=== PATIENT | female | born 2005 | race Hispanic/Latino ===

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

== ENCOUNTER 2023-10-26 18:08 | Emergency (ER) | payer OTHER ==
--- NOTE | 2023-10-26 18:12 | EDPHYS ---
Physician Documentation [facility] Name: Irene Franco Age: 17 yrs Sex: Female : 2005 Arrival Date: 10/26/2023 Time: 18:08 Bed 22 Private MD: ED Physician Omar Arango HPI: 10/25 21:56 This 17 yrs old Female presents to ER via EMS with complaints of Heat Exposure. kb 21:56 Pt is a 17 year old female who presents for heat exposure and syncope. Pt states she kb walked from [place] to [place], then got to her grandparents house and they wouldn't let her in. States she sat down on grandparents porch and woke up with her grandparents standing over her. EMS reports pt was outside in the yard when they arrived and was awake and alert. . Historical: - Allergies: 18:19 No Known Allergies; ss - Home Meds: 18:19 Unable to obtain [Active]; ss - PMHx: 18:19 Anxiety; Depressive disorder; ss - Social history:: Smoking status: unknown. ROS: 21:53 Constitutional: As per HPI kb Exam: 21:53 Constitutional: This is a well developed, well nourished patient who is awake, alert, kb and in no acute distress. Head/Face: Normocephalic, atraumatic. ENT: Moist Mucous membranes Cardiovascular: Regular rate Respiratory: Respirations even and unlabored. No increased work of breathing. Talking in full sentences Abdomen/GI: Soft, non-tender. No distention Skin: Warm, dry with normal turgor. Normal color. MS/ Extremity: Pulses equal, no cyanosis. Neurovascular intact. Full, normal range of motion. Neuro: Awake and alert, GCS 15, oriented to person, place, time, and situation. Moves all extremities. Normal gait. Vital Signs: 18:17 BP 130 / 78; Pulse 101; Resp 16; Temp 99.2(O); Pulse Ox 99% on R/A; ss MDM: 18:10 Patient medically screened. kb 21:53 Differential Diagnosis: emotional response, idiopathic syncope, vasovagal episode, kb dehydration. Data reviewed: vital signs, nurses notes. Test considered but Not performed: Labs: labs considered and ordered but pt does not want any testing done. . Historians other than the Patient: EMS: [facility]. Counseling: I had a detailed discussion with the patient and/or guardian regarding the historical points, exam findings, and any diagnostic results supporting the discharge/admit diagnosis, the need for outpatient follow up, a family practitioner, to return to the emergency department if symptoms worsen or persist or if there are any questions or concerns that arise at home. Refusal of service: The patient/guardian displays adequate decision making capability and despite a detailed discussion of alternatives, benefits, risks, and consequences refuses: all lab tests, Medications. ED course: Pt states she really does not want to be here. States she is feeling fine and just wants to go home. Pt is awake, alert and oriented x4. I recommended blood work, ekg and IV fluids, but pt declines all intervention. I stressed these interventions multiple times, but pt continues to decline. Pt educated on return precautions. . 10/25 18:11 Order name: Cardiac monitoring 10/25 18:11 Order name: EKG - Nurse/Tech 10/25 18:11 Order name: IV Saline Lock 10/25 18:11 Order name: Labs collected and sent 10/25 18:11 Order name: NPO 10/25 18:11 Order name: O2 Per Protocol 10/25 18:11 Order name: O2 Sat Monitoring 10/25 18:11 Order name: Orthostatics Administered Medications: No medications were administered Disposition Summary: 10/26/23 18:11 Discharge Ordered Notes: Location: Home kb Condition: Stable kb Diagnosis - Syncope kb - Heat exhaustion, unspecified kb Followup: kb - With: Emergency Department - When: As needed - Reason: Worsening of condition Followup: kb - With: Private Physician - When: 2 - 3 days - Reason: Recheck today's complaints, Continuance of care, Re-evaluation by your physician Discharge Instructions: - Discharge Summary Sheet kb - Heat Exhaustion kb - Preventing Heat Exhaustion, Adult kb Forms: - Medication Reconciliation Form kb - Antibiotic Education kb - Prescription Opioid Use kb - Patient Portal Instructions kb - Leadership Thank You Letter kb Signatures: Dispatcher [employer] Margoth Cisneros FNP-C FNP-Ckb Blanchard, Shelby RN RN ss Corrections: (The following items were deleted from the chart) 18:21 18:19 Allergies: Unable to obtain; ss ss : PMHx: Unable to Obtain; [facility] : PSHx: Unable to Obtain; [facility] PSHx: anxiety; [facility] PSHx: Depression; ss ss
--- NOTE | 2023-10-26 18:25 | ER ---
Nurse's Notes [facility] Name: Irene Franco Age: 17 yrs Sex: Female : 2005 Arrival Date: 10/26/2023 Time: 18:08 Bed 22 Private MD: Diagnosis: Syncope;Heat exhaustion, unspecified Presentation: 10/25 18:17 Chief complaint: EMS states: called out for unresponsive person after walking to family ss member's home from [place] to [place]. Upon EMS arrival, patient was reportedly awake and talking, but anxious. Upon arrival to ER, patient states she does not want to be here and does not want to be evaluated further. Coronavirus screen: Client denies travel out of the [place] in the last 14 days. Ebola Screen: Patient denies exposure to infectious person. Patient denies travel to an Ebola-affected area in the 21 days before illness onset. Initial Sepsis Screen: Does the patient meet any 2 criteria? No. Patient's initial sepsis screen is negative. Does the patient have a suspected source of infection? No. Patient's initial sepsis screen is negative. Risk Assessment: Do you want to hurt yourself or someone else? Patient reports no desire to harm self or others. Onset of symptoms was October 26, 2023. 18:17 Method Of Arrival: EMS: [facility] 18:17 Acuity: IRINA 3 18:17 Care prior to arrival: IV initiated. 22 GA, in the right hand. Triage Assessment: 18:19 General: Appears in no apparent distress. Behavior is cooperative. Pain: Denies pain. ss Neuro: Level of Consciousness is awake, alert, obeys commands, Oriented to person, place, time, situation. Respiratory: Airway is patent Respiratory effort is even, unlabored, Respiratory pattern is regular, symmetrical. Historical: - Allergies: 18:19 No Known Allergies; ss - Home Meds: 18:19 Unable to obtain [Active]; ss - PMHx: 18:19 Anxiety; Depressive disorder; - Social history:: Smoking status: unknown. Assessment: 18:22 Reassessment: SEE TRIAGE ASSESSMENT. ss 18:23 Reassessment: IV dc'd by EMS personnel while patient was still on stretcher in ER hallway. Vital Signs: 18:17 BP 130 / 78; Pulse 101; Resp 16; Temp 99.2(O); Pulse Ox 99% on R/A; ss ED Course: 18:10 Patient arrived in ED. kb 18:10 Margoth Andrew FNP-C is [facility]. kb 18:10 Omar Arango MD is Attending Physician. kb 18:19 Triage completed. ss 18:19 Arm band placed on right wrist. ss 18:22 No provider procedures requiring assistance completed. IV dc'd by EMS personnel. ss Administered Medications: No medications were administered Medication: 18:22 VIS not applicable for this client. ss Outcome: 18:11 Discharge ordered by . kb 18:23 Discharged to home ambulatory, ss 18:23 Condition: good 18:23 Discharge instructions given to patient, patient left prior to receiving discharge papers Instructed on discharge instructions, follow up and referral plans. Demonstrated understanding of instructions, follow-up care, 18:25 Patient left the ED. ss Signatures: Margoth Andrew FNP-C FNP-Ckb Mervat Gustafson, RN RN ss Corrections: (The following items were deleted from the chart) 18: 18:19 Allergies: Unable to obtain; ss ss 18: 18:19 PMHx: Unable to Obtain; ss ss 18: 18:19 PSHx: Unable to Obtain; ss ss 18: 18:19 PSHx: anxiety; ss ss 18: 18:19 PSHx: Depression; ss ss
[2023-10-26 18:29] VITALS: BP 130/78; TEMP 99.2; O2SAT 99
== END 2023-10-26 18:25 | disposition home or self-care (01) ==
LOC: ER 18:08
DX: R55 Syncope and collapse (principal); T67.5XXA Heat exhaustion, unspecified, initial encounter
CPT/HCPCS: 99283

== ENCOUNTER 2023-10-29 20:04 | Emergency (ER) | payer OTHER ==
[2023-10-29] MEDS ORDERED: NA CHLORIDE 0.9% 1,000 ML ONE (21:00)
[2023-10-29 21:09] LABS: Specific Gravity 1.028 (1.005-1.030); Urine Bacteria <20 /HPF (<20); Urine Bilirubin NEGATIVE (Negative); Urine Blood Trace (Negative); Urine Clarity Turbid (Clear); Urine Color Light-Yellow (Yellow); Urine Culture Reflex Order REFLEXED; Urine Glucose NEGATIVE (Negative); Urine Ketones NEGATIVE (Negative); Urine Microscopic Reflex YN ORDER UMIC; Urine Mucus 2+ /HPF (None Seen); Urine Nitrite NEGATIVE (Negative); Urine Protein NEGATIVE (Negative); Urine Urobilinogen Normal (Normal); Urine pH 5.5 (5.0-7.0)
[2023-10-29 21:14] LABS: Barbiturates NEGATIVE (NEGATIVE); Benzodiazepines NEGATIVE (NEGATIVE); Cocaine NEGATIVE (NEGATIVE); METHAMPHETAM NEGATIVE (NEGATIVE); Methadone NEGATIVE (NEGATIVE); Opiates NEGATIVE (NEGATIVE); Phencyclidine NEGATIVE (NEGATIVE); THC Cannibis POSITIVE (NEGATIVE)
[2023-10-29 21:19] LABS: Absolute Lymphocytes (CBC) 1.6 K/uL (0.7-4.9); Absolute Monocytes 0.6 K/uL (0.1-1.3); Absolute Neutrophil 6.1 K/uL (1.8-8.0); Basophils % 0.4 % (0-1.3); Eosinophils % 0.5 % (0-4.4); Hematocrit 37.2 % (36.0-45.0); Hemoglobin 12.6 g/dL (12.0-15.0); Lymphocytes % 18.7 % (15.3-44.8); MCH 27.1 pg (27.0-35.0); MCV 79.9 fL (80-100); MPV 7.1 fL (7.6-11.3); Monocytes % 7.3 % (3.3-12.3); Neutrophils % 73.1 % (41.7-73.7); Nucleated Red Blood Cells % 0.2 % (0-0); Platelets 403 thou/uL (152-406); RBC Red Blood Cell Count 4.65 M/uL (3.86-4.86); Red Cell Distribution Width 17.6 % (12.1-15.2)
[2023-10-29 21:33] LABS: PT Prothrombin Time 12.7 SECONDS (9.5-12.5); PTT, Activated Partial Thromb 33.8 SECONDS (24.3-36.9); Protime INR 1.16
[2023-10-29 21:45] LABS: Specific Gravity 1.028 (1.005-1.030)
[2023-10-29] MEDS ORDERED: CEFTRIAXONE 1000 MG/VIAL ONE (22:09)
[2023-10-29 22:10] LABS: ALT/SGPT 18 U/L (13-56); Albumin 3.9 g/dL (3.4-5.0); Alkaline Phosphatase 77 U/L (45-117); Anion Gap 8.1 mEq/L (5.0-15.0); BUN Blood Urea Nitrogen 13 mg/dL (7-18); Bicarbonate 29 mEq/L (21-32); Bilirubin Total 0.4 mg/dL (0.2-1.0); Globulin 4.1 g/dL (2.3-3.5); Glomerular Filtration Rate 128 ml/min (=/>90); Glucose Level 84 mg/dL (74-106); Potassium 4.1 mEq/L (3.5-5.1); Sodium Level 136 mEq/L (136-145)
[2023-10-29 22:13] LABS: AST/SGOT < 10 U/L (15-37); Bilirubin Direct < 0.2 mg/dL (0-0.2); Bilirubin Indirect, Calculated 0.2 mg/dL (0.2-0.8)
--- NOTE | 2023-10-29 22:20 | RAD REPORT ---
EXAM DESCRIPTION: CT - Head Brain Wo Cont - 10/29/2023 9:36 pm CLINICAL HISTORY: SEIZURE Headache, drowsiness, seizure COMPARISON: No comparisons TECHNIQUE: All CT scans are performed using dose optimization technique as appropriate and may inclu de automated exposure control or mA/KV adjustment according to patient size. FINDINGS: No intracranial hemorrhage, hydrocephalus or extra-axial fluid collection.No areas of brai n edema or evidence of midline shift. The paranasal sinuses and mastoids are clear. The calvarium is intact. IMPRESSION: No acute intracranial abnormality.
--- NOTE | 2023-10-29 22:41 | EDPHYS ---
Physician Documentation [facility] Name: Irene Franco Age: 17 yrs Sex: Female : 2005 Arrival Date: 10/29/2023 Time: 20:04 Bed 19 Private MD: HUBER Physician Omar Arango HPI: 10/28 20:38 This 17 yrs old Female presents to ER via Wheelchair with complaints of Probable nigel Seizure. 20:38 The patient presents after having a single isolated seizure, that lasted an unknown nigel period of time, with a history of multiple seizures, that last an unknown period of time. Character of seizure(s): Loss of consciousness: it is not known if the patient experienced loss of consciousness, Motor activity: generalized, shaking all over, Incontinence: none, Apnea: the patient did not experience apnea, Circulation: the patient did not experience evidence of pulse disturbance, Eye movements: are unknown. Seizure onset: the onset is not known. Context: the seizure(s) was witnessed, by a friend, occurred at a friend's home, occurred while the patient was UNK. Seizure Hx: the patient has no previous seizure history. Associated injury: The patient did not suffer any apparent associated injury. Current symptoms: Currently, the patient is not experiencing any symptoms, the patient feels back to baseline. The patient has experienced similar episodes in the past, several times. 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 - Infectious Disease History:: Denies. - Social history:: Smoking status: Reported history of juuling and/or vaping. Patient/guardian denies using alcohol, street drugs. - Family history:: not pertinent. ROS: 20:38 Constitutional: Negative for fever, chills, and weight loss, Eyes: Negative for injury, nigel pain, redness, and discharge, ENT: Negative for injury, pain, and discharge, Neck: Negative for injury, pain, and swelling, Cardiovascular: Negative for chest pain, palpitations, and edema, Respiratory: Negative for shortness of breath, cough, wheezing, and pleuritic chest pain, Abdomen/GI: Negative for abdominal pain, nausea, vomiting, diarrhea, and constipation, Back: Negative for injury and pain, : Negative for injury, bleeding, discharge, and swelling, MS/Extremity: Negative for injury and deformity, Skin: Negative for injury, rash, and discoloration, Psych: Negative for depression, anxiety, suicide ideation, homicidal ideation, and hallucinations, Allergy/Immunology: Negative for hives, rash, and allergies, Endocrine: Negative for neck swelling, polydipsia, polyuria, polyphagia, and marked weight changes, Hematologic/Lymphatic: Negative for swollen nodes, abnormal bleeding, and unusual bruising, 20:38 Neuro: Positive for seizure activity, Exam: 20:38 Constitutional: This is a well developed, well nourished patient who is awake, alert, nigel and in no acute distress. Head/Face: Normocephalic, atraumatic. Eyes: Pupils equal round and reactive to light, extra-ocular motions intact. Lids and lashes normal. Conjunctiva and sclera are non-icteric and not injected. Cornea within normal limits. Periorbital areas with no swelling, redness, or edema. ENT: Nares patent. No nasal discharge, no septal abnormalities noted. Tympanic membranes are normal and external auditory canals are clear. Oropharynx with no redness, swelling, or masses, exudates, or evidence of obstruction, uvula midline. Mucous membranes moist. Neck: Trachea midline, no thyromegaly or masses palpated, and no cervical lymphadenopathy. Supple, full range of motion without nuchal rigidity, or vertebral point tenderness. No Meningismus. Chest/axilla: Normal chest wall appearance and motion. Nontender with no deformity. No lesions are appreciated. Cardiovascular: Regular rate and rhythm with a normal S1 and S2. No gallops, murmurs, or rubs. Normal PMI, no JVD. No pulse deficits. Respiratory: Lungs have equal breath sounds bilaterally, clear to auscultation and percussion. No rales, rhonchi or wheezes noted. No increased work of breathing, no retractions or nasal flaring. Abdomen/GI: Soft, non-tender, with normal bowel sounds. No distension or tympany. No guarding or rebound. No evidence of tenderness throughout. Back: No spinal tenderness. No costovertebral tenderness. Full range of motion. Skin: Warm, dry with normal turgor. Normal color with no rashes, no lesions, and no evidence of cellulitis. MS/ Extremity: Pulses equal, no cyanosis. Neurovascular intact. Full, normal range of motion. Neuro: Awake and alert, GCS 15, oriented to person, place, time, and situation. Cranial nerves II-XII grossly intact. Motor strength 5/5 in all extremities. Sensory grossly intact. Cerebellar exam normal. Normal gait. Psych: Awake, alert, with orientation to person, place and time. Behavior, mood, and affect are within normal limits. 20:38 ECG was reviewed by the Attending Physician. 21:37 ECG was reviewed by the Attending Physician. [facility] Vital Signs: 20:17 BP 122 / 79; Pulse 96; Resp 20; Temp 99.2; Pulse Ox 98% ; Weight 63.5 kg; Height 5 ft. bm8 0 in. ; Pain 0/10; 21:00 BP 117 / 67; Pulse 100; Resp 16; Pulse Ox 99% on R/A; me1 21:00 BP 118 / 70; Pulse 95; Resp 16; Pulse Ox 100% ; me1 21:00 BP 113 / 71; Pulse 92; Resp 16; Pulse Ox 99% on R/A; me1 20:17 Body Mass Index 27.34 (63.50 kg, 152.4 cm) - Percentile 87.8 % bm8 20:17 Pain Scale: Adult bm8 Katerin Coma Score: 20:19 Eye Response: spontaneous(4). Motor Response: obeys commands(6). Verbal Response: bm8 oriented(5). Total: 15. MDM: 20:14 Patient medically screened. [facility] 20:41 Differential diagnosis: drug overdose, cardiac arrhythmia, seizure. Data reviewed: [facility] vital signs, nurses notes, lab test result(s), EKG, radiologic studies, CT scan. Consideration of Admission/Observation Escalation of care including admission/observation considered. I considered the following discharge prescriptions or medication management in the emergency department Medications were administered in the Emergency Department. See MAR. Independent interpretation of the following test(s) in the Emergency Department EKG: See my EKG interpretation above. Test considered but Not performed: MRI: NO MRI , NO EEG. Care significantly affected by the following chronic conditions: SUBSTANCE ABUSE, ANXIETY. Counseling: I had a detailed discussion with the patient and/or guardian regarding the historical points, exam findings, and any diagnostic results supporting the discharge/admit diagnosis, lab results, radiology results, the need for outpatient follow up, for definitive care, a family practitioner, a neurologist, a psychiatrist. 10/28 20:19 Order name: Acetaminophen; Complete Time: 22:40 [facility] 10/28 20:19 Order name: Basic Metabolic Panel; Complete Time: 22:40 [facility] 10/28 20:19 Order name: CBC with Diff; Complete Time: 21:52 [facility] 10/28 20:19 Order name: ETOH Level; Complete Time: 22:40 [facility] 10/28 20:19 Order name: Hepatic Function; Complete Time: 22:40 [facility] 10/28 20:19 Order name: PT-INR; Complete Time: 21:52 [facility] 10/28 20:19 Order name: Test, Urine; Complete Time: 21:52 [facility] 10/28 20:19 Order name: Ptt, Activated; Complete Time: 21:52 [facility] 10/28 20:19 Order name: Salicylate; Complete Time: 22:40 [facility] 10/28 20:19 Order name: Urinalysis w/ reflexes; Complete Time: 21:52 [facility] 10/28 20:19 Order name: Urine Drug Screen; Complete Time: 21:52 [facility] 10/28 21:13 Order name: Urine Culture [facility] 10/28 20:19 Order name: CT Head Brain wo Cont; Complete Time: 22:40 [facility] 10/28 20:19 Order name: EKG; Complete Time: 20:20 [facility] 10/28 20:19 Order name: EKG - Nurse/Tech; Complete Time: 21:26 [facility] 10/28 20:19 Order name: IV Saline Lock; Complete Time: 20:55 [facility] 10/28 20:19 Order name: Labs collected and sent; Complete Time: 20:55 [facility] 10/28 20:19 Order name: Suicide Precautions; Complete Time: 20:55 [facility] 10/28 20:19 Order name: Suicide Screening ([place]); Complete Time: 20:55 [facility] 10/28 20:19 Order name: Seizure Precautions; Complete Time: 21:13 [facility] EC:37 Rate is 89 beats/min. Rhythm is regular. QRS [place] is Normal. MA interval is normal. QRS nigel interval is normal. QT interval is normal. No Q waves. T waves are Normal. No ST changes noted. Clinical impression: Normal ECG and No evidence of ischemia. Interpreted by me. Reviewed by me. Administered Medications: 20:33 Not Given (Patient Refused): ns 0.9% 1000 ml IV at 1 bolus Per protocol; 1000 mL bolus me1 21:04 Drug: NS 0.9% IV 1000 ml IV at 1 bolus Per protocol; 1000 mL bolus Route: IV; Rate: 1 me1 bolus; Site: right antecubital; 22:58 Follow up: Response: No adverse reaction; IV Status: Completed infusion; IV Intake: me1 1000ml 22:12 Drug: Rocephin IV 1 grams IV at bolus once; Given slow IV push per pharmacy me1 instructions Route: IV; Rate: bolus; Site: right antecubital; 22:58 Follow up: Response: No adverse reaction; IV Status: Completed infusion me1 Disposition Summary: 10/29/23 22:40 Discharge Ordered Notes: Location: Home nigel Problem: new nigel Symptoms: have improved nigel Condition: Stable nigel Diagnosis - Other seizures nigel - Adverse effect of unspecified drugs, medicaments and biological substances - nigel PERCOCET - Adverse effect of other narcotics - ABUSE nigel - UTI/ Urinary tract infection, site not specified nigel Followup: nigel - With: Private Physician - When: 2 - 3 days - Reason: Recheck today's complaints, Continuance of care, Re-evaluation by your physician Followup: nigel - With: Good Li MD - When: 2 - 3 days - Reason: Recheck today's complaints, Re-evaluation by your physician Followup: nigel - With: Soto Gonzalez MD - When: 2 - 3 days - Reason: Recheck today's complaints, Re-evaluation by your physician Discharge Instructions: - Discharge Summary Sheet nigel - Substance Use Disorder nigel - Seizure, Adult nigel - Urinary Tract Infection, Adult nigel - Urinary Tract Infection, Adult, [id number] nigel - Seizure, Adult, [id number] nigel - Epilepsy, [id number] nigel - Substance Use Disorder and Mental Illness nigel - Supporting Someone With Substance Use Disorder [facility] Forms: - Medication Reconciliation Form nigel - Antibiotic Education nigel - Prescription Opioid Use nigel - Patient Portal Instructions nigel - Leadership Thank You Letter nigel Prescriptions: - Cipro 250 mg Oral tablet - take 1 tablet ORAL route every 12 hours; 14 tablet; Refills: 0, Product nigel Selection Permitted Signatures: Dispatcher [employer] Omar Post MD MD cha Eddleman, Michelle, RN RN me1 Donny Daily RN RN bm8
--- NOTE | 2023-10-29 22:41 | ER ---
Nurse's Notes [facility] Name: Irene Franco Age: 17 yrs Sex: Female : 2005 Arrival Date: 10/29/2023 Time: 20:04 Bed 19 Private MD: Diagnosis: Other seizures;Adverse effect of unspecified drugs, medicaments and biological substances-PERCOCET;Adverse effect of other narcotics-ABUSE;UTI/ Urinary tract infection, site not specified Presentation: 10/28 20:17 Chief complaint: Patient states: I dont have any pain but i think i got to hot and just bm8 fell out. i think my grand parents are trying to kick me out. Parent and/or Guardian states: I think she is taking something, she had two possible seizures today where she was twitching really bad and it last about 2 mins.. we are concerned she might want to hurt herself. Coronavirus screen: Client denies travel out of the [place] in the last 14 days. At this time, the client does not indicate any symptoms associated with coronavirus-19. Ebola Screen: Patient negative for fever greater than or equal to 101.5 degrees Fahrenheit, and additional compatible Ebola Virus Disease symptoms Patient denies exposure to infectious person. Patient denies travel to an Ebola-affected area in the 21 days before illness onset. No symptoms or risks identified at this time. Initial Sepsis Screen: Does the patient meet any 2 criteria? No. Patient's initial sepsis screen is negative. Does the patient have a suspected source of infection? No. Patient's initial sepsis screen is negative. Risk Assessment: Do you want to hurt yourself or someone else? Patient reports no desire to harm self or others. Onset of symptoms is unknown. 20:17 Method Of Arrival: Wheelchair bm8 20:17 Acuity: IRINA 3 bm8 Triage Assessment: 20:19 General: Appears in no apparent distress. comfortable, well groomed, well developed, bm8 Behavior is calm, cooperative, appropriate for age. Pain: Denies pain. EENT: No deficits noted. No signs and/or symptoms were reported regarding the EENT system. Neuro: No deficits noted. Level of Consciousness is awake, alert, obeys commands, Oriented to person, place, time, situation, Appropriate for age Electrical Equipment Assembler are equal bilaterally Moves all extremities. Full function Speech is normal, Facial symmetry appears normal. Cardiovascular: No deficits noted. Capillary refill < 3 seconds Patient's skin is warm and dry. Respiratory: Airway is patent Respiratory effort is even, unlabored, Respiratory pattern is regular, symmetrical. GI: Abdomen is. GI: No signs and/or symptoms were reported involving the gastrointestinal system. Abdomen is flat, non-distended. : : No signs and/or symptoms were reported regarding the genitourinary system. Derm: No signs and/or symptoms reported regarding the dermatologic system. Musculoskeletal: No signs and/or symptoms reported regarding the musculoskeletal system. 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 - Infectious Disease History:: Denies. - Social history:: Smoking status: Reported history of juuling and/or vaping. Patient/guardian denies using alcohol, street drugs. - Family history:: not pertinent. Screenin:27 [facility] ED Fall Risk Assessment (Adult) History of falling in the last 3 months, me1 including since admission No falls in past 3 months (0 pts) Confusion or Disorientation No (0 pts) Intoxicated or Sedated No (0 pts) Impaired Gait No (0 pts) Mobility Assist Device Used No (0 pt) Altered Elimination No (0 pt) Score/Fall Risk Level 0 - 2 = Low Risk Maintained a safe environment, Provided non-skid footwear, Hourly rounding (assess needs \T\ fall precautionary measures) done. Abuse screen: Denies threats or abuse. Nutritional screening: No deficits noted. Tuberculosis screening: No symptoms or risk factors identified. Assessment: 20:32 General: Patient refusing all medical treatment at this time, Dr Arango notified. . me1 20:33 General: Grandfather talked to patient and she agreed to stay. Dr Arango notified. . me1 21:27 General: Appears comfortable, well developed, well nourished, Behavior is cooperative, me1 appropriate for age, quiet, Reports states that she took percocet today, that she has been taking them daily for 3 years now and that she took some this morning last. Pain: Denies pain. Neuro: Level of Consciousness is awake, alert, obeys commands, Oriented to person, place, time, situation, Appropriate for age. 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 Cardiovascular: Patient's skin is warm and dry. Respiratory: Airway is patent Respiratory effort is even, unlabored, Respiratory pattern is regular, symmetrical. GI: No signs and/or symptoms were reported involving the gastrointestinal system. : No signs and/or symptoms were reported regarding the genitourinary system. EENT: No signs and/or symptoms were reported regarding the EENT system. Derm: Skin is intact, is healthy with good turgor, Skin is pink, warm \T\ dry. Musculoskeletal: No signs and/or symptoms reported regarding the musculoskeletal system. Vital Signs: 20:17 BP 122 / 79; Pulse 96; Resp 20; Temp 99.2; Pulse Ox 98% ; Weight 63.5 kg; Height 5 ft. bm8 0 in. ; Pain 0/10; 21:00 BP 117 / 67; Pulse 100; Resp 16; Pulse Ox 99% on R/A; me1 21:00 BP 118 / 70; Pulse 95; Resp 16; Pulse Ox 100% ; me1 21:00 BP 113 / 71; Pulse 92; Resp 16; Pulse Ox 99% on R/A; me1 20:17 Body Mass Index 27.34 (63.50 kg, 152.4 cm) - Percentile 87.8 % bm8 20:17 Pain Scale: Adult bm8 [place] Coma Score: 20:19 Eye Response: spontaneous(4). Motor Response: obeys commands(6). Verbal Response: bm8 oriented(5). Total: 15. ED Course: 20:04 Patient arrived in ED. [email or web address] 20:14 Omar Arango MD is Attending Physician. nigel 20:16 Donny Daily, DINA is Primary Nurse. bm8 20:19 Triage completed. bm8 20:19 Arm band placed on right wrist. Patient placed in an exam room, in a wheelchair, on bm8 cardiac nurse, on pulse oximetry. 20:46 Urinalysis w/ reflexes Sent. me1 20:46 Urine Drug Screen Sent. me1 20:46 Urine collected: clean catch specimen, cloudy. me1 20:55 Acetaminophen Sent. me1 20:55 Basic Metabolic Panel Sent. me1 20:55 CBC with Diff Sent. me1 20:55 ETOH Level Sent. me1 20:55 Hepatic Function Sent. me1 20:55 PT-INR Sent. me1 20:56 Test, Urine Sent. me1 20:56 Ptt, Activated Sent. me1 20:56 Salicylate Sent. me1 20:56 Urinalysis w/ reflexes Sent. me1 20:56 Urine Drug Screen Sent. me1 20:56 Initial lab(s) drawn, by nd, sent to lab. Inserted saline lock: 22 gauge in right nd1 antecubital area, using aseptic technique. 21:27 Patient has correct armband on for positive identification. Bed in low position. Call nd1 light in reach. Side rails up X2. Seizure precautions initiated. Provided Education on: POC. Verbalized understanding. . 21:27 EKG done, by ED staff, reviewed by Omar Arango MD. me1 21:27 No provider procedures requiring assistance completed. me1 21:38 CT Head Brain wo Cont In Process Unspecified. EDMS 22:40 Good Li MD is Referral Physician. nigel 22:40 Soto Gonzalez MD is Referral Physician. [facility] 22:55 IV discontinued, intact, bleeding controlled, No redness/swelling at site. Pressure me1 dressing applied. Administered Medications: 20:33 Not Given (Patient Refused): ns 0.9% 1000 ml IV at 1 bolus Per protocol; 1000 mL bolus me1 21:04 Drug: NS 0.9% IV 1000 ml IV at 1 bolus Per protocol; 1000 mL bolus Route: IV; Rate: 1 me1 bolus; Site: right antecubital; 22:58 Follow up: Response: No adverse reaction; IV Status: Completed infusion; IV Intake: me1 1000ml 22:12 Drug: Rocephin IV 1 grams IV at bolus once; Given slow IV push per pharmacy me1 instructions Route: IV; Rate: bolus; Site: right antecubital; 22:58 Follow up: Response: No adverse reaction; IV Status: Completed infusion me1 Medication: 21:27 VIS not applicable for this client. me1 Intake: 22:58 IV: 1000ml; Total: 1000ml. me1 Outcome: 22:40 Discharge ordered by . nigel 22:55 Discharged to home ambulatory, with family, me1 22:55 Condition: stable 22:55 Discharge instructions given to patient, family, Instructed on discharge instructions, follow up and referral plans. medication usage, Demonstrated understanding of instructions, follow-up care, medications, Prescriptions given X , :58 Patient left the ED. me1 Signatures: Dispatcher [employer] EDTX Omar Arango MD MD cha Jeffries, Jennifer [email or web address] Shruthi Ramirez, DINA RN nd1 Donny Daily RN RN bm8
[2023-10-29 23:08] VITALS: BP 113/71; TEMP 99.2; O2SAT 99
--- NOTE | 2023-10-30 14:53 | EKG ---
Test Date: 2023-10-29 Test Time: 21:20:08 Group Insurance Special Agent: MEASUREMENT RESULTS: Intervals: Rate: 89 AL: 168 QRSD: 80 QT: 362 QTc: 440 Dumont: P: 53 AL: 168 QRS: 79 T: 65 INTERPRETIVE STATEMENTS: Normal sinus rhythm Normal ECG No previous ECG available for comparison Electronically Signed On 10-30-23 14:50:50 CDT by Cy Godwin
== END 2023-10-29 22:58 | disposition home or self-care (01) ==
LOC: ER 20:04
DX: R56.9 Unspecified convulsions (principal); T40.2X5A Adverse effect of other opioids, initial encounter; N39.0 Urinary tract infection, site not specified; T40.695A Adverse effect of other narcotics, initial encounter
CPT/HCPCS: 96365; 96361; 93005; 87088; 85025; 81001; 87086; 80048; 36415; 81025; 85610; 80076; 85730; 80307; 70450; 99284; 80143; 80179; 82077; J7030; J0696

== ENCOUNTER 2023-12-28 18:44 | Emergency (ER) | payer OTHER ==
--- NOTE | 2023-12-28 19:13 | EDPHYS ---
Physician Documentation [facility] Name: Irene Franco Age: 18 yrs Sex: Female : 2005 Arrival Date: 12/28/2023 Time: 18:44 Bed 4 Private MD: ED Physician Omar Arango HPI: 12/27 18:55 This 18 yrs old Female presents to ER via EMS with complaints of percocet withdrawal. cp 18:55 The patient presents to the emergency department with nausea, that is moderate, cp vomiting, that is intermittent, diarrhea, that is intermittent. Onset: The symptoms/episode began/occurred today. Possible causes: withdrawal from taking "Percocet". 18:55 Associated signs and symptoms: Pertinent negatives: fever, GI bleeding. Severity of cp symptoms: in the emergency department the symptoms are unchanged despite EMS interventions. Historical: - Allergies: 18:54 No Known Allergies; me1 - PMHx: 18:54 Anxiety; depressive disorder; me1 - PSHx: 18:54 None; me1 - Immunization history:: Adult Immunizations up to date. - Infectious Disease History:: Denies. - Social history:: Smoking status: Reported history of juuling and/or vaping. ROS: 19:00 Constitutional: Negative for fever, cp 19:00 ENT: Negative for drainage from ear(s), ear pain, sore throat, difficulty swallowing, cp difficulty handling secretions, 19:00 Cardiovascular: Negative for chest pain, 19:00 Respiratory: Negative for cough, shortness of breath, wheezing, 19:00 Abdomen/GI: Positive for nausea and vomiting, diarrhea, Negative for constipation, 19:00 Neuro: Negative for altered mental status, headache, 19:00 All other systems are negative, Exam: 19:03 Constitutional: The patient appears in no acute distress, alert, awake, non-toxic, well cp developed, well nourished, uncomfortable, 19:03 Head/Face: Normocephalic, atraumatic. cp 19:03 Eyes: Periorbital structures: appear normal, Pupils: equal, round, and reactive to light and accomodation, Extraocular movements: intact throughout, Lids and lashes: appear normal, bilaterally, 19:03 ENT: External ear(s): are unremarkable, Nose: is normal, Mouth: Lips: moist, Oral mucosa: moist, Posterior pharynx: Airway: no evidence of obstruction, patent, 19:03 Chest/axilla: Inspection: normal, 19:03 Cardiovascular: Rate: tachycardic, 19:03 Respiratory: the patient does not display signs of respiratory distress, Respirations: normal, no use of accessory muscles, no retractions, labored breathing, is not present, Breath sounds: are clear throughout, no decreased breath sounds, no stridor, no wheezing, 19:03 Abdomen/GI: Inspection: abdomen appears normal, Palpation: abdomen is soft and non-tender, in all quadrants, 19:03 Neuro: Orientation: to person, place \\T\\ time. Mentation: is normal, Motor: moves all fours, strength is normal, Gait: is steady, Vital Signs: 18:51 BP 127 / 71; Pulse 103; Resp 16; Temp 97.7; Pulse Ox 98% ; Weight 63.5 kg; Height 5 ft. me1 4 in. ; 18:51 Body Mass Index 24.03 (63.50 kg, 162.56 cm) me1 MDM: 18:50 Patient medically screened. cp 19:12 Data reviewed: vital signs, nurses notes. cp 19:12 Differential diagnosis: gastritis, viral gastroenteritis, gastroenteritis, dehydration, cp electrolyte abnormality. Refusal of service: The patient/guardian displays adequate decision making capability and despite a detailed discussion of alternatives, benefits, risks, and consequences refuses: all lab tests. ED course: vss. patient requesting discharge to home. 12/27 18:54 Order name: IV Saline Lock cp 12/27 18:54 Order name: Labs collected and sent cp Administered Medications: No medications were administered Disposition Summary: 12/28/23 19:13 Discharge Ordered Notes: Location: Home cp Problem: new cp Symptoms: have improved cp Condition: Stable cp Diagnosis - Nausea with vomiting, unspecified cp - Diarrhea, unspecified cp - Opioid use, unspecified with withdrawal cp Followup: cp - With: Emergency Department - When: As needed - Reason: Worsening of condition Discharge Instructions: - Discharge Summary Sheet cp - Food Choices to Help Relieve Diarrhea, Adult cp - Diarrhea, Adult cp - Opioid Withdrawal cp - Nausea and Vomiting, Adult cp - Opioid Use Disorder cp Forms: - Medication Reconciliation Form cp - Antibiotic Education cp - Prescription Opioid Use cp - Patient Portal Instructions cp - Leadership Thank You Letter cp Addendum: 01/04/2024 01:42 Co-signature as Attending Physician, Omar Arango MD I agree with the assessment and c jones plan of care. Signatures: Dispatcher [employer] Omar Post MD MD cha Page, Corey, PA PA cp Eddleman, Michelle, RN RN me1
--- NOTE | 2023-12-28 19:13 | ER ---
Nurse's Notes [facility] Name: Irene Franco Age: 18 yrs Sex: Female : 2005 Arrival Date: 12/28/2023 Time: 18:44 Bed 4 Private MD: Diagnosis: Nausea with vomiting, unspecified;Diarrhea, unspecified;Opioid use, unspecified with withdrawal Presentation: 12/27 18:51 Chief complaint: EMS states: toned out for percocet withdrawal. c/o body aches, n/v me1 unable to keep food down. Last used 4 days ago. Coronavirus screen: Vaccine status: Patient reports being unvaccinated. Ebola Screen: No symptoms or risks identified at this time. Initial Sepsis Screen: Does the patient meet any 2 criteria? No. Patient's initial sepsis screen is negative. Does the patient have a suspected source of infection? No. Patient's initial sepsis screen is negative. Risk Assessment: Do you want to hurt yourself or someone else? Patient reports no desire to harm self or others. Onset of symptoms was December 24, 2023. 18:51 Method Of Arrival: EMS: [place] [id number] 18:51 Acuity: IRINA 4 me1 Triage Assessment: 18:54 General: Appears uncomfortable, ill, unkempt, well developed, well nourished, Behavior me1 is cooperative, appropriate for age, anxious, restless. Pain: Complains of pain in generalized Pain does not radiate. Pain currently is 7 out of 10 on a pain scale. Quality of pain is described as aching, Pain began gradually, 2-3 days ago. Is continuous. EENT: No signs and/or symptoms were reported regarding the EENT system. Neuro: Level of Consciousness is awake, alert, obeys commands, Oriented to person, place, time, situation, Appropriate for age. Cardiovascular: Patient's skin is warm and dry. Respiratory: Airway is patent Trachea midline Respiratory effort is even, unlabored, Respiratory pattern is regular, symmetrical. GI: No signs and/or symptoms were reported involving the gastrointestinal system. : No signs and/or symptoms were reported regarding the genitourinary system. Musculoskeletal: No signs and/or symptoms reported regarding the musculoskeletal system. 18:54 Derm: Skin is intact, is healthy with good turgor, Skin is diaphoretic, Skin is pale. me1 Historical: - Allergies: 18:54 No Known Allergies; me1 - PMHx: 18:54 Anxiety; depressive disorder; me1 - PSHx: 18:54 None; me1 - Immunization history:: Adult Immunizations up to date. - Infectious Disease History:: Denies. - Social history:: Smoking status: Reported history of juuling and/or vaping. Screenin:58 [facility] ED Fall Risk Assessment (Adult) History of falling in the last 3 months, me1 including since admission No falls in past 3 months (0 pts) Confusion or Disorientation No (0 pts) Intoxicated or Sedated No (0 pts) Impaired Gait No (0 pts) Mobility Assist Device Used No (0 pt) Altered Elimination No (0 pt) Score/Fall Risk Level 0 - 2 = Low Risk Maintained a safe environment, Provided non-skid footwear, Hourly rounding (assess needs \T\ fall precautionary measures) done. Abuse screen: Denies threats or abuse. Nutritional screening: No deficits noted. Tuberculosis screening: No symptoms or risk factors identified. Assessment: 18:58 General: See triage assessment. . me1 19:17 Reassessment: patient wanting to leave AMA prior to shift change, Omar LACY was al5 notified and patient was discharged home. patient AAOx4, ambulatory, resp- reg, even, unlabored, skin WNL, no c/o sob or cp. Vital Signs: 18:51 BP 127 / 71; Pulse 103; Resp 16; Temp 97.7; Pulse Ox 98% ; Weight 63.5 kg; Height 5 ft. me1 4 in. ; 18:51 Body Mass Index 24.03 (63.50 kg, 162.56 cm) me1 ED Course: 18:50 Patient arrived in ED. me1 18:50 Omar Kelly PA is PHCP. cp 18:50 Omar Arango MD is Attending Physician. cp 18:54 Triage completed. me1 18:54 Arm band placed on Patient placed in an exam room. me1 18:58 Patient has correct armband on for positive identification. Bed in low position. Call me1 light in reach. Side rails up X2. Provided Education on: POC. Verbalized understanding. . Client placed on continuous cardiac and pulse oximetry monitoring. NIBP monitoring applied. Pulse ox on. NIBP on. 18:58 No provider procedures requiring assistance completed. me1 19:17 Abigail Hernandez, RN is Primary Nurse. al5 Administered Medications: No medications were administered Medication: 18:58 VIS not applicable for this client. me1 Outcome: 19:13 Discharge ordered by . cp 19:19 Patient left the ED. al5 Signatures: Omar Kelly PA PA cp Eddleman, Michelle, RN RN me1 Abigail Hernandez RN RN al5 Corrections: (The following items were deleted from the chart) 18:57 18:54 Derm: Skin is intact, is healthy with good turgor, Skin is pink, warm \T\ dry. me1 me1
[2023-12-28 19:23] VITALS: BP 127/71; TEMP 97.7; O2SAT 98
== END 2023-12-28 19:19 | disposition home or self-care (01) ==
LOC: ER 18:44
DX: F11.93 Opioid use, unspecified with withdrawal (principal); R11.2 Nausea with vomiting, unspecified; R19.7 Diarrhea, unspecified; F17.290 Nicotine dependence, other tobacco product, uncomplicated
CPT/HCPCS: 99283

== ENCOUNTER 2024-09-24 04:46 | Emergency (ER) | payer OTHER ==
--- OUTSIDE RECORDS SUMMARY | 2024-09-24 04:52 | XMS REPORT | Continuity of Care Document ---
Author Name Unknown Address [address] [facility] [address] [place] [address] [facility] Address [address] [facility] [address] [place] [address] Care Team Prov[address] Care [address] Service Locksmith Name Role Phone PCP, PATIENT DOES NOT HAVE A Primary Care Physic jeremy Unavailable MARK JOHANSEN Attending Clinician Unavailable MARK JOHANSEN Attending Clinician Unavailable Mark Johansen MD Attending Clinician [phone] Jazlyn GLOVER, Geovanna Kaiser Attending Clinician [phone] MINA MOTT Attending Clinician Unavail able Akinhayden WHMina AVILA Attending Clinician + BE GUARDADO Attending Clinician Un available Ultrasound, Ang-Mfm Attending Clinician Unavaila ble Be Guardado MD Attending Clinician Doctor Unassigned, [place] Attending Clinician U navailable CHRISTYOMAR ORR Attending Clinician Unavailable CHRISTYABHINAV ORRY Attending Clinician Unavailable Christy Omar CARRANZA Attending Clinician [phone] HOLLAND STEVENS Attending Clinician Unavailable HOLLAND STEVENS Attending Clinician Unavailable Holland Stevens DO Attending Clinician LEIA DONIS Attending Clinician Unavailable LEIA DONIS Attending Clinician Unavailable Estiven PEREYRA, Adam Barth Attending Clinician Leia Donis MD Attending Clinician [phone] CURT WYATT Attending Clinician Unavailable EDYTA WATSON Attending Clinician Unav ailable EDYTA WATSON Attending Clinician Unav ailable Akinsipe Mina LÓPEZ Attending Clinician + Mendoza Marin MD Attending Clinician Charanjit Fuentes MD Attending Clinician [phone] [place] YAN Attending Clinician Unavailable Indiana Yan MD Attending Clinician [phone], [facility]ending [facility]ician Unavailab BETO Sepulveda Attending Clinician Unavaila larry Doctor Unassigned, [place] Attending Clinician U navailjossue Solitario NP, Keyla Attending Clinician [phone] KEYLA SOLITARIO Attending Clinician UnavailFeli Nails MD Attending Clinician [phone] Madi Hayes Attending Clinician UnavailFELI Baez Attending Clinician Unavailable TOBIN CHEN Attending Clinician Orin Kruger Attending Clinician [phone] MARK JOHANSEN Admitting Clinician Unavailable Mark Johansen MD Admitting Clinician [phone] EDYTA WATSON Admitting Clinician Unav ailable Payers Payer Name Policy Type Policy Number Effective Date Expirati on Date Source [facility] [id number] 2013 00:00:00 [employer] [id number] 2024 00:00:00 [employer] [id number] 2023 00:00:00 2023 00:00:00 Problems Condition Name Condition Details Condition Category Status Onset Date Resolution Date Last Treatment Date Treating Clinician Comments Source Mild pre-eclamp chloe in third trimester Mild pre-eclamp chloe in third trimester Disease Active 4-29 00:00: 00 [facility] Anemia, antepartum , third trimester Anemia, antepartum , third trimester Disease Active 0 4-29 00:00: 00 [facility] Liveborn , of [place] , born in hospital by vaginal delivery Liveborn infant, of [place] , born in hospital by vaginal delivery Disease Active 0 4-28 00:00: 00 [facility] Normal labor Normal labor Disease Active 0 4-28 00:00: 00 [facility] with adoption planned, antepartum with adoption planned, antepartum Disease Active 1-09 00:00: 00 [facility]mate in correction al facility Inmate in correction al facility Disease Active 0 9-17 00:00: 00 [facility] Short interval between pregnancie s affecting , antepartum Short interval between pregnancie s affecting , antepartum Disease Active 9-17 00:00: 00 Overview: Formattin g of this note might be different from the original. 1st baby in 05/2023 [facility] Multiparit y Multiparit y Disease Active 9-17 00:00: 00 [facility] 39 weeks gestation of 39 weeks gestation of Disease Active 1-24 00:00: 00 [facility] Supervisio n of high-risk with insufficie nt care Supervisio n of high-risk with insufficie nt care Disease Active 2022-05 0 00:00: 00 [facility] Marijuana use Marijuana use Disease Active 2022-05 0 00:00: 00 Overview: Formattin g of this note might be different from the original. Reports last used 3day ago [facility] Herpes infection in Herpes infection in Disease Active 2022-05 0 00:00: 00 Overview: Formattin g of this note might be different from the original. suppressi on at 36 weeks [facility] Other depression Other depression Disease Active 2022-05 0- 00:00: 00 Overview: Formattin g of this note might be different from the original. Reports not SI/HI [facility] History of marijuana use History of marijuana use Disease Active 2022-05 0 00:00: 00 Overview: Formattin g of this note might be different from the original. Reports last used 3day ago [facility] Positive GBS test Positive GBS test Disease Resolve d 1-26 00:00: 00 2024-01-30 00:00:00 2024-01-30 07:59:37 [facility] 38 weeks gestation of 38 weeks gestation of Disease Resolve d 1-24 00:00: 00 2024-01-30 00:00:00 2024-01-30 08:01:29 [facility] Herpes simplex viral infection Herpes simplex viral infection Disease Resolve d 3-18 00:00: 00 2024-01-30 00:00:00 2024-01-30 08:01:26 [facility] Other general counseling and advice for contracept juliocesar management Other general counseling and advice for contracept juliocesar management Disease Resolve d 7-07 00:00: 00 2023-02-20 00:00:00 2023-02-20 14:26:08 [facility] Allergies, Adverse Reactions, Alerts Allergy Name Allergy Type Status Severity Reaction(s) Onset Date Inactive Date Treating Clinician Comments Source NO KNOWN ALLERGIE S Drug Class Active [facility] Social History Social Habit Start Date Stop Date Quantity Comments Source ASSERTION 2023-12-20 00:00:00 Not [facility] intake 2024-09-10 00:00:00 2024-09-10 00:00:00 Current drinker of alcohol (finding) [facility] History of Social function 2024-01-30 00:00:00 2024-01-30 00:00:00 [facility] Alcohol intake 2023-06-07 00:00:00 2023-06-07 00:00:00 Current drinker of alcohol (finding) [facility] Tobacco use and exposure 2023-06-07 00:00:00 2023-06-07 00:00:00 Smokeless tobacco non-user [facility] Exposure to SARS-CoV-2 (event) 2021-10-02 00:00:00 2021-10-12 09:52:00 Not sure [facility] Sex assigned at 2003 00:00:00 2005 00:00:00 [facility] Smoking Status Start Date Stop Date Source Never smoked tobacco [facility] Medications Ordered Medication Name Filled Medication Name Start Date Stop Date Current Medication? Ordering Clinician Indication Dosage Frequency Signature (SIG) Comments Components Source labetaloL (NORMODYNE) tablet 100 mg labetaloL (NORMODYNE) tablet 100 mg 09-10 22:45: 00 Yes 100mg 100 mg, Oral, Q12H, First dose on Mon09/10/24 at 1745, Until Discontinu ed, Routine [facility] [id number] fum-folic () tablet 1 tablet [id number] fum-folic () tablet 1 tablet 09-10 14:00: 00 Yes 1{tbl} 1 tablet, Oral, DAILY, First dose on Mon09/10/24 at 0900, Until Discontinu ed, Routine [facility] ferrous sulfate tablet 325 mg ferrous sulfate tablet 325 mg 09-10 13:00: 00 Yes 325mg 325 mg, Oral, BID, First dose on Mon09/10/24 at 0800, Until Discontinu ed, Routine [facility] cefTRIAXone (ROCEPHIN) 500 mg in lidocaine 1% (PF) (XYLOCAINE) IM syringe cefTRIAXone (ROCEPHIN) 500 mg in lidocaine 1% (PF) (XYLOCAINE) IM syringe 09-10 04:00: 00 09-10 04:35 :00 Yes 500mg Intramuscu lar, ONCE, 1 dose, On Mon09/09/24 at 2300, 1.43 mL, Reason for Anti-Infec tive: Documented Infection, Documented Infection Site: Other, Other site: Vagina, Duration of therapy: Once (ED) [facility] oxyCODONE immediate release tablet 5 mg 09-10 02:57: 28 Yes 5mg 5 mg, Oral, Q6HPRN, Starting on Mon09/09/24 at 2157, Until Discontinu ed, Routine, Pain (scale 7-10), natural resources faculty member approving Restricted medication : MARK JOHANSEN [facility] ibuprofen (MOTRIN) tablet 800 mg 09-10 02:55: 51 Yes 800mg 800 mg, Oral, Q8HPRN, Starting on Mon09/09/24 at 2155, Until Discontinu ed, Routine, Alternate with Tylenol for pain scale 4-6 if ordered [facility] acetaminoph en (TYLENOL) tablet 1,000 mg 09-10 02:55: 50 Yes 1000mg 1,000 mg, Oral, Q8HPRN, Starting on Mon09/09/24 at 2155, Until Discontinu ed, Routine, Alternate with ibuprofen for pain scale 4-6 if ordered [facility] diphenhydrA MINE (BENADRYL) tablet 25 mg 09-10 02:54: 30 Yes 25mg 25 mg, Oral, Q6HPRN, Starting on Mon09/09/24 at 2154, Until Discontinu ed, Routine, Sleep, Itching [facility] ondansetron (ZOFRAN (PF)) injection 4 mg 09-10 02:54: 30 Yes 4mg 4 mg, Slow IV Push, Q8HPRN, Starting on Mon09/09/24 at 2154, Until Discontinu ed, Administer over 2-5 Minutes, 2 mL [facility] simethicone (GAS RELIEF (SIMETHICON E)) chewable tablet 160 mg simethicone (GAS RELIEF (SIMETHICON E)) chewable tablet 160 mg 09-10 02:54: 30 Yes 160mg 160 mg, Oral, PC+HSPRN, Starting on Mon09/09/24 at 2154, Until Discontinu ed, Routine, Gas [facility] docusate (COLACE) capsule 200 mg docusate (COLACE) capsule 200 mg 09-10 02:54: 30 Yes 200mg 200 mg, Oral, QDAILYPRN, Starting on Mon09/09/24 at 215, Until Discontinu ed, Routine, Constipati on [facility] magnesium hydroxide (MILK OF MAGNESIA) 400 mg/5 mL suspension 30 mL 09-10 02:54: 30 Yes 30mL 30 mL, Oral, QDAILYPRN, Starting on Mon09/09/24 at 215, Until Discontinu ed, Routine, Constipati on [facility] Oxytocin in Normal Saline 30 unit/500 mL IV infusion Soln 09-10 02:54: 29 Yes 300mL/h 300 mL/hr, IV Infusion, SEE-INSTRU CTIONS, Starting on Mon09/09/24 at 215, Start at 300 mL/hr for 1 hr then 150 mL/hr for 1 hr. For post delivery uterotonic . [facility] benzocaine- menthol (DERMOPLAST ) 20-0.5 % topical spray benzocaine- menthol (DERMOPLAST ) 20-0.5 % topical spray 09-10 02:02: 19 Yes Topical, PRN, Starting on Mon09/09/24 at 2102, Until Discontinu ed, Routine, Localized pain [facility] azithromyci n (ZITHROMAX) tablet 1,000 mg azithromyci n (ZITHROMAX) tablet 1,000 mg 09-10 01:35: 00 09-10 01:42 :00 Yes 1000mg 1,000 mg, Oral, ONCE, 1 dose, On Mon09/09/24 at 2045, MANUEL, Reason for Anti-Infec tive: Documented Infection, Documented Infection Site: Other, Other site: vagina, Duration of therapy: Once (ED) [facility] Oxytocin in Normal Saline 30 unit/500 mL IV infusion Soln Oxytocin in Normal Saline 30 unit/500 mL IV infusion Soln 09-10 00:39: 22 Yes 300mL/h 300 mL/hr, IV Infusion, SEE-INSTRU CTIONS, Starting on Mon09/09/24 at 1939, Start at 300 mL/hr for 1 hr then 150 mL/hr for 1 hr. For post delivery uterotonic . [facility] tranexamic acid in (ISO-OS) sodium chloride 1,000 mg/100 mL (10 mg/mL) IV 1,000 mg 09-10 00:36: 29 Yes 1000mg at 600 mL/hr, 1,000 mg, IV Piggyback, PRN, 1 dose, Starting on Mon09/09/24 at 1936, Until Discontinu ed, Routine [facility] miSOPROStoL (CYTOTEC) tablet 200 mcg 09-10 00:36: 29 Yes 200ug 200 mcg, Rectal, PRN, 5 doses, Starting on Mon09/09/24 at 1936, Until Discontinu ed, Routine, For PPH [facility] carboprost (HEMABATE) injection 250 mcg 09-10 00:36: 29 Yes 250ug 250 mcg, Intramuscu lar, Q2HPRN, 8 doses, Starting on Mon09/09/24 at 1936, Until Discontinu ed, Routine, PPH [facility] methylergon ovine (METHERGINE ) injection 0.2 mg 09-10 00:36: 29 Yes .2mg 0.2 mg, Intramuscu lar, Q4HPRN, 1 dose, Starting on Mon09/09/24 at 1936, Until Discontinu ed, Routine, PPH [facility] Oxytocin in Normal Saline 30 unit/500 mL IV infusion Soln 09-10 00:36: 29 Yes 600mL/h 600 mL/hr, IV Infusion, PRN, PPH, Starting on Mon09/09/24 at 1936, For 1 dose, As instructed by physician at bedside. [facility] sodium citrate-cit ernst acid (BICITRA) 500-334 mg/5 mL solution 30 mL 09-10 00:36: 29 Yes 30mL 30 mL, Oral, PRE-PROCED URE ONCE, 1 dose, Starting on Mon09/09/24 at 1936, Until Discontinu ed, Routine, Surgery/Pr ocedure [facility] lidocaine 1% (PF) (XYLOCAINE) injection 0.3 mL 09-10 00:36: 29 Yes .3mL 0.3 mL, Infiltrati on, PRN - SEE INSTRUCTIO NS, Starting on Mon09/09/24 at 1936, Until Discontinu ed, Routine, Local anesthesia , For IV line placement only as a local anesthetic . [facility] lactated ringers IV infusion 250 mL 09-10 00:36: 29 Yes 250mL at 999 mL/hr, 250 mL, IV Infusion, PRN - SEE INSTRUCTIO NS, Starting on Mon09/09/24 at 1936, Until Discontinu ed, Routine [facility] D5W-LR IV infusion 1,000 mL 09-10 00:36: 29 Yes 1000mL at 1-75 mL/hr, IV Infusion, TITRATE, Starting on Mon09/09/24 at 1936, Until Discontinu ed, Routine [facility] FENTanyl (PF) (SUBLIMAZE) injection 50 mcg 09-10 00:16: 00 09-10 00:17 :00 No 50ug 50 mcg, Slow IV Push, Once, 1 dose, On Mon09/09/24 at 1930, MANUEL [facility] vitamin w/FA tablet 09-10 00:00: 00 Yes [id number] 1{tbl} Take 1 tablet by mouth in the morning. [facility] docusate 100 mg capsule 09-10 00:00: 00 Yes [id number] 200mg Take 2 capsules by mouth once daily as needed for Constipati on. [facility] ferrous sulfate 325 mg (65 mg iron) tablet 09-10 00:00: 00 Yes [id number] 325mg Take 1 tablet by mouth in the morning. [facility] ibuprofen 800 mg tablet 09-10 00:00: 00 Yes [id number] 800mg Take 1 tablet by mouth every 8 (eight) hours as needed (pain). Take with food or milk. [facility] acetaminoph en 500 mg tablet 09-10 00:00: 00 Yes [id number] 1000mg Take 2 tablets by mouth every 8 (eight) hours as needed for Pain. [facility] labetaloL 100 mg tablet 09-10 00:00: 00 Yes [id number] 100mg Take 1 tablet by mouth in the morning and 1 tablet in the evening. [facility] azithromyci n 500 mg tablet 4-07 00:00: 00 08-20 04:59 :00 No [id number] 1000mg Take 2 tablets by mouth once now for 1 dose. [facility] acyclovir 400 mg tablet 4-03 00:00: 00 09-10 00:00 :00 No [id number] 400mg Take 1 tablet by mouth in the morning and 1 tablet at noon and 1 tablet in the evening. [facility] PNV 67-iron ps-folate no.1-dha (VITAFOL ULTRA) 29 mg iron- 1 mg-200 mg Cap 01-29 00:00: 00 09-10 00:00 :00 No [id number] 09 1{each} Take 1 Each by mouth in the morning. [facility] cefTRIAXone (ROCEPHIN) 1,000 mg in NaCl 0.9% (NS) 100 mL MINI-BAG 01-08 23:45: 00 01-09 01:54 :00 No 1000mg 1,000 mg, IV Piggyback, ONCE, 1 dose, On Mon01/09/24 at 1845, Administer over 30 Minutes, 100 mL, Reason for Anti-Infec tive: Documented Infection, Documented Infection Site: Urine, Duration of Therapy: Once (ED) [facility] NaCl 0.9% (NS) bolus infusion 1,000 mL 01-08 23:30: 00 01-09 01:00 :00 No 1000mL at 999 mL/hr, 1,000 mL, IV Infusion, ONCE, 1 dose, On Mon01/09/24 at 1830, STAT [facility] amoxicillin 500 mg capsule 01-08 00:00: 00 01-29 00:00 :00 No [id number] 500mg Take 1 capsule by mouth in the morning and 1 capsule at noon and 1 capsule in the evening. [facility] docusate 100 mg capsule - 00:00: 00 01-29 00:00 :00 No [id number] 200mg Take 2 capsules by mouth once daily as needed for Constipati on. [facility] ferrous sulfate 325 mg (65 mg iron) tablet 06-09 00:00: 00 01-29 00:00 :00 No [id number] 325mg Take 1 tablet by mouth in the morning and 1 tablet in the evening. [facility] ibuprofen 600 mg tablet 06-09 00:00: 00 01-29 00:00 :00 No [id number] 600mg Take 1 tablet by mouth every 6 (six) hours as needed (Pain). Take with food or milk. [facility] PNV 67-iron ps-folate no.1-dha (VITAFOL ULTRA) 29 mg iron- 1 mg-200 mg Cap 06-09 00:00: 00 06-10 05:59 :00 No [id number] 1{capsu le} Take 1 capsule by mouth once now for 1 dose. [facility] azithromyci n 500 mg tablet 06-09 00:00: 00 06-10 05:59 :00 No [id number] 1000mg Take 2 tablets by mouth once now for 1 dose. [facility] vitamin w/FA tablet 06-09 00:00: 00 06-09 00:00 :00 No [id number] 1{tbl} Take 1 tablet by mouth in the morning. [facility] rho(D) immune globulin (RHOGAM) syringe 300 mcg 06-08 23:15: 06 Yes 300ug 300 mcg, Intramuscu lar, ONCE, For 1 dose, Conditiona l, Routine [facility] human papillomav vac,9-sary(P F) (GARDASIL-9 ) syringe 0.5 mL 06-08 23:15: 04 Yes .5mL 0.5 mL, Intramuscu lar, ONCE-PRIOR TO DISCHARGE, 1 dose, Starting on Obdulia 06/08/23 at 1715, Until Discontinu ed, Routine, Give vaccine prior to discharge [facility] HYDROcodone -acetaminop hen (NORCO 5) 5-325 mg tablet 1 tablet 06-08 23:15: 04 Yes 1{tbl} 1 tablet, Oral, Q6HPRN, Starting on Mon06/08/23 at 1715, Until Discontinu ed, Routine, Pain (scale 7-10) [facility] acetaminoph en (TYLENOL) tablet 650 mg 06-08 23:15: 04 Yes 650mg 650 mg, Oral, Q6HPRN, Starting on Mon06/08/23 at 1715, Until Discontinu ed, Routine, Pain (scale 1-3) [facility] diphenhydrA MINE (BENADRYL) tablet 25 mg 06-08 23:15: 03 Yes 25mg 25 mg, Oral, Q6HPRN, Starting on Mon06/08/23 at 1715, Until Discontinu ed, Routine, Sleep, Itching [facility] ondansetron (ZOFRAN (PF)) injection 4 mg 06-08 23:15: 03 Yes 4mg 4 mg, Slow IV Push, Q8HPRN, Starting on Mon06/08/23 at 1715, Until Discontinu ed, Routine, Nausea and Vomiting (N/V) [facility] simethicone (GAS RELIEF (SIMETHICON E)) chewable tablet 160 mg 06-08 23:15: 03 Yes 160mg 160 mg, Oral, PC+HSPRN, Starting on Mon06/08/23 at 1715, Until Discontinu ed, Routine, Gas [facility] docusate (COLACE) capsule 200 mg 06-08 23:15: 03 Yes 200mg 200 mg, Oral, QDAILYPRN, Starting on Mon06/08/23 at 1715, Until Discontinu ed, Routine, Constipati on [facility] magnesium hydroxide (MILK OF MAGNESIA) 400 mg/5 mL suspension 30 mL 06-08 23:15: 03 Yes 30mL 30 mL, Oral, QDAILYPRN, Starting on Mon06/08/23 at 1715, Until Discontinu ed, Routine, Constipati on [facility] benzocaine- menthol (DERMOPLAST ) 20-0.5 % topical spray 06-08 23:15: 03 Yes Topical, PRN, Starting on Mon06/08/23 at 1715, Until Discontinu ed, Routine, Perineum discomfort [facility] hydralAZINE (APRESOLINE ) injection 10 mg 06-08 21:15: 00 06-08 20:24 :00 No 10mg 10 mg, Slow IV Push, ONCE, 1 dose, On Mon06/08/23 at 1515, STAT [facility] oxytocin (PITOCIN) 30 units in NS 500 mL IV infusion 06-08 19:00: 37 06-08 23:15 :08 No 300mL/h 300 mL/hr, IV Infusion, SEE-INSTRU CTIONS, Starting on Mon06/08/[address] at 300 mL/hr for 1 hr then 150 mL/hr for 1 hr. For post delivery uterotonic .
[facility] hydrOXYzine (ATARAX) tablet 50 mg 06-08 18:16: 00 06-08 18:26 :00 No 50mg 50 mg, Oral, ONCE, 1 dose, On Mon06/08/23 at 1230, Routine [facility] oxytocin (PITOCIN) 30 units in NS 500 mL IV infusion 06-08 15:17: 35 06-08 23:15 :21 No 2mU/min at 2-40 mL/hr, IV Infusion, TITRATE, Starting on Mon06/08/23 at 0917, Until Obdulia 06/08/23 at 1715, MANUEL [facility] lactated ringers IV infusion 500 mL 06-08 15:15: 00 06-08 15:04 :42 No 500mL at 999 mL/hr, 500 mL, IV Infusion, ONCE, 1 dose, On Obdulia 06/08/23 at 0915, Routine [facility] lidocaine-e pinephrine (XYLOCAINE W/EPINEPHRI NE) 1.5 %-1:200,000 injection 06-08 15:07: 00 06-08 23:14 :38 No Epidural, ONCE INTRA PROCEDURE, Starting on Obdulia 06/08/23 at 0907, Until Obdulia 06/08/23 at 1714, Routine, Intra-op [facility] PIB ropivacaine 0.2 % (NAROPIN (PF)) epidural infusion 06-08 15:07: 00 06-08 23:14 :38 No Epidural, CONTINUOUS PRN, Starting on Obdulia 06/08/23 at 0907, Until Obdulia 06/08/23 at 1714, Routine, Intra-op [facility] sodium citrate-cit ernst acid (BICITRA) 500-334 mg/5 mL solution 30 mL 06-08 14:15: 32 06-08 14:34 :00 No 30mL 30 mL, Oral, PRE-PROCED URE ONCE, 1 dose, Starting on Obdulia 06/08/23 at 0815, Until Discontinu ed, Routine, Surgery/Pr ocedure [facility] morpHINE (2 mg/mL) injection 4 mg 06-08 12:45: 00 06-08 12:02 :00 No 4mg 4 mg, Slow IV Push, ONCE, 1 dose, On Obdulia 06/08/23 at 0645, Routine [facility] ondansetron (ZOFRAN (PF)) injection 4 mg 06-08 05:00: 00 06-08 04:33 :00 No 4mg 4 mg, Slow IV Push, ONCE, On Mon06/07/23 at 2300, For 1 dose
Do ses of ondansetro n 16 mg and above need to be administer ed via IV piggyback. For Dose >=24mg ECG monitoring is advisable.
[facility] morpHINE (2 mg/mL) injection 4 mg 06-08 05:00: 00 06-08 04:32 :00 No 4mg 4 mg, Slow IV Push, ONCE, 1 dose, On Mon06/07/23 at 2300, Routine [facility] D5W-LR IV infusion 1,000 mL 06-08 01:08: 47 06-08 23:15 :18 No 1000mL at 1-125 mL/hr, IV Infusion, TITRATE, Starting on Mon06/07/23 at 1908, Until Mon06/08/23 at 1715, Routine [facility] acyclovir 400 mg tablet 2022-05 2-08 00:00: 00 06-09 00:00 :00 No [id number] 400mg Take 1 tablet by mouth in the morning and 1 tablet at noon and 1 tablet in the evening. [facility] acetaminoph en with codeine (ACETAMINOP HEN-CODEINE ORAL) 2022-05 009 14:10: 59 02-20 00:00 :00 No Take by mouth. Take 1 tablet every 6h as needed for pain [facility] VALACYCLOVI R 1 gram tablet 4-04 00:00: 00 06-09 00:00 :00 No [id number] TAKE 1 TABLET BY MOUTH TWICE A DAY FOR 10 DAYS [facility] VALACYCLOVI R 1 gram tablet 5-31 00:00: 00 08-16 00:00 :00 No [id number] TAKE 1 TABLET BY MOUTH TWICE A DAY FOR 10 DAYS [facility] acyclovir 400 mg tablet 3-18 15:20: 09 07-30 00:00 :00 No 400mg Take 400 mg by mouth. Every 8h [facility] valACYclovi r (VALTREX) 1 gram tablet 3-18 00:00: 00 08-10 04:59 :00 No [id number] 1g Take 1 tablet by mouth 2 (two) times daily for 10 days. [facility] lidocaine 2% viscous (LIDOCAINE VISCOUS) 2 % solution 2020-05 00:00: 00 02-20 00:00 :00 No Apply topically every 4 hours as needed for pain [facility] acetaminoph en with codeine (ACETAMINOP HEN-CODEINE ORAL) 2020-05 10:09: 55 Yes Take by mouth. Take 1 tablet every 6h as needed for pain [facility] sulfamethox azole-trime thoprim 800-160 mg per tablet 2020-05 00:00: 00 07-30 00:00 :00 No [facility] clindamycin 1 % gel 2020-05 00:00: 00 07-30 00:00 :00 No [facility] Immunizations Ordered Immunization Name Filled Immunization Name Date Status Comments Source TDAP 2023-03-06 00:00:00 Completed [facility] TDAP Unknown Completed [facility] TDAP Unknown Completed [facility] TDAP Unknown Completed [facility] TDAP Unknown Completed [facility] TDAP Unknown Completed [facility] TDAP Unknown Completed [facility] TDAP Unknown Completed [facility] TDAP Unknown Completed [facility] TDAP Unknown Completed [facility] TDAP Unknown Completed [facility] TDAP Unknown Completed [facility] TDAP Unknown Completed [facility] TDAP Unknown Completed [facility] TDAP Unknown Completed [facility] TDAP Unknown Completed [facility] TDAP Unknown Completed [facility] TDAP Unknown Completed [facility] TDAP Unknown Completed [facility] Vital Signs Vital Name Observation Time Observation Value Comments S ource Systolic blood pressure 2024-09-11 00:07:00 132 mm[Hg] [facility] Diastolic blood pressure 2024-09-11 00:07:00 88 mm[Hg] [facility] Heart rate 2024-09-11 00:07:00 78 /min [facility] Body temperature 2024-09-11 00:07:00 36.44 Ana [facility] Respiratory rate 2024-09-11 00:07:00 18 /min [facility] Oxygen saturation in Arterial blood by Pulse oximetry 2024-09-11 00:07:00 100 /min [facility] BMI 2024-09-10 01:51:00 28.34 kg/m2 [facility] Body height 2024-09-10 01:51:00 154.9 cm [facility] Body weight 2024-09-10 01:51:00 68.04 kg [facility] Systolic blood pressure 2024-08-15 21:24:00 128 mm[Hg] [facility] Diastolic blood pressure 2024-08-15 21:24:00 84 mm[Hg] [facility] Heart rate 2024-08-15 21:24:00 107 /min [facility] Body temperature 2024-08-15 21:24:00 36.11 Ana [facility] Respiratory rate 2024-08-15 21:24:00 18 /min [facility] Body height 2024-08-15 21:24:00 152.4 cm [facility] Body weight 2024-08-15 21:24:00 68.221 kg [facility] BMI 2024-08-15 21:24:00 29.37 kg/m2 [facility] Systolic blood pressure 2024-06-19 21:37:00 129 mm[Hg] [facility] Diastolic blood pressure 2024-06-19 21:37:00 65 mm[Hg] [facility] Heart rate 2024-06-19 21:37:00 97 /min [facility] Body temperature 2024-06-19 21:37:00 35.61 Ana [facility] Respiratory rate 2024-06-19 21:37:00 18 /min [facility] Body height 2024-06-19 21:37:00 152.4 cm [facility] Body weight 2024-06-19 21:37:00 65.59 kg [facility] BMI 2024-06-19 21:37:00 28.24 kg/m2 [facility] Systolic blood pressure 2024-05-23 21:24:00 125 mm[Hg] [facility] Diastolic blood pressure 2024-05-23 21:24:00 62 mm[Hg] [facility] Heart rate 2024-05-23 21:24:00 96 /min [facility] Body temperature 2024-05-23 21:24:00 36.5 Ana [facility] Respiratory rate 2024-05-23 21:24:00 16 /min [facility] Body height 2024-05-23 21:24:00 152.4 cm [facility] Body weight 2024-05-23 21:24:00 67.042 kg [facility] BMI 2024-05-23 21:24:00 28.87 kg/m2 [facility] Systolic blood pressure 2024-04-09 21:07:00 125 mm[Hg] [facility] Diastolic blood pressure 2024-04-09 21:07:00 79 mm[Hg] [facility] Heart rate 2024-04-09 21:07:00 107 /min [facility] Body temperature 2024-04-09 21:07:00 37.17 Ana [facility] Respiratory rate 2024-04-09 21:07:00 16 /min [facility] Body height 2024-04-09 21:07:00 152.4 cm [facility] Body weight 2024-04-09 21:07:00 67.314 kg [facility] BMI 2024-04-09 21:07:00 28.98 kg/m2 [facility] Systolic blood pressure 2024-03-14 20:02:00 119 mm[Hg] [facility] Diastolic blood pressure 2024-03-14 20:02:00 63 mm[Hg] [facility] Heart rate 2024-03-14 20:02:00 71 /min [facility] Body temperature 2024-03-14 20:02:00 35.83 Ana [facility] Respiratory rate 2024-03-14 20:02:00 18 /min [facility] Body height 2024-03-14 20:02:00 152.4 cm [facility] Body weight 2024-03-14 20:02:00 63.413 kg [facility] BMI 2024-03-14 20:02:00 27.30 kg/m2 [facility] Systolic blood pressure 2024-01-30 12:44:00 129 mm[Hg] [facility] Diastolic blood pressure 2024-01-30 12:44:00 74 mm[Hg] [facility] Heart rate 2024-01-30 12:44:00 98 /min [facility] Body temperature 2024-01-30 12:44:00 36.72 Ana [facility] Respiratory rate 2024-01-30 12:44:00 17 /min [facility] Body height 2024-01-30 12:44:00 152.4 cm [facility] Body weight 2024-01-30 12:44:00 62.869 kg [facility] BMI 2024-01-30 12:44:00 27.07 kg/m2 [facility] Systolic blood pressure 2024-01-11 19:23:00 119 mm[Hg] [facility] Diastolic blood pressure 2024-01-11 19:23:00 70 mm[Hg] [facility] Heart rate 2024-01-11 19:23:00 70 /min [facility] Body temperature 2024-01-11 19:23:00 36.67 Ana [facility] Respiratory rate 2024-01-11 19:23:00 16 /min [facility] Body height 2024-01-11 19:23:00 152.4 cm [facility] Body weight 2024-01-11 19:23:00 64.864 kg [facility] BMI 2024-01-11 19:23:00 27.93 kg/m2 [facility] Oxygen saturation in Arterial blood by Pulse oximetry 2024-01-11 19:23:00 100 /min [facility] Systolic blood pressure 2024-01-10 03:00:00 121 mm[Hg] [facility] Diastolic blood pressure 2024-01-10 03:00:00 61 mm[Hg] [facility] Heart rate 2024-01-10 03:00:00 75 /min [facility] Oxygen saturation in Arterial blood by Pulse oximetry 2024-01-10 03:00:00 100 /min [facility] Respiratory rate 2024-01-10 01:00:00 18 /min [facility] Body temperature 2024-01-09 21:23:00 37.11 Ana [facility] Body height 2024-01-09 21:23:00 165.1 cm [facility] Body weight 2024-01-09 21:23:00 63.504 kg [facility] BMI 2024-01-09 21:23:00 23.30 kg/m2 [facility] Systolic blood pressure 2023-06-09 17:39:00 127 mm[Hg] [facility] Diastolic blood pressure 2023-06-09 17:39:00 65 mm[Hg] [facility] Heart rate 2023-06-09 17:39:00 50 /min [facility] Body temperature 2023-06-09 17:39:00 36.5 Ana [facility] Respiratory rate 2023-06-09 17:39:00 18 /min [facility] Oxygen saturation in Arterial blood by Pulse oximetry 2023-06-09 17:39:00 98 /min [facility] Body height 2023-06-08 00:28:00 157.5 cm [facility] Body weight 2023-06-08 00:28:00 63.685 kg [facility] BMI 2023-06-08 00:28:00 25.68 kg/m2 [facility] Systolic blood pressure 2023-06-07 21:38:00 140 mm[Hg] [facility] Diastolic blood pressure 2023-06-07 21:38:00 80 mm[Hg] [facility] Heart rate 2023-06-07 21:23:00 71 /min [facility] Body temperature 2023-06-07 21:19:00 36.5 Ana [facility] Respiratory rate 2023-06-07 21:19:00 18 /min [facility] Body height 2023-06-07 21:19:00 157.5 cm [facility] Body weight 2023-06-07 21:19:00 62.71 kg [facility] BMI 2023-06-07 21:19:00 25.29 kg/m2 [facility] Systolic blood pressure 2023-04-21 21:02:00 123 mm[Hg] [facility] Diastolic blood pressure 2023-04-21 21:02:00 77 mm[Hg] [facility] Heart rate 2023-04-21 21:02:00 104 /min [facility] Body temperature 2023-04-21 21:02:00 36.28 Ana [facility] Respiratory rate 2023-04-21 21:02:00 18 /min [facility] Body height 2023-04-21 21:02:00 157.5 cm [facility] Body weight 2023-04-21 21:02:00 58.968 kg [facility] BMI 2023-04-21 21:02:00 23.78 kg/m2 [facility] Systolic blood pressure 2023-03-06 16:20:00 125 mm[Hg] [facility] Diastolic blood pressure 2023-03-06 16:20:00 67 mm[Hg] [facility] Heart rate 2023-03-06 16:20:00 69 /min [facility] Body temperature 2023-03-06 16:20:00 36.11 Ana [facility] Respiratory rate 2023-03-06 16:20:00 18 /min [facility] Body height 2023-03-06 16:20:00 157.5 cm [facility] Body weight 2023-03-06 16:20:00 55.792 kg [facility] BMI 2023-03-06 16:20:00 22.50 kg/m2 [facility] Systolic blood pressure 2023-02-20 19:03:00 118 mm[Hg] [facility] Diastolic blood pressure 2023-02-20 19:03:00 67 mm[Hg] [facility] Heart rate 2023-02-20 19:03:00 77 /min [facility] Body temperature 2023-02-20 19:03:00 36.33 Ana [facility] Respiratory rate 2023-02-20 19:03:00 18 /min [facility] Body height 2023-02-20 19:03:00 157.5 cm [facility] Body weight 2023-02-20 19:03:00 55.974 kg [facility] BMI 2023-02-20 19:03:00 22.57 kg/m2 [facility] Systolic blood pressure 2021-07-30 20:02:00 116 mm[Hg] [facility] Diastolic blood pressure 2021-07-30 20:02:00 83 mm[Hg] [facility] Heart rate 2021-07-30 20:02:00 99 /min [facility] Respiratory rate 2021-07-30 20:02:00 18 /min [facility] Body height 2021-07-30 20:02:00 154.9 cm [facility] Body weight 2021-07-30 20:02:00 58.06 kg [facility] BMI 2021-07-30 20:02:00 24.19 kg/m2 [facility] Body mass index (BMI) [Percentile] Per age and sex 2021-07-30 20:02:00 78.29 % [facility] Oxygen saturation in Arterial blood by Pulse oximetry 2021-07-30 20:02:00 98 /min [facility] Procedures Procedure Date / Time Performed Performing Clinician Source CBC WITH DIFF 2024-09-10 08:46:00 Mark Johansen [facility] LACTATE DEHYDROGENASE 2024-09-10 04:55:00 Mark Johansen [facility] URINE DRUG (IMMUNOASSAY) - COMPREHENSIVE DRUG SCREEN 2024-09-10 03:53:00 Mark Johansen [facility] URINALYSIS 2024-09-10 03:53:00 Mark Johansen [facility] PROTEIN CREAT RATIO URINE RANDOM 2024-09-10 03:53:00 Mark Johansen [facility] SGOT (ASPARTATE AMINO TRANSFER) 2024-09-10 00:19:00 Mark Johansen [facility] CREATININE 2024-09-10 00:19:00 Mark Johansen [facility] ALANINE AMINO TRANSFERASE(SGPT 2024-09-10 00:19[facility] 2024-09-10 00:19:00 Haily Mark Tai [facility] CBC WITH DIFF 2024-09-10 00:19:00 HailyMark Tai [facility] HEPATITIS B SURFACE ANTIGEN 2024-09-10 00:19:00 Haily Mark [facility] HB ABO GROUPING 2024-09-10 00:19:00 Michelle Johansenen Tai [facility] ADC OR STEFFI ONLY - RPR 2024-09-10 00:19:00 Haily Mark [facility] HIV 1/2 AG-AB WITH REFLEX 2024-09-10 00:19:00 Haily Mark [facility] POCT URINALYSIS 2024-08-15 21:27:00 Mina Mott [facility] SECOND AND THIRD TRIMESTER ULTRASOUND 2024-07-10 19:44:00 Mina Mott [facility] POCT URINALYSIS 2024-06-19 21:40:00 Mina Mott [facility] POCT URINALYSIS 2024-05-23 21:30:00 Mina Mott [facility] SECOND AND THIRD TRIMESTER ULTRASOUND 2024-04-25 18:06:00 Mina Mott [facility] POCT URINALYSIS 2024-04-09 21:22:00 Mina Mott [facility] POCT URINALYSIS 2024-03-14 20:05:00 Mina Mott [facility] NIPT - NON-INVASIVE TEST RESULTS 2024-02-13 21:59:51 Doctor Unassigned, [place] [facility] NIPT - NON-INVASIVE TEST RESULTS 2024-02-08 19:35:25 Doctor Unassigned, [place] [facility] SECOND AND THIRD TRIMESTER ULTRASOUND 2024-02-02 19:21:00 Mina Mott [facility] POCT TEST 2024-01-30 12:43:00 Francisco Mott [facility] POCT URINALYSIS W/O SPECIFIC GRAVITY 2024-01-30 12:43:00 Mina Mott [facility] LIPASE 2024-01-09 21:51:00 Adam Jean-Baptiste [facility] COMP. METABOLIC PANEL (37495) 2024-01-09 21:51:00 Adam Jean-Baptiste [facility] TOTAL BETA HCG ASSAY 2024-01-09 21:51:00 Deejay Jean-Baptiste [facility] SALICYLATE 2024-01-09 21:51:00 Adam Jean-Baptiste [facility] ETHANOL 2024-01-09 21:51:00 Adam Jean-Baptiste [facility] CBC WITH DIFF 2024-01-09 21:51:00 Adam Jean-Baptiste [facility] URINALYSIS 2024-01-09 21:51:00 Adam Jean-Baptiste [facility] URINE DRUG (IMMUNOASSAY) - COMPREHENSIVE DRUG SCREEN W/O REFLEX 2024-01-09 21:51:00 Adam Jean-Baptiste [facility] POCT TEST 2024-01-09 21:37:00 Adam Jean-Baptiste [facility] CBC WITH DIFF 2023-06-09 10:07:00 [facility] 2023-06-08 22:24:00 Marina Oconnor Mai [facility] SGOT (ASPARTATE AMINO TRANSFER) 2023-06-08 22:00:00 Suzanne Oconnor Mai [facility] CREATININE 2023-06-08 22:00:00 Marina Oconnor Mai [facility] ALANINE AMINO TRANSFERASE(SGPT 2023-06-08 22:00:00 Suzanne Oconnor Mai [facility] LACTATE DEHYDROGENASE 2023-06-08 22:00:00 Suzanne Oconnor Mai [facility] URIC ACID 2023-06-08 22:00:00 Marina Oconnor Mai [facility] CBC WITH DIFF 2023-06-08 22:00:00 Marina Oconnor Liliana Pancho [facility] VENOUS CORD GAS 2023-06-08 19:06:00 Bree Valdez [facility] CENTRAL NEURAXIAL BLOCK 2023-06-08 15:18:00 Mendoza Gill [facility] LACTATE DEHYDROGENASE 2023-06-08 08:29:00 Ryan Littlejohn [facility] CBC WITH DIFF 2023-06-08 08:29:00 [facility]IGM 2023-06-08 08:28:00 Ryan Littlejohn [facility] SGOT (ASPARTATE AMINO TRANSFER) 2023-06-08 08:19:00 Ryan Littlejohn [facility] CREATININE 2023-06-08 08:19:00 Ryan Littlejohn [facility] ALANINE AMINO TRANSFERASE(SGPT 2023-06-08 08:19:00 Ryan Littlejohn [facility] URIC ACID 2023-06-08 08:19:00 Ryan Littlejohn [facility] HEPATITIS B SURFACE ANTIGEN 2023-06-08 08:19:00 Ryan Littlejohn [facility] URINALYSIS 2023-06-08 03:02:00 Ryan Littlejohn [facility] PROTEIN CREAT RATIO URINE RANDOM 2023-06-08 03:02:00 Ryan Littlejohn [facility] POCT GLUCOSE (AUTOMATED) 2023-06-08 02:47:00 Edyta Francis [facility] CBC WITH DIFF 2023-06-08 00:35:00 [facility] HEPATITIS B SURFACE ANTIGEN 2023-06-08 00:35:00 José Miguel [facility] HB ABO GROUPING 2023-06-08 00:35:00 Bree Valdez [facility] RHO (D) IMMUNE GLOBULIN 2023-06-08 00:35:00 Ra ranulfo Eden [facility] HIV 1/2 AG-AB WITH REFLEX 2023-06-08 00:35:00 Bree Valdez [facility] SYPHILIS IGG/IGM 2023-06-08 00:35[facility] 2023-06-07 21:19:00 Mina Mott [facility] SECOND AND THIRD TRIMESTER ULTRASOUND 2023-06-07 20:57:00 Mina Mott [facility] SECOND AND THIRD TRIMESTER ULTRASOUND 2023-04-26 19:54:00 Mina Mott [facility] VZV ANTIBODY SCREEN 2023-04-21 21:47:00 Francisco Mott [facility] HIV 1/2 AG-AB WITH REFLEX 2023-04-21 21:47:00 Mina Mott [facility] SYPHILIS IGG/IGM 2023-04-21 21:47:00 Batool Mott [facility] POCT URINALYSIS 2023-04-21 21:05:00 Mina Mott [facility] TDAP VACCINE, >11 YRS, IM 2023-03-06 16:43:06 Mina Mott [facility] POCT URINALYSIS 2023-03-06 16:23:00 Mina Mott [facility] CBC WITH DIFF 2023-02-20 20:17:00 Mina Mott [facility] HEPATITIS B SURFACE ANTIGEN 2023-02-20 20:17:00 Mina Mott [facility] HB ABO GROUPING 2023-02-20 20:17:00 Mina Mott [facility] HIV 1/2 AG-AB WITH REFLEX 2023-02-20 20:17:00 Mina Mott [facility] RUBELLA SCREEN IGG 2023-02-20 20:17:00 Leslye Mott [facility] SYPHILIS IGG/IGM 2023-02-20 20:17:00 Batool Mott [facility] POCT URINALYSIS W/O SPECIFIC GRAVITY 2023-02-20 18:58:00 Mina Mott [facility] POCT TEST 2023-02-20 18:57:00 Francisco Mott [facility] ASSIGNMENT OF BENEFITS 2023-02-20 18:15:42 Docto r Unassigned, [place] [facility] Encounters Start Date/Time End Date/Time Encounter Type Admission Type Attending [facility] Facility Care Department Encounter ID Source 2021-03-13 17:45:09 Emergency [facility] [id number] [facility] 2024-09-09 18:56:00 2024-09-10 19:54:00 Inpatient P HAILY MARK ALVAREZ [facility] [id number] [facility] 2024-09-09 18:56:00 2024-09-10 19:54:00 Hospital Encounter Mark Johansen Pamala G [facility] [id number] [facility] 2024-09-10 15:45:00 2024-09-10 15:45:00 Outpatient R MINA MOTT [facility] [id number] [facility] 2024-09-05 15:45:00 2024-09-05 15:45:00 Outpatient R MINA MOTT [facility] [id number] [facility] 2024-08-21 14:15:00 2024-08-21 14:15:00 Outpatient R MINA MOTT [facility] [id number] [facility] 2024-08-19 00:00:00 2024-08-20 07:46:28 Telephone Mina Mott [facility] CNA GNA [facility] ..840.114 [id number] [id number] [id number] [facility] 2024-08-16 13:45:00 2024-08-16 13:45:00 Outpatient R [facility] [id number] [facility] 2024-08-15 16:00:00 2024-08-15 16:43:59 Outpatient R MINA MOTT [facility] [id number] [facility] 2024-08-15 16:00:00 2024-08-15 16:43:59 Routine Visit Mina Mott [facility] CNA GNA [facility] MATERNAL & CHILD [facility] 1..840.114 [id number] [id number] [id number] [facility] 2024-08-08 10:45:00 2024-08-08 10:45:00 Outpatient R MINA MOTT [facility] [id number] [facility] 2024-07-16 13:30:00 2024-07-16 13:30:00 Outpatient R MINA MOTT [facility] [id number] [facility] 2024-07-11 00:00:00 2024-07-11 10:43:47 Abstract Mina Mott [facility] CNA GNA [facility] & CHILD [facility] 1..840.114 [id number] [id number] [id number] [facility] 2024-07-10 13:00:00 2024-07-10 13:53:03 Outpatient P BE HERR [facility] [id number] [facility] 2024-07-10 13:00:00 2024-07-10 13:53:03 Yardage Estimator Visit Ultrasound, Ang-Mfm Be Herr [facility] CNA GNA [facility] & CHILD [facility] 1..840.114 350.1.13.10 [id number] [id number] [facility] 2024-07-03 15:15:00 2024-07-03 15:15:00 Outpatient R MINA MOTT [facility] [id number] [facility] 2024-02-08 00:00:00 2024-06-29 06:54:57 Orders Only Doctor Unassigned, [place] Doctor Unassigned, [place] [facility] [id number] [id number] [id number] [id number] [facility] 2024-02-13 00:00:00 2024-06-29 06:53:58 Orders Only Doctor Unassigned, [place] Doctor Unassigned, [place] [facility] [id number] [id number] [id number] [id number] [facility] 2024-06-19 15:15:00 2024-06-19 16:17:29 Outpatient R NATHALIELATASHAMINA [facility] [id number] [facility] 2024-06-19 15:15:00 2024-06-19 16:17:29 Routine Visit Mina Mott [facility] CNA GNA [facility] & CHILD [facility] 1.0.114 350.1.13.10 4.2.7.2.686 [id number] [facility] 2024-06-06 10:30:00 2024-06-06 10:30:00 Outpatient R MAC MINA [facility] [id number] [facility] 2024-05-23 15:15:00 2024-05-23 15:58:10 Outpatient R MAC [facility] [id number] [facility] 2024-05-23 15:15:00 2024-05-23 15:58:10 Routine Visit Mina Mott [facility] CNA GNA [facility] & CHILD [facility] 1.2840.114 350.1.13.10 4.2.7.2.686 [id number] [facility] 2024-05-21 07:00:00 2024-05-21 07:00:00 Outpatient R MUKUNDARVINDLATASHA MINA [facility] [id number] [facility] 2024-05-06 14:45:00 2024-05-06 14:45:00 Outpatient R MAC MINA [facility] [id number] [facility] 2024-04-25 00:00:00 2024-04-25 14:48:21 Abstract Mina Mott [facility] CNA GNA [facility] & CHILD [facility] 1..840.114 350.1.13.10 4.2.7.2.686 [id number] [facility] 2024-04-25 11:00:00 2024-04-25 12:07:17 Outpatient R BE HERR [facility] [id number] [facility] 2024-04-25 11:00:00 2024-04-25 12:07:17 Yardage Estimator Visit Ultrasound, Ike-deborah byers Be [facility] 1..840.114 350.1.13.10 4.2.7.2.686 [id number] [facility] 2024-04-09 15:00:00 2024-04-09 15:32:42 Outpatient R MUKUNDARVINDLATASHAMINA [facility] [id number] [facility] 2024-04-09 15:00:00 2024-04-09 15:32:42 Routine Visit Mina Mott [facility] CNA GNA [facility] & CHILD [facility] 1..840.114 350.1.13.10 4.2.7.2.686 [id number] [facility] 2024-03-14 15:00:00 2024-03-14 15:19:18 Outpatient R DANA MOTTILOLA [facility] [id number] [facility] 2024-03-14 15:00:00 2024-03-14 15:19:18 Routine Visit Mukundarvindlatasha Mina C [facility] CNA GNA [facility] & CHILD [facility] 1.840.114 350.1.13.10 4.2.7.2.686 [id number] [facility] 2024-02-06 00:00:00 2024-02-06 09:00:48 Abstract MukundMina hernández Jaycob [facility] CNA GNA [facility] & CHILD [facility] 1.840.114 350.1.13.10 4.2.7.2.686 [id number] [facility] 2024-02-02 14:00:00 2024-02-02 14:54:39 Outpatient P OMAR HARRISON [facility] [id number] [facility] 2024-02-02 14:00:00 2024-02-02 14:54:39 Yardage Estimator Visit Ultrasound, Cynthia Montiel [facility] .840.114 350.1.13.10 4.2.7.2.686 [id number] [facility] 2024-02-02 14:00:00 2024-02-02 14:00:00 Outpatient P [facility] [id number] [facility] 2024-01-30 07:30:00 2024-01-30 08:49:54 Outpatient R MINA MOTT [facility] [id number] [facility] 2024-01-30 07:30:00 2024-01-30 08:49:54 Initial Visit Mina Mott [facility] CNA GNA [facility] & CHILD [facility] 1.840.114 350.1.13.10 4.2.7.2.686 [id number] [facility] 2024-01-11 14:20:00 2024-01-11 15:22:00 Emergency HOLLAND NAILSABRAMIP [facility] ERT [id number] [facility] 2024-01-11 14:20:00 2024-01-11 15:22:00 Emergency Holland Stevens [facility] 1..840.114 350.1.13.10 4.2.7.2.686 [id number] [facility] 2024-01-09 16:17:00 2024-01-09 23:15:00 Emergency LEIA REID WAKILI [facility] ERT [id number] [facility] 2024-01-09 16:17:00 2024-01-09 23:15:00 Emergency Adam Jean-Baptiste Wakili S [facility] 1..840.114 350.1.13.10 4.2.7.2.686 [id number] [id number] [facility] 2023-07-17 16:00:00 2023-07-17 16:00:00 Outpatient R MINA MOTT [facility] [id number] [facility] 2023-06-07 17:47:00 2023-06-09 14:53:00 Inpatient P EDYTA WATSON CHASEY [facility] HORTENCIA [id number] [facility] 2023-06-07 17:47:00 2023-06-09 14:53:00 Hospital Encounter Edyta Watson [facility] 1..840.114 350.1.13.10 4.2.7.2.686 [id number] [facility] 2023-06-09 00:00:00 2023-06-09 00:00:00 Telephone Mina Mott [facility] CNA GNA [facility] & CHILD [facility] 1.2.840.114 350.1.13.10 4.2.7.2.686 [id number] [facility] 2023-06-09 00:00:00 2023-06-09 00:00:00 Encounter [facility] 1.2.840.114 350.1.13.10 4.2.7.2.686 [id number] [facility] 2023-06-08 08:51:00 2023-06-08 17:14:00 Anesthesia Event Mendoza Marin Ryan C S [facility] 1.2.840.114 350.1.13.10 4.2.7.2.686 [id number] [facility] 2023-06-08 00:00:00 2023-06-08 00:00:00 Telephone Mina Mott [facility] CNA GNA [facility] & CHILD [facility] 1.840.114 350.1.13.10 4.2.7.2.686 [id number] [facility] 2023-06-07 16:00:00 2023-06-07 16:00:00 Routine Visit Mina Mott [facility] CNA GNA [facility] & CHILD [facility] 1.2.840.114 350.1.13.10 4.2.7.2.686 [id number] [facility] 2023-06-07 14:30:00 2023-06-07 14:59:04 Outpatient P [place] YAN [facility] [id number] [facility] 2023-06-07 14:30:00 2023-06-07 14:59:04 Yardage Estimator Visit Ultrasound, [place] Mai [facility] CNA GNA [facility] & CHILD [facility] 1.2.840.114 350.1.13.10 4.2.7.2.686 [id number] [facility] 2023-06-02 00:00:00 2023-06-02 00:00:00 Telephone Mina Mott [facility] CNA GNA [facility] & CHILD [facility] 1.2.840.114 350.1.13.10 4.2.7.2.686 [id number] [facility] 2023-05-30 09:30:00 2023-05-30 09:30:00 Outpatient P CYNTHIA HERR [facility] [id number] [facility] 2023-05-10 10:00:00 2023-05-10 10:00:00 Outpatient R MINA MOTT [facility] [id number] [facility] 2023-05-03 00:00:00 2023-05-03 00:00:00 Abstract Mina Mott [facility] CNA GNA [facility] & CHILD [facility] 1.2.840.114 350.1.13.10 4.2.7.2.686 [id number] [facility] 2023-05-03 00:00:00 2023-05-03 00:00:00 Abstract Mina Mott [facility] CNA GNA [facility] & CHILD [facility] 1.2.840.114 350.1.13.10 4.2.7.2.686 [id number] [facility] 2023-04-28 15:30:00 2023-04-28 15:30:00 Outpatient R MINA MOTT [facility] [id number] [facility] 2023-04-26 13:30:00 2023-04-26 14:00:43 Outpatient P EDYTA WATSON [facility] [id number] [facility] 2023-04-26 13:30:00 2023-04-26 14:00:43 Yardage Estimator Visit 1, Jung-Mfdeborah Room Edyta Watson [facility] CNA GNA [facility] MATERNAL & CHILD [facility] 1..840.114 350.1.13.10 4.2.7.2.686 [id number] [facility] 2023-04-21 15:00:00 2023-04-21 15:47:33 Outpatient R AKINHAYDEN, MINA [facility] [id number] [facility] 2023-04-21 15:00:00 2023-04-21 15:47:33 Routine Visit Akinhayden Mina C [facility] CNA GNA [facility] MATERNAL & CHILD [facility] 1.2.840.114 350.1.13.10 4.2.7.2.686 [id number] [facility] 2023-04-13 08:00:00 2023-04-13 08:00:00 Outpatient R MAC, MINA [facility] [id number] [facility] 2023-03-31 10:45:00 2023-03-31 10:45:00 Outpatient R BETO HOFFMAN [facility] [id number] [facility] 2023-03-29 09:30:00 2023-03-29 09:30:00 Outpatient R AKINSILATASHA MINA [facility] [id number] [facility] 2023-03-22 15:00:00 2023-03-22 15:00:00 Outpatient R AKINSIPE, MINA [facility] [id number] [facility] 2023-03-20 15:00:00 2023-03-20 15:00:00 Outpatient R AKINSIPE, MINA [facility] [id number] [facility] 2023-03-06 11:00:00 2023-03-06 11:50:07 Outpatient R AKINSILATASHA MINA [facility] [id number] [facility] 2023-03-06 11:00:00 2023-03-06 11:50:07 Routine Visit Akinhayden Mina C [facility] CNA GNA [facility] MATERNAL & CHILD [facility] 1.0.114 350.1.13.10 4.2.7.2.686 [id number] [facility] 2023-02-20 13:45:00 2023-02-20 16:13:02 Initial Visit Mina Mott [facility] CNA GNA [facility] & CHILD [facility] 1.840.114 350.1.13.10 4.2.7.2.686 [id number] [facility] 2023-02-20 13:15:00 2023-02-20 14:44:39 Outpatient R MINA MOTT [facility] [id number] [facility] 2023-02-20 00:00:00 2023-02-20 00:00:00 Orders Only Doctor Unassigned, [place] [facility] 1.0.114 350.1.13.10 4.2.7.2.686 [id number] [facility] 2022-08-16 00:00:00 2022-08-16 00:00:00 Refill Keyla Solitario [facility] 1..114 350.1.13.10 4.2.7.2.686 [id number] [facility] 2021-10-12 11:30:00 2021-10-12 11:30:00 Outpatient R KEYLA SOLITARIO CHERYAL [facility] [id number] [facility] 2021-10-11 00:00:00 2021-10-11 00:00:00 Refill Keyla Solitario [facility] 1..114 350.1.13.10 4.2.7.2.686 [id number] [facility] 2021-07-30 14:30:00 2021-07-30 15:17:53 Office Visit RosanneKeyla andrade [facility] 1.2840.114 350.1.13.10 4.2.7.2.686 [id number] [facility] 2021-07-30 14:30:00 2021-07-30 15:17:53 Outpatient R KEYLA SOLITARIO CHERYAL [facility] [id number] [facility] 2021-07-30 14:30:00 2021-07-30 14:30:00 Outpatient R MANAKATIMATTHEWKEYLA HINOJOSA MANAKATIMATTHEWKEYLA HINOJOSA [facility] [id number] [facility] 2021-07-30 00:00:00 2021-07-30 00:00:00 Telephone Adum, Feli Green [facility] 1.2.840.114 350.1.13.10 4.2.7.2.686 [id number] [facility] 2021-04-22 00:00:00 2021-04-22 00:00:00 Telephone Adum, Feli Green [facility] 1.2.840.114 350.1.13.10 4.2.7.2.686 [id number] [facility] 2021-04-07 00:00:00 2021-04-07 00:00:00 Telephone Adum, Feli Green [facility] 1.2.840.114 350.1.13.10 4.2.7.2.686 [id number] [facility] 2021-04-06 11:54:38 2021-04-06 12:09:38 Yardage Estimator Visit Pob, Adc Lab Main Adum, Feli Green [facility] 1.2.840.114 350.1.13.10 4.2.7.2.686 [id number] [facility] 2021-04-06 09:35:47 2021-04-06 11:44:25 Office Visit Feli You [facility] 1..114 350.1.13.10 4.2.7.2.686 [id number] [facility] 2021-04-06 09:30:00 2021-04-06 11:44:25 Outpatient R DOMENICA YOUIAN [facility] [id number] [facility] 2021-04-06 09:30:00 2021-04-06 11:44:25 Outpatient R FELI YOU [facility] [id number] [facility] 2020-12-10 07:45:00 2020-12-10 07:45:00 Outpatient R MINA MOTT [facility] [id number] [facility] 2020-12-02 15:00:00 2020-12-02 15:00:00 Outpatient R MINA MOTT [facility] [id number] [facility] 2020-11-23 00:00:00 2020-11-23 00:00:00 Telephone Mina Mott [facility] CNA GNA [facility] MATERNAL & CHILD [facility] 1..114 350.1.13.10 4.2.7.2.686 [id number] [facility] 2020-11-20 00:00:00 2020-11-20 00:00:00 Telephone Mina Mott [facility] CNA GNA [facility] & CHILD [facility] 1..114 350.1.13.10 4.2.7.2.686 [id number] [facility] 2020-11-18 09:18:45 2020-11-18 10:43:25 Office Visit Mina Mott [facility] CNA GNA [facility] & CHILD [facility] 1..114 350.1.13.10 4.2.7.2.686 [id number] [facility] 2020-11-18 09:15:00 2020-11-18 09:15:00 Outpatient MINA NELSON [facility] [id number] [facility] 2020-11-18 00:00:00 2020-11-18 00:00:00 Orders Only Doctor Unassigned, [place] [facility] 1.2.840.114 350.1.13.10 4.2.7.2.686 [id number] [facility] 2020-07-08 09:00:00 2020-07-08 09:00:00 Outpatient TOBIN LUONG [facility] [id number] [facility] 2020-06-09 00:00:00 2020-06-09 00:00:00 Orders Only Doctor Unassigned, [place] [facility] 1.2.840.114 350.1.13.10 4.2.7.2.686 [id number] [facility] 2020-05-30 18:24:00 2020-05-30 18:42:00 Emergency Orin Landeros [facility] 1.2.840.114 350.1.13.10 4.2.7.2.686 [id number] [facility] Results Test Description Test Time Test Comments Results Result Co mments Source [facility] Surface [id number] 06:33:15 * Test Item Value Reference Range Interpretation Comme nts HBsAg Semi-Quantitative (loli t code = 5195-3) 0.09 Negative [facility]view[facility]act[facility] Iekmsbhykoahu4484-45-31 06:13:50* Test Item Value Reference Range Interpretation Comme nts LDH (test code = 3358520325) 279 U/L 120-246 H Lab Interpretation (test cod e = 24722-2) Abnormal [facility]viewUric Acid Ulupc5629-81-34 05:45:10* Test Item Value Reference Range Interpretation Comme nts URIC ACID (test code = 1593207992) 3.7 mg/dL 2.9-6.0 Lab Interpretation (test cod e = 58322-2) Normal [facility]viewAlanine Amino Transferase (SGPT)2024-09-10 05:44:50* Test Item Value Reference Range Interpretation Comme nts ALTv (test code = 1742-6) 58 U/L 5-35 H Lab Interpretation (test cod e = 65057-2) Abnormal [facility] (Asparate Amino Transfer)2024-09-10 05:44:49* Test Item Value Reference Range Interpretation Comme nts AST(SGOT) (test code = 6892718106) 56 U/L 13-40 H Lab Interpretation (test cod e = 70045-8) Abnormal [facility] Anggtqtcha6347-62-84 05:44:29* Test Item Value Reference Range Interpretation Comme [facility] CREATININE (test code = 2160-0) 0.48 mg/dL 0.50-1.04 L eGFR (test code = 20160-3) 139.3 mL/min/1.73m2 CKD-EPI eGFR (2020). Assuming creatinine has been stable day-to-day for at least three months, the eGFR indicates Category G1 (>= 90 mL/min/1.73 m2) Lab Interpretation (test code = 79911-5) Abnormal [facility]/2 Ag-Ab with [id number] 01:42:27* Test Item Value Reference Range Interpretation Comme [facility] HIV Semi-quantitative (test code = 45431-6) 0.14 Negative YANET (test code = YANET) Non-reactive for HIV-1 antigen and HIV-1/HIV-2 antibodies. ?No laboratory evidence of HIV infection. ?Repeat in 2-4 weeks if acute HIV infection is suspected. [facility] with Pmlf8533-45-31 00:49:59* Test Item Value Reference Range Interpretation Comme [facility] WBC (test code = 6690-2) 10.08 4.30-11.10 RBC (test code = 789-8) 4.27 3.93-5.25 HGB (test code = 718-7) 10.8 g/dL 11.6-15.0 L HCT (test code = 4544-3) 34.3 % 35.7-45.2 L MCV (test code = 787-2) 80.3 fL 80.6-95.5 L MCH (test code = 785-6) 25.3 pg 25.9-32.8 L MCHC (test code = 786-4) 31.5 g/dL 31.6-35.1 L RDW-SD (test code = 57332-1) 42.1 fL 39.0-49.9 RDW-CV (test code = 788-0) 14.5 % 12.0-15.5 PLT (test code = 777-3) 330 166-358 MPV (test code = 51336-5) 10.5 fL 9.5-12.9 NRBC/100 WBC (test code = 0455058808) 0 0.0-10.0 NRBC x10^3 (test code = 0973903871) See_Comment [Automated messa ge] The system which generated this result transmitted reference range: 10*3/?L. The reference range was not used to interpret this result as normal/abnormal. GRAN MAT (NEUT) % (test code = 770-8) 84.1 % IMM GRAN % (test code = 6914879267) 1.5 % LYMPH % (test code = 736-9) 9.3 % MONO % (test code = 5905-5) 4.3 % EOS % (test code = 713-8) 0.3 % BASO % (test code = 706-2) 0.5 % GRAN MAT x10^3(ANC) (test code = 8163646735) 8.48 10*3/uL 1.88-7.09 H IMM GRAN x10^3 (test code = 4394978746) 0.15 10*3/uL 0.00-0.06 H LYMPH x10^3 (test code = 731-0) 0.94 10*3/uL 1.32-3.29 L MONO x10^3 (test code = 742-7) 0.43 10*3/uL 0.33-0.92 EOS x10^3 (test code = 711-2) 0.03 10*3/uL 0.03-0.39 BASO x10^3 (test code = 704-7) 0.05 10*3/uL 0.01-0.07 Lab Interpretation (test code = 82800-6) Abnormal [facility] and Screen - ONCE Ojxgisy4103-10-77 00:47:00* Test Item Value Reference Range Interpretation Comme nts ABO & RH (test code = 20) A POSITIVE IAT (test code = 1185) Negative [facility] URINALYSIS W SPECIFIC [id number] 21:27:00* Test Item Value Reference Range Interpretation Comme nts POCT U SP GRAV (test code = 3255) . 1.005-1.025 POCT PH U (test code = 3254) . 5-8 POCT U LEUK EST (test code = 3263) . Negative - N egative POCT U NIT (test code = 3262) . Negative - Negati ve POCT U PROT (test code = 3259) trace Negative - Negat juliocesar POCT U GLU (test code = 3256) neg Negative - Negati ve POCT U KETONE (test code = 3258) . Negative - Neg ative POCT U UROBILI (test code = 3260) . 0.2-1 POCT U BILI (test code = 3261) . Negative - Negat juliocesar POCT U BLD (test code = 3257) . Negative - Negati ve POCT U COLOR (test code = 3266) . POCT U APPEAR (test code = 3267) . [facility] URINALYS[facility] W SPECIFIC [id number] 21:40:00* Test Item Value Reference Range Interpretation Comme nts POCT U SP GRAV (test code = 3255) . 1.005-1.025 POCT PH U (test code = 3254) . 5-8 POCT U LEUK EST (test code = 3263) . Negative - N egative POCT U NIT (test code = 3262) . Negative - Negati ve POCT U PROT (test code = 3259) trace Negative - Negat juliocesar POCT U GLU (test code = 3256) neg Negative - Negati ve POCT U KETONE (test code = 3258) . Negative - Neg ative POCT U UROBILI (test code = 3260) . 0.2-1 POCT U BILI (test code = 3261) . Negative - Negat juliocesar POCT U BLD (test code = 3257) . Negative - Negati ve POCT U COLOR (test code = 3266) . POCT U APPEAR (test code = 3267) . [facility] URINALYSIS W SPECIFIC [id number] 21:30:00* Test Item Value Reference Range Interpretation Comme nts POCT U SP GRAV (test code = 3255) . 1.005-1.025 POCT PH U (test code = 3254) . 5-8 POCT U LEUK EST (test code = 3263) . Negative - N egative POCT U NIT (test code = 3262) . Negative - Negati ve POCT U PROT (test code = 3259) trace Negative - Negat juliocesar POCT U GLU (test code = 3256) neg Negative - Negati ve POCT U KETONE (test code = 3258) . Negative - Neg ative POCT U UROBILI (test code = 3260) . 0.2-1 POCT U BILI (test code = 3261) . Negative - Negat juliocesar POCT U BLD (test code = 3257) . Negative - Negati ve POCT U COLOR (test code = 3266) POCT U APPEAR (test code = 3267) [facility] URINALYSIS W SPECIFIC [id number] 21:22:00* Test Item Value Reference Range Interpretation Comme nts POCT U SP GRAV (test code = 3255) . 1.005-1.025 POCT PH U (test code = 3254) . 5-8 POCT U LEUK EST (test code = 3263) . Negative - N egative POCT U NIT (test code = 3262) . Negative - Negati ve POCT U PROT (test code = 3259) trace Negative - Negat juliocesar POCT U GLU (test code = 3256) neg Negative - Negati ve POCT U KETONE (test code = 3258) . Negative - Neg ative POCT U UROBILI (test code = 3260) . 0.2-1 POCT U BILI (test code = 3261) . Negative - Negat juliocesar POCT U BLD (test code = 3257) . Negative - Negati ve POCT U COLOR (test code = 3266) POCT U APPEAR (test code = 3267) [facility] URINALYSIS W SPECIFIC [id number] 20:06:00* Test Item Value Reference Range Interpretation Comme nts POCT U SP GRAV (test code = 3255) . 1.005-1.025 POCT PH U (test code = 3254) . 5-8 POCT U LEUK EST (test code = 3263) . Negative - N egative POCT U NIT (test code = 3262) . Negative - Negati ve POCT U PROT (test code = 3259) TRACE Negative - Negat juliocesar POCT U GLU (test code = 3256) NEG Negative - Negati ve POCT U KETONE (test code = 3258) . Negative - Neg ative POCT U UROBILI (test code = 3260) . 0.2-1 POCT U BILI (test code = 3261) . Negative - Negat juliocesar POCT U BLD (test code = 3257) . Negative - Negati ve POCT U COLOR (test code = 3266) . POCT U APPEAR (test code = 3267) . [facility] - NON-INVASIVE TEST RESULTS 2024-02-13 21:59:51Ordered by an unspecified provider.[facility] - NON-INVASIVE TEST [id number] 19:35:25 Ordered by an unspecified provider.[facility] Urinalysis w/o Specific [id number] 12:43:00* Test Item Value Reference Range Interpretation Comme nts POCT PH U (test code = 3254) 7 mg/dl 5-8 POCT U LEUK EST (test code = 3263) 2+ Negative - Negative POCT U NIT (test code = 3262) neg Negative - Negati ve POCT U PROT (test code = 3259) trace Negative - Negat juliocesar POCT U GLU (test code = 3256) neg Negative - Negati ve POCT U KETONE (test code = 3258) + Negative - Neg ative POCT U BLD (test code = 3257) neg Negative - [facility] [id number] 12:43:00* Test Item Value Reference Range Interpretation Comme nts POCT PREG (test code = 1605) Positive On board controls acceptable with C Line (test code = 3574) Yes POCT PREG LOT # (test code = 3575) POCT PREG TEST DATE ( test code = 3576) [facility] [id number] 21:37:00* Test Item Value Reference Range Interpretation Comme nts POCT PREG (test code = 1605) Positive On board controls acceptable with C Line (test code = 3574) Yes POCT PREG LOT # (test code = 3575) [id number] POCT PREG TEST DATE ( test code = 3576) 09/21/2024 Lab Interpretation (test cod e = 77637-3) Normal [facility] IMMUNE [id number] 23:23:42* Test Item Value Reference Range Interpretation Comme nts RHIG CANDIDATE? (test code = 5188) No- see comment Patient is not a candidate for RhIg- Patient is Rh Positive.Performed at [facility] Laboratory Services - [facility] Blood [address] [address]Nxnd Free: [phone] No. [id number] [facility] (LDH)2023-06-08 22:46:59 * Test Item Value Reference Range Interpretation Comme nts LDH (test code = 6316001071) 317 U/L 120-246 H Lab Interpretation (test cod e = 95122-7) Abnormal [facility] [id number] 22:46:39* Test Item Value Reference Range Interpretation Comme nts URIC ACID (test code = 3502667555) 4.7 mg/dL 2.9-6.0 Lab Interpretation (test cod e = 69906-5) Normal [facility] [id number] 22:46:39* Test Item Value Reference Range Interpretation Comme nts CREATININE (test code = 7818127620) 0.46 mg/dL 0.50-1.04 L eGFR (test code = 77371-5) 141.6 mL/min/1.73m2 CKD-EPI eGFR (2020). Assuming creatinine has been stable day-to-day for at least three months, the eGFR indicates Category G1 (>= 90 mL/min/1.73 m2) Lab Interpretation (test code = 91694-2) Abnormal [facility] (Asparate Amino Transfer)2023-06-08 22:46:39* Test Item Value Reference Range Interpretation Comme nts AST(SGOT) (test code = 5349998070) 26 U/L 13-40 Lab Interpretation (test cod e = 76083-8) Normal [facility]viewAlanine Amino Transferase (SGPT)2023-06-08 22:46:38* Test Item Value Reference Range Interpretation Comme nts ALTv (test code = 1742-6) 21 U/L 5-35 Lab Interpretation (test cod e = 04461-7) Normal [facility] with Cdcgougnvzwa3555-86-98 22:14:10* Test Item Value Reference Range Interpretation Comme nts WBC (test code = 6690-2) 17.17 See_Comment H [Automated message] The system which generated this result transmitted reference range: 4.30 - 11.10 10*3/?L. The reference range was not used to interpret this result as normal/abnormal. RBC (test code = 789-8) 3.80 See_Comment L [Automated message] The system which generated this result transmitted reference range: 3.93 - 5.25 10*6/?L. The reference range was not used to interpret this result as normal/abnormal. HGB (test code = 718-7) 9.6 g/dL 11.6-15.0 L HCT (test code = 4544-3) 30.2 % 35.7-45.2 L MCV (test code = 787-2) 79.5 fL 80.6-95.5 L MCH (test code = 785-6) 25.3 pg 25.9-32.8 L MCHC (test code = 786-4) 31.8 g/dL 31.6-35.1 RDW-SD (test code = 01908-3) 42.5 fL 39.0-49.9 RDW-CV (test code = 788-0) 14.8 % 12.0-15.5 PLT (test code = 777-3) 265 See_Comment [Automated message] The system which generated this result transmitted reference range: 166 - 358 10*3/?L. The reference range was not used to interpret this result as normal/abnormal. MPV (test code = 53695-7) 10.1 fL 9.5-12.9 NRBC/100 WBC (test code = 2738867480) 0.0 See_Comment [Automated message] The system which generated this result transmitted reference range: 0.0 - 10.0 /100 WBCs. The reference range was not used to interpret this result as normal/abnormal. NRBC x10^3 (test code = 5601443157) See_Comment [Automated message] The system which generated this result transmitted reference range: 10*3/?L. The reference range was not used to interpret this result as normal/abnormal. GRAN MAT (NEUT) % (test code = 770-8) 87.0 % IMM GRAN % (test code = 7027387259) 1.90 % LYMPH % (test code = 736-9) 4.8 % MONO % (test code = 5905-5) 6.1 % EOS % (test code = 713-8) 0.0 % BASO % (test code = 706-2) 0.2 % GRAN MAT x10^3(ANC) (test code = 8539663821) 14.93 10*3/uL 1.88-7.09 H IMM GRAN x10^3 (test code = 4633209874) 0.33 10*3/uL 0.00-0.06 H LYMPH x10^3 (test code = 731-0) 0.82 10*3/uL 1.32-3.29 L MONO x10^3 (test code = 742-7) 1.05 10*3/uL 0.33-0.92 H EOS x10^3 (test code = 711-2) 0.03-0.39 L BASO x10^3 (test code = 704-7) 0.04 10*3/uL 0.01-0.07 Lab Interpretation (test code = 55978-7) [facility] [id number] 19:18:12* Test Item Value Reference Range Interpretation Comme nts VENOUS BASE EXCESS, CORD (test code = 9570472028) -3.6 mEq/L VENOUS PH, CORD (test code = 9905085769) 7.34 7.25-7.45 VENOUS PC02, CORD (test code = 0597835133) 42 See_Comment [Automated messa ge] The system which generated this result transmitted reference range: 27 - 49 mmHg. The reference range was not used to interpret this result as normal/abnormal. VENOUS PO2, CORD (test code = 5568600645) 27 See_Comment [Automated me ssage] The system which generated this result transmitted reference range: 17 - 41 mmHg. The reference range was not used to interpret this result as normal/abnormal. VENOUS BICARBONATE, CORD (test code = 2389703349) 22 See_Comment [Automated messa ge] The system which generated this result transmitted reference range: 12 - 29 mEq/L. The reference range was not used to interpret this result as normal/abnormal. [facility]viewArterial Cord Opj8781-08-59 19:17:42* Test Item Value Reference Range Interpretation Comme nts BASE EXCESS, CORD (test code = 7843947654) -3.2 mEq/L QUES AC PH, CORD (BEAKER) (test code = 9939957324) 7.25 7.18-7.38 PC02, CORD (test code = 7380992110) 58 See_Comment [Automated messa ge] The system which generated this result transmitted reference range: 32 - 66 mmHg. The reference range was not used to interpret this result as normal/abnormal. PO2, CORD (test code = 0333916237) 19 See_Comment [Automated messa ge] The system which generated this result transmitted reference range: 10 - 30 mmHg. The reference range was not used to interpret this result as normal/abnormal. BICARBONATE, CORD (test code = 9627962238) 25 See_Comment [Automated messa ge] The system which generated this result transmitted reference range: 17 - 27 mEq/L. The reference range was not used to interpret this result as normal/abnormal. [facility]viewSyphilis [id number]/[id number] 16:48:57* Test Item Value Reference Range Interpretation Comme nts Syphilis IgG/IgM (test code = 19463-3) Non-reactive Non-reactive YANET (test code = YANET) Non-reactive - No serologic evidence of T. pallidum infection. Cannot exclude incubating or early syphilis. Submit a second specimen in 2-4 weeks if syphilis is clinically suspected. Equivocal - Further testing to follow. Reactive - Further testing to follow. Lab Interpretation (test code = 95798-2) Normal [facility]viewGALV ONLY - SYPHILIS IGG/[id number] 16:45:18* Test Item Value Reference Range Interpretation Comme nts Syphilis IgG/IgM (test code = 36277-1) Non-reactive Non-reactive YANET (test code = YANET) Non-reactive - No serologic evidence of T. pallidum infection. Cannot exclude incubating or early syphilis. Submit a second specimen in 2-4 weeks if syphilis is clinically suspected. Equivocal - Further testing to follow. Reactive - Further testing to follow. Lab Interpretation (test code = 24503-7) Normal [facility]viewCentral Neuraxial [id number] 15:18:00 Mendoza Marin MD ? ? 06/08/2023 ?9:19 AM Central Neuraxial Block Date/Time: 06/08/2023 9:18 AMPerformed by: Mendoza Marin MDAuthorized by: Shruthi Petit MD ?End Time: 06/08/2023 9:18 AMReason for Block: OB request, Patient request, Labor analgesia, Surgical anesthesia and Post-op pain managementStaff: ?Anesthesiologist: Shruthi Petit MD ?Resident/MANAGER INSIDE: Mendoza Marin MD ?Performed by: resident/CRNAPreanesthetic Checklist: patient identified, IV checked, risks and benefits explained, monitors and equipment checked, timeout performed, pre-op evaluation, site marked and an esthesia consentProcedure: ?Type of Neuraxial: Epidural ?Prep: Betadine and patient draped ? ?Monitoring: heart rate, continuous pulse ox, heart rate / toco and NIBP ? ?Technique: catheter and LICHA saline ?Guidance with: landmark technique}Epidural/Spinal [place] and/or Catheter: ?Epidural/Spinal Kit: BBun ?Needle Type: Tuohy ?Needle Gauge: 17 G ?Needle Length: 3.5 in (8.89 cm) ?Needle Insertion Depth: 5 ?Catheter Type: multiport ? ?Catheter Size: 19 G ? ?Catheter at Skin Depth: 10 ?Number of Attempts: 1 ?Test Dose: lidocaine 1.5% with epinephrine 1-to-200,000 and negative ? ?Dose: 5 cc ? ?Catheter Securement Method: surgical tape, Tegaderm, liquid medical adhesive and clear occlusive dressingAssessment: ?Procedure Assessment: patient tolerated procedure well with no complicationsNotes: ? Smooth and atraumatic, (+) Local, (+) STF Patient consented and positioned sitting upright with instructions given regarding positioning and maintaining a sterile field. Patient prepped and draped in sterile fashion. Epidural kit opened and medications prepared utilizing sterile protocol. LICHA to Saline was used midline. LICHA was at ?5 cm attempts x 1. Catheter threaded smoothly, taped at skin at 10 cm. Negative aspiration of blood or CSF x 3. Negative Test dose. Epidural catheter secured in place using tegederm and tape while maintaining insertion site sterility. Pumps settings are continuous 12 cc/hr PCEA 4cc- 15 mins lockout. 5 ml bolus was given initially. Patient instructed to layback down on back and given instructions on [employer]OR functionality. Fall precautions provided, patient vocalized understanding and all questions answered. ?[facility] B Surface Xgtzbcp7275-48-00 09:58:34* Test Item Value Reference Range Interpretation Comme [facility] HBsAg Semi-Quantitative (loli t code = 5195-3) 0.09 Negative [facility]viewLactate Ylabwkhdxrdhh9031-17-87 09:15:08* Test Item Value Reference Range Interpretation Comme [facility] LDH (test code = 1481352927) 185 U/L 120-246 Lab Interpretation (test cod e = 66699-8) Normal [facility]viewUric Acid [id number] 09:14:27* Test Item Value Reference Range Interpretation Comme [facility] URIC ACID (test code = 1181261122) 4.8 mg/dL 2.9-6.0 Lab Interpretation (test cod e = 46279-5) Normal [facility] Jojwvbehwr2206-32-49 09:14:27* Test Item Value Reference Range Interpretation Comme [facility] CREATININE (test code = 5391369109) 0.52 mg/dL 0.50-1.04 eGFR (test code = 74749-0) 137.5 mL/min/1.73m2 CKD-EPI eGFR (20 21). Assuming creatinine has been stable day-to-day for at least three months, the eGFR indicates Category G1 (>= 90 mL/min/1.73 m2) [facility]view[facility] (Asparate Amino Transfer)2023-06-08 09:14:27* Test Item Value Reference Range Interpretation Comme nts AST(SGOT) (test code = 0122362743) 22 U/L 13-40 Lab Interpretation (test cod e = 24145-5) Normal [facility]viewAlanine Amino Transferase (SGPT)2023-06-08 09:14:27* Test Item Value Reference Range Interpretation Comme nts ALTv (test code = 1742-6) 19 U/L 5-35 Lab Interpretation (test cod e = 42605-8) Normal [facility] with Nbjzxidjsmyy9380-85-88 08:58:44* Test Item Value Reference Range Interpretation Comme nts WBC (test code = 6690-2) 6.46 See_Comment [Automated [employer]] The system which generated this result transmitted reference range: 4.30 - 11.10 10*3/?L. The reference range was not used to interpret this result as normal/abnormal. RBC (test code = 789-8) 3.31 See_Comment L [Automated [employer]] The system which generated this result transmitted reference range: 3.93 - 5.25 10*6/?L. The reference range was not used to interpret this result as normal/abnormal. HGB (test code = 718-7) 8.3 g/dL 11.6-15.0 L HCT (test code = 4544-3) 26.6 % 35.7-45.2 L MCV (test code = 787-2) 80.4 fL 80.6-95.5 L MCH (test code = 785-6) 25.1 pg 25.9-32.8 L MCHC (test code = 786-4) 31.2 g/dL 31.6-35.1 L RDW-SD (test code = 05680-4) 43.0 fL 39.0-49.9 RDW-CV (test code = 788-0) 14.8 % 12.0-15.5 PLT (test code = 777-3) 238 See_Comment [Automated messa ge] The system which generated this result transmitted reference range: 166 - 358 10*3/?L. The reference range was not used to interpret this result as normal/abnormal. MPV (test code = 94068-9) 10.4 fL 9.5-12.9 NRBC/100 WBC (test code = 1771520853) 0.0 See_Comment [Automated [employer] ssage] The system which generated this result transmitted reference range: 0.0 - 10.0 /100 WBCs. The reference range was not used to interpret this result as normal/abnormal. NRBC x10^3 (test code = 9951178196) See_Comment [Automated messa ge] The system which generated this result transmitted reference range: 10*3/?L. The reference range was not used to interpret this result as normal/abnormal. GRAN MAT (NEUT) % (test code = 770-8) 71.8 % IMM GRAN % (test code = 0556879861) 1.40 % LYMPH % (test code = 736-9) 17.2 % MONO % (test code = 5905-5) 8.4 % EOS % (test code = 713-8) 0.9 % BASO % (test code = 706-2) 0.3 % GRAN MAT x10^3(ANC) (test code = 3467513318) 4.64 10*3/uL 1.88-7.09 IMM GRAN x10^3 (test code = 8567228367) 0.09 10*3/uL 0.00-0.06 H LYMPH x10^3 (test code = 731-0) 1.11 10*3/uL 1.32-3.29 L MONO x10^3 (test code = 742-7) 0.54 10*3/uL 0.33-0.92 EOS x10^3 (test code = 711-2) 0.06 10*3/uL 0.03-0.39 BASO x10^3 (test code = 704-7) 0.01-0.07 Lab Interpretation (test code = 61341-7) Abnormal [facility] with Snefyyaseqae9749-48-10 08:58:04* Test Item Value Reference Range Interpretation Comme nts WBC (test code = 6690-2) 6.61 See_Comment [Automated messa ge] The system which generated this result transmitted reference range: 4.30 - 11.10 10*3/?L. The reference range was not used to interpret this result as normal/abnormal. RBC (test code = 789-8) 3.35 See_Comment L [Automated messa ge] The system which generated this result transmitted reference range: 3.93 - 5.25 10*6/?L. The reference range was not used to interpret this result as normal/abnormal. HGB (test code = 718-7) 8.4 g/dL 11.6-15.0 L HCT (test code = 4544-3) 26.9 % 35.7-45.2 L MCV (test code = 787-2) 80.3 fL 80.6-95.5 L MCH (test code = 785-6) 25.1 pg 25.9-32.8 L MCHC (test code = 786-4) 31.2 g/dL 31.6-35.1 L RDW-SD (test code = 11848-2) 42.8 fL 39.0-49.9 RDW-CV (test code = 788-0) 14.6 % 12.0-15.5 PLT (test code = 777-3) 243 See_Comment [Automated messa ge] The system which generated this result transmitted reference range: 166 - 358 10*3/?L. The reference range was not used to interpret this result as normal/abnormal. MPV (test code = 17467-5) 10.7 fL 9.5-12.9 NRBC/100 WBC (test code = 1943270621) 0.0 See_Comment [Automated [employer] ssage] The system which generated this result transmitted reference range: 0.0 - 10.0 /100 WBCs. The reference range was not used to interpret this result as normal/abnormal. NRBC x10^3 (test code = 9496044152) See_Comment [Automated messa ge] The system which generated this result transmitted reference range: 10*3/?L. The reference range was not used to interpret this result as normal/abnormal. GRAN MAT (NEUT) % (test code = 770-8) 70.9 % IMM GRAN % (test code = 9361368975) 2.00 % LYMPH % (test code = 736-9) 17.2 % MONO % (test code = 5905-5) 8.5 % EOS % (test code = 713-8) 1.1 % BASO % (test code = 706-2) 0.3 % GRAN MAT x10^3(ANC) (test code = 0315159879) 4.69 10*3/uL 1.88-7.09 IMM GRAN x10^3 (test code = 1953449268) 0.13 10*3/uL 0.00-0.06 H LYMPH x10^3 (test code = 731-0) 1.14 10*3/uL 1.32-3.29 L MONO x10^3 (test code = 742-7) 0.56 10*3/uL 0.33-0.92 EOS x10^3 (test code = 711-2) 0.07 10*3/uL 0.03-0.39 BASO x10^3 (test code = 704-7) 0.01-0.07 Lab Interpretation (test code = 71329-0) Abnormal [facility]HIV 1/2 Ag-Ab with Acvzea9069-34-30 04:05:57* Test Item Value Reference Range Interpretation Comme nts HIV Semi-quantitative (test code = 72641-6) 0.07 Negative YANET (test code = YANET) Non-reactive for HIV-1 antigen and HIV-1/HIV-2 antibodies. ?No laboratory evidence of HIV infection. ?Repeat in 2-4 weeks if acute HIV infection is suspected. [facility]viewPO[facility] GLU[facility]SE (AUTOMATED)2023-06-08 02:51:09* Test Item Value Reference Range Interpretation Comme nts POCT GLU (test code = 2545156535) 87 mg/dL 70-110 Lab Interpretation (test cod e = 46678-3) Normal [facility]viewHepatitis B Surface Gqjoqvh6257-06-01 02:25:31 * Test Item Value Reference Range Interpretation Comme nts HBsAg Semi-Quantitative (loli t code = 5195-3) 0.09 Negative [facility] LongviewCbc with [id number] 00:58:41* Test Item Value Reference Range Interpretation Comme nts WBC (test code = 6690-2) 6.93 See_Comment [Automated messa ge] The system which generated this result transmitted reference range: 4.30 - 11.10 10*3/?L. The reference range was not used to interpret this result as normal/abnormal. RBC (test code = 789-8) 3.78 See_Comment L [Automated messa ge] The system which generated this result transmitted reference range: 3.93 - 5.25 10*6/?L. The reference range was not used to interpret this result as normal/abnormal. HGB (test code = 718-7) 9.6 g/dL 11.6-15.0 L HCT (test code = 4544-3) 30.1 % 35.7-45.2 L MCV (test code = 787-2) 79.6 fL 80.6-95.5 L MCH (test code = 785-6) 25.4 pg 25.9-32.8 L MCHC (test code = 786-4) 31.9 g/dL 31.6-35.1 RDW-SD (test code = 49165-1) 42.4 fL 39.0-49.9 RDW-CV (test code = 788-0) 14.6 % 12.0-15.5 PLT (test code = 777-3) 316 See_Comment [Automated messa ge] The system which generated this result transmitted reference range: 166 - 358 10*3/?L. The reference range was not used to interpret this result as normal/abnormal. MPV (test code = 37454-5) 10.4 fL 9.5-12.9 NRBC/100 WBC (test code = 5254664144) 0.0 See_Comment [Automated [employer] ssage] The system which generated this result transmitted reference range: 0.0 - 10.0 /100 WBCs. The reference range was not used to interpret this result as normal/abnormal. NRBC x10^3 (test code = 6183342371) See_Comment [Automated messa ge] The system which generated this result transmitted reference range: 10*3/?L. The reference range was not used to interpret this result as normal/abnormal. GRAN MAT (NEUT) % (test code = 770-8) 68.8 % IMM GRAN % (test code = 8714675139) 1.40 % LYMPH % (test code = 736-9) 20.9 % MONO % (test code = 5905-5) 7.2 % EOS % (test code = 713-8) 1.3 % BASO % (test code = 706-2) 0.4 % GRAN MAT x10^3(ANC) (test code = 0655271957) 4.76 10*3/uL 1.88-7.09 IMM GRAN x10^3 (test code = 2744188500) 0.10 10*3/uL 0.00-0.06 H LYMPH x10^3 (test code = 731-0) 1.45 10*3/uL 1.32-3.29 MONO x10^3 (test code = 742-7) 0.50 10*3/uL 0.33-0.92 EOS x10^3 (test code = 711-2) 0.09 10*3/uL 0.03-0.39 BASO x10^3 (test code = 704-7) 0.03 10*3/uL 0.01-0.07 Lab Interpretation (test code = 82767-4) Abnormal [facility]viewType and Screen - ONCE Hdxucyy5178-65-49 00:48:00* Test Item Value Reference Range Interpretation Comme nts ABO & RH (test code = 20) A POSITIVE IAT (test code = 1185) Negative [facility]viewPOCT URINALYSIS W SPECIFIC [id number] 21:19:00* Test Item Value Reference Range Interpretation Comme nts POCT U SP GRAV (test code = 3255) . 1.005-1.025 POCT PH U (test code = 3254) . 5-8 POCT U LEUK EST (test code = 3263) . Negative - N egative POCT U NIT (test code = 3262) . Negative - Negati ve POCT U PROT (test code = 3259) 1+ Negative - Negat juliocesar POCT U GLU (test code = 3256) Nml Negative - Negati ve POCT U KETONE (test code = 3258) . Negative - Neg ative POCT U UROBILI (test code = 3260) . 0.2-1 POCT U BILI (test code = 3261) . Negative - Negat juliocesar POCT U BLD (test code = 3257) . Negative - Negati ve POCT U COLOR (test code = 3266) . POCT U APPEAR (test code = 3267) . [facility] URINALYSIS W SPECIFIC [id number] 21:19:00* Test Item Value Reference Range Interpretation Comme nts POCT U SP GRAV (test code = 3255) . 1.005-1.025 POCT PH U (test code = 3254) . 5-8 POCT U LEUK EST (test code = 3263) . Negative - N egative POCT U NIT (test code = 3262) . Negative - Negati ve POCT U PROT (test code = 3259) 1+ Negative - Negat juliocesar POCT U GLU (test code = 3256) Nml Negative - Negati ve POCT U KETONE (test code = 3258) . Negative - Neg ative POCT U UROBILI (test code = 3260) . 0.2-1 POCT U BILI (test code = 3261) . Negative - Negat juliocesar POCT U BLD (test code = 3257) . Negative - Negati ve POCT U COLOR (test code = 3266) . POCT U APPEAR (test code = 3267) . [facility] URINALYSIS W SPECIFIC [id number] 21:05:00* Test Item Value Reference Range Interpretation Comme nts POCT U SP GRAV (test code = 3255) . 1.005-1.025 POCT PH U (test code = 3254) . 5-8 POCT U LEUK EST (test code = 3263) . Negative - N egative POCT U NIT (test code = 3262) . Negative - Negati ve POCT U PROT (test code = 3259) trace Negative - Negat juliocesar POCT U GLU (test code = 3256) neg Negative - Negati ve POCT U KETONE (test code = 3258) . Negative - Neg ative POCT U UROBILI (test code = 3260) . 0.2-1 POCT U BILI (test code = 3261) . Negative - Negat juliocesar POCT U BLD (test code = 3257) . Negative - Negati ve POCT U COLOR (test code = 3266) . POCT U APPEAR (test code = 3267) . [facility] URINALYSIS W SPECIFIC [id number] 21:05:00* Test Item Value Reference Range Interpretation Comme nts POCT U SP GRAV (test code = 3255) . 1.005-1.025 POCT PH U (test code = 3254) . 5-8 POCT U LEUK EST (test code = 3263) . Negative - N egative POCT U NIT (test code = 3262) . Negative - Negati ve POCT U PROT (test code = 3259) trace Negative - Negat juliocesar POCT U GLU (test code = 3256) neg Negative - Negati ve POCT U KETONE (test code = 3258) . Negative - Neg ative POCT U UROBILI (test code = 3260) . 0.2-1 POCT U BILI (test code = 3261) . Negative - Negat juliocesar POCT U BLD (test code = 3257) . Negative - Negati ve POCT U COLOR (test code = 3266) . POCT U APPEAR (test code = 3267) . [facility] URINALYSIS W SPECIFIC [id number] 21:05:00* Test Item Value Reference Range Interpretation Comme nts POCT U SP GRAV (test code = 3255) . 1.005-1.025 POCT PH U (test code = 3254) . 5-8 POCT U LEUK EST (test code = 3263) . Negative - N egative POCT U NIT (test code = 3262) . Negative - Negati ve POCT U PROT (test code = 3259) trace Negative - Negat juliocesar POCT U GLU (test code = 3256) neg Negative - Negati ve POCT U KETONE (test code = 3258) . Negative - Neg ative POCT U UROBILI (test code = 3260) . 0.2-1 POCT U BILI (test code = 3261) . Negative - Negat juliocesar POCT U BLD (test code = 3257) . Negative - Negati ve POCT U COLOR (test code = 3266) . POCT U APPEAR (test code = 3267) . [facility] URINALYSIS W SPECIFIC [id number] 21:05:00* Test Item Value Reference Range Interpretation Comme nts POCT U SP GRAV (test code = 3255) . 1.005-1.025 POCT PH U (test code = 3254) . 5-8 POCT U LEUK EST (test code = 3263) . Negative - N egative POCT U NIT (test code = 3262) . Negative - Negati ve POCT U PROT (test code = 3259) trace Negative - Negat juliocesar POCT U GLU (test code = 3256) neg Negative - Negati ve POCT U KETONE (test code = 3258) . Negative - Neg ative POCT U UROBILI (test code = 3260) . 0.2-1 POCT U BILI (test code = 3261) . Negative - Negat juliocesar POCT U BLD (test code = 3257) . Negative - Negati ve POCT U COLOR (test code = 3266) . POCT U APPEAR (test code = 3267) . [facility] URINALYSIS W SPECIFIC [id number] 16:23:00* Test Item Value Reference Range Interpretation Comme nts POCT U SP GRAV (test code = 3255) . 1.005-1.025 POCT PH U (test code = 3254) . 5-8 POCT U LEUK EST (test code = 3263) . Negative - N egative POCT U NIT (test code = 3262) . Negative - Negati ve POCT U PROT (test code = 3259) trace Negative - Negat juliocesar POCT U GLU (test code = 3256) neg Negative - Negati ve POCT U KETONE (test code = 3258) . Negative - Neg ative POCT U UROBILI (test code = 3260) . 0.2-1 POCT U BILI (test code = 3261) . Negative - Negat juliocesar POCT U BLD (test code = 3257) . Negative - Negati ve POCT U COLOR (test code = 3266) . POCT U APPEAR (test code = 3267) . [facility] URINALYSIS W/O SPECIFIC [id number] 18:58:00* Test Item Value Reference Range Interpretation Comme nts POCT PH U (test code = 3254) 9 mg/dl 5-8 A POCT U LEUK EST (test code = 3263) 2+ Negative - Negative POCT U NIT (test code = 3262) neg Negative - Negati ve POCT U PROT (test code = 3259) trace Negative - Negat juliocesar POCT U GLU (test code = 3256) neg Negative - Negati ve POCT U KETONE (test code = 3258) neg Negative - Neg ative POCT U BLD (test code = 3257) neg Negative - Negati ve Lab Interpretation (test cod e = 21475-6) [facility] [facility] SPECIFIC [id number] 18:58:00* Test Item Value Reference Range Interpretation Comme nts POCT PH U (test code = 3254) 9 mg/dl 5-8 A POCT U LEUK EST (test code = 3263) 2+ Negative - Negative POCT U NIT (test code = 3262) neg Negative - Negati ve POCT U PROT (test code = 3259) trace Negative - Negat juliocesar POCT U GLU (test code = 3256) neg Negative - Negati ve POCT U KETONE (test code = 3258) neg Negative - Neg ative POCT U BLD (test code = 3257) neg Negative - Negati ve Lab Interpretation (test cod e = 46068-6) Abnormal [facility] [id number] 18:57:00* Test Item Value Reference Range Interpretation Comme nts POCT PREG (test code = 1605) Positive On board controls acceptable with C Line (test code = 3574) Yes POCT PREG LOT # (test code = 3575) POCT PREG TEST DATE ( test code = 3576) [facility] [id number] 18:57:00* Test Item Value Reference Range Interpretation Comme nts POCT PREG (test code = 1605) Positive On board controls acceptable with C Line (test code = 3574) Yes POCT PREG LOT # (test code = 3575) POCT PREG TEST DATE ( test code = 3576) [facility] Notes Date/Time Note Provider Source 2024-09-10 11:07:25 Associated Order(s): CONSULT PEDI SCRAPER BURRER; CONSULT SCRAPER BURRER-ADULT Met with biological MOB and adoptive parents in room, Vernell Ricardo and Jean Ricardo who reside at [address] [place] [address] in [place] [address]. [address] documents provided from [facility] "Statement to Confer Standing" as well as Mother's Authorization For Release of Booker To Adoptive Parents" signed and notarized by Zhanna Tello ID [id number] on 09-04-24. SW also completed [facility] Release of Booker To [employer]. SW will assist with any additional dc needs. MOB is coping appropriately with adoption. SW will provide community resources for couseling and grief therapy as requested per MOB. Adoptive parents have all necessary child adolescent psychiatrist items necessary for dc. NB anticipated to dc on 09-11-24. Regarding MOB history of positive UDS on 01-09-24 for cocaine and THC, pt denies any use thereafter, with no other UDS's completed, until present upon delivery, of which was negative. Pt had consistent care and indicates she plans on returning home with her mother and at [address] [place] [address] with good family support to report. MOB has a one year old son in the home under her custody as well. She plans on remaining home and caring for her first son. MOB is coping appropriately and states she is "sad but knows she is doing the right thing for her daughter by adopting her out." SW offered emotional support and will provide a list of resources for grief support and counseling services if needed. CPS report will be made on account of prior positive UDS for cocaine and THC on 01-09-24 as MOB did currently have her son in the home under her custody. Will assist with any additional dc needs. CPS Report ID# [id number] [employer] Tele[employer] Technician: Mek[place], [place] [id number] NOTIFIED THAT CPS DOES NOT RECOMMEND OPENING CASE. [address] Construction Worker - Care Management [facility] [phone] [email or web address] [address] [employer] Worker - Care Management [facility] [phone] [email or web address] Emily MARTINEZ [facility] - Health History and Physical Notes Date/Time Note Provider Source 2024-09-09 19:52:54 TRIAGE HISTORY & PHYSICAL IDENTIFYING DATA Tamera Bergman is 18 year old, /White, 39w5d, female with JACQUELINE 09/11/2024, by Ultrasound. : 2005 Primary Care Physician: PATIENT DOES NOT HAVE A PCP CHIEF COMPLAINT contractions HISTORY OF PRESENT ILLNESS Tamera Bergman is a 18 year old female @ 39w5d presented for contractions. SROM on labor and delivery, moderate meconium noted. +FM. No VB. No pre-eclampsia sx or other complaints. PAST OBSTETRIC HISTORY OB History Para Term AB Living 2 1 1 0 0 1 SAB IAB Ectopic Multiple Live Births 0 0 0 0 1 # Outcome Date GA Lbr Chad/2nd Weight Sex Type Anes PTL Lv 2 Current 1 Term 06/08/23 38w6d 3050 g M NORMAL SPONT EPI N BRIDGER PAST MEDICAL HISTORY Problem list: Patient Active Problem List Diagnosis Date Noted Liveborn , of chandler , born in hospital by vaginal delivery 09/09/2024 Normal labor 09/09/2024 Chlamydia infection during 08/19/2024 Gonorrhea in 08/19/2024 Positive GBS test 08/19/2024 with adoption planned, antepartum 05/23/2024 Inmate in correctional facility 01/30/2024 Short interval between pregnancies affecting , antepartum 01/30/2024 Multiparity 01/30/2024 39 weeks gestation of 06/07/2023 Supervision of high-risk with insufficient care 02/20/2023 History of marijuana use 02/20/2023 History of herpes genitalis 02/20/2023 Other depression 02/20/2023 Operations: History reviewed. No pertinent surgical history. Past Medical History: Diagnosis Date Genital herpes 2021 not on meds, denies recent outbreak Marijuana use 02/20/2023 denied at this time Other depression 02/20/2023 not on meds CURRENT HEALTH STATUS Medications: Current Facility-Administered Medications Medication Dose Route Frequency Last Rate Last Admin carboprost (HEMABATE) injection 250 mcg 250 mcg Intramuscular Q2HPRN D5W-LR IV infusion 1,000 mL 1,000 mL IV Infusion TITRATE lactated ringers IV infusion 1,000 mL 1,000 mL IV Infusion ONCE lactated ringers IV infusion 250 mL 250 mL IV Infusion PRN - SEE INSTRUCTIONS lidocaine 1% (PF) (XYLOCAINE) injection 0.3 mL 0.3 mL Infiltration PRN - SEE INSTRUCTIONS methylergonovine (METHERGINE) injection 0.2 mg 0.2 mg Intramuscular Q4HPRN miSOPROStoL (CYTOTEC) tablet 200 mcg 200 mcg Rectal PRN Oxytocin in Normal Saline 30 unit/500 mL IV infusion Soln 600 mL/hr IV Infusion PRN Oxytocin in Normal Saline 30 unit/500 mL IV infusion Soln 300 mL/hr IV Infusion SEE-INSTRUCTIONS Oxytocin in Normal Saline 30 unit/500 mL IV infusion Soln 600 mL/hr IV Infusion PRN sodium citrate-citric acid (BICITRA) 500-334 mg/5 mL solution 30 mL 30 mL Oral PRE-PROCEDURE ONCE tranexamic acid in (ISO-OS) sodium chloride 1,000 mg/100 mL (10 mg/mL) IV 1,000 mg 1,000 mg IV Piggyback PRN Allergies and drug reactions: Patient has no known allergies. HOME MEDICATIONS Medications Prior to Admission Medication Sig Dispense Refill Last Dose/Taking acyclovir 400 mg tablet Take 1 tablet by mouth in the morning and 1 tablet at noon and 1 tablet in the evening. 90 tablet 1 PNV 67-iron ps-folate no.1-dha (VITAFOL ULTRA) 29 mg iron- 1 mg-200 mg Cap Take 1 Each by mouth in the morning. 30 capsule 8 SOCIAL HISTORY Tobacco History: Social History Tobacco Use Smoking Status Never Passive exposure: Never Smokeless Tobacco Never Drug History: Social History Substance and Sexual Activity Drug Use Not Currently Types: Marijuana, Other-see comments Comment: last use 02/17/2023. Percocets per pt report Alcohol History: Social History Substance and Sexual Activity Alcohol Use Yes FAMILY HISTORY Family History Problem Relation Age of Onset No Significant Medical Problems Mother No Significant Medical Problems Father REVIEW OF SYSTEMS General: negative Constitutional: negative Eyes: negative ENT/Mouth: negative Cardiovascular: negative Respiratory: negative Gastrointestinal:negative Genitourinary: See HPI Musculoskeletal: negative Skin/breast: negative Neurological: negative Psychiatric: negative Endocrine: negative Hemat/Lymph: negative Allergic/Immuno:none VITAL SIGNS BP: (175)/(102) Temp: [36.4 ?C (97.6 ?F)] Temp source: Axillary (09/09 1853) Pulse: [79] Resp: [20] SpO2: [99 %] Height: [154.9 cm (5' 1")] Weight: [68 kg (150 lb)] BMI (calculated): [28.34] PHYSICAL EXAMINATIONS Gen: alert and oriented, well appearing, no distress CV: RRR, normal S1/S2, no m/r/g Resp: normal work of breathing, lungs CTAB Abd: gravid, soft, NTTP Ext: no calf tenderness or edema : Complete/complete/+4 REVIEW OF LABORATORY, PATHOLOGY, AND RADIOLOGY DATA Lab results: Type & Screen HIV Hep B Syphilis Chlamydia ABO & RH Date Value Ref Range Status 01/30/2024 A POSITIVE Final No results found for: "HIVMULTIPLEX" No components found for: "HBSHBSAG" Syphilis IgG/IgM Date Value Ref Range Status 01/30/2024 Non-reactive Non-reactive Final C. trachomatis Nucleic Acid Date Value Ref Range Status 08/15/2024 Positive (A) Negative Final IAT Date Value Ref Range Status 01/30/2024 Negative Final Varicella Rubella Glucose Group B Strep CBC VZV IgG antibody Date Value Ref Range Status 01/30/2024 Positive Negative Final Rubella screen IgG Date Value Ref Range Status 01/30/2024 Positive Negative Final No results found for: "FERZ2PM" No results found for: "CGBS" HGB Date Value Ref Range Status 09/09/2024 10.8 (L) 11.6 - 15.0 g/dL Final HCT Date Value Ref Range Status 09/09/2024 34.3 (L) 35.7 - 45.2 % Final PLT Date Value Ref Range Status 09/09/2024 330 166 - 358 10*3/?L Final Active Hospital Problems Diagnosis Date Noted Liveborn , of chandler , born in hospital by vaginal delivery 09/09/2024 Normal labor 09/09/2024 Positive GBS test 08/19/2024 Address intrapartum Chlamydia infection during 08/19/2024 Pending miguel Gonorrhea in 08/19/2024 Pending miguel with adoption planned, antepartum 05/23/2024 Short interval between pregnancies affecting , antepartum 01/30/2024 1st baby in 05/2023 Multiparity 01/30/2024 39 weeks gestation of 06/07/2023 Supervision of high-risk with insufficient care 02/20/2023 History of herpes genitalis 02/20/2023 suppression at 36 weeks Resolved Hospital Problems No resolved problems to display. Present on Admission: Supervision of high-risk with insufficient care 39 weeks gestation of Normal labor with adoption planned, antepartum Positive GBS test Chlamydia infection during Gonorrhea in Short interval between pregnancies affecting , antepartum History of herpes genitalis Multiparity Placenta Accreta Screening Screening outcome: A positive screening outcome indicates a history of prior delivery or prior uterine surgery, AND the presence of either a placenta low lying/previa or ultrasound suspicion of PASD in the current . Negative screening. ASSESSMENT AND PLAN Tamera Bergman is a 18 year old at 39w5d who presents with contractions, admitted for labor. Labor -Complete on presentation -Admit for delivery -GBS positive: Not treated -Cephalic presentation Chlamydia - On 08/15/2024 - reports did not have treatment - Azithromycin 1000 mg PO once ordered Gonorrhea - Diagnosed on 08/15/2024 - did not have treatment - Rocephin 500 mg IM once ordered History of genital herpes - Denies prodromal symptoms or lesions - No lesions noted on exam Baby is for adoption UDS presumptive positive for THC and cocaine metabolites in December 2023 - Will send UDS. Patient received fentanyl postdelivery. Elevated BP without diagnosis of hypertension - If elevated BP persists, will send tox labs care at [facility]. Labs/imaging reviewed. Pedi made aware Mark Johansen MD 09/09/2024 8:38 PM [facility] 2023-06-07 18:42:02 TRIAGE/L&D HISTORY & PHYSICAL IDENTIFYING DATA Tamera Bergman is 17 year old, /White, 38w5d, female with JACQUELINE 06/16/2023, by Ultrasound. : 2005 Primary Care Physician: Barry Rob CHIEF COMPLAINT Sent from clinic for high blood pressure HISTORY OF PRESENT ILLNESS Tamera Bergman is a 17 year old at 38w5d who presents for high blood pressure. Patient denies vaginal bleeding, denies leakage of fluid, denies contractions. Patient denies headache, denies nausea/vomiting, denies RUQ pain, denies visual abnormalities. Endorses normal movement. PAST OBSTETRIC HISTORY OB History Para Term AB Living 1 0 0 0 0 0 SAB IAB Ectopic Multiple Live Births 0 0 0 0 0 # Outcome Date GA Lbr Chad/2nd Weight Sex Delivery Anes PTL Lv 1 Current PAST MEDICAL HISTORY Problem list: Patient Active Problem List Diagnosis Date Noted 38 weeks gestation of 06/07/2023 Supervision of high-risk with insufficient care 02/20/2023 Marijuana use 02/20/2023 Herpes infection in 02/20/2023 Other depression 02/20/2023 Herpes simplex viral infection 07/30/2021 Operations: No past surgical history on file. Past Medical History: Diagnosis Date Genital herpes 2021 not on meds, denies recent outbreak Marijuana use 02/20/2023 Other depression 02/20/2023 CURRENT HEALTH STATUS Medications: Current Facility-Administered Medications Medication Dose Route Frequency Last Rate Last Admin D5W-LR IV infusion 1,000 mL 1,000 mL IV Infusion TITRATE lactated ringers IV infusion 500 mL 500 mL IV Infusion PRN - SEE INSTRUCTIONS lidocaine 1% (PF) (XYLOCAINE) injection 0.3 mL 0.3 mL Infiltration PRN - SEE INSTRUCTIONS lidocaine 1% (XYLOCAINE) 10 mg/mL (1 %) injection 50 mL 50 mL Infiltration PRN - SEE INSTRUCTIONS sodium citrate-citric acid (BICITRA) 500-334 mg/5 mL solution 30 mL 30 mL Oral PRE-PROCEDURE ONCE Allergies and drug reactions: Patient has no known allergies. HOME MEDICATIONS Medications Prior to Admission Medication Sig Dispense Refill Last Dose acyclovir 400 mg tablet Take 1 tablet by mouth in the morning and 1 tablet at noon and 1 tablet in the evening. 90 tablet 1 VALACYCLOVIR 1 gram tablet TAKE 1 TABLET BY MOUTH TWICE A DAY FOR 10 DAYS 20 tablet 1 Not Taking SOCIAL HISTORY Tobacco History: Social History Tobacco Use Smoking Status Never Passive exposure: Never Smokeless Tobacco Never Drug History: Social History Substance and Sexual Activity Drug Use Yes Types: Marijuana, Other-see comments Comment: last use 02/17/2023. Percocets per pt report Alcohol History: Social History Substance and Sexual Activity Alcohol Use Yes FAMILY HISTORY Family History Problem Relation Age of Onset No Significant Medical Problems Mother No Significant Medical Problems Father REVIEW OF SYSTEMS General: negative Skin: negative HEENT: negative Neck: negative HEME: negative Resp: negative Cardio: negative GI: negative : negative Endo: negative Neuro: negative Back: negative CHARMAINE: negative Psych: negative VITAL SIGNS BP: (138-154)/(80-104) Temp: [36.5 ?C (97.7 ?F)-37.1 ?C (98.8 ?F)] Temp source: Axillary (06/07 1814) Pulse: [65-89] Resp: [18] SpO2: [100 %] Height: [157.5 cm (5' 2")] Weight: [62.7 kg (138 lb 4 oz)-63.7 kg (140 lb 6.4 oz)] BMI (calculated): [0-25.68] PHYSICAL EXAMINATIONS General: patient alert and in no acute distress HEENT: symmetric, negative for masses Lungs: unlabored breathing Cardiology: peripheral pulses intact and regular Abdomen: soft, non-tender, non-distended, and Gravid Extremities: no clubbing, cyanosis, or edema Neuro: patient moving all extremities, no facial droop : speculum exam- no lesions, cervix visually closed REVIEW OF LABORATORY, PATHOLOGY, AND RADIOLOGY DATA Lab results: Type & Screen Lab Results Component Value Date/Time IABORH A POSITIVE 06/07/2023 06:35 PM IAT Negative 06/07/2023 06:35 PM Serologies Lab Results Component Value Date/Time VZVIGG Positive 04/21/2023 03:47 PM RUBG Positive 02/20/2023 03:17 PM SYPIGG Non-reactive 04/21/2023 03:47 PM HBSAG Negative 02/20/2023 03:17 PM HBSAG 0.10 02/20/2023 03:17 PM Chlamydia Lab Results Component Value Date/Time VCAA Positive (A) 11/18/2020 10:38 AM Group B Strep No results found for: "CGB" GTT No results found for: "GLUF", "APCZ7DM", "GLU3H" CBC Lab Results Component Value Date/Time HGB 9.6 (L) 06/07/2023 06:35 PM HCT 30.1 (L) 06/07/2023 06:35 PM PLT 316 06/07/2023 06:35 PM Active Hospital Problems Diagnosis Date Noted 38 weeks gestation of 06/07/2023 Supervision of high-risk with insufficient care 02/20/2023 Herpes infection in 02/20/2023 suppression at 36 weeks Other depression 02/20/2023 Reports not SI/HI Herpes simplex viral infection 07/30/2021 Resolved Hospital Problems No resolved problems to display. Present on Admission: Herpes simplex viral infection Supervision of high-risk with insufficient care Herpes infection in Other depression 38 weeks gestation of Placenta Accreta Screening Prior ? : No Prior Uterine Surgery?: No Placenta low lying/previa in current ? : No Ultrasound suspicion of PASD in current ?: (not specifically mentioned) Screening outcome: A positive screening outcome indicates a history of prior delivery or prior uterine surgery, AND the presence of either a placenta low lying/previa or ultrasound suspicion of PASD in the current . Negative screening. ASSESSMENT AND PLAN Tamera Bergman is a 17 year old at 38w5d by u(32) who presents for elevated BP in clinic. 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 - no s/s today - on suppressive therapy - no lesions on speculum exam today Antepartum course reviewed - No GTT done, sero negative, Rimmune, VZVimmune, HPV not immune, A positive/IAT negative, GBS unknown, Pap underage - H/H, plt: 11.1 / 34.4, 416 on 02/20/2023 Fetus - Presentation on admission: cephalic - anterior placenta - EFW: 2855 g, 14%tile - FHT reactive and reassuring - Normal anatomy scan D/w Dr. Carlos Michaud, [facility] Ryan Littlejohn MD, PhD Obstetrics & Gynecology, PGY-1 TATION INSPECTOR Associated attestation - Edyta Watson MD - 06/08/2023 6:38 AM SANITATION INSPECTOR I was L&D faculty on 06/07/2023 and agree with H&P below. I discussed the plan of care with the residents. Will admit for delivery due to GHTN at term Edyta Watson MD [facility] - [facility] Procedure Notes Date/Time Note Provider Source 2023-06-08 09:18:49 Associated Order(s): Central Neuraxial Block Central Neuraxial Block Date/Time: 06/08/2023 9:18 AM Performed by: Mendoza Marin MD Authorized by: Shruthi Petit MD End Time: 06/08/2023 9:18 AM Reason for Block: OB request, Patient request, Labor analgesia, Surgical anesthesia and Post-op pain management Staff: Anesthesiologist: Shruthi Petit MD Resident/MANAGER INSIDE: Mendoza Marin MD Performed by: resident/MANAGER INSIDE Preanesthetic Checklist: patient identified, IV checked, risks and benefits explained, monitors and equipment checked, timeout performed, pre-op evaluation, site marked and anesthesia consent Procedure: Type of Neuraxial: Epidural Prep: Betadine and patient draped Monitoring: heart rate, continuous pulse ox, heart rate / toco and NIBP Technique: catheter and LICHA saline Guidance with: landmark technique} Epidural/Spinal [place] and/or Catheter: Epidural/Spinal Kit: BBchace Needle Type: Tuohy Needle Gauge: 17 G Needle Length: 3.5 in (8.89 cm) Needle Insertion Depth: 5 Catheter Type: multiport Catheter Size: 19 G Catheter at Skin Depth: 10 Number of Attempts: 1 Test Dose: lidocaine 1.5% with epinephrine 1-to-200,000 and negative Dose: 5 cc Catheter Securement Method: surgical tape, Tegaderm, liquid medical adhesive and clear occlusive dressing Assessment: Procedure Assessment: patient tolerated procedure well with no complications Notes: Smooth and atraumatic, (+) Local, (+) STF Patient consented and positioned sitting upright with instructions given regarding positioning and maintaining a sterile field. Patient prepped and draped in sterile fashion. Epidural kit opened and medications prepared utilizing sterile protocol. LICHA to Saline was used midline. LICHA was at 5 cm attempts x 1. Catheter threaded smoothly, taped at skin at 10 cm. Negative aspiration of blood or CSF x 3. Negative Test dose. Epidural catheter secured in place using tegederm and tape while maintaining insertion site sterility. Pumps settings are continuous 12 cc/hr PCEA 4cc- 15 mins lockout. 5 ml bolus was given initially. 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 Fall precautions provided, patient vocalized understanding and all questions answered. [facility] AN-ANESTHESIOLOGY [facility] 2023-06-07 21:43:39 Procedure(s): INSERT CERVICAL DILATOR Pre-Procedure Diagnose(s): 38 weeks gestation of Post-Procedure Diagnose(s): 38 weeks gestation of Tamera Bergman is a 17 year old female 38w5d Ochoa insertion: Insertion date and time: 06/07/231999 Ochoa catheter inserted through cervix in sterile fashion using a speculum and inflated with 60 cc sterile saline. Ochoa bulb firmly in place inside internal os. Catheter taped to patient leg under traction. Patient tolerated procedure well. Please use the table below for: SVE visually closed Ryan Littlejohn MD PhD [facility] Notes Date/Time Note Provider Source 2024-09-10 19:03:49 Problem: Discharge Planning - Goal: Adequate for discharge Outcome: Progressing as expected Goal: Mood stable Outcome: Progressing as expected Problem: Bleeding, Risk of Goal: Absence of impaired coagulation signs and symptoms Outcome: Progressing as expected Goal: Absence of active bleeding Outcome: Progressing as expected Problem: Pain Goal: Control of pain at or below patient's documented comfort goal Outcome: Progressing as expected Goal: Reduction in pain sensation Outcome: Progressing as expected Payal Mittal RN [facility] 2024-09-10 13:26:08 Images from the original note were not included. This note was copied from a baby's chart. Stopping Breast Milk Production Breast stimulation encourages milk production. The more milk is removed the body responds by making more milk. When the breast stays full it signals the body to stop making milk. Breast fullness and swelling can be painful. This is normal and may last 3- 4 days. Helpful tips to stop breast milk production Do not bind your breast. This can lead to plugged ducts, mastitis, and increased pain. Wear a supportive bra day and night. Nursing pads are helpful for leaking milk. Talk to your provider about over the counter pain relievers such as ibuprofen or acetaminophen to help relieve pain. Ice packs or cold cabbage leaves on the breast can help decrease swelling and pain. Use 3-4 times per day for 15-20 minutes. Drink when you are thirsty. Drinking less fluids does not help and can make you dehydrated. If your breasts become very uncomfortable express just enough milk to reduce the pressure. Call your healthcare provider Call your healthcare provider right away if you have any of the following: A fever or chills Extreme tiredness and body aches, as if you have the flu Burning or pain in one or both breasts Red streaks on a breast Hard or lumpy spots in one or both breasts A feeling of warmth or heat in one or both breasts It can take some women up to 10 days or longer for the breasts to stop making milk. Please contact your primary care provider for questions or concerns. If you have a fever over 101?F (38.3?C), pain and/or redness in a specific area of the breast, feel like you are coming down with the flu, it could be a sign of breast or other infection. It may be temporarily necessary to remove a majority of the milk from the breasts by hand expression or pumping to help the infection clear, along with the use of antibiotics. Contact your primary care provider. Elizabeth WHEAT, RN, IBCLC Elizabeth Cadet RN [facility] 2024-09-09 23:33:01 Problem: Discharge Planning - Goal: Adequate for discharge Outcome: Progressing as expected Goal: Mood stable Outcome: Progressing as expected Problem: Bleeding, Risk of Goal: Absence of impaired coagulation signs and symptoms Outcome: Progressing as expected Goal: Absence of active bleeding Outcome: Progressing as expected Problem: Pain Goal: Control of pain at or below patient's documented comfort goal Outcome: Progressing as expected Goal: Reduction in pain sensation Outcome: Progressing as expected [facility] 2024-09-09 20:06:12 VAGINAL DELIVERY NOTE Delivery Date: 09/09/2024 Delivery Time: 7:08 PM Delivery Summary Pre-delivery diagnosis: The patient was admitted to the Labor & Delivery unit for delivery at 39 weeks due to labor. Post-delivery diagnosis: s/p Kishore-aleks Weight: 3310 g 1 Minute 5 Minute 10 Minute Totals: 8 9 Cord gases obtained: NA Primary delivering: Mark Johansen MD Intrapartum Anesthesia/Analgesia: None Labor Complications:None Additional Complications: None QBL: see I/O's Uterotonics: No TXA given: No Delivery of chandler fetus with cephalic presentation Shoulder Dystocia: No Operative Delivery: No Fetus Vaginal delivery of head with cephalic position, left occipital anterior. As the head crowned and distended the perineum, no episiotomy was performed. A blue towel was used to protect the perineum as the head crowned and delivered. The other hand was used to exert pressure on the occiput to control the delivery of the head. The perineum was pushed with a towel-draped hand as the head and mouth was delivered over the perineum. The head was allowed to rotate externally to achieve natural body posture. Examination of neck revealed no umbilical cord. The shoulder was delivered by gentle downward traction applied to head and downward traction for the delivery of anterior shoulder. This was followed by upward traction with delivery of posterior shoulder and body. After the delivery of , bulb suction was performed from oropharynx and nostril with removal of clear amniotic fluid. A normal, female was delivered. Delayed cord clamping done Yes. The umbilical cord was double clamped, cut and the infant was handed off the field to the circulating nurse Placenta Placenta was delivered spontaneously while the abdominal hand lifted the uterus cephalad and other hand keeping the umbilical cord slightly taut. Placenta delivered intact: yes Fourth Stage Fourth stage of labor was managed by uterine massage with abdominal hand and infusion 30 units of pitocin mixed with intravenous fluid. Laceration: Episiotomy: None Perineal Lacerations: 1st Repaired: Yes Other Lacerations:None: Laceration Repair: 7 cc of 1% lidocaine injected into the area. Minor - lacerations (perineum, sidewall, labial, vaginal floor and/or periurethral) were closed with continuous sutures. Vaginal Counts: Initial count personnel: DINA BRAND Initial count verified by: DR.LAM Francia Dixon Initial Count 0 5 Added Counts 3 0 Final Count 3 5 Final count personnel: Final count verified by: DINA BRAND Accurate final count? Yes Mark Johansen MD 09/09/2024 8:07 PM [facility] [place] 2024-09-09 19:24:29 Problem: Discharge Planning - Goal: Adequate for discharge Outcome: Progressing as expected Goal: Mood stable Outcome: Progressing as expected Problem: Bleeding, Risk of Goal: Absence of impaired coagulation signs and symptoms Outcome: Progressing as expected Goal: Absence of active bleeding Outcome: Progressing as expected Problem: Pain Goal: Control of pain at or below patient's documented comfort goal Outcome: Progressing as expected Goal: Reduction in pain sensation Outcome: Progressing as expected [facility] 2024-09-09 18:54:04 Patient arrived to ED with family c/o five minute apart contractions. Patient is due September 11. Sees the [facility] clinic.Patient states not comfortable standing to get accurate weight. Report to DINA Medeiros. Glenny Henson RN [facility] 2024-09-09 18:51:00 [facility] Emergency Department Note Patient Name: Tamera Bergman Date of : 2005 18 year old female Treatment Room: Room/bed info not found Primary Care Physician: PATIENT DOES NOT HAVE A PCP Patient Escorted by: Family [5] Mode of Arrival: Personal means [1] EMS Treatment Prior to ED Arrival: Chief Complaint: No chief complaint on file. History of Present Illness: Tamrea Bergman is a 18 year old female , JACQUELINE 4*, presents to the ED with complaint of contractions that began around [address] hrs . Intermittent apx 5 minutes apart. 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 Passive Exposure: Never Alcohol Use Yes. Drug Use Not Currently; Marijuana, Other-see comments. Comments: last use 02/17/2023. Percocets per pt report Sexual Activity Sexually active; Partners: Male; Control/Protection: None. Comments: last intercourse: 01/09/2024 Past Surgical History: No past surgical history on file. Review of Systems: Review of Systems Constitutional: Negative. HENT: Negative. Respiratory: Negative. Gastrointestinal: Positive for abdominal pain. Genitourinary: Negative. Musculoskeletal: Negative. Neurological: Negative. Psychiatric/Behavioral: Negative. All other systems reviewed and are negative. Physical Exam: ED Triage Vitals [09/09/241853] Weight 68 kg (150 lb) Actual or estimated Estimated by patient/family report Height 1.549 m (5' 1") BP (!) 175/102 Pulse 79 Resp 20 Temp 36.4 ?C (97.6 ?F) Temp source Axillary SpO2 99 % Measured on Room air Physical Exam Vitals and nursing note reviewed. Constitutional: General: She is not in acute distress. Appearance: Normal appearance. She is well-developed. She is not ill-appearing, toxic-appearing or diaphoretic. HENT: Head: Normocephalic. Right Ear: External ear normal. Left Ear: External ear normal. Nose: Nose normal. Mouth/Throat: Mouth: Mucous membranes are moist. Pharynx: Oropharynx is clear. Eyes: General: No scleral icterus. Conjunctiva/sclera: Conjunctivae normal. Cardiovascular: Rate and Rhythm: Normal rate and regular rhythm. Pulses: Normal pulses. Heart sounds: Normal heart sounds. Pulmonary: Effort: Pulmonary effort is normal. No respiratory distress. Breath sounds: Normal breath sounds. No stridor. No wheezing. Abdominal: General: Abdomen is flat. Bowel sounds are normal. Palpations: Abdomen is soft. Comments: Gravid uterus Musculoskeletal: General: No swelling or tenderness. Normal range of motion. Cervical back: Normal range of motion and neck supple. No rigidity or tenderness. Skin: General: Skin is warm and dry. Capillary Refill: Capillary refill takes less than 2 seconds. Coloration: Skin is not jaundiced or pale. Findings: No bruising, erythema, lesion or rash. Neurological: General: No focal deficit present. Mental Status: She is alert and oriented to person, place, and time. Cranial Nerves: No cranial nerve deficit. Motor: No weakness. Gait: Gait normal. Psychiatric: Mood and Affect: Mood normal. Behavior: Behavior normal. Thought Content: Thought content normal. Judgment: Judgment normal. Radiology: No orders to display Lab Results: Lab Results - No data to display EKG: If EKG completed, see Procedure Note. Orders and Treatments: No orders of the defined types were placed in this encounter. No orders of the defined types were placed in this encounter. First Provider Eval: ED Events Date/Time Event User Comments 09/09/241851 Medical Screening Begins ROBBIE WINCHESTER -- 09/09/241851 First Provider Evaluation ROBBIE WINCHESTER -- ED COURSE Diagnosis/Impression as of 09/09/241858 Third trimester Procedures: Procedures MDM: Medical Decision Making Tamera Bergman is a 18 year old female , JACQUELINE 09/11/24, presents to the ED with complaint of contractions that began around 78944 hrs . Intermittent apx 5 minutes apart. 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 Disposition/Condition: ED Disposition ED Disposition Triaged to L&D Condition -- Comment Report to DINA Medeiros. Electronically signed by: Geovanna Winchester NP 09/09/241858 Geovanna Winchester NP 09/09/241899 Cosigned by Nelda Quan DO at 09/09/2024 10:39 PM CDT Associated attestation - Nelda Quan DO - 09/09/2024 10:39 PM CDT I was personally available for consultation in the Emergency Department during this encounter and patient evaluation by Geovanna Winchester. [facility] 2024-08-20 07:45:30 3rd attempt, not accepting calls. Letter sent. Ernestine Leon RN 08/20/24 7:45 AM [facility] 2024-08-19 13:08:22 2nd attempt to call patient, message states not accepting calls at this time, will try again at a later time. Margo Mcwilliams LVN [facility] 2024-08-19 08:06:30 Attempted to call patient, message states not accepting calls at this time, will try again at a later time. [facility] 2024-08-19 07:33:44 Please notify the patient of her positive STI results.chlamydia, gonorrhea Please notify the patient her medication has been sent to her pharmacy on file. She should complete the entire course.Please advise her on safe sex practices and to remain abstinent for at least 1-2 weeks post treatment. Her partner can be treated and tested per protocol. If she is not she will need a MIGUEL in 3 months, and advise her on HIV testing if she has not recently been tested. Please have her come in for treatment Also let her know she needs to start suppressive therapy for HSV, the script was sent for her on her last visit. RENE Oliver 08/19/2024 7:34 AM T [facility] 2024-01-11 15:07:55 Pt given printed and verbal discharge instructions regarding conversion disorder, encouraged hydration, Pt verbalized understanding of instructions, pt awake alert oriented, resp reg unlabored, skin w/d, color appropriate for race, moves all ext well,pt encouraged to follow up with pcp Advised to seek medical attention for new/prolonged/worsening of symptoms, No adverse reaction to meds given in ER noted upon discharge PIV d'cd, dressing to site, catheter in tact. Awake, alert oriented, resp reg unlabored, skin w/d, pt leaving ambulatory accompanied by [employer], in no apparent distress, Flavio Gutierrez RN [facility] 2024-01-11 14:22:14 Pt arrived via [facility] from [facility] for c/o "seizure like activity with no postictal phase" per ems. Pt reports she is 10 weeks and "I think I'm withdrawing from percocets". 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 Brought in for reported seizure activity from [facility]. Believes she is withdrawing from percocet. Previous functional shaking happened in past. Feels fine and not wanting further evaluation on exam. Past Medical History/Immunizations: Past Medical History: Diagnosis Date Genital herpes 2021 not on meds, denies recent outbreak Marijuana use 02/20/2023 Other depression 02/20/2023 Tetanus received in last 5 years: Unknown Allergies: No Known Allergies Past Social History: Tobacco Use Never smoked or used smokeless tobacco. Passive Exposure: Never Alcohol Use Yes. Drug Use Yes; Marijuana, Other-see comments. Comments: last use 02/17/2023. Percocets per pt report Sexual Activity Sexually active; Partners: Male; Control/Protection: None. Comments: last intercourse: 12/19/2022 Past Surgical History: History reviewed. No pertinent surgical history. Review of Systems: Review of Systems Constitutional: Negative for fever. Respiratory: Positive for shortness of breath. Gastrointestinal: Negative for nausea and vomiting. Skin: Negative for wound. Neurological: Positive for tremors. Negative for dizziness. Physical Exam: ED Triage Vitals [01/11/24 1423] Weight 64.9 kg (143 lb) Actual or estimated Estimated by patient/family report Height 1.524 m (5') BP 119/70 Pulse 70 Resp 16 Temp 36.7 ?C (98 ?F) Temp source Oral SpO2 100 % Measured on Room air Physical Exam Constitutional: General: She is not in acute distress. Appearance: She is well-developed. HENT: Head: Normocephalic and atraumatic. Eyes: Pupils: Pupils are equal, round, and reactive to light. Cardiovascular: Rate and Rhythm: Normal rate. Pulmonary: Effort: Pulmonary effort is normal. No respiratory distress. Abdominal: General: There is no distension. Musculoskeletal: General: Normal range of motion. Cervical back: Normal range of motion. Skin: General: Skin is warm and dry. Neurological: Mental Status: She is alert and oriented to person, place, and time. Radiology: No orders to display Lab Results: Lab Results - No data to display EKG: If EKG completed, see Procedure Note. Orders and Treatments: Orders Placed This Encounter Procedures Lactic Acid Whole Blood Lactic Acid Whole Blood Comp. Metabolic Panel (91279) No orders of the defined types were placed in this encounter. First Provider Eval: ED Events Date/Time Event User Comments 01/11/24 1502 Medical Screening Begins HOLLAND STEVENS -- 01/11/24 1502 First Provider Evaluation HOLLAND STEVENS -- ED COURSE Diagnosis/Impression as of 01/11/24 1502 Functional neurological symptom disorder (conversion disorder), with abnormal movement Procedures: Procedures MDM: Medical Decision Making Problems Addressed: Functional neurological symptom disorder (conversion disorder), with abnormal movement: acute illness or injury Details: Reported shaking with no post ictal phase. Amount and/or Complexity of Data Reviewed Labs: ordered. Flowsheet Documentation: Scoring Tools: No data recorded Disposition/Condition: ED Disposition ED Disposition Disch - Home Condition Stable Comment -- Discharge Medications: Patient's Medications START taking these medications No medications on file CONTINUE taking these medications which have NOT CHANGED AMOXICILLIN 500 MG CAPSULE Take 1 capsule by mouth in the morning and 1 capsule at noon and 1 capsule in the evening. DOCUSATE 100 MG CAPSULE Take 2 capsules by mouth once daily as needed for Constipation. FERROUS SULFATE 325 MG (65 MG IRON) TABLET Take 1 tablet by mouth in the morning and 1 tablet in the evening. IBUPROFEN 600 MG TABLET Take 1 tablet by mouth every 6 (six) hours as needed (Pain). Take with food or milk. START taking Modified Medications as Prescribed No medications on file STOP taking these medications No medications on file Follow-up: Contact information for follow-up Fredy Cee MD Specialty: PN-NEUROLOGY [facility] [address] [place] [phone] [facility]-Emergency Department Specialty: Emergency Medicine [address] [place] [id number] Instructions: If symptoms worsen as documented in the discharge Electronically signed by: Holland Stevens DO 01/11/24 1502 [facility] 2024-01-09 22:45:47 Patient awake and alert. DC instructions and prescription for amoxicillin reviewed with patient. She was informed of order for amoxicillin 500 MG po three times a day, and the need to follow up at facility clinic for meds. Reinforced to patient need for follow up with [employer] ebs consultant to monitor . She is Dc'd into custody of [facility]'s Office deputy-awaiting transport back to [facility]. [facility] 2024-01-09 21:53:18 [facility] ED Transfer of Care Note. Off-going Physician:Dr Jean-Baptiste Time of Transfer of Care: 9:53 PM Summary: Tamera Bergman is a 18 year old female presenting with chief complaint of AMS. Pending prior to disposition: Reevaluation Current interventions: Medications NaCl 0.9% (NS) bolus infusion 1,000 mL (0 mL IV Infusion Stopped 01/09/241999) cefTRIAXone (ROCEPHIN) 1,000 mg in NaCl 0.9% (NS) 100 mL MINI-BAG (0 mg IV Piggyback Stopped 01/09/242053) Results: Labs Reviewed CBC WITH DIFF - Abnormal; Notable for the following components: Result Value WBC 16.83 (*) PLT 383 (*) GRAN MAT x10 3 (ANC) 15.42 (*) IMM GRAN x10 3 0.07 (*) LYMPH x10 3 0.60 (*) EOS x10 3 <0.03 (*) All other components within normal limits COMP. METABOLIC PANEL (33195) - Abnormal; Notable for the following components: BUN 6 (*) CREATININE 0.43 (*) All other components within normal limits ACETAMINOPHEN - Abnormal; Notable for the following components: ACETAMINOP <10.0 (*) All other components within normal limits Narrative: Toxic: Greater than 200 ug/mL @ 4 hour post ingestion or greater than 50 ug/mL @ 12 hour post ingestion URINALYSIS - Abnormal; Notable for the following components: APPEARANCE Slightly Cloudy (*) BLOOD 1+ (*) KETONES 20 mg/dL (*) NITRITE Positive (*) LEUK NERI 500/uL (*) RBC/HPF 4 (*) WBC/HPF 25 (*) BACTERIA Few (*) MUCOUS Slight (*) All other components within normal limits URINE DRUG (IMMUNOASSAY) - COMPREHENSIVE DRUG SCREEN W/O REFLEX - Abnormal; Notable for the following components: Cocaine Metabolite Presumptive Positive (*) THC Presumptive Positive (*) All other components within normal limits Narrative: Urine Drug Cutoff Ranges Cocaine: 150 ng/mL Benzodiazepines: 200 ng/mL Methadone: 300 ng/mL Amphetamine: 1,000 ng/mL Opiates: 300 ng/mL Cannabinoids: 50 ng/mL Phencyclidine: 25 ng/mL Barbiturates: 200 ng/mL The results are to be used only for medical (i.e., treatment) purposes. Unconfirmed screening results must not be used for non-medical purposes (e.g., employment testing, legal testing). LIPASE - Normal POCT TEST - Normal ETHANOL Narrative: <10 Negative 50-100 Toxic >100 Depression of GOLD CUTTER >400 Fatalities Reported SALICYLATE Narrative: Therapeutic Range: Analgesic and Antipyretic Use 20-100 mg/L Anti-Inflammatory Use 100-250 mg/L Toxic Range: Greater than 300 mg/L TOTAL BETA HCG ASSAY Narrative: Gestational Age Range (mIU/mL) 1-10 Weeks [id number] 11-15 Weeks [id number] 16-22 Weeks [id number] 23-40 Weeks 1531-015104 Biotin has been reported to cause a negative bias, interpret results relative to patient's use of biotin. URINE CULTURE No orders to display Procedures: Procedures Additional Notes: Diagnosis/Impression as of 01/09/242158 Altered mental status, unspecified altered mental status type Urinary tract infection without hematuria, site unspecified Polysubstance abuse Positive blood test Medical Decision Making Tamera Bergman is a 18 year old female who is brought to the ED by Law Enforcement for evaluation of AMS Problems Addressed: Altered mental status, unspecified altered mental status type: acute illness or injury Details: Now resolved Pt reports it was due to polysubstance abuse Denies any trauma or injury Currently totally asymptomatic, Alert Awake oriented X 4 and denies any new complaints Pt is hungry and wants to eat Imaging of head CT and Chest Xrayu deferred Polysubstance abuse: Details: Has Cocaine and THC on testing in the ED Positive blood test: undiagnosed new problem with uncertain prognosis Urinary tract infection without hematuria, site unspecified: acute illness or injury Amount and/or Complexity of Data Reviewed Labs: ordered. Decision-making details documented in ED Course. Risk Prescription drug management. Disposition: Discharged back to [facility] Social Determinants of Health: None ED Disposition ED Disposition Disch - [facility] Condition Stable Comment -- Contact information for follow-up Barry Rob Specialty: PED-PEDIATRICS Relationship: PCP - General [address] [facility] [address] [facility] [phone] Rebeka Montano MD Specialty: OG-OBSTETRICS & GYNECOLOGY [address] [place] [address] [place] [address] [facility] 2024-01-09 18:30:00 Poison Control consulted in regards to patient's ingestion of Percocet. Reviewed EKG, interventions, and labs with Megha ARROYO. She agreed with current therapy, and recommended the following: -continue to monitor vital signs and observe for respiratory depression. -IV Narcan if becomes obtunded or has difficulty maintaining airway. -Observation for at least 6 hrs since last Narcan administration. -Further 12 hr observation if further Narcan administered. Case # [id number] [facility] 2024-01-09 16:20:14 Arrives via EMS from [facility]. Patient was found down on floor of holding cell at 1400. Patient states she took approx 15 Percocet at 0300-states they have Fentanyl in them. Not prescribed-she buys them from someone. Denies intent to harm herself-states she takes them regularly because she "has a lot going on". Drowsy-arouses to tactile and verbal stimulation. T Mahad Blanc RN [facility] 2023-06-12 14:00:20 Notified the patient of her positive STI results chlamydia. Notified the patient her medication has been sent to her pharmacy on file. Educated patient she should complete the entire course, advised patient to practice safe sex practices and to remain abstinent for at least 1-2 weeks post treatment. Patient declines to have partner treated. Offered std pamphlet for partner education. Patient declinedstd pamphlet to be mailed to partner. Advised patient on HIV testing if she has not recently been tested. Advised MIGUEL appointment in 3 months. Pt verbalized understanding. Mcwilliams LVN [facility] 2023-06-12 08:24:52 2nd attempt to call patient, message states not available, will try again at a a later time. Mcwilliams BOILERMAKING SUPERVISOR [facility] 2023-06-09 15:25:33 Attempted to call patient, message states call can not be completed, will try again at a later time. Mcwilliams LVN [facility] 2023-06-09 15:16:52 Please notify the patient of her positive STI results. Please notify the patient her medication has been sent to her pharmacy on file. She should complete the entire course.Please advise her on safe sex practices and to remain abstinent for at least 1-2 weeks post treatment. Her partner can be treated and tested per protocol. If she is not she will need a MIGUEL in 3 months, and advise her on HIV testing if she has not recently been tested. ERNE Oliver 06/09/2023 3:17 PM [facility] 2023-06-09 14:04:52 Problem: Infection Risk Goal: Absence of infection Outcome: Adequate for discharge Problem: Discharge Planning - Goal: Adequate for discharge Outcome: Adequate for discharge Goal: Mood stable Outcome: Adequate for discharge Problem: Falls, Risk of Goal: Absence of falls Outcome: Adequate for discharge Problem: Breast-feeding - Ineffective Goal: Effective breast-feeding Outcome: Adequate for discharge Problem: Pain Goal: Control of pain at or below patient's documented comfort goal Outcome: Adequate for discharge Goal: Reduction in pain sensation Outcome: Adequate for discharge Problem: Complications of preeclampsia/eclampsia (risk or actual) Goal: Absence of seizure activity Outcome: Adequate for discharge Goal: Absence of signs and symptoms of preeclampsia Outcome: Adequate for discharge Jose RN [facility] 2023-06-09 11:40:00 This note was copied from a baby's chart. Consult attempted. Hearing screen in progress. Will return at a later time. Arden WHEAT, RN, IBCLC TATION INSPECTOR Arden Porter RN [facility] 2023-06-09 04:28:46 Problem: Infection Risk Goal: Absence of infection Outcome: Progressing as expected Problem: Discharge Planning - Goal: Adequate for discharge Outcome: Progressing as expected Goal: Mood stable Outcome: Progressing as expected Problem: Falls, Risk of Goal: Absence of falls Outcome: Progressing as expected Problem: Breast-feeding - Ineffective Goal: Effective breast-feeding Outcome: Progressing as expected Problem: Pain Goal: Control of pain at or below patient's documented comfort goal Outcome: Progressing as expected Goal: Reduction in pain sensation Outcome: Progressing as expected Problem: Complications of preeclampsia/eclampsia (risk or actual) Goal: Absence of seizure activity Outcome: Progressing as expected Goal: Absence of signs and symptoms of preeclampsia Outcome: Progressing as expected TATION INSPECTOR Kyra Valles RN [facility] 2023-06-08 18:40:33 Problem: Infection Risk Goal: Absence of infection Outcome: Progressing as expected Problem: Discharge Planning - Goal: Adequate for discharge Outcome: Progressing as expected Goal: Mood stable Outcome: Progressing as expected Problem: Falls, Risk of Goal: Absence of falls Outcome: Progressing as expected Problem: Breast-feeding - Ineffective Goal: Effective breast-feeding Outcome: Progressing as expected Problem: Pain Goal: Control of pain at or below patient's documented comfort goal Outcome: Progressing as expected Goal: Reduction in pain sensation Outcome: Progressing as expected TATION INSPECTOR Slaome Galdamez RN [facility] 2023-06-08 17:52:15 Patient: Tamera Bergman Procedure Summary Date: 06/08/23 Room / Location: Anesthesia Start: 850 Anesthesia Stop: 1714 Procedure: CENTRAL NEURAXIAL BLOCK Diagnosis: Scheduled Providers: Responsible Provider: Charanjit Fuentes MD Anesthesia Type: Epidural ASA Status: 2 Anesthesia Type: Epidural Last vitals BP 133/87 (06/08/231743) Temp 37.4 ?C (99.4 ?F) (06/08/231743) Pulse 78 (06/08/231743) Resp 20 (06/08/231743) SpO2 99 % (06/08/231743) There were no known notable events for this encounter. Anesthesia Post Evaluation Patient location during evaluation: bedside Patient participation: complete - patient participated Level of consciousness: awake and alert Pain management: satisfactory to patient Airway patency: patent Cardiovascular status: acceptable and blood pressure returned to baseline Respiratory status: acceptable Hydration status: acceptable Comments: BP 133/87 (BP Location: Right arm, Patient Position: Supine) | Pulse 78 | Temp 37.4 ?C (99.4 ?F) | Resp 20 | Ht 1.575 m (5' 2") | Wt 63.7 kg (140 lb 6.4 oz) | LMP 07/08/2022 | SpO2 99% | Unknown | BMI 25.68 kg/m? Block resolving appropriately [facility] AN-ANESTHESIOLOGY ANESTHESIOLOGIST [facility] 2023-06-08 13:32:22 DELIVERY BY SPONTANEOUS VAGINAL DELIVERY Delivery Date: 06/08/2023 Delivery Time: 12:56 PM Delivery Summary The patient was admitted to the Labor & Delivery unit for IOL at 38 weeks due to GHTN. Delivery Physician: Bree Valdez MD OB Faculty: Be Castle MD Intrapartum Anesthesia/Analgesia: Epidural Mode of Delivery: Delivery of chandler fetus with cephalic presentation Fetus Spontaneous vaginal delivery of head with cephalic position, left occipital anterior. As the head crowned and distended the perineum, no episiotomy was performed. A blue towel was used to protect the perineum as the head crowned and delivered. The other hand was used to exert pressure on the occiput to control the delivery of the head. The perineum was pushed with a towel-draped hand as the head and mouth was delivered over the perineum. The head was allowed to rotate externally to achieve natural body posture. Examination of neck revealed no umbilical cord. The shoulder was delivered by gentle downward traction applied to head and downward traction for the delivery of anterior shoulder. This was followed by upward traction with delivery of posterior shoulder and body. After the delivery of , bulb suction was performed from ororpharynx and nostril with removal of thin meconium. A normal, male was delivered. The umbilical cord was double clamped, cut and the was handed off the field to the circulating nurse Placenta Placenta was delivered spontaneously while the abdominal hand lifted the uterus cephalad and other hand keeping the umbilical cord slightly taut. Laceration Laceration Repair: 2nd Degree - Second degree laceration was repaired. Suture was used with continuous locking fashion to close the vaginal mucosa and submucosa. The hymenal ring is reapproximated and tied with the same suture. The fascia and muscle of perineum was reapproximated with continuous suturing from forchett toward inferior edge. Continuous subcutaneous stitch was used to reapproximate the perineal skin with the same suture. Bilateral right and left labials were noted, the right side was closed in a running fashion, the left side was hemostatic. Fourth Stage Fourth stage of labor was managed by uterine massage with abdominal hand and infusion 30 units of pitocin mixed with intravenous fluid at 300cc/hr EBL: 250cc Complications: None Weight: 3050 g 1 Minute 5 Minute 10 Minute Totals: 8 9 Bree Valdez MD Ob-C Web Developer PGY3 TATION INSPECTOR Associated attestation - Cynthia Guardado MD - 06/08/2023 4:23 PM SANITATION INSPECTOR Present for the delivery and agree with the resident note [facility] 2023-06-08 08:26:10 Name/ MRN / Age / Gender: Tamera Bergman, [id number] 17 year old female BMI: Estimated body mass index is 25.68 kg/m? as calculated from the following: Height as of this encounter: 1.575 m (5' 2"). Weight as of this encounter: 63.7 kg (140 lb 6.4 oz). Allergies: Patient has no known allergies. Last Vitals: BP Readings from Last 1 Encounters: 06/08/23 (!) 158/98 Pulse Readings from Last 1 Encounters: 06/08/23 80 SpO2 Readings from Last 1 Encounters: 06/08/23 100% Date of Surgery: 06/08/2023 Surgeon: * No surgeons listed * Procedure: CENTRAL NEURAXIAL BLOCK OR Location: [place] ANESTHESIA OUT OF OR - OR LOCATION Anesthesia Preop Screen (no physical exam) Anesthesia Preop: Chart Review [facility] questionnaire answers not incorporated NPO Status Verified Clear Liquids: > 2 Hours Solid Food/Non-Clear Liquids: > 8 Hours Anesthesia History Anesthesia History Negative per Chart Review Comments: Previous Anesthesia: No previous anesthesia documented Previous Anesthetics/Airways Cardiovascular Cardiovascular ROS Negative per Chart Review METS: 5-6 (-) Hypertension (-) CAD Pulmonary Pulmonary ROS Negative per Chart Review (-) Patient does not report snoring or stopping breathing during sleep (-) Sleep apnea (-) COPD Neuro/Musculoskeletal Neuro/Musculoskeletal ROS Negative per Chart Review GI/Hepatic GI/Hepatic ROS Negative per Chart Review (-) GERD Hematology Hematology ROS Negative per Chart Review Comments: CBCWBC (10*3/?L) Date Value 06/08/2023 6.61 06/08/2023 6.46 RBC (10*6/?L) Date Value 06/08/2023 3.35 (L) 06/08/2023 3.31 (L) PLT (10*3/?L) Date Value 06/08/2023 243 06/08/2023 238 HGB (g/dL) Date Value 06/08/2023 8.4 (L) 06/08/2023 8.3 (L) HCT (%) Date Value 06/08/2023 26.9 (L) 06/08/2023 26.6 (L) Renal Renal ROS Negative per Chart Review Comments: CMPCREATININE (mg/dL) Date Value 06/08/2023 0.52 ALTv (U/L) Date Value 06/08/2023 19 AST(SGOT) (U/L) Date Value 06/08/2023 22 (-) Renal disease Skin Skin ROS Negative per Chart Review Endo/Other Endocrine/other ROS Negative per Chart Review Comments: No results found for: "[id number]" There are no current results on file for these tests and/or test for 1 year. (-) Diabetes Mellitus Other CNA GNA Comments: Tamera Bergman is a 17 year old at 38w5d by u(32) who presents for elevated BP in clinic. 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 - no s/s today - on suppressive therapy - no lesions on speculum exam today Antepartum course reviewed - No GTT done, sero negative, Rimmune, VZVimmune, HPV not immune, A positive/IAT negative, GBS unknown, Pap underage - H/H, plt: 11.1 / 34.4, 416 on 02/20/2023 Fetus - Presentation on admission: cephalic - anterior placenta - EFW: 2855 g, 14%tile - FHT reactive and reassuring - Normal anatomy scan Pediatric Preoperative Medication Instructions Continue taking all prescribed medications except: KARISHMA inhibitors, ARBs, diuretics, all oral diabetes medications Anticoagulant Therapy: Defer to surgeons Insulin: Take 1/2 dose the night prior to surgery. Hold on DOS. Phentermine: Alert [facility] anesthesiologist SGLT2 Inhibitors: "gliflozins" to be held for 3 days prior to elective surgeries GLP1 Agonosit: stop 7 days prior to surgery MAC Cases: Continue taking KARISHMA inhibitors and ARBs ASA Classification ASA: 2 Current Medications: No outpatient medications have been marked as taking for the 06/07/23 encounter (Hospital Encounter). Previous Surgeries: No past surgical history on file. Anesthesia Physical Exam General no apparent distress and alert and oriented x 3 Neuro/Psych neurological Dental no notable dental hx Abdominal (+) gravid Airway Mallampati score:II TM distance:> 5 cm Neck ROM: full Mouth opening:normal (+) Normal facies Extremity Normal extremity Pulmonary pulmonary exam normal Other Cardiovascular cardiovascular exam normal Anesthesia Plan ASA Status: 2 Plan discussed during pre-op evaluation: General, Epidural and Spinal Anesthetic plan on DOS: Epidural Anesthesia plan discussed with: patient or sales solutions representative Post-Operative Analgesia: routine analgesia & antiemetics Recovery Plan: LDR Additional comments: [facility] 2023-06-08 07:33:35 Problem: Intrapartum process (including labor pain) Goal: Absence of or reduction of complications of labor Outcome: Progressing as expected Goal: Able to cope with pain Outcome: Progressing as expected Goal: Adequate to move to next level of care Outcome: Progressing as expected Goal: Reduction in pain sensation Outcome: Progressing as expected Problem: Infection Risk Goal: Absence of infection Outcome: Progressing as expected [facility] Flaca Mckeon RN [facility] 2023-06-07 21:53:11 Problem: Intrapartum process (including labor pain) Goal: Absence of or reduction of complications of labor Outcome: Progressing as expected Goal: Able to cope with pain Outcome: Progressing as expected Goal: Adequate to move to next level of care Outcome: Progressing as expected Goal: Reduction in pain sensation Outcome: Progressing as expected Problem: Infection Risk Goal: Absence of infection Outcome: Progressing as expected Smith RN [facility] 2023-06-02 15:41:32 Patient stated she noticed she has had some swelling to ebonie feet and ebonie ankles. Denies any other symptoms, informed patient can be normal and to wear good supportive shoes elevate ble. Informed to keep pn appt on 06/07 since she has not been seen since 04/21. Strict L&D warnings given, verbalized understanding. TATION INSPECTOR Margo Mcwilliams LVN [facility] 2023-06-02 15:33:36 Tamera Bergman is a 17 year old female 38 wks 0 days Pt notice ankles and feet swelling x3 days. Wants to know if something to be seen for. Please call pt at [phone] (home) Haji [facility]
--- NOTE | 2024-09-24 05:06 | EDPHYS ---
Physician Documentation [facility] Name: Irene Franco Age: 18 yrs Sex: Female : 2005 Arrival Date: 09/24/2024 Time: 04:46 Bed 3 Private MD: ED Physician Eric Gr HPI: 09/24 05:04 This 18 yrs old Other Race Female presents to ER via Unassigned with complaints of sp4 Opiate overdose . 05:04 Patient presents with EMS after being found unresponsive at the [facility] in [place]. sp4 06:37 Patient presents with EMS with report of acute opiate overdose. Patient was found at [facility] [place] [employer] [place] to [place]. Patient was given intranasal Narcan 2 mg which woke her up. Patient has history of fentanyl abuse. 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 - Infectious Disease History:: Denies. - Social history:: Smoking status: Patient reports the use of cigarette tobacco products, Patient uses street drugs, marijuana, percocets. - Family history:: not pertinent. ROS: 06:37 Constitutional: Negative for fever, chills, and weight loss, positive for opiate sp4 overdose, positive for respiratory depression 06:37 All other systems are negative, Exam: 06:37 Constitutional: This is a well developed, well nourished patient who is awake, visibly sp4 intoxicated Head/Face: Normocephalic, atraumatic. Eyes: Pupils equal round and reactive to light, extra-ocular motions intact. Lids and lashes normal. Conjunctiva and sclera are not injected. Cornea within normal limits. Periorbital areas with no swelling, redness, or edema. ENT: Nares patent. No nasal discharge, no septal abnormalities noted. Tympanic membranes are normal and external auditory canals are clear. Oropharynx with no redness, swelling, or masses, exudates, or evidence of obstruction, uvula midline. Mucous membranes moist. Neck: Trachea midline, no thyromegaly or masses palpated, and no cervical lymphadenopathy. Supple, full range of motion without nuchal rigidity, or vertebral point tenderness. Chest/axilla: Normal chest wall appearance and motion. Nontender with no deformity. No lesions are appreciated. Cardiovascular: Regular rate and rhythm with a normal S1 and S2. No gallops, murmurs, or rubs. Normal PMI, no JVD. No pulse deficits. Respiratory: Lungs have equal breath sounds bilaterally, clear to auscultation and percussion. No rales, rhonchi or wheezes noted. No increased work of breathing, no retractions or nasal flaring. Abdomen/GI: Soft, with normal bowel sounds. No distension or tympany. No guarding or rebound. No evidence of tenderness throughout. Back: No spinal tenderness. No costovertebral tenderness. Skin: Warm, dry with normal turgor. Normal color with no rashes, no lesions, and no evidence of cellulitis. MS/ Extremity: Pulses equal, no cyanosis. Neurovascular intact. Full, normal range of motion. Neuro: Awake and alert, GCS 15, oriented to person, place, intoxication limits exam. Grossly no neurologic deficits. Psych: Awake, alert, with orientation to person, place exam difficult secondary to intoxication Vital Signs: 04:46 bm8 05:27 Pulse 95; Resp 20; Pulse Ox 100% ; Pain 0/10; bm8 06:38 BP 134 / 92; Pulse 86; Resp 23; Temp 97.8(A); Pulse Ox 100% on R/A; kd3 06:59 BP 129 / 92; Pulse 94; Resp 22; Temp 98.1; Pulse Ox 100% ; Pain 0/10; bm8 07:16 Pulse 87; Resp 18; Pulse Ox 100% on R/A; ld1 09:44 BP 133 / 94; Pulse 95; Resp 18; Pulse Ox 100% on R/A; ld1 10:28 BP 116 / 67; Pulse 93; Resp 18; Pulse Ox 99% on R/A; ld1 05:27 Pain Scale: Adult bm8 06:59 Pain Scale: Adult bm8 04:46 pt declined vital signs bm8 Kemp Coma Score: 05:27 Eye Response: to voice(3). Motor Response: obeys commands(6). Verbal Response: bm8 confused(4). Total: 13. 06:37 Eye Response: spontaneous(4). Motor Response: obeys commands(6). Verbal Response: sp4 oriented(5). Total: 15. 06:59 Eye Response: to pain(2). Motor Response: localizes pain(5). Verbal Response: bm8 inappropriate words(3). Total: 10. MDM: 05:05 Medical Screening Exam initiated sp4 06:44 Differential Diagnosis altered mental status, sepsis, flu, Opiate overdose. Data sp4 reviewed: vital signs, nurses notes, EMS record, old medical records. 06:45 Consideration of Admission/Observation Escalation of care including sp4 admission/observation considered. ED course: Patient presents with acute opiate overdose. Patient initially eloped into the waiting area. Later she was found obtunded in the waiting area. Patient was brought back from the waiting area into the room #3. She was given IV Narcan 4 mg. Patient developed moderate to profuse diarrhea and vomiting.. 07:35 Transition of care: After a detail discussion of the patient's case, care is sp4 transferred to Eric Gr MD. 07:35 ED course: Patient at this time is resting. Will await for patient to wake up sp4 sufficiently. 08:03 ED course: Patient signed out to me by Dr. Bartholomew, pending sobriety and observation. rn Report I got was that she was an overdose on opiates, received Narcan, but also positive for cocaine. Night team anticipates patient waking up in a few hours and going home safely. Was accidental overdose per report. Patient resting comfortably, maintaining airway and 100% on room air.. 10:51 ED course: Pt awakens but still sleepy and not ready to be discharged. Will continue to rn monitor. . 11:06 ED course: Patient was able to get out of bed, awake alert and answering questions. rn States wants to go home. Patient has now been observed for at least 6 and half hours. Stable vital signs. Ambulatory and maintaining airway. Counseled to stop using drugs.. 09/24 06:30 Order name: Acetaminophen; Complete Time: 07:30 8 09/24 06:30 Order name: Basic Metabolic Panel; Complete Time: 07:30 banner 09/24 06:30 Order name: CBC with Diff; Complete Time: 07:30 banner 09/24 06:30 Order name: ETOH Level; Complete Time: 07:30 09/24 06:30 Order name: Hepatic Function; Complete Time: 07:30 09/24 06:30 Order name: PT-INR; Complete Time: 07:30 09/24 06:30 Order name: Ptt, Activated; Complete Time: 07:30 09/24 06:30 Order name: Salicylate; Complete Time: 07:30 09/24 06:30 Order name: Urine Drug Screen; Complete Time: 07:30 09/24 06:30 Order name: IV Saline Lock; Complete Time: 06:30 09/24 06:30 Order name: Labs collected and sent; Complete Time: 06:30 09/24 06:30 Order name: Suicide Precautions; Complete Time: 06:30 09/24 06:30 Order name: Suicide Screening ([place]); Complete Time: 06:30 Administered Medications: 05:31 Drug: Ondansetron IVP 8 mg IVP once; over 2 minutes Route: IVP; Site: right hand; 4 05:32 Drug: Naloxone IVP 4 mg IVP once Route: IVP; Site: right hand; 8 06:16 Drug: metoCLOPramide IVP 10 mg IVP once; over 1 to 2 minutes Route: IVP; Site: right kd3 hand; 07:54 Drug: NS 0.9% IV 1000 ml IV at 1 bolus Per protocol; to be given as a bolus over 60 ld1 minutes Route: IV; Rate: 1 bolus; Site: right hand; 08:30 Drug: Banana Bag - (Multivitamin IV 1 amp, NS 0.9% IV 1000 ml, Thiamine IV 100 mg, ld1 foLIC Acid IVPB 1 mg) IV at calculated rate once Route: IV; Rate: calculated rate; Site: right hand; Disposition Summary: 09/24/24 11:07 Discharge Ordered Notes: Location: Home rn Problem: new(09/24/24 11:07) rn Symptoms: have improved(09/24/24 11:07) rn Condition: Stable(09/24/24 11:07) rn Diagnosis - Accidental overdose rn Followup: rn - With: Private Physician - When: As needed - Reason: Recheck today's complaints, Re-evaluation by your physician Discharge Instructions: - Discharge Summary Sheet rn - Opioid Overdose rn Forms: - Medication Reconciliation Form rn - Antibiotic lab intern - Prescription Opioid Use rn - Patient Portal Instructions rn - Leadership Thank You Letter rn Signatures: Dispatcher [employer] EDMD Eric Gr MD MD rn Bryson, James, RN RN jb4 Giana Medrano, RN RN ld1 Gem Ac, RN RN kd3 Koffi Bartholomew MD MD sp4 Donny Daily, RN RN bm8 Corrections: (The following items were deleted from the chart) 05:30 05:05 after being seen by provider sp4 sp4 05:30 05:05 new sp4 sp4 05:30 05:05 are unchanged sp4 sp4 05:30 05:05 other sp4 sp4 05:30 05:05 Fair sp4 sp4 05:30 05:05 Acute opioid overdose sp4 sp4 06:30 06:30 ACETAMINOPHEN+C.LAB.BRZ ordered. EDMS EDMS 06:30 06:30 BASIC METABOLIC PANEL+C.LAB.BRZ ordered. EDMS EDMS 06:30 06:30 CBC+H.LAB.BRZ ordered. EDMS EDMS 06:30 06:30 ETHANOL+C.LAB.BRZ ordered. EDMS EDMS 06:30 06:30 HEPATIC FUNCTION+C.LAB.BRZ ordered. EDMS EDMS 06:30 06:30 PROTIME (+INR)+COAG.LAB.BRZ ordered. EDMS EDMS 06:30 06:30 PTT, ACTIVATED+COAG.LAB.BRZ ordered. EDMS EDMS 06:30 06:30 SALICYLATE+C.LAB.BRZ ordered. EDMS EDMS 06:30 06:30 URINE DRUG SCREEN+UC.LAB.BRZ ordered. EDMS EDMS 08:04 08:03 ED course: Patient signed out to me by Dr. 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 Report I got was that she was an overdose on opiates, received Narcan, but also positive for cocaine. Night team anticipates patient waking up in a few hours and going home safely. Was accidental overdose per report.. rn 11:06 11:06 ED course: Patient was able to get out of bed, awake alert and answering rn questions. States wants to go home. Patient has now been observed for at least 6 and half hours. Stable vital signs. Ambulatory and maintaining airway.. rn
[2024-09-24] MEDS ORDERED: NALOXONE 0.4 MG/ML VIAL ONE (05:20)
[2024-09-24] MEDS ORDERED: ONDANSETRON 4 MG/2 ML VIAL ONE (05:26)
[2024-09-24] MEDS ORDERED: METOCLOPRAMIDE 10 MG/2mL INJ ONE (06:14)
[2024-09-24 06:52] LABS: Absolute Basophils 0.1 K/uL (0-0.5); Absolute Eosinophils 0.4 K/uL (0-0.5); Absolute Monocytes 0.6 K/uL (0.1-1.3); Absolute Neutrophil 2.9 K/uL (1.8-8.0); Hematocrit 30.6 % (36.0-45.0); Lymphocytes % 34.1 % (15.3-44.8); MCH 25.1 pg (27.0-35.0); MCHC 32.6 g/dL (32.0-36.0); MCV 76.9 fL (80-100); MPV 6.9 fL (7.6-11.3); Monocytes % 9.6 % (3.3-12.3); Neutrophils % 48.3 % (41.7-73.7); Nucleated Red Blood Cells % 0.1 % (0-0); Platelets 473 thou/uL (152-406); RBC Red Blood Cell Count 3.98 M/uL (3.86-4.86); Red Cell Distribution Width 16.4 % (12.1-15.2)
[2024-09-24 07:03] LABS: PT Prothrombin Time 11.3 SECONDS (10-13.0); PTT, Activated Partial Thromb 31.9 SECONDS (27.2-37.4); Protime INR 0.99
[2024-09-24 07:03] LABS: Barbiturates NEGATIVE (NEGATIVE); Benzodiazepines POSITIVE (NEGATIVE); Cocaine POSITIVE (NEGATIVE); METHAMPHETAM NEGATIVE (NEGATIVE); Methadone NEGATIVE (NEGATIVE); Opiates NEGATIVE (NEGATIVE); Phencyclidine NEGATIVE (NEGATIVE); THC Cannibis POSITIVE (NEGATIVE)
[2024-09-24 07:22] LABS: ALT/SGPT 26 U/L (13-56); AST/SGOT 26 U/L (15-37); Albumin 3.1 g/dL (3.4-5.0); Albumin/Globulin Ratio 0.7 (1.1-1.8); Alkaline Phosphatase 160 U/L (45-117); BUN Blood Urea Nitrogen 12 mg/dL (7-18); Bicarbonate 25 mEq/L (21-32); Bilirubin Total 0.2 mg/dL (0.2-1.0); Globulin 4.3 g/dL (2.3-3.5); Glomerular Filtration Rate 130 ml/min (=/>90); Glucose Level 91 mg/dL (74-106); Protein, Total 7.4 g/dL (6.4-8.2); Sodium Level 136 mEq/L (136-145)
[2024-09-24 07:25] LABS: Bilirubin Direct < 0.2 mg/dL (0-0.2)
[2024-09-24] MEDS ORDERED: NA CHLORIDE 0.9% 1,000 ML ONE (07:47)
[2024-09-24] MEDS ORDERED: NA CHLORIDE 0.9% 1,000 ML with MULTIVITAMINS INJ 10 ML, FOLIC ACID 1 MG, THIAMINE HCL 1... IV SCH (08:00)
--- NOTE | 2024-09-24 11:07 | ER ---
Nurse's Notes [facility] Name: Irene Franco Age: 18 yrs Sex: Female : 2005 Arrival Date: 09/24/2024 Time: 04:46 Bed 3 Private MD: Diagnosis: Accidental overdose Presentation: 09/24 04:46 Chief complaint: EMS states: we were toned [place] for [place] [facility] [place]. On bm8 arrival pt had shallow breathing and dilated pupils. PROBABLE OVERDOSE DUE TO NARCAN WORKING TO BRING PT BACK TO A RESPONSIVE STATE. WE GAVE 4 MG NARCAN I.N. 04:46 Chief complaint: Patient states: I dont want to be here. I want to go home and you cant bm8 make me stay. Coronavirus screen: At this time, the client does not indicate any symptoms associated with coronavirus-19. Ebola Screen: Patient negative for fever greater than or equal to 101.5 degrees Fahrenheit, and additional compatible Ebola Virus Disease symptoms Patient denies exposure to infectious person. Patient denies travel to an Ebola-affected area in the 21 days before illness onset. No symptoms or risks identified at this time. Initial Sepsis Screen: Does the patient meet any 2 criteria? No. Patient's initial sepsis screen is negative. Does the patient have a suspected source of infection? No. Patient's initial sepsis screen is negative. Onset of symptoms is unknown. 04:46 Method Of Arrival: EMS: [facility] bm8 04:46 Acuity: IRINA 2 bm8 06:30 Risk Assessment: Do you want to hurt yourself or someone else? Patient reports bm8 desire/thoughts of hurting themselves or someone else. Provider notified. Triage Assessment: 05:25 General: Appears distressed, uncomfortable, Behavior is anxious, combative. Pain: bm8 Denies pain. EENT: No deficits noted. No signs and/or symptoms were reported regarding the EENT system. Neuro: Level of Consciousness is stuporous, Oriented to person, place. Cardiovascular: Denies chest pain, Heart tones S1 S2 present Capillary refill < 3 seconds in bilateral fingers Patient's skin is warm and dry. Respiratory: Airway is patent Respiratory effort is even, unlabored, Respiratory pattern is regular, symmetrical, Breath sounds are clear bilaterally. GI: No signs and/or symptoms were reported involving the gastrointestinal system. : No signs and/or symptoms were reported regarding the genitourinary system. Derm: No signs and/or symptoms reported regarding the dermatologic system. Musculoskeletal: No signs and/or symptoms reported regarding the musculoskeletal system. 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 - Infectious Disease History:: Denies. - Social history:: Smoking status: Patient reports the use of cigarette tobacco products, Patient uses street drugs, marijuana, percocets. - Family history:: not pertinent. Screenin:27 [facility] ED Fall Risk Assessment (Adult) History of falling in the last 3 months, bm8 including since admission No falls in past 3 months (0 pts) Confusion or Disorientation Yes (5 pts) Intoxicated or Sedated Yes (3 pts) Impaired Gait Yes (1 pt) Mobility Assist Device Used Yes (1 pt) Altered Elimination No (0 pt) Score/Fall Risk Level 3 or more points = High Risk Oriented to surroundings, Maintained a safe environment, Educated pt \\T\\ family on fall prevention, incl call for assistance when getting out of bed, Assessed \\T\\ reinforced patient's understanding of fall precautions, Hourly rounding (assess needs \\T\\ fall precautionary measures) done, Used ambulatory aids as needed (educated on \\T\\ assisted with), Used gait belt as appropriate Implemented a Fall Risk Plan of Care. Abuse screen: Denies threats or abuse. Nutritional screening: No deficits noted. Tuberculosis screening: No symptoms or risk factors identified. Assessment: 05:27 Reassessment: pt had made statement that she wanted to leave despite knowing the risk bm8 and then stated that she would rather be . KALEB called for JONH. 05:32 Reassessment: Pt found stumbling around the lobby. Pt made it out of the lobby and down jb4 the barrera. Pt confronted, pt noted to be slurring her words and unable to stand steadily, assisted into a wheelchair and brought into the triage room. Charge nurse to the triage to assist with pt. Pt becoming more lethargic and slurring her words more. Pt brought back to ER room 3, ER physician notified. 06:15 General: Pt profusely vomiting, pt cleaned of diarrhea. Pt placed in paper scrubs, VSS. kd3 . 06:59 Reassessment: Patient appears in no apparent distress at this time. Patient and/or bm8 family updated on plan of care and expected duration. Pain level reassessed. pt is resting with eyes closed breathing is even unlabored with symmetrical rise and fall of chest. 07:16 Reassessment: Pt resting in bed asleep at this time. ERP states "Pt is able to leave ld1 when sober.". 07:16 General: Appears in no apparent distress. comfortable, Behavior is calm. ld1 Cardiovascular: Capillary refill < 3 seconds Patient's skin is warm and dry. Rhythm is sinus rhythm. Respiratory: Airway is patent Respiratory effort is even, unlabored. 10:30 Reassessment: Tech at bedside ambulating patient. Pt calling grandmother to come pick ld1 her up. 11:20 Reassessment: Grandmother at bedside to pick patient up. Pt able to stand and get into ld1 wheelchair. Neuro: Level of Consciousness is awake, obeys commands, Oriented to person, place, time, situation. Respiratory: Airway is patent Respiratory effort is even, unlabored. Overdose: 11:21 [place] Suicide Severity Screening: "In the past month, have you wished you were ld1 or wished you could go to sleep and not wake up?" Patient responds "no." "In the past month, have you actually had any thoughts of killing yourself?" Patient responds "no." "In your lifetime, have you ever done anything, started to do anything, or prepared to do anything to end your life?" Patient responds "no.". 11:22 [place] Suicide Severity Screening: "In the past month, have you wished you were ld1 or wished you could go to sleep and not wake up?" Patient responds "yes." Based off client's responses, additional C-SSRS screening questions required. "In the past month, have you actually had any thoughts of killing yourself?". 11:22 [place] Suicide Severity Screening: "In the past month, have you actually had any ld1 thoughts of killing yourself?" Patient responds "yes." Based off client's responses, additional C-SSRS screening questions required. Vital Signs: 04:46 bm8 05:27 Pulse 95; Resp 20; Pulse Ox 100% ; Pain 0/10; bm8 06:38 BP 134 / 92; Pulse 86; Resp 23; Temp 97.8(A); Pulse Ox 100% on R/A; kd3 06:59 BP 129 / 92; Pulse 94; Resp 22; Temp 98.1; Pulse Ox 100% ; Pain 0/10; bm8 07:16 Pulse 87; Resp 18; Pulse Ox 100% on R/A; ld1 09:44 BP 133 / 94; Pulse 95; Resp 18; Pulse Ox 100% on R/A; ld1 10:28 BP 116 / 67; Pulse 93; Resp 18; Pulse Ox 99% on R/A; ld1 05:27 Pain Scale: Adult bm8 06:59 Pain Scale: Adult bm8 04:46 pt declined vital signs bm8 Katerin Coma Score: 05:27 Eye Response: to voice(3). Motor Response: obeys commands(6). Verbal Response: bm8 confused(4). Total: 13. 06:37 Eye Response: spontaneous(4). Motor Response: obeys commands(6). Verbal Response: sp4 oriented(5). Total: 15. 06:59 Eye Response: to pain(2). Motor Response: localizes pain(5). Verbal Response: bm8 inappropriate words(3). Total: 10. ED Course: 05:01 Patient arrived in ED. vc1 05:04 Koffi Bartholomew MD is Attending Physician. sp4 05:11 Donny Daily, RN is Primary Nurse. bm8 05:25 Triage completed. bm8 05:25 Arm band placed on right wrist. bm8 05:27 Patient has correct armband on for positive identification. Bed in low position. Call bm8 light in reach. Side rails up X2. sitter at bedside. Client placed on continuous cardiac and pulse oximetry monitoring. NIBP monitoring applied. Pulse ox on. NIBP on. Warm blanket given. Verbal reassurance given. Head of bed lowered. Elevated leg. 05:27 No provider procedures requiring assistance completed. Inserted saline lock: 22 gauge bm8 in right hand, using aseptic technique. Blood collected. Patient maintains SpO2 saturation greater than 95% on room air. 06:30 One-on-one care X 90 minutes. bm8 07:44 Attending Physician role handed off by Koffi Bartholomew MD rn 07:44 Eric Gr MD is Attending Physician. rn 10:21 spoke with grandmother Anitha and she informed me she was waiting on someone to relieve bc6 her at work and she would be on her way . 11:22 IV discontinued, intact, bleeding controlled, No redness/swelling at site. ld1 Administered Medications: 05:31 Drug: Ondansetron IVP 8 mg IVP once; over 2 minutes Route: IVP; Site: right hand; jb4 05:32 Drug: Naloxone IVP 4 mg IVP once Route: IVP; Site: right hand; bm8 06:16 Drug: metoCLOPramide IVP 10 mg IVP once; over 1 to 2 minutes Route: IVP; Site: right kd3 hand; 07:54 Drug: NS 0.9% IV 1000 ml IV at 1 bolus Per protocol; to be given as a bolus over 60 ld1 minutes Route: IV; Rate: 1 bolus; Site: right hand; 08:30 Drug: Banana Bag - (Multivitamin IV 1 amp, NS 0.9% IV 1000 ml, Thiamine IV 100 mg, ld1 foLIC Acid IVPB 1 mg) IV at calculated rate once Route: IV; Rate: calculated rate; Site: right hand; Medication: 05:27 VIS not applicable for this client. bm8 Outcome: 11:07 Discharge ordered by . rn 11:22 Discharged to home via wheelchair, with family, ld1 11:22 Condition: stable 11:22 Discharge instructions given to patient, family, Instructed on discharge instructions, follow up and referral plans. Demonstrated understanding of instructions, follow-up care, 11:22 Patient left the ED. ld1 Signatures: Eric Gr MD MD rn Bryson, James, RN RN jb4 Giana Medrano RN RN ld1 Gem Ac RN RN kd3 Guadalupe Klein RN RN vc1 Lotus Juarez bc6 Koffi Bartholomew MD MD sp4 Donny Daily RN RN bm8 Corrections: (The following items were deleted from the chart) 06:31 04:46 Risk Assessment: Do you want to hurt yourself or someone else? Patient reports no bm8 desire to harm self or others. bm8
== END 2024-09-24 11:22 | disposition home or self-care (01) ==
LOC: ER 04:46
DX: T40.601A Poisoning by unspecified narcotics, accidental (unintentional), initial encounter (principal); Z72.0 Tobacco use
CPT/HCPCS: 85025; 80048; 36415; 85610; 80076; 85730; 80307; 96375; 96374; 99291; 99292; 80143; 80179; 82077; J3411; J2765; J2405; J7030 ×2; J2310

== ENCOUNTER 2025-01-01 19:21 | Emergency (ER) | payer OTHER ==
--- OUTSIDE RECORDS SUMMARY | 2025-01-01 19:29 | XMS REPORT | Continuity of Care Document ---
Author Name Unknown Address [address] [facility] [address] [place] [address] [facility] Address [address] [facility] [address] [place] [address] Care Team Providers Care Student Accounts Coordinator Name Role Phone PCP, PATIENT DOES NOT HAVE A Primary Care Physic jeremy Unavailable JENSEN HALL Attending Clinician Unavailable JENSEN HALL Attending Clinician Unavailable Kathleen Granados MD Attending Clinician Shazia Simpson MD Attending Clinician Coco Leung Attending Clinician Unav ailKATHLEEN Rodriguez Attending Clinician Unavailable EDYTA WATSON Attending Clinician Unav ailEDYTA Oneill Attending Clinician Unav ailPRIMO Leal Attending Clinician Unava ilable MARK JOHANSEN Attending Clinician Unavailable MARK JOHANSEN Attending Clinician Unavailable MINA MOTT Attending Clinician Unavail able Mina Mayorga Attending Clinician + BE GUARDADO Attending Clinician Un available Ultrasound, Ang-Mfm Attending Clinician Unavaila ble Be Guardado MD Attending Clinician Doctor Unassigned, Thomson Attending Clinician U navailable CHRISTY, OMAR Attending Clinician Unavailable CHRISTY, OMAR Attending Clinician Unavailable Christy DO Omar Attending Clinician [phone] STEVENSHOLLAND Attending Clinician Unavailable STEVENS HOLLAND Attending Clinician Unavailable Stevens DO Holland Attending Clinician [phone] LEIA DONIS Attending Clinician Unavailable LEIA DONIS Attending Clinician Unavailable Adam Jean-Baptiste MD Attending Clinician Leia Donis MD Attending Clinician [phone] CURT WYATT Attending Clinician Unavailable Pantera WEAVERMina Staples Attending Clinician + Mendoza Marin MD Attending Clinician Charanjit Fuentes MD Attending Clinician [phone] [place] YAN Attending Clinician Unavailable Indiana Yan MD Attending Clinician [phone], [facility] Us Room Attending Clinician Unavailab BETO Sepulveda Attending Clinician Unavaila larry Doctor Unassigned, Thomson Attending Clinician U balwinder Solitario NP, Keyla Attending Clinician [phone] KEYLA SOLITARIO Attending Clinician UnavailFeli Nails MD Attending Clinician [phone] Pob, [facility] Johnson Attending Clinician UnavailFELI Baez Attending Clinician Unavailable TOBIN CHEN Attending Clinician Orin Kruger Attending Clinician [phone] EDYTA WATSON Admitting Clinician UnaMARK Shaffer Admitting Clinician Unavailable Payers Payer Name Policy Type Policy Number Effective Date Expirati on Date Source [facility] [id number] 2013 00:00:00 [employer] [id number] 2024 00:00:00 [employer] MEDICA[employer] Medicaid [id number] 2023 00:00:00 [employer] [id number] 2023 00:00:00 2023 00:00:00 Problems Condition Name Condition Details Condition Category Status Onset Date Resolution Date Last Treatment Date Treating Clinician Comments Source Seizure Seizure Disease Active 5-23 00:00: 00 [facility] Liveborn infant, of [place] , born in hospital by vaginal delivery Liveborn infant, of [place] , born in hospital by vaginal delivery Disease Active -28 00:00: 00 [facility] with adoption planned, antepartum with adoption planned, antepartum Disease Active 1-09 00:00: 00 [facility] Multiparit y Multiparit y Disease Active 9 00:00: 00 [facility] Marijuana use [...] Other depression Other depression Disease Active 2022-05 0 00:00: 00 Overview: Formattin g of this note might be different from the original. Reports not SI/HI [facility] History of marijuana use History of marijuana use Disease Active 2022-05 0 00:00: 00 Overview: Formattin g of this note might be different from the original. Reports last used 3day ago [facility] Mild pre-eclamp chloe in third trimester Mild pre-eclamp chloe in third trimester Disease Resolve d 2024-0 4-29 00:00: 00 2024-10-04 00:00:00 2024-10-04 06:36:36 [facility] Anemia, antepartum , third trimester Anemia, antepartum , third trimester Disease Resolve d 2024-0 4-29 00:00: 00 2024-10-04 00:00:00 2024-10-04 06:36:14 [facility] Normal labor Normal labor Disease Resolve d 2024-0 4-28 00:00: 00 2024-10-04 00:00:00 2024-10-04 06:36:53 [facility] Chlamydia infection during Chlamydia infection during Disease Resolve d 2024-0 4-07 00:00: 00 2024-10-04 00:00:00 2024-10-04 06:36:15 [facility] Gonorrhea in Gonorrhea in Disease Resolve d 2024-0 4-07 00:00: 00 2024-10-04 00:00:00 2024-10-04 06:36:16 [facility] Positive GBS test Positive GBS test Disease Resolve d 0 4-07 00:00: 00 2024-10-04 00:00:00 2024-10-04 06:36:57 [facility] Inmate in correction al facility Inmate in correction al facility Disease Resolve d 0 9-17 00:00: 00 2024-10-04 00:00:00 2024-10-04 06:36:29 [facility] Short interval between pregnancie s affecting , antepartum Short interval between pregnancie s affecting , antepartum Disease Resolve d 2023-0 9-17 00:00: 00 2024-10-04 00:00:00 2024-10-04 06:37:17 Overview: Formattin g of this note might be different from the original. 1st baby in 05/2023 [facility] 39 weeks gestation of 39 weeks gestation of Disease Resolve d 2023-0 1-24 00:00: 00 2024-10-04 00:00:00 2024-10-04 06:36:09 [facility] History of herpes genitalis History of herpes genitalis Disease Resolve d 2022-05 0-09 00:00: 00 2024-10-04 00:00:00 2024-10-04 06:36:17 [facility] Supervisio n of high-risk with insufficie nt care Supervisio n of high-risk with insufficie nt care Disease Resolve d 2022-05 0-09 00:00: 00 2024-10-04 00:00:00 2024-10-04 06:37:12 [facility] Positive GBS test Positive GBS test Disease Resolve d 2023-0 1-26 00:00: 00 2024-01-30 00:00:00 2024-01-30 07:59:37 [facility] 38 weeks gestation of 38 weeks gestation of Disease Resolve d 2023-0 1-24 00:00: 00 2024-01-30 00:00:00 2024-01-30 08:01:29 [facility] Herpes simplex viral infection Herpes simplex viral infection Disease Resolve d 2021-0 3-18 00:00: 00 2024-01-30 00:00:00 2024-01-30 08:01:26 [facility] Other general counseling and advice for contracept juliocesar management Other general counseling and advice for contracept juliocesar management Disease Resolve d 2020-0 7-07 00:00: 00 2023-02-20 00:00:00 2023-02-20 14:26:08 [facility] Allergies, Adverse Reactions, Alerts Allergy Name Allergy Type Status Severity Reaction(s) Onset Date Inactive Date Treating Clinician Comments Source NO KNOWN ALLERGIE S Drug Class Active [facility] Social History Social Habit Start Date Stop Date Quantity Comments Source ASSERTION 2023-12-20 00:00:00 [facility] Alcoholic beverage intake 2024-10-04 00:00:00 2024-10-04 00:00:00 Current drinker of alcohol (finding) [facility] History of Social function 2024-01-30 00:00:00 2024-01-30 00:00:00 [facility] Alcohol intake 2023-06-07 00:00:00 2023-06-07 00:00:00 Current drinker of alcohol (finding) [facility] Tobacco use and exposure 2023-06-07 00:00:00 2023-06-07 00:00:00 Smokeless tobacco non-user [facility] Exposure to SARS-CoV-2 (event) 2021-10-02 00:00:00 2021-10-12 09:52:00 Not sure [facility] Sex assigned at 2003 00:00:00 2005 00:00:00 [facility] Smoking Status Start Date Stop Date Source Never smoked tobacco [facility] Medications Ordered Medication Name Filled Medication Name Start Date Stop Date Current Medication? Ordering Clinician Indication Dosage Frequency Signature (SIG) Comments Components Source [id number] fum-folic () tablet 1 tablet 10-04 14:00: 00 10-04 21:41 :04 No 1{tbl} 1 tablet, Oral, DAILY, First dose on Mon10/04/24 at 0900, Until Discontinu ed, Routine [facility] alum-mag hydroxide-s imeth (MAG-AL PLUS) 200-200-20 mg/5 mL suspension 30 mL 10-04 13:49: 41 10-04 21:41 :04 No 30mL 30 mL, Oral, Q6HPRN, Starting on Mon10/04/24 at 0849, Until Mon10/04/24 at 1641, Routine, Indigestio n [facility] docusate (COLACE) capsule 200 mg 10-04 13:49: 41 10-04 21:41 :04 No 200mg 200 mg, Oral, QHSPRN, Starting on Mon10/04/24 at 0849, Until Mon10/04/24 at 1641, Routine, Constipati on [facility] magnesium hydroxide (MILK OF MAGNESIA) 400 mg/5 mL suspension 30 mL 10-04 13:49: 41 10-04 21:41 :04 No 30mL 30 mL, Oral, QDAILYPRN, Starting on Mon10/04/24 at 0849, Until Mon10/04/24 at 1641, Routine, Constipati on [facility] lamoTRIgine (LAMICTAL) 25 mg tablet 10-04 00:00: 00 11-23 04:59 :00 Yes [id number] Take 1 tablet by mouth daily for 14 days, THEN 2 tablets daily for 14 days, THEN 4 tablets daily for 7 days, THEN 3 tablets 2 times daily for 7 days, THEN 4 tablets 2 times daily for 7 days. Week 1 and 2 25mgrs daily, Week 3 and 4 50mgrs daily, week 5:100mgrs daily, week: 6 75mgrs AM 75mgrs PM, Week 6 100mgrs AM 100mgrs PM, Week 7 125mgrs AM 125mgrs PM. [facility] labetaloL (NORMODYNE) tablet 100 mg labetaloL (NORMODYNE) tablet 100 mg 09-10 22:45: 00 Yes 100mg 100 mg, Oral, Q12H, First dose on Mon09/10/24 at 1745, Until Discontinu ed, Routine [facility] [id number] fum-folic () tablet 1 tablet [id number] fum-folic () tablet 1 tablet 09-10 14:00: [...] syringe 09-10 04:00: 00 09-10 04:35 :00 No 500mg Intramuscu lar, ONCE, 1 dose, On Mon09/09/24 at 2300, 1.43 mL, Reason for Anti-Infec tive: Documented Infection, Documented Infection Site: Other, Other site: Vagina, Duration of therapy: Once (ED) [facility] oxyCODONE immediate release tablet 5 mg 09-10 02:57: 28 Yes 5mg 5 mg, Oral, Q6HPRN, Starting on Mon09/09/24 at 2157, Until Discontinu ed, Routine, Pain (scale 7-10), 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 member 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 Restricted medication : MARK JOHANSEN [facility] ibuprofen (MOTRIN) tablet 800 mg 09-10 02:55: 51 Yes 800mg 800 mg, Oral, Q8HPRN, Starting on Mon09/09/24 at 215, Until Discontinu ed, Routine, Alternate with Tylenol [...] mg, Oral, Q6HPRN, Starting on Mon09/09/24 at 215, Until Discontinu ed, Routine, Sleep, Itching [facility] ondansetron (ZOFRAN (PF)) injection 4 mg 09-10 02:54: 30 Yes 4mg 4 mg, Slow IV Push, Q8HPRN, Starting on Mon09/09/24 at 2153, Until Discontinu ed, Administer over 2-5 Minutes, 2 mL [facility] simethicone (GAS RELIEF (SIMETHICON E)) chewable tablet 160 mg simethicone (GAS RELIEF (SIMETHICON E)) chewable tablet 160 mg 09-10 02:54: 30 Yes 160mg 160 mg, Oral, PC+HSPRN, Starting on Mon09/09/24 at 215, Until Discontinu ed, Routine, Gas [facility] mL, Oral, QDAILYPRN, Starting on Mon09/09/24 at 2154, Until Discontinu ed, Routine, Constipati on [facility] Oxytocin in Normal Saline 30 unit/500 mL IV infusion Soln 09-10 02:54: 29 Yes 300mL/h 300 mL/hr, IV Infusion, SEE-INSTRU CTIONS, Starting on Mon09/09/24 at 2154, Start at 300 mL/hr for 1 hr [...] mg 09-10 01:35: 00 09-10 01:42 :00 No 1000mg 1,000 mg, Oral, ONCE, 1 dose, [...] Mon09/09/24 at 1936, Until Discontinu ed, Routine [facility] miSOPROStoL (CYTOTEC) tablet 200 mcg 09-10 00:36: 29 Yes 200ug 200 mcg, Rectal, PRN, 5 doses, Starting on Mon09/09/24 at 1936, Until Discontinu ed, Routine, For PPH [facility] carboprost (HEMABATE) injection 250 mcg 09-10 00:36: 29 Yes 250ug 250 mcg, Intramuscu lar, Q2HPRN, 8 doses, Starting on Mon09/09/24 at 1936, Until Discontinu ed, Routine, PPH [facility] methylergon ovine (METHERGINE ) injection 0.2 mg 09-10 00:36: 29 Yes .2mg 0.2 mg, Intramuscu lar, Q4HPRN, 1 dose, Starting on Mon09/09/24 at 1936, Until Discontinu ed, Routine, PPH [facility] Oxytocin in Normal Saline 30 unit/500 mL IV infusion Soln 09-10 00:36: 29 Yes 600mL/h 600 mL/hr, IV Infusion, PRN, PPH, Starting on Mon09/09/24 at 193, For 1 dose, As instructed by physician [...] SEE INSTRUCTIO NS, Starting on Mon09/09/24 at 193, Until Discontinu ed, Routine, Local anesthesia , [...] vitamin w/FA tablet 09-10 00:00: 00 Yes [id number] 1{tbl} Take 1 tablet by mouth in the morning. [facility] docusate 100 mg capsule 09-10 00:00: 00 Yes [id number] 200mg Take 2 capsules by mouth once daily as needed for Constipati on. [facility] ferrous sulfate 325 mg (65 mg iron) tablet 09-10 00:00: 00 Yes [id number] 325mg Take 1 tablet by mouth in the morning. [facility] ibuprofen 800 mg tablet 09-10 00:00: 00 Yes [id number] 800mg Take 1 tablet by mouth every 8 (eight) hours as needed (pain). Take with food or milk. [facility] acetaminoph en 500 mg tablet 09-10 00:00: 00 Yes [id number] 1000mg Take 2 tablets by mouth every 8 (eight) hours as needed for Pain. [facility] labetaloL 100 mg tablet 09-10 00:00: 00 Yes [id number] 100mg Take 1 tablet by mouth in the morning and 1 tablet in the evening. [facility] azithromyci n 500 mg tablet 08-19 00:00: 00 08-20 04:59 :00 No [id number] 1000mg Take 2 tablets by mouth once now for 1 dose. [facility] acyclovir 400 mg tablet 4-03 00:00: 00 09-10 00:00 :00 No [id number] 400mg Take 1 tablet by mouth in the morning and 1 tablet at noon and 1 tablet in the evening. [facility] PNV 67-iron ps-folate no.1-dha (VITAFOL ULTRA) 29 mg iron- 1 mg-200 mg Cap 01-29 00:00: 00 09-10 00:00 :00 No [id number] 09 1{each} Take 1 Each by mouth [...] 01-08 00:00: 00 01-29 00:00 :00 No [id number] 500mg Take 1 capsule by mouth in the morning and 1 capsule at noon and 1 capsule in the evening. [facility] docusate 100 mg capsule 06-09 00:00: 00 01-29 00:00 :00 No [id number] 200mg Take 2 capsules by mouth once daily as needed for Constipati on. [facility] ferrous sulfate 325 mg (65 mg iron) tablet 06-09 00:00: 00 01-29 00:00 :00 No [id number] 325mg Take 1 tablet by mouth in the morning and 1 tablet in the evening. [facility] ibuprofen 600 mg tablet 06-09 00:00: 00 01-29 00:00 :00 No [id number] 600mg Take 1 tablet by mouth every 6 (six) hours as needed (Pain). Take with food or milk. [facility] PNV 67-iron ps-folate no.1-dha (VITAFOL ULTRA) 29 mg iron- 1 mg-200 mg Cap 06-09 00:00: 00 06-10 05:59 :00 No [id number] 1{capsu le} Take 1 capsule by mouth once now for 1 dose. [facility] azithromyci n 500 mg tablet 06-09 00:00: 00 06-10 05:59 :00 No [id number] 1000mg Take 2 tablets by mouth once now for 1 dose. [facility] vitamin w/FA tablet 06-09 00:00: 00 06-09 00:00 :00 No [id number] 1{tbl} Take 1 tablet by mouth in [...] 1{tbl} 1 tablet, Oral, Q6HPRN, Starting on Obdulia 06/08/23 at 1715, Until Discontinu ed, Routine, Pain [...] ONCE, 1 dose, On Obdulia 06/08/23 at 1515, STAT [facility] oxytocin (PITOCIN) 30 units in NS 500 mL IV infusion 06-08 19:00: 37 06-08 23:15 :08 No 300mL/h 300 mL/hr, IV Infusion, SEE-INSTRU CTIONS, Starting on Obdulia 06/08/[address] at 300 mL/hr for 1 hr then 150 mL/hr for 1 hr. For post delivery uterotonic .
[facility] hydrOXYzine (ATARAX) tablet 50 mg 06-08 18:16: 00 06-08 18:26 :00 No 50mg 50 mg, Oral, ONCE, 1 dose, On Obdulia 06/08/23 at 1230, Routine [facility] oxytocin (PITOCIN) 30 units in NS 500 mL IV infusion 06-08 15:17: 35 06-08 23:15 :21 No 2mU/min at 2-40 mL/hr, IV Infusion, TITRATE, Starting on Obdulia 06/08/23 at 0917, Until Obdulia 06/08/23 at 1715, [...] Push, ONCE, 1 dose, On Mon06/08/23 at 0645, Routine [facility] ondansetron [...] TITRATE, Starting on Mon06/07/23 at 1908, Until Obdulia 06/08/23 at 1715, [facility] 2022-05 2-08 00:00: 00 06-09 00:00 :00 No [id number] 400mg Take 1 tablet by mouth in the morning and 1 tablet at noon and 1 tablet in the evening. [facility] ity [facility] acetaminoph en with codeine (ACETAMINOP HEN-CODEINE ORAL) 2022-05 009 14:10: 59 02-20 00:00 :00 No Take by mouth. Take 1 tablet every 6h as needed for pain [facility] VALACYCLOVI R 1 gram tablet 4-04 00:00: 00 06-09 00:00 :00 No [id number] TAKE 1 TABLET BY MOUTH TWICE A DAY FOR 10 DAYS [facility] VALACYCLOVI R 1 gram tablet 5-31 00:00: 00 08-16 00:00 :00 No [id number] TAKE 1 TABLET BY MOUTH TWICE A DAY FOR 10 DAYS [facility] acyclovir 400 mg tablet 3-18 15:20: 09 07-30 00:00 :00 No 400mg Take 400 mg by mouth. Every 8h [facility] valACYclovi r (VALTREX) 1 gram tablet 3-18 00:00: 00 08-10 04:59 :00 No [id number] 1g Take 1 tablet by mouth 2 (two) times daily for 10 days. [facility] lidocaine 2% viscous (LIDOCAINE VISCOUS) 2 % solution 2020-05 00:00: 00 02-20 00:00 :00 No Apply topically every 4 hours as needed for pain [facility] acetaminoph en with codeine (ACETAMINOP HEN-CODEINE ORAL) 2020-05 10:09: 55 Yes Take by mouth. Take 1 tablet every 6h as needed for pain [facility] sulfamethox azole-trime thoprim 800-160 mg per tablet 2020-05 00:00: 00 07-30 00:00 :00 No [facility] clindamycin 1 % gel 2020-05 105 00:00: 00 07-30 00:00 :00 No [facility] Immunizations Ordered Immunization Name Filled Immunization Name Date Status Comments Source TDAP 2023-03-06 00:00:00 Completed [facility] TDAP Unknown Completed [facility] TDAP Unknown Completed [facility] TDAP Unknown Completed [facility] TDAP Unknown Completed [facility] TDAP Unknown Completed [facility] TDAP Unknown Completed [facility] TDAP Unknown Completed [facility] TDAP Unknown Completed [facility] TDAP Unknown Completed [facility] TDAP Unknown Completed [facility] TDAP Unknown Completed [facility] TDAP Unknown Completed [facility] TDAP Unknown Completed [facility] TDAP Unknown Completed [facility] TDAP Unknown Completed [facility] TDAP Unknown Completed [facility] TDAP Unknown Completed [facility] TDAP Unknown Completed [facility] Vital Signs Vital Name Observation Time Observation Value Comments S ource Systolic blood pressure 2024-12-23 00:40:00 125 mm[Hg] [facility] Diastolic blood pressure 2024-12-23 00:40:00 85 mm[Hg] [facility] Heart rate 2024-12-23 00:40:00 90 /min [facility] Body temperature 2024-12-23 00:40:00 37.11 Ana [facility] Respiratory rate 2024-12-23 00:40:00 20 /min [facility] Body height 2024-12-23 00:40:00 157.5 cm [facility] Body weight 2024-12-23 00:40:00 61.236 kg [facility] BMI 2024-12-23 00:40:00 24.69 kg/m2 [facility] Oxygen saturation in Arterial blood by Pulse oximetry 2024-12-23 00:40:00 96 /min [facility] Systolic blood pressure 2024-10-04 17:14:00 106 mm[Hg] [facility] Diastolic blood pressure 2024-10-04 17:14:00 46 mm[Hg] [facility] Heart rate 2024-10-04 17:14:00 75 /min [facility] Body temperature 2024-10-04 17:14:00 36.67 Ana [facility] Respiratory rate 2024-10-04 17:14:00 17 /min [facility] Oxygen saturation in Arterial blood by Pulse oximetry 2024-10-04 17:14:00 100 /min [facility] Body weight 2024-10-04 11:30:00 68.04 kg [facility] Systolic blood pressure 2024-09-11 00:07:00 132 mm[Hg] [facility] Diastolic blood pressure 2024-09-11 00:07:00 88 mm[Hg] [facility] Heart rate 2024-09-11 00:07:00 78 /min [facility] Body temperature 2024-09-11 00:07:00 36.44 Ana [facility] Respiratory rate 2024-09-11 00:07:00 18 /min [facility] Oxygen saturation in Arterial blood by Pulse oximetry 2024-09-11 00:07:00 100 /min [facility] BMI 2024-09-10 01:51:00 28.34 kg/m2 [facility] Body height 2024-09-10 01:51:00 154.9 cm [facility] Body weight 2024-09-10 01:51:00 68.04 kg [facility] Systolic blood pressure 2024-08-15 21:24:00 128 mm[Hg] [facility] Diastolic blood pressure 2024-08-15 21:24:00 84 mm[Hg] [facility] Heart rate 2024-08-15 21:24:00 107 /min [facility] Body temperature 2024-08-15 21:24:00 36.11 Ana [facility] Respiratory rate 2024-08-15 21:24:00 18 /min [facility] Body height 2024-08-15 21:24:00 152.4 cm [facility] Body weight 2024-08-15 21:24:00 68.221 kg [facility] BMI 2024-08-15 21:24:00 29.37 kg/m2 [facility] Systolic blood pressure 2024-06-19 21:37:00 129 mm[Hg] [facility] Diastolic blood pressure 2024-06-19 21:37:00 65 mm[Hg] [facility] Heart rate 2024-06-19 21:37:00 97 /min [facility] Body temperature 2024-06-19 21:37:00 35.61 Ana [facility] Respiratory rate 2024-06-19 21:37:00 18 /min [facility] Body height 2024-06-19 21:37:00 152.4 cm [facility] Body weight 2024-06-19 21:37:00 65.59 kg [facility] BMI 2024-06-19 21:37:00 28.24 kg/m2 [facility] Systolic blood pressure 2024-05-23 21:24:00 125 mm[Hg] [facility] Diastolic blood pressure 2024-05-23 21:24:00 62 mm[Hg] [facility] Heart rate 2024-05-23 21:24:00 96 /min [facility] Body temperature 2024-05-23 21:24:00 36.5 Ana [facility] Respiratory rate 2024-05-23 21:24:00 16 /min [facility] Body height 2024-05-23 21:24:00 152.4 cm [facility] Body weight 2024-05-23 21:24:00 67.042 kg [facility] BMI 2024-05-23 21:24:00 28.87 kg/m2 [facility] Systolic blood pressure 2024-04-09 21:07:00 125 mm[Hg] [facility] Diastolic blood pressure 2024-04-09 21:07:00 79 mm[Hg] [facility] Heart rate 2024-04-09 21:07:00 107 /min [facility] Body temperature 2024-04-09 21:07:00 37.17 Ana [facility] Respiratory rate 2024-04-09 21:07:00 16 /min [facility] Body height 2024-04-09 21:07:00 152.4 cm [facility] Body weight 2024-04-09 21:07:00 67.314 kg [facility] BMI 2024-04-09 21:07:00 28.98 kg/m2 [facility] Systolic blood pressure 2024-03-14 20:02:00 119 mm[Hg] [facility] Diastolic blood pressure 2024-03-14 20:02:00 63 mm[Hg] [facility] Heart rate 2024-03-14 20:02:00 71 /[facility] Body temperature 2024-03-14 20:02:00 35.83 Ana [facility] Respiratory rate 2024-03-14 20:02:00 18 /min [facility] Body height 2024-03-14 20:02:00 152.4 cm [facility] Body weight 2024-03-14 20:02:00 63.413 kg [facility] BMI 2024-03-14 20:02:00 27.30 kg/m2 [facility] Systolic blood pressure 2024-01-30 12:44:00 129 mm[Hg] [facility] [facility] Di[facility] blood pressure 2024-01-30 12:44:00 74 mm[Hg] [facility] Heart rate 2024-01-30 12:44:00 98 /min [facility] Body temperature 2024-01-30 12:44:00 36.72 Ana [facility] Respiratory rate 2024-01-30 12:44:00 17 /min [facility] Body height 2024-01-30 12:44:00 152.4 cm [facility] Body weight 2024-01-30 12:44:00 62.869 kg [facility] BMI 2024-01-30 12:44:00 27.07 kg/m2 [facility] Systolic blood pressure 2024-01-11 19:23:00 119 mm[Hg] [facility] Diastolic blood pressure 2024-01-11 19:23:00 70 mm[Hg] [facility] Heart rate 2024-01-11 19:23:00 70 /min [facility] Body temperature 2024-01-11 19:23:00 36.67 Ana [facility] Respiratory rate 2024-01-11 19:23:00 16 /min [facility] Body height 2024-01-11 19:23:00 152.4 cm [facility] Body weight 2024-01-11 19:23:00 64.864 kg [facility] BMI 2024-01-11 19:23:00 27.93 kg/m2 [facility] Oxygen saturation in Arterial blood by Pulse oximetry 2024-01-11 19:23:00 100 /min [facility] Systolic blood pressure 2024-01-10 03:00:00 121 mm[Hg] [facility] Diastolic blood pressure 2024-01-10 03:00:00 61 mm[Hg] [facility] Heart rate 2024-01-10 03:00:00 75 /min [facility] Oxygen saturation in Arterial blood by Pulse oximetry 2024-01-10 03:00:00 100 /min [facility] Respiratory rate 2024-01-10 01:00:00 18 /min [facility] Body temperature 2024-01-09 21:23:00 37.11 Ana [facility] Body height 2024-01-09 21:23:00 165.1 cm [facility] Body weight 2024-01-09 21:23:00 63.504 kg [facility] BMI 2024-01-09 21:23:00 23.30 kg/m2 [facility] Systolic blood pressure 2023-06-09 17:39:00 127 mm[Hg] [facility] Diastolic blood pressure 2023-06-09 17:39:00 65 mm[Hg] [facility] Heart rate 2023-06-09 17:39:00 50 /min [facility] Body temperature 2023-06-09 17:39:00 36.5 Ana [facility] Respiratory rate 2023-06-09 17:39:00 18 /min [facility] Oxygen saturation in Arterial blood by Pulse oximetry 2023-06-09 17:39:00 98 /min [facility] Body height 2023-06-08 00:28:00 157.5 cm [facility] Body weight 2023-06-08 00:28:00 63.685 kg [facility] BMI 2023-06-08 00:28:00 25.68 kg/m2 [facility] Systolic blood pressure 2023-06-07 21:38:00 140 mm[Hg] [facility] Diastolic blood pressure 2023-06-07 21:38:00 80 mm[Hg] [facility] Heart rate 2023-06-07 21:23:00 71 /min [facility] Body temperature 2023-06-07 21:19:00 36.5 Ana [facility] Respiratory rate 2023-06-07 21:19:00 18 /min [facility] Body height 2023-06-07 21:19:00 157.5 cm [facility] Body weight 2023-06-07 21:19:00 62.71 kg [facility] BMI 2023-06-07 21:19:00 25.29 kg/m2 [facility] Systolic blood pressure 2023-04-21 21:02:00 123 mm[Hg] [facility] Diastolic blood pressure 2023-04-21 21:02:00 77 mm[Hg] [facility] Heart rate 2023-04-21 21:02:00 104 /min [facility] Body temperature 2023-04-21 21:02:00 36.28 Ana [facility] Respiratory rate 2023-04-21 21:02:00 18 /min [facility] Body height 2023-04-21 21:02:00 157.5 cm [facility] Body weight 2023-04-21 21:02:00 58.968 kg [facility] BMI 2023-04-21 21:02:00 23.78 kg/m2 [facility] Systolic blood pressure 2023-03-06 16:20:00 125 mm[Hg] [facility] Diastolic blood pressure 2023-03-06 16:20:00 67 mm[Hg] [facility] Heart rate 2023-03-06 16:20:00 69 /min [facility] Body temperature 2023-03-06 16:20:00 36.11 Ana [facility] Respiratory rate 2023-03-06 16:20:00 18 /min [facility] Body height 2023-03-06 16:20:00 157.5 cm [facility] Body weight 2023-03-06 16:20:00 55.792 kg [facility] BMI 2023-03-06 16:20:00 22.50 kg/m2 [facility] Systolic blood pressure 2023-02-20 19:03:00 118 mm[Hg] [facility] Diastolic blood pressure 2023-02-20 19:03:00 67 mm[Hg] [facility] Heart rate 2023-02-20 19:03:00 77 /min [facility] Body temperature 2023-02-20 19:03:00 36.33 Ana [facility] Respiratory rate 2023-02-20 19:03:00 18 /min [facility] Body height 2023-02-20 19:03:00 157.5 cm [facility] Body weight 2023-02-20 19:03:00 55.974 kg [facility] BMI 2023-02-20 19:03:00 22.57 kg/m2 [facility] Systolic blood pressure 2021-07-30 20:02:00 116 mm[Hg] [facility] Diastolic blood pressure 2021-07-30 20:02:00 83 mm[Hg] [facility] Heart rate 2021-07-30 20:02:00 99 /min [facility] Respiratory rate 2021-07-30 20:02:00 18 /min [facility] Body height 2021-07-30 20:02:00 154.9 cm [facility] Body weight 2021-07-30 20:02:00 58.06 kg [facility] BMI 2021-07-30 20:02:00 24.19 kg/m2 [facility] Body mass index (BMI) [Percentile] Per age and sex 2021-07-30 20:02:00 78.29 % [facility] Oxygen saturation in Arterial blood by Pulse oximetry 2021-07-30 20:02:00 98 /min [facility] Procedures Procedure Date / Time Performed Performing Clinician Source CT HEAD WO CONTRAST 2024-10-04 18:49:06 Jazzy Swenson [facility] URINE DRUG (IMMUNOASSAY) - COMPREHENSIVE DRUG SCREEN 2024-10-04 12:41:00 [facility] EXTRA TUBE URINE CULTURE 2024-10-04 12:41:00 Edyta Watson [facility] PROTEIN CREAT RATIO URINE RANDOM 2024-10-04 12:41:00 [facility] SGOT (ASPARTATE AMINO TRANSFER) 2024-10-04 11:46:00 [facility] CREATININE 2024-10-04 11:46:00 [facility] ALANINE AMINO TRANSFERASE(SGPT 2024-10-04 11:46:00 [facility] LACTATE DEHYDROGENASE 2024-10-04 11:46:00 [facility] URIC ACID 2024-10-04 11:46:00 [facility] MAGNESIUM 2024-10-04 11:46:00 [facility] COMP. METABOLIC PANEL (86792) 2024-10-04 11:46:00 [facility] CBC WITH DIFF 2024-10-04 11:46:00 [facility] ELECTROENCEPHALOGRAM 2024-10-04 00:00:00 Bret Earl [facility] CBC WITH DIFF 2024-09-10 08:46:00 Dami [facility] LACTATE DEHYDROGENASE 2024-09-10 04:55:00 Dami [facility] URINE DRUG (IMMUNOASSAY) - COMPREHENSIVE DRUG SCREEN 2024-09-10 03:53:00 Dami [facility] URINALYSIS 2024-09-10 03:53:00 Dami [facility] PROTEIN CREAT RATIO URINE RANDOM 2024-09-10 03:53:00 Johansen [facility] SGOT (ASPARTATE AMINO TRANSFER) 2024-09-10 00:19:00 Johansen [facility] CREATININE 2024-09-10 00:19:00 Dami [facility] ALANINE AMINO TRANSFERASE(SGPT 2024-09-10 00:19:00 Dami [facility] URIC ACID 2024-09-10 00:19:00 Dami [facility] CBC WITH DIFF 2024-09-10 00:19:00 Dami [facility] HEPATITIS B SURFACE ANTIGEN 2024-09-10 00:19:00 Dami [facility] HB ABO GROUPING 2024-09-10 00:19:00 Dami [facility] ADC OR TRINH ONLY - RPR 2024-09-10 00:19:00 Johansen [facility] HIV 1/2 AG-AB WITH REFLEX 2024-09-10 00:19:00 Dami [facility] POCT URINALYSIS 2024-08-15 21:27:00 Mina Mott [facility] SECOND AND THIRD TRIMESTER ULTRASOUND 2024-07-10 19:44:00 Mina Mott [facility] POCT URINALYSIS 2024-06-19 21:40:00 Mina Mott [facility] POCT URINALYSIS 2024-05-23 21:30:00 Mina Mott [facility] SECOND AND THIRD TRIMESTER ULTRASOUND 2024-04-25 18:06:00 Mina Mott [facility] POCT URINALYSIS 2024-04-09 21:22:00 Mina Mott [facility] POCT URINALYSIS 2024-03-14 20:05:00 Mina Mott [facility] NIPT - NON-INVASIVE TEST RESULTS 2024-02-13 21:59:51 Doctor Unassigned, Thomson [facility] NIPT - NON-INVASIVE TEST RESULTS 2024-02-08 19:35:25 Doctor Unassigned, Thomson [facility] SECOND AND THIRD TRIMESTER ULTRASOUND 2024-02-02 19:21:00 Mina Mott [facility] POCT TEST 2024-01-30 12:43:00 Mina Mott [facility] POCT URINALYSIS W/O SPECIFIC GRAVITY 2024-01-30 12:43:00 Mina Mott [facility] LIPASE 2024-01-09 21:51:00 Adam Jean-Baptiste [facility] COMP. METABOLIC PANEL (10592) 2024-01-09 21:51:00 Adam Jean-Baptiste [facility] TOTAL BETA HCG ASSAY 2024-01-09 21:51:00 Adam Jean-Baptiste [facility] SALICYLATE 2024-01-09 21:51:00 Adam Jean-Baptiste [facility] ETHANOL 2024-01-09 21:51:00 Adam Jean-Baptiste [facility] CBC WITH DIFF 2024-01-09 21:51:00 Adam Jean-Baptiste [facility] URINALYSIS 2024-01-09 21:51:00 Adam Jean-Baptiste [facility] URINE DRUG (IMMUNOASSAY) - COMPREHENSIVE DRUG SCREEN W/O REFLEX 2024-01-09 21:51:00 Adam Jean-Baptiste [facility] POCT TEST 2024-01-09 21:37:00 Adam Jean-Baptiste [facility] CBC WITH DIFF 2023-06-09 10:07:00 Richa Eden [facility] URINALYSIS 2023-06-08 22:24:00 Suzanne Oconnor Mai [facility] SGOT (ASPARTATE AMINO TRANSFER) 2023-06-08 22:00:00 Anastasia Suzanne Andradetanya Deleon [facility] CREATININE 2023-06-08 22:00:00 Anastasia Suzanne Deleon [facility] ALANINE AMINO TRANSFERASE(SGPT 2023-06-08 22:00:00 Oconnor, Suzanne Andradetanya Deleon [facility] LACTATE DEHYDROGENASE 2023-06-08 22:00:00 Oconnor Suzanne Ford Deleon [facility] URIC ACID 2023-06-08 22:00:00 Oconnor, Suzanne Ford Deleon [facility] CBC WITH DIFF 2023-06-08 22:00:00 Amanda Oconnorabdirahman Andradetanya Deleon [facility] VENOUS CORD GAS 2023-06-08 19:06:00 Bree Valdez [facility] CENTRAL NEURAXIAL BLOCK 2023-06-08 15:18:00 Mendoza Marin [facility] LACTATE DEHYDROGENASE 2023-06-08 08:29:00 [facility] CBC WITH DIFF 2023-06-08 08:29:00 Annetta [facility] SYPHILIS IGG/IGM 2023-06-08 08:28:00 Annetta [facility] SGOT (ASPARTATE AMINO TRANSFER) 2023-06-08 08:19:00 Annetta [facility] CREATININE 2023-06-08 08:19:00 [facility] ALANINE AMINO TRANSFERASE(SGPT 2023-06-08 08:19:00 Annetta [facility] URIC ACID 2023-06-08 08:19:00 Annetta [facility] HEPATITIS B SURFACE ANTIGEN 2023-06-08 08:19:00 Annetta [facility] URINALYSIS 2023-06-08 03:02:00 Annetta [facility] PROTEIN CREAT RATIO URINE RANDOM 2023-06-08 03:02:00 [facility] POCT GLUCOSE (AUTOMATED) 2023-06-08 02:47:00 Edyta Watson [facility] CBC WITH DIFF 2023-06-08 00:35:00 José Miguel [facility] HEPATITIS B SURFACE ANTIGEN 2023-06-08 00:35:00 José Miguel [facility] HB ABO GROUPING 2023-06-08 00:35:00 José Miguel [facility] RHO (D) IMMUNE GLOBULIN 2023-06-08 00:35:00 Richa Eden [facility] HIV 1/2 AG-AB WITH REFLEX 2023-06-08 00:35:00 José Miguel [facility] SYPHILIS IGG/IGM 2023-06-08 00:35:00 José Miguel [facility] POCT URINALYSIS 2023-06-07 21:19:00 Mian Mott [facility] SECOND AND THIRD TRIMESTER ULTRASOUND 2023-06-07 20:57:00 Mina Mott [facility] SECOND AND THIRD TRIMESTER ULTRASOUND 2023-04-26 19:54:00 Mina Mott [facility] VZV ANTIBODY SCREEN 2023-04-21 21:47:00 Mina Mott [facility] HIV 1/2 AG-AB WITH REFLEX 2023-04-21 21:47:00 Mina Mott [facility] SYPHILIS IGG/IGM 2023-04-21 21:47:00 Mina Mott [facility] POCT URINALYSIS 2023-04-21 21:05:00 Mina Mott [facility] TDAP VACCINE, >11 YRS, IM 2023-03-06 16:43:06 Mina Mott [facility] POCT URINALYSIS 2023-03-06 16:23:00 Mina Mott [facility] CBC WITH DIFF 2023-02-20 20:17:00 Mina Mott [facility] HEPATITIS B SURFACE ANTIGEN 2023-02-20 20:17:00 Mina Mott [facility] HB ABO GROUPING 2023-02-20 20:17:00 Mina Mott [facility] HIV 1/2 AG-AB WITH REFLEX 2023-02-20 20:17:00 Mina Mott [facility] RUBELLA SCREEN IGG 2023-02-20 20:17:00 Mina Mott [facility] SYPHILIS IGG/IGM 2023-02-20 20:17:00 Mina Mott [facility] POCT URINALYSIS W/O SPECIFIC GRAVITY 2023-02-20 18:58:00 Mina Mott [facility] POCT TEST 2023-02-20 18:57:00 Mina Mott [facility] ASSIGNMENT OF BENEFITS 2023-02-20 18:15:42 Doctor Unassigned, Thomson [facility] Encounters Start Date/Time End Date/Time Encounter Type Admission Type Attending [facility] Care Facility Care Department Encounter ID Source 2024-10-03 19:39:04 Emergency [facility] [id number] [facility] Depart ent 2021-03-13 17:45:[address] [facility] [id number] [facility] 2024-12-22 19:49:00 2024-12-22 20:17:00 Emergency X JENSEN HALL BRENT [facility] ERT [id number] [facility] 2024-11-12 00:00:00 2024-11-12 09:57:41 Letter (Out) Kathleen Granados [facility] 1.840.114 350.1.13.10 4.2.7.2.686 [id number] [facility] 2024-10-08 00:00:00 2024-11-09 18:25:29 Patient Secure Msg Shazia Simpson [facility] 1.2.840.114 350.1.13.10 4.2.7.2.686 [id number] [facility] 2024-11-06 10:00:00 2024-11-06 10:00:[address] [facility] [id number] [facility] 2024-11-04 00:00:00 2024-11-04 11:26:07 Patient Outreach Coco Swain Jazmine M [facility] 1.2.840.114 350.1.13.10 4.2.7.2.686 [id number] [facility] 2024-11-04 09:20:00 2024-11-04 09:20:00 Outpatient R KATHLEEN GRANADOS [facility] [id number] [facility] 2024-10-04 06:16:00 2024-10-04 14:50:00 Hospital Encounter P EDYTA WATSON CHASEY [facility] HORTENCIA [id number] [facility] 2024-10-03 19:04:00 2024-10-04 05:20:00 Emergency Emergency PRIMO [facility] General Medicine [id number] [address] [place] [address] 2024-09-09 18:56:00 2024-09-10 19:54:00 Inpatient P MARK JOHANSEN VIEN [facility] [id number] [facility] 2024-09-09 18:56:00 2024-09-10 19:54:00 Hospital Encounter P MARK JOHANSEN VIEN [facility] [id number] [facility] 2024-09-10 15:45:00 2024-09-10 15:45:00 Outpatient R MINA MOTT [facility] [id number] [facility] 2024-09-05 15:45:00 2024-09-05 15:45:00 Outpatient R [address] [facility] [facility] [id number] [facility] 2024-08-21 14:15:00 2024-08-21 14:15:[address] [facility] [id number] [facility] 2024-08-19 00:00:00 2024-08-20 07:46:28 Telephone Mina Mott [facility] B2B ACCOUNT EXECUTIVE [facility] 1..840.114 350.1.13.10 4.2.7.2.686 [id number] [facility] 2024-08-16 13:45:00 2024-08-16 13:45:[address] [facility] [id number] [facility] 2024-08-15 16:00:00 2024-08-15 16:43:59 Outpatient R [facility]A [facility] [id number] [facility] 2024-08-15 16:00:00 2024-08-15 16:43:59 Routine Visit Pantera Mina Devries [facility] B2B ACCOUNT EXECUTIVE [facility] & CHILD [facility] ..840.114 350.1.13.10 4.2.7.2.686 [id number] [facility] 2024-08-08 10:45:00 2024-08-08 10:45:00 Outpatient R [facility]A [facility] [id number] [facility] 2024-07-16 13:30:00 2024-07-16 13:30:00 Outpatient R [facility]A [facility] [id number] [facility] 2024-07-11 00:00:00 2024-07-11 10:43:47 Abstract Axelbetty Mina C [facility] B2B ACCOUNT EXECUTIVE [facility] & CHILD [facility] 1..840.114 350.1.13.10 4.2.7.2.686 [id number] [facility] 2024-07-10 13:00:00 2024-07-10 13:53:03 [address] BE [address] [facility] [id number] [facility] 2024-07-10 13:00:00 2024-07-10 13:53:03 Manager Sterile Processing Visit Ultrasound, Be Montiel [facility] B2B ACCOUNT EXECUTIVE [facility] 1.2840.114 350.1.13.10 4.2.7.2.686 [id number] [facility] 2024-07-03 15:15:00 2024-07-03 15:15:00 Outpatient R MINA [facility] [id number] [facility] 2024-02-08 00:00:00 2024-06-29 06:54:57 Orders Only Doctor Unassigned, Thomson Doctor Unassigned, Thomson [facility] ([facility] 1.840.114 350.1.13.10 4.2.7.2.686 [id number] [facility] 2024-02-13 00:00:00 2024-06-29 06:53:58 Orders Only Doctor Unassigned, Thomson Doctor Unassigned, Thomson [facility] 1.2840.114 350.1.13.10 4.2.7.2.686 [id number] [facility] 2024-06-19 15:15:00 2024-06-19 16:17:29 Outpatient R MINA MOTT [facility] [id number] [facility] 2024-06-19 15:15:00 2024-06-19 16:17:29 Routine Visit Mina Mott [facility] B2B ACCOUNT EXECUTIVE [facility] 1.840.114 350.1.13.10 4.2.7.2.686 [id number] [facility] 2024-06-06 10:30:00 2024-06-06 10:30:[address] [facility] [id number] [facility] 2024-05-23 15:15:00 2024-05-23 15:58:[address] [facility] [id number] [facility] 2024-05-23 15:15:00 2024-05-23 15:58:10 Routine Visit Mina Mott [facility] B2B ACCOUNT EXECUTIVE [facility] & CHILD [facility] 1.2.840.114 350.1.13.10 4.2.7.2.686 [id number] [facility] 2024-05-21 07:00:00 2024-05-21 07:00:00 Outpatient R MINA [facility]OTT [facility] [id number] [facility] 2024-05-06 14:45:00 2024-05-06 14:45:00 Outpatient R MINA [facility] [id number] [facility] 2024-04-25 00:00:00 2024-04-25 14:48:21 Abstract Mina Mott [facility] B2B ACCOUNT EXECUTIVE [facility] & CHILD [facility] 1..840.114 350.1.13.10 4.2.7.2.686 [id number] [facility] 2024-04-25 11:00:00 2024-04-25 12:07:17 Outpatient R BE [facility] [id number] [facility] 2024-04-25 11:00:00 2024-04-25 12:07:17 Manager Sterile Processing [facility] B2B ACCOUNT EXECUTIVE [facility] & CHILD [facility] 1..840.114 350.1.13.10 4.2.7.2.686 [id number] [facility] 2024-04-09 15:00:00 2024-04-09 15:32:42 Outpatient R [address]A [facility] [facility] [id number] [facility] 2024-04-09 15:00:00 2024-04-09 15:32:42 Routine Visit Mian Mott [facility] B2B ACCOUNT EXECUTIVE [facility] & CHILD [facility] 1..840.114 350.1.13.10 4.2.7.2.686 [id number] [facility] 2024-03-14 15:00:00 2024-03-14 15:19:18 Outpatient R MINA [facility] [id number] [facility] 2024-03-14 15:00:00 2024-03-14 15:19:18 Routine Visit Axelarvindlatasha Mina Devries [facility] B2B ACCOUNT EXECUTIVE [facility] & CHILD [facility] 1..840.114 350.1.13.10 4.2.7.2.686 [id number] [facility] 2024-02-06 00:00:00 2024-02-06 09:00:48 Abstract Mina Mott [facility] B2B ACCOUNT EXECUTIVE [facility] & CHILD [facility] 1..840.114 350.1.13.10 4.2.7.2.686 [id number] [facility] 2024-02-02 14:00:00 2024-02-02 14:54:39 Outpatient P OMAR HARRISON [facility] [id number] [facility] 2024-02-02 14:00:00 2024-02-02 14:54:39 Manager Sterile Processing Visit Ultrasound, Cynthia Montiel Corey [facility] B2B ACCOUNT EXECUTIVE [facility] & CHILD [facility] 1..840.114 350.1.13.10 4.2.7.2.686 [id number] [facility] 2024-02-02 14:00:00 2024-02-02 14:00:[address] [facility] [id number] [facility] 2024-01-30 07:30:00 2024-01-30 08:49:54 Outpatient R MINA [facility] [id number] [facility] 2024-01-30 07:30:00 2024-01-30 08:49:54 Initial Visit Mina Mott [facility] B2B ACCOUNT EXECUTIVE [facility] 1.2.840.114 350.1.13.10 4.2.7.2.686 [id number] [facility] 2024-01-11 14:20:00 2024-01-11 15:22:00 Emergency X HOLLAND STEVENS PHILLIP [facility] ERT [id number] [facility] 2024-01-11 14:20:00 2024-01-11 15:22:00 Emergency Holland Stevens [facility] 1..840.114 350.1.13.10 4.2.7.2.686 [id number] [facility] 2024-01-09 16:17:00 2024-01-09 23:15:00 Emergency X LEIA DONIS WAKILI [facility] ERT [id number] [facility] 2024-01-09 16:17:00 2024-01-09 23:15:00 Emergency Adam Jean-Baptiste Wakili S [facility] 1.2.840.114 350.1.13.10 4.2.7.2.686 [id number] [facility] 2023-07-17 16:00:00 2023-07-17 16:00:00 Outpatient R MINA M[facility] [id number] [facility] 2023-06-07 17:47:00 2023-06-09 14:53:00 Inpatient P EDYTA WATSON CHASEY [facility] HORTENCIA [id number] [facility] 2023-06-07 17:47:00 2023-06-09 14:53:00 Hospital Encounter Edyta Watson [facility] [id number] 350.1.13.10 4.2.7.2.686 [id number] [facility] 2023-06-09 00:00:00 2023-06-09 00:00:00 Telephone Mina Mott [facility] B2B ACCOUNT EXECUTIVE [facility] [id number] 350.1.13.10 4.2.7.2.686 [id number] [facility] 2023-06-09 00:00:00 2023-06-09 00:00:00 Encounter [facility] [id number] 350.1.13.10 4.2.7.2.686 [id number] [facility] 2023-06-08 08:51:00 2023-06-08 17:14:00 Anesthesia Event Mendoza Marin Ryan C [facility] 1.2.840.114 350.1.13.10 4.2.7.2.686 [id number] [facility] 2023-06-08 00:00:00 2023-06-08 00:00:00 Telephone Mina Mott [facility] B2B ACCOUNT EXECUTIVE [facility] & CHILD [facility] 1.2.840.114 350.1.13.10 4.2.7.2.686 [id number] [facility] 2023-06-07 16:00:00 2023-06-07 16:00:00 Routine Visit Mina Mott [facility] B2B ACCOUNT EXECUTIVE [facility] CHILD [facility] 1.2.840.114 350.1.13.10 4.2.7.2.686 [id number] [facility] 2023-06-07 14:30:00 2023-06-07 14:59:[address] [facility] [id number] [facility] 2023-06-07 14:30:00 2023-06-07 14:59:04 Manager Sterile Processing Visit Ultrasound, [place] Mai [facility] B2B ACCOUNT EXECUTIVE [facility]ILD [facility] 1.2.840.114 350.1.13.10 4.2.7.2.686 [id number] [facility] 2023-06-02 00:00:00 2023-06-02 00:00:00 Telephone Mina Mott [facility] B2B ACCOUNT EXECUTIVE [facility] & CHILD [facility] 1.2.840.114 350.1.13.10 4.2.7.2.686 [id number] [facility] 2023-05-30 09:30:00 2023-05-30 09:30:00 Outpatient P CYNTHIA HERR [facility] [id number] [facility] 2023-05-10 10:00:00 2023-05-10 10:00:00 Outpatient R MINA MOTT [facility] [id number] [facility] 2023-05-03 00:00:00 2023-05-03 00:00:00 Abstract Mina Mott [facility] B2B ACCOUNT EXECUTIVE [facility] CHILD [facility] 1.2.840.114 350.1.13.10 4.2.7.2.686 [id number] [facility] 2023-05-03 00:00:00 2023-05-03 00:00:00 Abstract Mina Mott [facility] B2B ACCOUNT EXECUTIVE [facility] CHILD [facility] 1.2.840.114 350.1.13.10 4.2.7.2.686 [id number] [facility] 2023-04-28 15:30:00 2023-04-28 15:30:00 Outpatient R MINA MOTT [facility] [id number] [facility] 2023-04-26 13:30:00 2023-04-26 14:00:43 Outpatient P EDYTA WATSON [facility] [id number] [facility] 2023-04-26 13:30:00 2023-04-26 14:00:43 Manager Sterile Processing Visit 1, To Room Edyta Watson Ikuvbogie [facility] B2B ACCOUNT EXECUTIVE [facility] 1.2.840.114 350.1.13.10 4.2.7.2.686 [id number] [facility] 2023-04-21 15:00:00 2023-04-21 15:47:33 Outpatient R MINA MOTT [facility] [id number] [facility] 2023-04-21 15:00:00 2023-04-21 15:47:33 Routine Visit Mina Mott [facility] B2B ACCOUNT EXECUTIVE [facility] .2.840.114 350.1.13.10 4.2.7.2.686 [id number] [facility] 2023-04-13 08:00:00 2023-04-13 08:00:00 Outpatient R MINA MOTT [facility] [id number] [facility] 2023-03-31 10:45:00 2023-03-31 10:45:00 Outpatient R BETO HOFFMAN [facility] [id number] [facility] 2023-03-29 09:30:00 2023-03-29 09:30:00 Outpatient R MINA MOTT [facility] [id number] [facility] 2023-03-22 15:00:00 2023-03-22 15:00:00 Outpatient R MINA MOTT [facility] [id number] [facility] 2023-03-20 15:00:00 2023-03-20 15:00:00 Outpatient R MINA MOTT [facility] [id number] [facility] 2023-03-06 11:00:00 2023-03-06 11:50:07 Outpatient R NATHALIELATASHAGRACIEMINA [facility] [id number] [facility] 2023-03-06 11:00:00 2023-03-06 11:50:07 Routine Visit Mina Mott Jaycob [facility] B2B ACCOUNT EXECUTIVE [facility]ILD [facility] 1.2840.114 350.1.13.10 4.2.7.2.686 [id number] [facility] 2023-02-20 13:45:00 2023-02-20 16:13:02 Initial Visit Mina Mott Jaycob [facility] B2B ACCOUNT EXECUTIVE [facility] & CHILD [facility] 1.2840.114 350.1.13.10 4.2.7.2.686 [id number] [facility] 2023-02-20 13:15:00 2023-02-20 14:44:39 Outpatient R NATHALIEMINA SOLORIO [facility] [id number] [facility] 2023-02-20 00:00:00 2023-02-20 00:00:00 Orders Only Doctor Unassigned, Thomson [facility] 1.840.114 350.1.13.10 4.2.7.2.686 [id number] [facility] 2022-08-16 00:00:00 2022-08-16 00:00:00 Refill Keyla Solitario [facility] 1..114 350.1.13.10 4.2.7.2.686 [id number] [facility] 2021-10-12 11:30:00 2021-10-12 11:30:00 Outpatient R KEYLA SOLITARIO CHERYAL [facility] [id number] [facility] 2021-10-11 00:00:00 2021-10-11 00:00:00 Refill ClemenciaKeyla espitia [facility] 1.2.840.114 350.1.13.10 4.2.7.2.686 [id number] [facility] 2021-07-30 14:30:00 2021-07-30 15:17:53 Office Visit AmandaKeyla [facility] 1.2.840.114 350.1.13.10 4.2.7.2.686 [id number] [facility] 2021-07-30 14:30:00 2021-07-30 15:17:53 Outpatient R KEYLA SOLITARIO [facility]ERYAL [facility] [id number] [facility] 2021-07-30 14:30:00 2021-07-30 14:30:00 Outpatient R KEYLA SOLITARIO [facility]ERYAL [facility] [id number] [facility] 2021-07-30 00:00:00 2021-07-30 00:00:00 Telephone Adshannon Feli Green [facility] 1.2.840.114 350.1.13.10 4.2.7.2.686 [id number] [facility] 2021-04-22 00:00:00 2021-04-22 00:00:00 Telephone Adshannon Feli Green [facility] 1.2.840.114 350.1.13.10 4.2.7.2.686 [id number] [facility] 2021-04-07 00:00:00 2021-04-07 00:00:00 Telephone Adshannon Feli Green [facility] 1.2.840.114 350.1.13.10 4.2.7.2.686 [id number] 134 [id number] [facility] 2021-04-06 11:54:38 2021-04-06 12:09:38 Manager Sterile Processing Visit Pob, Adc Lab Main AdFeli ortega [facility] 1.114 350.1.13.10 4.2.7.2.686 [id number] [facility] 2021-04-06 09:35:47 2021-04-06 11:44:25 Office Visit AdFeli ortega [facility] 1.114 350.1.13.10 4.2.7.2.686 [id number] 134 [id number] [facility] 2021-04-06 09:30:00 2021-04-06 11:44:25 Outpatient R BIANKA [facility] [id number] [facility] 2021-04-06 09:30:00 2021-04-06 11:44:25 Outpatient R ADUM [facility] [id number] [facility] 2020-12-10 07:45:00 2020-12-10 07:45:00 Outpatient R MINA MOTT [facility] [id number] [facility] 2020-12-02 15:00:00 2020-12-02 15:00:00 Outpatient R MINA MOTT [facility] [id number] [facility] 2020-11-23 00:00:00 2020-11-23 00:00:00 Telephone Mina Mott [facility] B2B ACCOUNT EXECUTIVE [facility] CHILD [facility] 1..114 350.1.13.10 4.2.7.2.686 [id number] [facility] 2020-11-20 00:00:00 2020-11-20 00:00:00 Telephone Mina Mott [facility] B2B ACCOUNT EXECUTIVE [facility] CHILD [facility] 1..114 350.1.13.10 4.2.7.2.686 [id number] [facility] 2020-11-18 09:18:45 2020-11-18 10:43:25 Office Visit Mina Mott [facility] B2B ACCOUNT EXECUTIVE [facility] 1.2.840.114 350.1.13.10 4.2.7.2.686 [id number] [facility] 2020-11-18 09:15:00 2020-11-18 09:15:00 Outpatient R MINA MOTT [facility] [id number] [facility] 2020-11-18 00:00:00 2020-11-18 00:00:00 Orders Only Doctor Unassigned, Thomson [facility] 1.2.840.114 350.1.13.10 4.2.7.2.686 [id number] [facility] 2020-07-08 09:00:00 2020-07-08 09:00:00 Outpatient R TOBIN CHEN [facility] [id number] [facility] 2020-06-09 00:00:00 2020-06-09 00:00:00 Orders Only Doctor Unassigned, Thomson [facility] 1.2840.114 350.1.13.10 4.2.7.2.686 [id number] [facility] 2020-05-30 18:24:00 2020-05-30 18:42:00 Emergency Leti, Orni R [facility] 1.2840.114 350.1.13.10 4.2.7.2.686 [id number] [facility] Results Test Description Test Time Test Comments Results Resul t Comments Source CT Head wo contrast 2024-09-13 3 18:53:01 CT HEAD WO CONTRAST HISTORY: Seizure, new-onset, no history of trauma COMPARISON: None. TECHNIQUE: Nonenhanced CT scan of the head was done in multiple dimensions. FINDINGS: The ventricles and cerebral sulci are normal in caliber and configuration.No hydrocephalus, midline shift or pathological extra-axial fluidcollection is present. The basal cisterns are unremarkable. There is no acute intracranial hemorrhage or significant mass effect. Noparenchymal attenuation abnormality. The carlisle-white matter differentiationis preserved. The mastoid air cells and visualized paranasal air sinuses are clear. Thecalvarium and central skull base are unremarkable. [facility]. Metabolic Panel (47940)2024-10-04 12:31:49* Test Item Value Reference Range Interpretation Comme nts NA (test code = 2703906712) 131 mmol/L 135-145 L K (test code = 8081175468) 4.4 mmol/L 3.5-5.0 CL (test code = 2650980161) 97 mmol/L 98-108 L CO2 TOTAL (test code = 1470215678) 27 mmol/L 23-31 AGAP (test code = 2880768698) 7 2-16 BUN (test code = 4439438808) 8 mg/dL 7-23 GLUCOSE (test code = 2449319192) 93 mg/dL 70-110 CREATININE (test code = 2160-0) 0.52 mg/dL 0.50-1.04 TOTAL BILI (test code = 3049905245) 0.3 mg/dL 0.1-1.1 CALCIUM (test code = 0927913908) 7.7 mg/dL 8.6-10.6 L T PROTEIN (test code = 1033200314) 7.3 g/dL 6.3-8.2 ALBUMIN (test code = 4934717884) 4.2 g/dL 3.5-5.0 ALK PHOS (test code = 1072869281) 119 U/L 34-122 ALTv (test code = 1742-6) 20 U/L 5-35 AST(SGOT) (test code = 4040486798) 27 U/L 13-40 eGFR (test code = 08225-6) 136.6 mL/min/1.73m2 CKD-EPI eGFR (2020). Assuming creatinine has been stable day-to-day for at least three months, the eGFR indicates Category G1 (>= 90 mL/min/1.73 m2) Lab Interpretation (test code = 78680-5) [facility]normal [facility] Rtbz5228-57-88 12:31:49* Test Item Value Reference Range Interpretation Comme nts URIC ACID (test code = 4229221072) 4.3 mg/dL 2.9-6.0 Lab Interpretation (test cod e = 16173-7) Normal [facility] (Aspartate Amino Transfer)2024-10-04 12:31:48* Test Item Value Reference Range Interpretation Comme nts AST(SGOT) (test code = 7528020714) 27 U/L 13-40 Lab Interpretation (test cod e = 51337-5) Normal [facility] CenterAlanine Amino Transferase(Yilz9813-56-17 12:31:48* Test Item Value Reference Range Interpretation Comme nts ALTv (test code = 1742-6) 20 U/L 5-35 Lab Interpretation (test cod e = 82793-4) Normal [facility] Center[facility]inine2025-05-23 12:31:48* Test Item Value Reference Range Interpretation Comme [facility] CREATININE (test code = 2160-0) 0.52 mg/dL 0.50-1.04 eGFR (test code = 48656-8) 136.6 mL/min/1.73m2 CKD-EPI eGFR (20 21). Assuming creatinine has been stable day-to-day for at least three months, the eGFR indicates Category G1 (>= 90 mL/min/1.73 m2)CKD-EPI eGFR (2020). Assuming creatinine has been stable day-to-day for at least three months, the eGFR indicates Category G1 (>= 90 mL/min/1.73 m2) [facility] CenterLactate Mshbzdvrdrptk3400-03-38 12:30:08* Test Item Value Reference Range Interpretation Comme nts LDH (test code = 7360694971) 209 U/L 120-246 Lab Interpretation (test cod e = 63356-3) Normal [facility] CenterCbc with Nmkb4691-45-79 12:05:06* Test Item Value Reference Range Interpretation Comme nts WBC (test code = 6690-2) 7.33 4.30-11.10 RBC (test code = 789-8) 4.12 3.93-5.25 HGB (test code = 718-7) 10 g/dL 11.6-15.0 L HCT (test code = 4544-3) 32 % 35.7-45.2 L MCV (test code = 787-2) 77.7 fL 80.6-95.5 L MCH (test code = 785-6) 24.3 pg 25.9-32.8 L MCHC (test code = 786-4) 31.3 g/dL 31.6-35.1 L RDW-SD (test code = 12199-9) 44.3 fL 39.0-49.9 RDW-CV (test code = 788-0) 15.8 % 12.0-15.5 H PLT (test code = 777-3) 454 166-358 H MPV (test code = 56233-2) 8.3 fL 9.5-12.9 L NRBC/100 WBC (test code = 3181923634) 0 0.0-10.0 NRBC x10^3 (test code = 7152677015) See_Comment [Automated messa ge] The system which generated this result transmitted reference range: 10*3/?L. The reference range was not used to interpret this result as normal/abnormal. GRAN MAT (NEUT) % (test code = 770-8) 62.5 % IMM GRAN % (test code = 7069368866) 0.5 % LYMPH % (test code = 736-9) 27 % MONO % (test code = 5905-5) 8 % EOS % (test code = 713-8) 1.6 % BASO % (test code = 706-2) 0.4 % GRAN MAT x10^3(ANC) (test code = 3208489436) 4.57 10*3/uL 1.88-7.09 IMM GRAN x10^3 (test code = 7776989860) 0.04 10*3/uL 0.00-0.06 LYMPH x10^3 (test code = 731-0) 1.98 10*3/uL 1.32-3.29 MONO x10^3 (test code = 742-7) 0.59 10*3/uL 0.33-0.92 EOS x10^3 (test code = 711-2) 0.12 10*3/uL 0.03-0.39 BASO x10^3 (test code = 704-7) 0.03 10*3/uL 0.01-0.07 Lab Interpretation (test code = 23714-6) Abnormal [facility] Center[facility]ro[facility] (EEG) - Duration of test: 20-60 mins; Release to patient: Omnkmxqbf0995-67-23 00:00:00Date and Time of Procedure: 10/04/2024, 09:30 to 09:50 REPORT TECHNICAL SUMMARY: The EEG was recorded digitally. Electrodes were applied using the International 10/20 System of electrode placement. Eye movements and rhythm strip ECG were monitored on separate channels of the ongoing EEG recording. The occipital dominant rhythm consists of moderate amplitude 8.5-9.5 Hz activity. More anteriorly, similar as well as faster frequencies are present, including low amplitude 18-22 Hz activities in the anterior leads. Abundance of generalized spike or polyspike are seen. Drowsiness does not reveal anyabnormalities. Sleep is not seen. Limited photic stimulation does not elicit any abnormalities. IMPRESSION: This EEG is abnormal. 1. abundance of generalized epileptiform sharp waves, suggestive of the generalized epilepsy syndrome. Kaitlynn Jauregui M.D. Date of interpretation: 10/04/2024[facility] or Trin[place] Only - Tgv0788-72-22 11:58:12* Test Item Value Reference Range Interpretation Comme nts RPR (Qualitative) (test code = 56174-2) Nonreactive Nonreactive Lab Interpretation (test cod e = 80440-4) Normal [facility] CenterHepatitis B Surface Mahqfin1814-05-56 06:33:15 * Test Item Value Reference Range Interpretation Comme nts HBsAg Semi-Quantitative (loli t code = 5195-3) 0.09 Negative [facility] CenterLactate Cktbcwmxoqmjn1319-43-10 06:13:50* Test Item Value Reference Range Interpretation Comme nts LDH (test code = 1047619545) 279 U/L 120-246 H Lab Interpretation (test cod e = 98231-2) Abnormal [facility] CenterUric Acid Cihsi0954-50-30 05:45:10* Test Item Value Reference Range Interpretation Comme [facility] URIC ACID (test code = 6545592675) 3.7 mg/dL 2.9-6.0 Lab Interpretation (test cod e = 04565-9) Normal [facility] CenterAlanine Amino Transferase (SGPT)2024-09-10 05:44:50* Test Item Value Reference Range Interpretation Comme nts ALTv (test code = 1742-6) 58 U/L 5-35 H Lab Interpretation (test cod e = 04539-8) Abnormal [facility] CenterSGOT (Asparate Amino Transfer)2024-09-10 05:44:49* Test Item Value Reference Range Interpretation Comme [facility] AST(SGOT) (test code = 2721742485) 56 U/L 13-40 H Lab Interpretation (test cod e = 66804-2) Abnormal [facility] CenterSerum Ysmtdsqlqt5772-33-08 05:44:29* Test Item Value Reference Range Interpretation Comme [facility] CREATININE (test code = 2160-0) 0.48 mg/dL 0.50-1.04 L eGFR (test code = 90923-5) 139.3 mL/min/1.73m2 CKD-EPI eGFR (2020). Assuming creatinine has been stable day-to-day for at least three months, the eGFR indicates Category G1 (>= 90 mL/min/1.73 m2) Lab Interpretation (test code = 58405-8) Abnormal [facility] CenterHIV 1/2 Ag-Ab with Ujuknp9710-63-11 01:42:27* Test Item Value Reference Range Interpretation Comme [facility] HIV Semi-quantitative (test code = 80064-8) 0.14 Negative YANET (test code = YANET) Non-reactive for HIV-1 antigen and HIV-1/HIV-2 antibodies. ?No laboratory evidence of HIV infection. ?Repeat in 2-4 weeks if acute HIV infection is suspected. [facility] CenterCbc with Yqdh8044-19-01 00:49:59* Test Item Value Reference Range Interpretation Comme [facility] WBC (test code = 6690-2) 10.08 4.30-11.10 RBC (test code = 789-8) 4.27 3.93-5.25 HGB (test code = 718-7) 10.8 g/dL 11.6-15.0 L HCT (test code = 4544-3) 34.3 % 35.7-45.2 L MCV (test code = 787-2) 80.3 fL 80.6-95.5 L MCH (test code = 785-6) 25.3 pg 25.9-32.8 L MCHC (test code = 786-4) 31.5 g/dL 31.6-35.1 L RDW-SD (test code = 97212-1) 42.1 fL 39.0-49.9 RDW-CV (test code = 788-0) 14.5 % 12.0-15.5 PLT (test code = 777-3) 330 166-358 MPV (test code = 61278-6) 10.5 fL 9.5-12.9 NRBC/100 WBC (test code = 9229380429) 0 0.0-10.0 NRBC x10^3 (test code = 7605505862) See_Comment [Automated messa ge] The system which generated this result transmitted reference range: 10*3/?L. The reference range was not used to interpret this result as normal/abnormal. GRAN MAT (NEUT) % (test code = 770-8) 84.1 % IMM GRAN % (test code = 1080450069) 1.5 % LYMPH % (test code = 736-9) 9.3 % MONO % (test code = 5905-5) 4.3 % EOS % (test code = 713-8) 0.3 % BASO % (test code = 706-2) 0.5 % GRAN MAT x10^3(ANC) (test code = 9662621651) 8.48 10*3/uL 1.88-7.09 H IMM GRAN x10^3 (test code = 8162328933) 0.15 10*3/uL 0.00-0.06 H LYMPH x10^3 (test code = 731-0) 0.94 10*3/uL 1.32-3.29 L MONO x10^3 (test code = 742-7) 0.43 10*3/uL 0.33-0.92 EOS x10^3 (test code = 711-2) 0.03 10*3/uL 0.03-0.39 BASO x10^3 (test code = 704-7) 0.05 10*3/uL 0.01-0.07 Lab Interpretation (test code = 76568-8) Abnormal [facility] CenterType and Screen - ONCE Msjsdqp4805-81-08 00:47:00* Test Item Value Reference Range Interpretation Comme nts ABO & RH (test code = 20) A POSITIVE IAT (test code = 1185) Negative [facility] CenterPOCT URINALYSIS W SPECIFIC OZOLYWW3106-13-44 21:27:00* Test Item Value Reference Range Interpretation [...] U APPEAR (test code = 3267) . [facility] CenterPOCT URINALYSIS W SPECIFIC FRBLPGM8604-84-87 21:40:00* Test Item Value Reference Range Interpretation [...] U APPEAR (test code = 3267) . [facility] URINALYSIS W SPECIFIC XUXQLYN0391-80-96 21:30:00* Test Item Value Reference Range Interpretation [...] POCT U APPEAR (test code = 3267) [facility] URINALYSIS W SPECIFIC XPVFIIW6345-98-06 21:22:00* Test Item Value Reference Range Interpretation [...] POCT U APPEAR (test code = 3267) [facility] URINALYSIS W SPECIFIC RKLWPBH2229-13-47 20:06:00* Test Item Value Reference Range Interpretation [...] U APPEAR (test code = 3267) . [facility] - NON-INVASIVE TEST RESULTS 2024-02-13 21:59:51Ordered by an unspecified provider.[facility] - NON-INVASIVE TEST SFROESM0796-82-12 19:35:25 Ordered by an unspecified provider.[facility] Urinalysis w/o Specific Xiugtri2839-26-62 12:43:00* Test Item Value Reference Range Interpretation [...] = 3257) neg Negative - Negati ve [facility] CenterPOCT Lgee9431-92-72 12:43:00* Test Item Value Reference Range Interpretation Comme nts POCT PREG (test code = 1605) Positive On board controls acceptable with C Line (test code = 3574) Yes POCT PREG LOT # (test code = 3575) POCT PREG TEST DATE ( test code = 3576) [facility] CenterPO[facility] Zpux3506-97-18 21:37:00* Test Item Value Reference Range Interpretation Comme nts POCT PREG (test code = 1605) Positive On board controls acceptable with C Line (test code = 3574) Yes POCT PREG LOT # (test code = 3575) [id number] POCT PREG TEST DATE ( test code = 3576) 09/21/2024 Lab Interpretation (test cod e = 60812-0) Normal [facility] CenterRHO (D) IMMUNE WARAZJPK2643-02-66 23:23:42* Test Item Value Reference Range Interpretation Comme nts RHIG CANDIDATE? (test code = 5188) No- see comment Patient is not a candidate for RhIg- Patient is Rh Positive.Performed at [facility] Laboratory Services - [facility] Blood [address] [address]Nkfn Free: [phone] No. [id number] [facility] CenterLactate Dehydrogenase (LDH)2023-06-08 22:46:59 * Test Item Value Reference Range Interpretation Comme [facility] LDH (test code = 6256551219) 317 U/L 120-246 H Lab Interpretation (test cod e = 54152-4) Abnormal [facility] CenterUric Acid Myqyc2784-42-58 22:46:39* Test Item Value Reference Range Interpretation Comme [facility] URIC ACID (test code = 9529647353) 4.7 mg/dL 2.9-6.0 Lab Interpretation (test cod e = 79441-2) Normal [facility] CenterCreatinine Gwcht5106-04-25 22:46:39* Test Item Value Reference Range Interpretation Comme [facility] CREATININE (test code = 8023361406) 0.46 mg/dL 0.50-1.04 L eGFR (test code = 40730-1) 141.6 mL/min/1.73m2 CKD-EPI eGFR (2020). Assuming creatinine has been stable day-to-day for at least three months, the eGFR indicates Category G1 (>= 90 mL/min/1.73 m2) Lab Interpretation (test code = 07201-5) Abnormal [facility] CenterSGOT (Asparate Amino Transfer)2023-06-08 22:46:39* Test Item Value Reference Range Interpretation Comme nts AST(SGOT) (test code = 1844161214) 26 U/L 13-40 Lab Interpretation (test cod e = 46694-8) Normal [facility] CenterAlanine Amino Transferase (SGPT)2023-06-08 22:46:38* Test Item Value Reference Range Interpretation Comme nts ALTv (test code = 1742-6) 21 U/L 5-35 Lab Interpretation (test cod e = 93513-6) Normal [facility] CenterCBC with Oofvdndcspie0167-14-49 22:14:10* Test Item Value Reference Range Interpretation [...] 31.8 g/dL 31.6-35.1 RDW-SD (test code = 87762-6) 42.5 fL 39.0-49.9 RDW-CV (test code = 788-0) 14.8 % 12.0-15.5 PLT (test code = 777-3) 265 See_Comment [Automated message] The system which generated this result transmitted reference range: 166 - 358 10*3/?L. The reference range was not used to interpret this result as normal/abnormal. MPV (test code = 15306-8) 10.1 fL 9.5-12.9 NRBC/100 WBC (test code = 8568331591) 0.0 See_Comment [Automated message] The system which generated this result transmitted reference range: 0.0 - 10.0 /100 WBCs. The reference range was not used to interpret this result as normal/abnormal. NRBC x10^3 (test code = 2568253525) See_Comment [Automated message] The system which generated this result transmitted reference range: 10*3/?L. The reference range was not used to interpret this result as normal/abnormal. GRAN MAT (NEUT) % (test code = 770-8) 87.0 % IMM GRAN % (test code = 1363740307) 1.90 % LYMPH % (test code = 736-9) 4.8 % MONO % (test code = 5905-5) 6.1 % EOS % (test code = 713-8) 0.0 % BASO % (test code = 706-2) 0.2 % GRAN MAT x10^3(ANC) (test code = 0819592777) 14.93 10*3/uL 1.88-7.09 H IMM GRAN x10^3 (test code = 5652275939) 0.33 10*3/uL 0.00-0.06 H LYMPH x10^3 (test code = 731-0) 0.82 10*3/uL 1.32-3.29 L MONO x10^3 (test code = 742-7) 1.05 10*3/uL 0.33-0.92 H EOS x10^3 (test code = 711-2) 0.03-0.39 L BASO x10^3 (test code = 704-7) 0.04 10*3/uL 0.01-0.07 Lab Interpretation (test code = 25249-7) Abnormal [facility] Cord Sun6413-99-15 19:18:12* Test Item Value Reference Range Interpretation Comme nts VENOUS BASE EXCESS, CORD (test code = 1706188593) -3.6 mEq/L VENOUS PH, CORD (test code = 8201020867) 7.34 7.25-7.45 VENOUS PC02, CORD (test code = 1192107142) 42 See_Comment [Automated messa ge] The system which generated this result transmitted reference range: 27 - 49 mmHg. The reference range was not used to interpret this result as normal/abnormal. VENOUS PO2, CORD (test code = 8575118385) 27 See_Comment [Automated me ssage] The system which generated this result transmitted reference range: 17 - 41 mmHg. The reference range was not used to interpret this result as normal/abnormal. VENOUS BICARBONATE, CORD (test code = 1784650184) 22 See_Comment [Automated messa ge] The system which generated this result transmitted reference range: 12 - 29 mEq/L. The reference range was not used to interpret this result as normal/abnormal. [facility] CenterAr[facility]ial Cord [id number] 19:17:42* Test Item Value Reference Range Interpretation Comme nts BASE EXCESS, CORD (test code = 7272743563) -3.2 mEq/L QUES AC PH, CORD (BEAKER) (test code = 1284678553) 7.25 7.18-7.38 PC02, CORD (test code = 5449758962) 58 See_Comment [Automated messa ge] The system which generated this result transmitted reference range: 32 - 66 mmHg. The reference range was not used to interpret this result as normal/abnormal. PO2, CORD (test code = 5412943574) 19 See_Comment [Automated messa ge] The system which generated this result transmitted reference range: 10 - 30 mmHg. The reference range was not used to interpret this result as normal/abnormal. BICARBONATE, CORD (test code = 0011813140) 25 See_Comment [Automated messa ge] The system which generated this result transmitted reference range: 17 - 27 mEq/L. The reference range was not used to interpret this result as normal/abnormal. [facility] CenterSyphilis IgG/MgB3380-73-00 16:48:57* Test Item Value Reference Range Interpretation Comme [facility] Syphilis IgG/IgM (test code = 56503-1) Non-reactive Non-reactive YANET (test code = YANET) Non-reactive - No serologic evidence of T. pallidum infection. Cannot exclude incubating or early syphilis. Submit a second specimen in 2-4 weeks if syphilis is clinically suspected. Equivocal - Further testing to follow. Reactive - Further testing to follow. Lab Interpretation (test code = 48147-0) Normal [facility] CenterGALV ONLY - SYPHILIS IGG/[id number] 16:45:18* Test Item Value Reference Range Interpretation Comme nts Syphilis IgG/IgM (test code = 29893-7) Non-reactive Non-reactive YANET (test code = YANET) Non-reactive - No serologic evidence of T. pallidum infection. Cannot exclude incubating or early syphilis. Submit a second specimen in 2-4 weeks if syphilis is clinically suspected. Equivocal - Further testing to follow. Reactive - Further testing to follow. Lab Interpretation (test code = 53545-3) Normal [facility] CenterCentral Neuraxial [id number] 15:18:00 Mendoza Marin MD ? ? 06/08/2023 ?9:19 AM Central Neuraxial Block Date/Time: 06/08/2023 9:18 AMPerformed by: Mendoza Marin MDAuthorized by: Shruthi Petit MD ?End Time: 06/08/2023 9:18 AMReason for Block: OB request, Patient request, Labor analgesia, Surgical anesthesia and Post-op pain managementStaff: ?Anesthesiologist: Shruthi Petit MD ?Resident/FREIGHT MANAGER: Mendoza Marin MD ?Performed by: resident/CRNAPreanesthetic Checklist: patient identified, IV checked, risks and benefits explained, monitors and equipment checked, timeout performed, pre-op evaluation, site marked and an esthesia consentProcedure: ?Type of Neuraxial: Epidural ?Prep: Betadine and patient draped ? ?Monitoring: heart rate, continuous pulse ox, heart rate / toco and NIBP ? 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 Fall precautions provided, patient vocalized understanding and all questions answered. ?[facility] CenterHeephraim mcdowell regional medical centertis B Surface [id number] 09:58:34* Test Item Value Reference Range Interpretation Comme nts HBsAg Semi-Quantitative (loli t code = 5195-3) 0.09 Negative [facility] CenterLactate Ncizgodurhkfv9805-08-52 09:15:08* Test Item Value Reference Range Interpretation Comme [facility] LDH (test code = 3805598731) 185 U/L 120-246 Lab Interpretation (test cod e = 33842-9) Normal [facility] CenterUric Acid [id number] 09:14:27* Test Item Value Reference Range Interpretation Comme [facility] URIC ACID (test code = 2730187672) 4.8 mg/dL 2.9-6.0 Lab Interpretation (test cod e = 21477-5) Normal [facility] Fvaynuycgk7231-82-95 09:14:27* Test Item Value Reference Range Interpretation Comme [facility] CREATININE (test code = 0808163526) 0.52 mg/dL 0.50-1.04 eGFR (test code = 04053-0) 137.5 mL/min/1.73m2 CKD-EPI eGFR (20 21). Assuming creatinine has been stable day-to-day for at least three months, the eGFR indicates Category G1 (>= 90 mL/min/1.73 m2) [facility] CenterSGOT (Asparate Amino Transfer)2023-06-08 09:14:27* Test Item Value Reference Range Interpretation Comme nts AST(SGOT) (test code = 3679679535) 22 U/L 13-40 Lab Interpretation (test cod e = 21084-0) Normal [facility] CenterAlanine Amino Transferase (SGPT)2023-06-08 09:14:27* Test Item Value Reference Range Interpretation Comme nts ALTv (test code = 1742-6) 19 U/L 5-35 Lab Interpretation (test cod e = 03753-9) Normal [facility] CenterCBC with Wajolpfevvet7241-30-76 08:58:44* Test Item Value Reference Range Interpretation Comme nts WBC (test code = 6690-2) 6.46 See_Comment [Automated messa ge] The system which generated this result transmitted reference range: 4.30 - 11.10 10*3/?L. The reference range was not used to interpret this result as normal/abnormal. RBC (test code = 789-8) 3.31 See_Comment L [Automated messa ge] The system [...] g/dL 31.6-35.1 L RDW-SD (test code = 45515-8) 43.0 fL 39.0-49.9 RDW-CV (test code = 788-0) 14.8 % 12.0-15.5 PLT (test code = 777-3) 238 See_Comment [Automated messa ge] The system which generated this result transmitted reference range: 166 - 358 10*3/?L. The reference range was not used to interpret this result as normal/abnormal. MPV (test code = 20607-0) 10.4 fL 9.5-12.9 NRBC/100 WBC (test code = 7029456805) 0.0 See_Comment [Automated [employer] ssage] The system which generated this result transmitted reference range: 0.0 - 10.0 /100 WBCs. The reference range was not used to interpret this result as normal/abnormal. NRBC x10^3 (test code = 6595356442) See_Comment [Automated messa ge] The system which generated this result transmitted reference range: 10*3/?L. The reference range was not used to interpret this result as normal/abnormal. GRAN MAT (NEUT) % (test code = 770-8) 71.8 % IMM GRAN % (test code = 0961446443) 1.40 % LYMPH % (test code = 736-9) 17.2 % MONO % (test code = 5905-5) 8.4 % EOS % (test code = 713-8) 0.9 % BASO % (test code = 706-2) 0.3 % GRAN MAT x10^3(ANC) (test code = 2311003454) 4.64 10*3/uL 1.88-7.09 IMM GRAN x10^3 (test code = 9223691546) 0.09 10*3/uL 0.00-0.06 H LYMPH x10^3 (test code = 731-0) 1.11 10*3/uL 1.32-3.29 L MONO x10^3 (test code = 742-7) 0.54 10*3/uL 0.33-0.92 EOS x10^3 (test code = 711-2) 0.06 10*3/uL 0.03-0.39 BASO x10^3 (test code = 704-7) 0.01-0.07 Lab Interpretation (test code = 19482-0) Abnormal [facility] with Lxbzdtdztjsq5570-81-92 08:58:04* Test Item Value Reference Range Interpretation [...] g/dL 31.6-35.1 L RDW-SD (test code = 20739-7) 42.8 fL 39.0-49.9 RDW-CV (test code = 788-0) 14.6 % 12.0-15.5 PLT (test code = 777-3) 243 See_Comment [Automated messa ge] The system which generated this result transmitted reference range: 166 - 358 10*3/?L. The reference range was not used to interpret this result as normal/abnormal. MPV (test code = 49510-7) 10.7 fL 9.5-12.9 NRBC/100 WBC (test code = 2761145529) 0.0 See_Comment [Automated [employer] ssage] The system which generated this result transmitted reference range: 0.0 - 10.0 /100 WBCs. The reference range was not used to interpret this result as normal/abnormal. NRBC x10^3 (test code = 6602543856) See_Comment [Automated messa ge] The system which generated this result transmitted reference range: 10*3/?L. The reference range was not used to interpret this result as normal/abnormal. GRAN MAT (NEUT) % (test code = 770-8) 70.9 % IMM GRAN % (test code = 0750235151) 2.00 % LYMPH % (test code = 736-9) 17.2 % MONO % (test code = 5905-5) 8.5 % EOS % (test code = 713-8) 1.1 % BASO % (test code = 706-2) 0.3 % GRAN MAT x10^3(ANC) (test code = 9590025461) 4.69 10*3/uL 1.88-7.09 IMM GRAN x10^3 (test code = 3481965642) 0.13 10*3/uL 0.00-0.06 H LYMPH x10^3 (test code = 731-0) 1.14 10*3/uL 1.32-3.29 L MONO x10^3 (test code = 742-7) 0.56 10*3/uL 0.33-0.92 EOS x10^3 (test code = 711-2) 0.07 10*3/uL 0.03-0.39 BASO x10^3 (test code = 704-7) 0.01-0.07 Lab Interpretation (test code = 88458-8) Abnormal [facility] CenterHIV 1/2 Ag-Ab with Djuoij5385-18-48 04:05:57* Test Item Value Reference Range Interpretation Comme nts HIV Semi-quantitative (test code = 20556-7) 0.07 Negative YANET (test code = YANET) Non-reactive for HIV-1 antigen and HIV-1/HIV-2 antibodies. ?No laboratory evidence of HIV infection. ?Repeat in 2-4 weeks if acute HIV infection is suspected. [facility] CenterPOCT GLUCOSE (AUTOMATED)2023-06-08 02:51:09* Test Item Value Reference Range Interpretation Comme nts POCT GLU (test code = 7843906426) 87 mg/dL 70-110 Lab Interpretation (test cod e = 50008-5) Normal [facility] CenterHepatitis B Surface Lhqyqwa1143-42-39 02:25:31 * Test Item Value Reference Range Interpretation Comme nts HBsAg Semi-Quantitative (loli t code = 5195-3) 0.09 Negative [facility] CenterCbc with [id number] 00:58:41* Test Item Value Reference Range Interpretation [...] 31.9 g/dL 31.6-35.1 RDW-SD (test code = 23867-9) 42.4 fL 39.0-49.9 RDW-CV (test code = 788-0) 14.6 % 12.0-15.5 PLT (test code = 777-3) 316 See_Comment [Automated messa ge] The system which generated this result transmitted reference range: 166 - 358 10*3/?L. The reference range was not used to interpret this result as normal/abnormal. MPV (test code = 51039-6) 10.4 fL 9.5-12.9 NRBC/100 WBC (test code = 2542875611) 0.0 See_Comment [Automated [employer] ssage] The system which generated this result transmitted reference range: 0.0 - 10.0 /100 WBCs. The reference range was not used to interpret this result as normal/abnormal. NRBC x10^3 (test code = 6784132432) See_Comment [Automated messa ge] The system which generated this result transmitted reference range: 10*3/?L. The reference range was not used to interpret this result as normal/abnormal. GRAN MAT (NEUT) % (test code = 770-8) 68.8 % IMM GRAN % (test code = 3227989949) 1.40 % LYMPH % (test code = 736-9) 20.9 % MONO % (test code = 5905-5) 7.2 % EOS % (test code = 713-8) 1.3 % BASO % (test code = 706-2) 0.4 % GRAN MAT x10^3(ANC) (test code = 4230571015) 4.76 10*3/uL 1.88-7.09 IMM GRAN x10^3 (test code = 0526733775) 0.10 10*3/uL 0.00-0.06 H LYMPH x10^3 (test code = 731-0) 1.45 10*3/uL 1.32-3.29 MONO x10^3 (test code = 742-7) 0.50 10*3/uL 0.33-0.92 EOS x10^3 (test code = 711-2) 0.09 10*3/uL 0.03-0.39 BASO x10^3 (test code = 704-7) 0.03 10*3/uL 0.01-0.07 Lab Interpretation (test code = 13576-9) Abnormal [facility] CenterType and Screen - ONCE Uvspuqc9039-42-39 00:48:00* Test Item Value Reference Range Interpretation Comme nts ABO & RH (test code = 20) A POSITIVE IAT (test code = 1185) Negative [facility] CenterPOCT URINALYSIS W SPECIFIC [id number] 21:19:00* Test Item Value Reference Range Interpretation [...] U APPEAR (test code = 3267) . [facility] URINALYSIS W SPECIFIC [id number] 21:19:00* Test Item Value Reference Range Interpretation [...] U APPEAR (test code = 3267) . [facility] URINALYSIS W SPECIFIC [id number] 21:05:00* Test Item Value Reference Range Interpretation [...] U APPEAR (test code = 3267) . [facility] URINALYSIS W SPECIFIC [id number] 21:05:00* Test Item Value Reference Range Interpretation [...] U APPEAR (test code = 3267) . [facility] URINALYSIS W SPECIFIC [id number] 21:05:00* Test Item Value Reference Range Interpretation [...] U APPEAR (test code = 3267) . [facility] URINALYSIS W SPECIFIC [id number] 21:05:00* Test Item Value Reference Range Interpretation [...] U APPEAR (test code = 3267) . [facility] URINALYSIS W SPECIFIC [id number] 16:23:00* Test Item Value Reference Range Interpretation [...] U APPEAR (test code = 3267) . [facility] URINALYSIS W/O SPECIFIC [id number] 18:58:00* Test Item Value Reference Range Interpretation [...] ve Lab Interpretation (test cod e = 50169-7) Abnormal [facility] CenterPOCT URINALYSIS W/O SPECIFIC [id number] 18:58:00* Test Item Value Reference Range Interpretation [...] ve Lab Interpretation (test cod e = 83963-7) Abnormal [facility] CenterPOCT [id number] 18:57:00* Test Item Value Reference Range Interpretation Comme nts POCT PREG (test code = 1605) Positive On board controls acceptable with C Line (test code = 3574) Yes POCT PREG LOT # (test code = 3575) POCT PREG TEST DATE ( test code = 3576) [facility] CenterPOCT [id number] 18:57:00* Test Item Value Reference Range Interpretation Comme nts POCT PREG (test code = 1605) Positive On board controls acceptable with C Line (test code = 3574) Yes POCT PREG LOT # (test code = 3575) POCT PREG TEST DATE ( test code = 3576) [facility] Consult Notes Date/Time Note Provider Source 2024-10-04 11:04:00 Associated Order(s): CONSULT IT SPECIALIST-ADULT Images from the original note were not included. Reason for consult - please give recommendation or opinion on: please assess due to history of substance abuse and resources. CARE MANAGEMENT Care Coordinators/Social Workers/CM Specialists/Utilization Review/Patient Placement & Transfer Center 10/04/2024 11:04 AM Line Haul Owner Operator Note SW spoke with Claudette Mclaughlin, CPS Dock Associate [facility] . Al informed is still needing to follow up with the Adoptive Parents' Hot Strip Finisher regarding baby placed for adoption. Al informed pt's [place] [facility] [place] Update @4291 SW spoke with pt who reportedly resides at [address] [place] [address]. SW discussed Substance Abuse resources and MH resources provided on 09/13/24 when SW was following up with pt regarding baby. Pt reported she has the resources at home and does not need any new resources. Pt stated family or friends will transport the pt home upon discharge. Rina Moya LMSW [facility] Line Haul Owner Operator Care Management O: [phone] F: [phone] [email or web address] Rina Moya LMSW [facility] Health 2024-09-10 11:07:25 Associated Order(s): CONSULT PEDI IT SPECIALIST; CONSULT IT SPECIALIST-ADULT Met with biological MOB and adoptive parents in room, Vernell Ricardo and Jean Ricardo who reside at [address] [place] [address] in [place] [address]. [address] documents provided from [facility] "Statement to Confer Standing" as well as Mother's Authorization For Release of To Adoptive Parents" signed and notarized by Zhanna Tello ID [id number] on 09-04-24. SW also completed [facility] Release of [place] To Third Alliance Party. SW will assist with any additional dc needs. MOB is coping appropriately with adoption. SW will provide community resources for couseling and grief therapy as requested per MOB. Adoptive parents have all necessary director child abuse therapy items necessary for dc. NB anticipated to dc on 09-11-24. Regarding MOB history of positive UDS on 01-09-24 for cocaine and THC, pt denies any use thereafter, with no other UDS's completed, until present upon delivery, of which was negative. Pt had consistent care and indicates she plans on returning home with her mother and at [address] [place] [address] with good family support to report. MOB [...] any additional dc needs. CPS Report ID# [id number] Floor Layer: DOMINGO Ackerman 5523 NOTIFIED THAT CPS DOES NOT RECOMMEND OPENING CASE. JUAN Lauren Line Haul Owner Operator - Care Management [facility] [phone] [email or web address] JUAN Lauren Line Haul Owner Operator - Care Management [place] [phone] [email or web address] Emily MARTINEZ [facility] - Health History and Physical Notes Date/Time [...] Active Problem List Diagnosis Date Noted Liveborn infant, of [place] , born in [...] ?C (97.6 ?F)] Temp source: Axillary (09/09 1704) Pulse: [79] Resp: [20] SpO2: [99 %] [...] Positive Negative Final No results found for: "ZKOG1XZ" No results found for: "CGBS" HGB Date [...] persists, will send tox labs care at [facility]. Labs/imaging reviewed. Pedi made aware Mark Johansen MD 09/09/2024 8:38 PM [facility] 2023-06-07 18:42:02 TRIAGE/L&D HISTORY & PHYSICAL IDENTIFYING [...] "CGB" GTT No results found for: "GLUF", "VGZG4IT", "GLU3H" CBC Lab Results Component Value Date/Time [...] PreE - SVE: cervix visually closed - [place]: quiescent Plan: - tox labs ordered - [...] Normal anatomy scan D/w Dr. Carlos Michaud, MSIII Ryan Littlejohn MD, PhD Obstetrics & Gynecology, PGY-1 ECTING AND TESTING LEAD HAND Associated attestation - Edyta Watson MD - 06/08/2023 6:38 AM INSPECTING AND TESTING LEAD HAND I was L&D faculty on 06/07/2023 and agree with H&P below. I discussed the plan of care with the residents. Will admit for delivery due to GHTN at term Edyta Watson MD [facility] Procedure Notes Date/Time Note Provider Source 2023-06-08 09:18:49 Associated Order(s): Central Neuraxial Block Central Neuraxial Block Date/Time: 06/08/2023 9:18 AM Performed by: Mendoza Marin MD Authorized by: Shruthi Petit MD End Time: 06/08/2023 9:18 AM Reason for Block: OB request, Patient request, Labor analgesia, Surgical anesthesia and Post-op pain management Staff: Anesthesiologist: Shruthi Petit MD Resident/FREIGHT MANAGER: Mendoza Marin MD Performed by: resident/FREIGHT MANAGER Preanesthetic Checklist: patient identified, IV checked, risks and benefits explained, monitors and equipment checked, timeout performed, pre-op evaluation, site marked and anesthesia consent Procedure: Type of Neuraxial: Epidural Prep: Betadine and patient draped Monitoring: heart rate, continuous pulse ox, heart rate / toco and NIBP Technique: catheter and LICHA saline Guidance with: landmark technique} Epidural/Spinal [place] and/or Catheter: Epidural/Spinal Kit: BBraun Needle Type: Tuohy Needle Gauge: 17 G [...] down on back and given instructions on BUILDING ARCHITECTURAL DESIGNER functionality. Fall precautions provided, patient vocalized understanding and all questions answered. [facility]OLOGY [facility] 2023-06-07 21:43:39 Procedure(s): INSERT CERVICAL DILATOR Pre-Procedure [...] SVE visually closed Ryan Littlejohn MD PhD [facility] Notes Date/Time Note Provider Source 2024-12-22 20:03:57 MSE by MD Isabel [facility] 2024-12-22 19:40:47 Ambulatory to triage with c/o addiction to percocet and Fentanyl. Patient started taking "perks laced with fentanyl" since she was 15 years old. Last pill was taken 1 hour ago. Patient states she has withdrawn in the past. Patient states she has to be clean for 45 days to enter the behavioral health program in [place], [place]. Patient does not want to enter a rehab center. Recently diagnosed with seizures Genesis Zacarias RN [facility] - Health 2024-12-22 19:35:00 [facility] Emergency Department Note Patient Name: Tamera Bergman Date of : 2005 19 year old female Treatment Room: [facility] Primary Care Physician: PATIENT DOES NOT HAVE A PCP Patient Escorted by: Family [5] Mode of Arrival: Personal means [1] EMS Treatment Prior to ED Arrival: Travel and Exposure Screening: Symptoms Does patient have any of these symptoms?: (not recorded) Exposure Screening Has patient had contact with someone with a communicable disease in the last month?: (not recorded) Diseases exposed to:: (not recorded) Is Patient ?: (not recorded) Exposure Date: (not recorded) Chief Complaint: Chief Complaint Patient presents with Substance Abuse Counseling/referral History of Present Illness: History of Present Illness 19 y.o. female with opioid addiction here with concern for care "if she goes through withdrawal." Patient reports recent use a couple hours ago. Past Medical History/Immunizations: Past Medical History: Diagnosis Date Genital herpes 2021 not on meds, denies recent outbreak Marijuana use 02/20/2023 denied at this time Other depression 02/20/2023 not on meds Seizure 10/04/2024 Allergies: No Known Allergies Past Social History: [...] Review of Systems Constitutional: Negative. HENT: Negative. Eyes: Negative. Respiratory: Negative. Breasts: Negative. Cardiovascular: Negative. Gastrointestinal: Negative. Genitourinary: Negative. Musculoskeletal: Negative. Skin: Negative. Neurological: Negative. Psychiatric/Behavioral: Negative. Endocrine: Endocrine negative Physical Exam: Physical Exam ED Triage Vitals [12/22/24 1940] Weight 61.2 kg (135 lb) Actual or estimated Actual Height 1.575 m (5' 2") BP 125/85 Pulse 90 Resp 20 Temp 37.1 ?C (98.8 ?F) Temp source Oral SpO2 96 % Measured on Room air Physical Exam Vitals and nursing note reviewed. Constitutional: Appearance: Normal appearance. HENT: Head: Normocephalic and atraumatic. Nose: Nose normal. Mouth/Throat: Mouth: Mucous membranes are moist. Cardiovascular: Rate and Rhythm: Normal rate and regular rhythm. Pulmonary: Effort: No respiratory distress. Abdominal: Palpations: Abdomen is soft. Musculoskeletal: General: Normal range of motion. Skin: General: Skin is warm. Capillary Refill: Capillary refill takes less than 2 seconds. Neurological: General: No focal deficit present. Radiology: No orders to display Lab Results: Lab Results - No data to display EKG: If EKG completed, see Procedure Note. Orders and Treatments: No orders of the defined types were placed in this encounter. No orders of the defined types were placed in this encounter. First Provider Eval: ED Events Date/Time Event User Comments 12/22/241944 Medical Screening Begins JENSEN HALL MD -- 12/22/241944 First Provider Evaluation JENSEN HALL MD -- ED COURSE Results Procedures: Procedures MDM: Assessment & Plan Medical Decision Making A) Opioid Addiction Disposition/Condition: ER warnings and tapering use d/w patient in detail ED Disposition ED Disposition Disch - MSE Only Condition -- Comment -- Discharge Medications: Patient's Medications START taking these medications No medications on file CONTINUE taking these medications which have NOT CHANGED ACETAMINOPHEN 500 MG TABLET Take 2 tablets by mouth every 8 (eight) hours as needed for Pain. DOCUSATE 100 MG CAPSULE Take 2 capsules by mouth once daily as needed for Constipation. FERROUS SULFATE 325 MG (65 MG IRON) TABLET Take 1 tablet by mouth in the morning. IBUPROFEN 800 MG TABLET Take 1 tablet by mouth every 8 (eight) hours as needed (pain). Take with food or milk. LABETALOL 100 MG TABLET Take 1 tablet by mouth in the morning and 1 tablet in the evening. VITAMIN W/FA TABLET Take 1 tablet by mouth in the morning. START taking Modified Medications as Prescribed No medications on file STOP taking these medications No medications on file Follow-up: Drug Rehab facility of choice Electronically signed by: Jensen Hall MD 12/22/242006 [facility] EMERGENCY PHYSICIAN STAFF [facility] 2024-10-04 14:52:55 Problem: Falls, Risk of Goal: Absence of falls Outcome: Adequate for discharge Problem: Complications of preeclampsia/eclampsia (risk or actual) Goal: Absence of seizure activity Outcome: Adequate for discharge Goal: Absence of signs and symptoms of preeclampsia Outcome: Adequate for discharge Problem: Seizures, Risk of / or Actual Goal: Absence of injury related to seizure activity Outcome: Adequate for discharge Goal: Absence of seizure activity Outcome: Adequate for discharge Goal: Successful induction of monitored seizure activity (Epilepsy Monitoring Unit - EMU) Outcome: Adequate for discharge Rosalee Magaña RN [facility] 2024-09-10 19:03:49 Problem: Discharge Planning - Goal: [...] Outcome: Progressing as expected Payal Mittal RN [facility] 2024-09-10 13:26:08 Images from the original note [...] Elizabeth WHEAT, RN, IBCLC Elizabeth Cadet RN [facility] 2024-09-09 23:33:01 Problem: Discharge Planning - Goal: [...] in pain sensation Outcome: Progressing as expected [facility] 2024-09-09 20:06:12 VAGINAL DELIVERY NOTE Delivery Date: [...] Yes Mark Johansen MD 09/09/2024 8:07 PM [facility] 2024-09-09 19:24:29 Problem: Discharge Planning - Goal: [...] in pain sensation Outcome: Progressing as expected [facility] 2024-09-09 18:54:04 Patient arrived to ED with family c/o five minute apart contractions. Patient is due September 11. [facility]es [facility].Patient states not comfortable standing to get accurate weight. Report to DINA Medeiros. Glenny Henson RN [facility] 2024-09-09 18:51:00 [facility] Emergency Department Note Patient Name: Tamera Bergman Date of : 2005 18 year old female Treatment Room: Room/bed info not found Primary Care Physician: PATIENT DOES NOT HAVE A PCP Patient Escorted by: Family [5] Mode of Arrival: Personal means [1] EMS Treatment Prior to ED Arrival: Chief Complaint: No chief complaint on file. History of Present Illness: Tamera Bergman is a 18 year old female , JACQUELINE , presents to the ED with complaint of contractions that began around 76887 hrs . Intermittent apx 5 minutes apart. Pickling Machine Operator vaginal bleeding or discharge History provided [...] are negative. Physical Exam: ED Triage Vitals [09/09/24 1854] Weight 68 kg (150 lb) Actual or [...] with complaint of contractions that began around 52963 hrs . Intermittent apx 5 minutes apart. Pickling Machine Operator vaginal bleeding or discharge Safe for [...] encounter and patient evaluation by Geovanna Winchester. [facility] 2024-08-20 07:45:30 3rd attempt, not accepting calls. Letter sent. Ernestine Leon RN 08/20/24 7:45 AM [facility] 2024-08-19 13:08:22 2nd attempt to call patient, message states not accepting calls at this time, will try again at a later time. Margo Mcwilliams LVN [facility] 2024-08-19 08:06:30 Attempted to call patient, message states not accepting calls at this time, will try again at a later time. [facility] 2024-08-19 07:33:44 Please notify the patient of [...] last visit. RENE Oliver 08/19/2024 7:34 AM [facility] 2024-01-11 15:07:55 Pt given printed and verbal [...] skin w/d, pt leaving ambulatory accompanied by [facility], in no apparent distress, Flavio Gutierrez RN [facility] 2024-01-11 14:22:14 Pt arrived via [facility] from [facility] for c/o "seizure like activity with no postictal phase" per ems. Pt reports she is 10 weeks and "I think I'm withdrawing from percocets". Amanda Maldonado RN [facility] 2024-01-11 14:18:00 [facility] Emergency Department Note Patient Name: Tamera Bergman Date of : 2005 18 year old female Treatment Room: TX7/TX7 Primary Care Physician: Barry Rob Patient Escorted by: Law enforcement [8] Mode of Arrival: EMS - [facility] ([place] [43] EMS Treatment Prior to ED Arrival: ROAD SUPERVISOR OF ENGINES treatment: None Travel and Exposure Screening: Symptoms [...] Brought in for reported seizure activity from detention. Believes she is withdrawing from percocet. Previous [...] Lactic Acid Whole Blood Comp. Metabolic Panel (60289) No orders of the defined types were [...] for follow-up Fredy Cee MD Specialty: PN-NEUROLOGY [facility] [address] [place] [id number] [facility]-Emergency Department Specialty: Emergency Medicine [address] [place] [id number] Instructions: If symptoms worsen as documented in the discharge Electronically signed by: Holland Stevens DO 01/11/24 1502 [facility] 2024-01-09 22:45:47 Patient awake and alert. DC instructions and prescription for amoxicillin reviewed with patient. She was informed of order for amoxicillin 500 MG po three times a day, and the need to follow up at facility clinic for meds. Reinforced to patient need for follow up with technology engineer to monitor . She is Dc'd into custody of [facility]'s Office deputy-awaiting transport back to detention. [facility] 2024-01-09 21:53:18 [facility] ED Transfer of Care Note. Off-going Physician:Dr [...] components within normal limits COMP. METABOLIC PANEL (93837) - Abnormal; Notable for the following components: [...] <10 Negative 50-100 Toxic >100 Depression of POWERSAW SUPERVISOR >400 Fatalities Reported SALICYLATE Narrative: Therapeutic Range: Analgesic and Antipyretic Use 20-100 mg/L Anti-Inflammatory Use 100-250 mg/L Toxic Range: Greater than 300 mg/L TOTAL BETA HCG ASSAY Narrative: Gestational Age Range (mIU/mL) 1-10 Weeks 44-088007 11-15 Weeks 45804-055702 16-22 Weeks 7480-636195 23-40 Weeks 1531-232508 Biotin has been reported to cause a negative bias, interpret results relative to patient's use of biotin. URINE CULTURE No orders to display Procedures: Procedures Additional Notes: Diagnosis/Impression as of 01/09/249 Altered mental status, unspecified altered mental status [...] Prescription drug management. Disposition: Discharged back to [facility] Social Determinants of Health: None ED Disposition ED Disposition Disch - [facility] Condition Stable Comment -- Contact information for follow-up Barry Rob Specialty: PED-PEDIATRICS Relationship: PCP - General [address] [facility] [phone] Rebeka Montano MD Specialty: OG-OBSTETRICS & GYNECOLOGY [address] [place] [address] [place] [id number] [facility] 2024-01-09 18:30:00 Poison Control consulted in regards [...] observation if further Narcan administered. Case # [id number] [facility] [employer] 2024-01-09 16:20:14 Arrives via EMS from [facility]. Patient was found down on floor of holding cell at 1400. Patient states she took approx 15 Percocet at 0300-states they have Fentanyl in them. Not prescribed-she buys them from someone. Denies intent to harm herself-states she takes them regularly because she "has a lot going on". Drowsy-arouses to tactile and verbal stimulation. Mahad Blanc RN [facility] 2023-06-12 14:00:20 Notified the patient of her [...] in 3 months. Pt verbalized understanding. Mcwilliams LEARNING SUPPORT SPECIALIST [facility] 2023-06-12 08:24:52 2nd attempt to call patient, message states not available, will try again at a a later time. Mcwilliams LEARNING SUPPORT SPECIALIST [facility] 2023-06-09 15:25:33 Attempted to call patient, message states call can not be completed, will try again at a later time. Mcwilliams LEARNING SUPPORT SPECIALIST [facility] 2023-06-09 15:16:52 Please notify the patient of [...] if she has not recently been tested. RENE Oliver 06/09/2023 3:17 PM ECTING AND TESTING LEAD HAND [facility] 2023-06-09 14:04:52 Problem: Infection Risk Goal: Absence [...] preeclampsia Outcome: Adequate for discharge Jose RN [facility] 2023-06-09 11:40:00 This note was copied from a baby's chart. Consult attempted. Hearing screen in progress. Will return at a later time. Arden WHEAT, RN, IBCLC Porter RN [facility] 2023-06-09 04:28:46 Problem: Infection Risk Goal: Absence [...] symptoms of preeclampsia Outcome: Progressing as expected Valles RN [facility] 2023-06-08 18:40:33 Problem: Infection Risk Goal: Absence [...] in pain sensation Outcome: Progressing as expected Galdamez RN [facility] 2023-06-08 17:52:15 Patient: Tamera Bergman Procedure Summary Date: 06/08/23 Room / Location: Anesthesia Start: 850 Anesthesia Stop: 1713 Procedure: CENTRAL NEURAXIAL BLOCK Diagnosis: Scheduled Providers: [...] | BMI 25.68 kg/m? Block resolving appropriately ECTING AND TESTING LEAD HAND AN-ANESTHESIOLOGY ANESTHESIOLOGIST [facility] 2023-06-08 13:32:22 DELIVERY BY SPONTANEOUS VAGINAL DELIVERY [...] shoulder and body. After the delivery of infant, bulb suction was performed from ororpharynx and [...] Minute Totals: 8 9 Bree Valdez MD Ob-Pure Pak Machine Operator PGY3 ECTING AND TESTING LEAD HAND Associated attestation - Cynthia Guardado MD - 06/08/2023 4:23 PM INSPECTING AND TESTING LEAD HAND Present for the delivery and agree with the resident note [facility] 2023-06-08 08:26:10 Name/ MRN / Age / Gender: Tamera Bergman, [id number] 17 year old female BMI: Estimated body [...] (no physical exam) Anesthesia Preop: Chart Review [facility] questionnaire answers not incorporated NPO Status Verified [...] Chart Review Comments: No results found for: "ZYKDGVD3D" There are no current results on file for these tests and/or test for 1 year. (-) Diabetes Mellitus Other B2B ACCOUNT EXECUTIVE Comments: Tamera Bergman is a 17 year old at 38w5d by u(32) who presents for elevated BP in clinic. GHTN r/o PreE - sent from clinic for high blood pressure in clinic 154/90, 149/92 on recheck - BP on admission 138/104 - denies s/s of PreE - SVE: cervix visually closed - [place]: quiescent Plan: - tox labs ordered - [...] to surgery. Hold on DOS. Phentermine: Alert [facility] anesthesiologist SGLT2 Inhibitors: "gliflozins" to be held [...] Epidural Anesthesia plan discussed with: patient or registration representative Post-Operative Analgesia: routine analgesia & antiemetics Recovery Plan: LDR Additional comments: [facility] 2023-06-08 07:33:35 Problem: Intrapartum process (including [...] Absence of infection Outcome: Progressing as expected ECTING AND TESTING LEAD HAND Flcaa Mckeon RN [facility] 2023-06-07 21:53:11 Problem: Intrapartum process (including labor [...] Absence of infection Outcome: Progressing as expected ECTING AND TESTING LEAD HAND Evi Smith RN [facility] 2023-06-02 15:41:32 Patient stated she noticed she has had some swelling to ebonie feet and ebonie ankles. Denies any other symptoms, informed patient can be normal and to wear good supportive shoes elevate ble. Informed to keep pn appt on 06/07 since she has not been seen since 04/21. Strict L&D warnings given, verbalized understanding. Mcwilliams LVN [facility] 2023-06-02 15:33:36 Tamera Bergman is a 17 year old female 38 wks 0 days Pt notice ankles and feet swelling x3 days. Wants to know if something to be seen for. Please call pt at [phone] (home) Haji [facility]
--- NOTE | 2025-01-01 19:32 | EDPHYS ---
Physician Documentation [facility] Name: Irene Franco Age: 19 yrs Sex: Female : 2005 Arrival Date: 01/01/2025 Time: 19:21 Bed 3 Private MD: ED Physician Koffi Bartholomew HPI: 01/01 19:56 This 19 yrs old Female presents to ER via EMS with complaints of fentanyl withdrawal. kb 19:56 Pt is a 19 year old female who presents for fentanyl withdrawal. States she took her kb last tablet this morning, went into rehab today at [facility]. Started having bodyaches and feeling bad just seating captain. States she has went through withdrawal before and knows this is the beginning. States she decided she didn't want to be at rehab so she asked to leave. Rehab staff told her she needed to come to the ER for evaluation. Pt states she is feeling better and does not think she needs to be here. Requests to go home. . 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 - Infectious Disease History:: Denies. - Social history:: Smoking status: Reported history of juuling and/or vaping. Patient uses street drugs, fentanyl. ROS: 19:56 Constitutional: As per HPI kb Exam: 19:56 Constitutional: This is a well developed, well nourished patient who is awake, alert, kb and in no acute distress. Head/Face: Normocephalic, atraumatic. ENT: Moist Mucous membranes Cardiovascular: Regular rate Respiratory: Respirations even and unlabored. No increased work of breathing. Talking in full sentences Abdomen/GI: Soft, non-tender. No distention Skin: Warm, dry with normal turgor. Normal color. MS/ Extremity: Pulses equal, no cyanosis. Neurovascular intact. Full, normal range of motion. Neuro: Awake and alert, GCS 15, oriented to person, place, time, and situation. Vital Signs: 19:25 BP 139 / 76; Pulse 83; Resp 16 S; Temp 98.4(O); Pulse Ox 100% on R/A; Weight 61.23 kg lg3 (R); Height 5 ft. 2 in. (R); 19:37 BP 131 / 77; Pulse 81; Resp 17 S; Pulse Ox 100% on R/A; Pain 0/10; lg3 19:25 Body Mass Index 24.69 (61.23 kg, 157.48 cm) lg3 19:37 Pain Scale: Adult lg3 MDM: 19:25 Medical Screening Exam initiated kb 19:59 Differential Diagnosis opioid withdrawal, dehydration, abnormal electrolytes. Data kb reviewed: vital signs, nurses notes. Test considered but Not performed: Labs: cbc, cmp considered but pt does not want to have anything done. Requests discharge. Historians other than the Patient: EMS: [facility]. Counseling: I had a detailed discussion with the patient and/or guardian regarding the historical points, exam findings, and any diagnostic results supporting the discharge/admit diagnosis, the need for outpatient follow up, a family practitioner, to return to the emergency department if symptoms worsen or persist or if there are any questions or concerns that arise at home. Administered Medications: No medications were administered Disposition: 20:03 Co-signature as Attending Physician, Koffi Bartholomew MD I agree with the assessment sp4 and plan of care. I reviewed the patient's care provided by the Advanced Practice Provider and agree with the diagnosis and treatment plan. Disposition Summary: 01/01/25 19:31 Discharge Ordered Notes: Location: Home kb Condition: Stable kb Diagnosis - Other malaise kb - Opioid use, unspecified with withdrawal kb Followup: kb - With: Emergency Department - When: As needed - Reason: Worsening of condition Followup: kb - With: Private Physician - When: 2 - 3 days - Reason: Recheck today's complaints, Continuance of care, Re-evaluation by your physician Discharge Instructions: - Discharge Summary Sheet kb - Opioid Withdrawal kb - Opioid Use Disorder kb Forms: - Medication Reconciliation Form kb - Antibiotic Education kb - Prescription Opioid Use kb - Patient Portal Instructions kb - Leadership Thank You Letter kb Signatures: Margoth Andrew FNP-C FNP-Mary Kay Phan RN RN lg3 Potepalov, Koffi, MD MD sp4
--- NOTE | 2025-01-01 19:32 | ER ---
Nurse's Notes [facility] Name: Irene Franco Age: 19 yrs Sex: Female : 2005 Arrival Date: 01/01/2025 Time: 19:21 Bed 3 Private MD: Diagnosis: Other malaise;Opioid use, unspecified with withdrawal Presentation: 01/01 19:25 Chief complaint: Patient states: i think im having fentanyl withdraws. reports daily lg3 fentanyl use. last use at 8am. reports cold sweats and body aches. Coronavirus screen: Client denies travel out of the [place] in the last 14 days. At this time, the client does not indicate any symptoms associated with coronavirus-19. Ebola Screen: No symptoms or risks identified at this time. Initial Sepsis Screen: Does the patient meet any 2 criteria? No. Patient's initial sepsis screen is negative. Does the patient have a suspected source of infection? No. Patient's initial sepsis screen is negative. Risk Assessment: Do you want to hurt yourself or someone else? Patient reports no desire to harm self or others. Onset of symptoms was January 01, 2025. 19:25 Method Of Arrival: EMS: [facility] lg3 19:25 Acuity: IRINA 3 lg3 Triage Assessment: 19:27 General: Appears in no apparent distress. comfortable, Behavior is calm, cooperative. lg3 Pain: Denies pain. EENT: No deficits noted. No signs and/or symptoms were reported regarding the EENT system. Neuro: No deficits noted. Hollis Agitation-Sedation Scale (RASS): 0 - Alert and Calm Level of Consciousness is awake, alert, obeys commands, Oriented to person, place, time, situation. Cardiovascular: No deficits noted. Denies chest pain, shortness of breath, Capillary refill < 3 seconds Clubbing of nail beds is absent JVD is absent Patient's skin is warm and dry. Respiratory: No deficits noted. Airway is patent Respiratory effort is even, unlabored, Respiratory pattern is regular, symmetrical, Breath sounds are clear bilaterally. GI: No deficits noted. Abdomen is round non-distended, Bowel sounds present X 4 quads. Abd is soft and non tender X 4 quads. : No signs and/or symptoms were reported regarding the genitourinary system. Derm: No deficits noted. Skin is intact, is healthy with good turgor, Skin is dry, Skin is normal, Skin temperature is warm. Musculoskeletal: No deficits noted. Circulation, motion, and sensation intact. Range of motion: intact in all extremities. 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 - Infectious Disease History:: Denies. - Social history:: Smoking status: Reported history of juuling and/or vaping. Patient uses street drugs, fentanyl. Screenin:30 [facility] ED Fall Risk Assessment (Adult) History of falling in the last 3 months, lg3 including since admission No falls in past 3 months (0 pts) Confusion or Disorientation No (0 pts) Intoxicated or Sedated No (0 pts) Impaired Gait No (0 pts) Mobility Assist Device Used No (0 pt) Altered Elimination No (0 pt) Score/Fall Risk Level 0 - 2 = Low Risk Oriented to surroundings, Maintained a safe environment, Educated pt \T\ family on fall prevention, incl call for assistance when getting out of bed, Assessed \T\ reinforced patient's understanding of fall precautions. Abuse screen: Denies threats or abuse. Denies injuries from another. Nutritional screening: No deficits noted. Tuberculosis screening: No symptoms or risk factors identified. Assessment: 19:30 General: see triage assessment. lg3 Vital Signs: 19:25 BP 139 / 76; Pulse 83; Resp 16 S; Temp 98.4(O); Pulse Ox 100% on R/A; Weight 61.23 kg lg3 (R); Height 5 ft. 2 in. (R); 19:37 BP 131 / 77; Pulse 81; Resp 17 S; Pulse Ox 100% on R/A; Pain 0/10; lg3 19:25 Body Mass Index 24.69 (61.23 kg, 157.48 cm) lg3 19:37 Pain Scale: Adult 3 ED Course: 19:24 Patient arrived in ED. rv1 19:25 Able, Mary Kay, RN is Primary Nurse. lg3 19:25 Margoth Andrew FNP-C [facility]. kb 19:25 Koffi Bartholomew MD is Attending Physician. kb 19:27 Triage completed. lg3 19:27 Arm band placed on right wrist. lg3 19:30 Patient has correct armband on for positive identification. Placed in gown. Bed in low lg3 position. Call light in reach. Side rails up X 1. Client placed on continuous cardiac and pulse oximetry monitoring. NIBP monitoring applied. Door closed. Noise minimized. Warm blanket given. Pillow given. 19:30 No provider procedures requiring assistance completed. Patient did not have IV access lg3 during this emergency room visit. Administered Medications: No medications were administered Medication: 19:30 VIS not applicable for this client. lg3 Outcome: 19:31 Discharge ordered by . kb 19:37 Discharged to home ambulatory, lg3 19:37 Condition: stable 19:37 Discharge instructions given to patient, Instructed on discharge instructions, follow up and referral plans. Demonstrated understanding of instructions, follow-up care, 19:38 Patient left the ED. lg3 Signatures: Margoth Andrew FNP-C FNP-Mary Kay Phan RN RN lg3 Kelin Rodriguez rv1
[2025-01-02 02:36] VITALS: TEMP 98.4; O2SAT 100
[2025-01-02 02:39] VITALS: BP 131/77
== END 2025-01-01 19:38 | disposition home or self-care (01) ==
LOC: ER 19:21
DX: F11.93 Opioid use, unspecified with withdrawal (principal); R53.81 Other malaise; F17.290 Nicotine dependence, other tobacco product, uncomplicated
CPT/HCPCS: 99283

== ENCOUNTER 2025-01-02 13:24 | Emergency (ER) | payer OTHER ==
--- OUTSIDE RECORDS SUMMARY | 2025-01-02 13:33 | XMS REPORT | Continuity of Care Document ---
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 Role Phone PCP, PATIENT DOES NOT HAVE A Primary Care Physic jeremy Unavailable JENSEN HALL Attending Clinician Unavailable JENSEN HALL Attending Clinician Unavailable Kathleen Granados MD Attending Clinician Shazia Simpson MD Attending Clinician [phone] Coco Leung Attending Clinician Unav ailKATHLEEN Rodriguez [...] Be Guardado MD Attending Clinician Doctor Unassigned, Ixl Attending Clinician U navailable CHRISTY, OMAR Attending Clinician Unavailable CHRISTY, OMAR Attending Clinician Unavailable Christy DO Omar Attending Clinician [phone] STEVENSHOLLAND Attending Clinician Unavailable STEVENS HOLLAND Attending Clinician Unavailable Stevens DO Holland Attending Clinician [phone] LEIA DONIS Attending Clinician Unavailable LEIA DONIS Attending Clinician Unavailable Adam Jean-Baptiste MD Attending Clinician [phone] Leia Donis MD Attending Clinician [phone] CURT WYATT Attending Clinician Unavailable Pantera WEAVERMina Staples Attending Clinician + Mendoza Marin MD Attending Clinician Charanjit Fuentes MD Attending Clinician [phone] [place] YAN Attending Clinician Unavailable Indiana Yan MD Attending Clinician [phone], [facility] Us Room Attending Clinician Unavailab BETO Sepulveda Attending Clinician Unavaila larry Doctor Unassigned, Ixl Attending Clinician U balwinder Solitario NP, Keyla Attending Clinician [phone] KEYLA SOLITARIO Attending Clinician UnavailFeli Nails MD Attending Clinician [phone] Pob, Adc Lab Johnson Attending Clinician UnavailFELI Baez Attending Clinician Unavailable TOBIN CHEN Attending Clinician Orin Kruger Attending Clinician [phone] EDYTA WATSON Admitting Clinician UnaMARK Shaffer Admitting Clinician Unavailable Payers Payer Name Policy Type Policy Number Effective Date Expirati on Date Source [id number] 2013 00:00:00 [employer] [id number] 2024 00:00:00 [employer] MEDICA[employer] Medicaid [id number] 2023 00:00:00 [employer] [id number] 2023 00:00:00 2023 00:00:00 Problems Condition Name Condition Details Condition Category Status Onset Date Resolution Date Last Treatment Date Treating Clinician Comments Source Seizure Seizure Disease Active 5-23 00:00: 00 [facility] Liveborn infant, of [place] , born in hospital by vaginal delivery Liveborn infant, of [place] , born in hospital by vaginal delivery Disease Active -28 00:00: 00 [facility] with adoption planned, antepartum with adoption planned, antepartum Disease Active 1-09 00:00: 00 [facility] Multiparit y Multiparit y Disease Active 9 00:00: 00 [facility] Marijuana use Marijuana use Disease Active 2022-05 0 00:00: 00 Overview: Formattin g of this note might be different from the original. Reports last used 3day ago [facility] Herpes infection in Herpes infection in Disease Active 2022-05 0 00:00: 00 Overview: Formattin g of this note might be different from the original. suppressi on at 36 weeks [facility] Other depression Other depression Disease Active 2022-05 0 00:00: 00 Overview: Formattin g of this note might be different from the original. Reports not SI/HI [facility] History of marijuana use History of marijuana use Disease Active 2022-05 0 00:00: 00 Overview: Formattin g of this note might be different from the original. Reports last used 3day ago [facility] Mild pre-eclamp chloe in third trimester Mild pre-eclamp chloe in third trimester Disease Resolve d 2024-0 4-29 00:00: 00 2024-10-04 00:00:00 2024-10-04 06:36:36 [facility] Anemia, antepartum , third trimester Anemia, antepartum , third trimester Disease Resolve d 2024-0 4-29 00:00: 00 2024-10-04 00:00:00 2024-10-04 06:36:14 [facility] Normal labor Normal labor Disease Resolve d 2024-0 4-28 00:00: 00 2024-10-04 00:00:00 2024-10-04 06:36:53 [facility] Chlamydia infection during Chlamydia infection during Disease Resolve d 2024-0 4-07 00:00: 00 2024-10-04 00:00:00 2024-10-04 06:36:15 [facility] Gonorrhea in Gonorrhea in Disease Resolve d 2024-0 4-07 00:00: 00 2024-10-04 00:00:00 2024-10-04 06:36:16 [facility] Positive GBS test Positive GBS test Disease Resolve d 0 4-07 00:00: 00 2024-10-04 00:00:00 2024-10-04 06:36:57 [facility] Inmate in correction al facility Inmate in correction al facility Disease Resolve d 0 9-17 00:00: 00 2024-10-04 00:00:00 2024-10-04 06:36:29 [facility] Short interval between pregnancie s affecting , antepartum Short interval between pregnancie s affecting , antepartum Disease Resolve d 2023-0 9-17 00:00: 00 2024-10-04 00:00:00 2024-10-04 06:37:17 Overview: Formattin g of this note might be different from the original. 1st baby in 05/2023 [facility] 39 weeks gestation of 39 weeks gestation of Disease Resolve d 2023-0 1-24 00:00: 00 2024-10-04 00:00:00 2024-10-04 06:36:09 [facility] History of herpes genitalis History of herpes genitalis Disease Resolve d 2022-05 0-09 00:00: 00 2024-10-04 00:00:00 2024-10-04 06:36:17 [facility] Supervisio n of high-risk with insufficie nt care Supervisio n of high-risk with insufficie nt care Disease Resolve d 2022-05 0-09 00:00: 00 2024-10-04 00:00:00 2024-10-04 06:37:12 [facility] Positive GBS test Positive GBS test Disease Resolve d 2023-0 1-26 00:00: 00 2024-01-30 00:00:00 2024-01-30 07:59:37 [facility] 38 weeks gestation of 38 weeks gestation of Disease Resolve d 2023-0 1-24 00:00: 00 2024-01-30 00:00:00 2024-01-30 08:01:29 [facility] Herpes simplex viral infection Herpes simplex viral infection Disease Resolve d 2021-0 3-18 00:00: 00 2024-01-30 00:00:00 2024-01-30 08:01:26 [facility] Other general counseling and advice for contracept juliocesar management Other general counseling and advice for contracept juliocesar management Disease Resolve d 2020-0 7-07 00:00: 00 2023-02-20 00:00:00 2023-02-20 14:26:08 [facility] Allergies, Adverse Reactions, Alerts Allergy Name Allergy Type Status Severity Reaction(s) Onset Date Inactive Date Treating Clinician Comments Source NO KNOWN ALLERGIE S Drug Class Active [facility] Social History Social Habit Start Date Stop Date Quantity Comments Source ASSERTION 2023-12-20 00:00:00 [facility] Alcoholic beverage intake 2024-10-04 00:00:00 2024-10-04 00:00:00 Current drinker of alcohol (finding) [facility] History of Social function 2024-01-30 00:00:00 2024-01-30 00:00:00 [facility] Alcohol intake 2023-06-07 00:00:00 2023-06-07 00:00:00 Current drinker of alcohol (finding) [facility] Tobacco use and exposure 2023-06-07 00:00:00 2023-06-07 00:00:00 Smokeless tobacco non-user [facility] Exposure to SARS-CoV-2 (event) 2021-10-02 00:00:00 2021-10-12 09:52:00 Not sure [facility] Sex assigned at 2003 00:00:00 2005 00:00:00 [facility] Smoking Status Start Date Stop Date Source Never smoked tobacco [facility] Medications Ordered Medication Name Filled Medication Name Start Date Stop Date Current Medication? Ordering Clinician Indication Dosage Frequency Signature (SIG) Comments Components Source [id number] fum-folic () tablet 1 tablet 10-04 14:00: 00 10-04 21:41 :04 No 1{tbl} 1 tablet, Oral, DAILY, First dose on Mon10/04/24 at 0900, Until Discontinu ed, Routine [facility] alum-mag hydroxide-s imeth (MAG-AL PLUS) 200-200-20 mg/5 mL suspension 30 mL 10-04 13:49: 41 10-04 21:41 :04 No 30mL 30 mL, Oral, Q6HPRN, Starting on Mon10/04/24 at 0849, Until Mon10/04/24 at 1641, Routine, Indigestio n [facility] docusate (COLACE) capsule 200 mg 10-04 13:49: 41 10-04 21:41 :04 No 200mg 200 mg, Oral, QHSPRN, Starting on Mon10/04/24 at 0849, Until Mon10/04/24 at 1641, Routine, Constipati on [facility] magnesium hydroxide (MILK OF MAGNESIA) 400 mg/5 mL suspension 30 mL 10-04 13:49: 41 10-04 21:41 :04 No 30mL 30 mL, Oral, QDAILYPRN, Starting on Mon10/04/24 at 0849, Until Mon10/04/24 at 1641, Routine, Constipati on [facility] lamoTRIgine (LAMICTAL) 25 mg tablet 10-04 00:00: 00 11-23 04:59 :00 Yes [id number] Take 1 tablet by mouth daily for [...] PM, Week 7 125mgrs AM 125mgrs PM. [facility] labetaloL (NORMODYNE) tablet 100 mg labetaloL (NORMODYNE) tablet 100 mg 09-10 22:45: 00 Yes 100mg 100 mg, Oral, Q12H, First dose on Mon09/10/24 at 1745, Until Discontinu ed, Routine [facility] [id number] fum-folic () tablet 1 tablet [id number] fum-folic () tablet 1 tablet 09-10 14:00: 00 Yes 1{tbl} 1 tablet, Oral, DAILY, First dose on Mon09/10/24 at 0900, Until Discontinu ed, Routine [facility] ferrous sulfate tablet 325 mg ferrous sulfate tablet 325 mg 09-10 13:00: 00 Yes 325mg 325 mg, Oral, BID, First dose on Mon09/10/24 at 0800, Until Discontinu ed, Routine [facility] cefTRIAXone (ROCEPHIN) 500 mg in lidocaine 1% (PF) (XYLOCAINE) IM syringe cefTRIAXone (ROCEPHIN) 500 mg in lidocaine 1% (PF) (XYLOCAINE) IM syringe 09-10 04:00: 00 09-10 04:35 :00 No 500mg Intramuscu lar, ONCE, 1 dose, On Mon09/09/24 at 2300, 1.43 mL, Reason for Anti-Infec tive: Documented Infection, Documented Infection Site: Other, Other site: Vagina, Duration of therapy: Once (ED) [facility] oxyCODONE immediate release tablet 5 mg 09-10 02:57: 28 Yes 5mg 5 mg, Oral, Q6HPRN, Starting on Mon09/09/24 at 2157, Until Discontinu ed, Routine, Pain (scale 7-10), membership director approving Restricted medication : MARK JOHANSEN [facility] ibuprofen (MOTRIN) tablet 800 mg 09-10 02:55: 51 Yes 800mg 800 mg, Oral, Q8HPRN, Starting on Mon09/09/24 at 215, Until Discontinu ed, Routine, Alternate with Tylenol for pain scale 4-6 if ordered [facility] acetaminoph en (TYLENOL) tablet 1,000 mg 09-10 02:55: 50 Yes 1000mg 1,000 mg, Oral, Q8HPRN, Starting on Mon09/09/24 at 2155, Until Discontinu ed, Routine, Alternate with ibuprofen for pain scale 4-6 if ordered [facility] diphenhydrA MINE (BENADRYL) tablet 25 mg 09-10 02:54: 30 Yes 25mg 25 mg, Oral, Q6HPRN, Starting on Mon09/09/24 at 215, Until Discontinu ed, Routine, Sleep, Itching [facility] ondansetron (ZOFRAN (PF)) injection 4 mg 09-10 02:54: 30 Yes 4mg 4 mg, Slow IV Push, Q8HPRN, Starting on Mon09/09/24 at 2153, Until Discontinu ed, Administer over 2-5 Minutes, 2 mL [facility] simethicone (GAS RELIEF (SIMETHICON E)) chewable tablet 160 mg simethicone (GAS RELIEF (SIMETHICON E)) chewable tablet 160 mg 09-10 02:54: 30 Yes 160mg 160 mg, Oral, PC+HSPRN, Starting on Mon09/09/24 at 215, Until Discontinu ed, Routine, Gas [facility] docusate (COLACE) capsule 200 mg docusate (COLACE) capsule 200 mg 09-10 02:54: 30 Yes 200mg 200 mg, Oral, QDAILYPRN, Starting on Mon09/09/24 at 215, Until Discontinu ed, Routine, Constipati on [facility] magnesium hydroxide (MILK OF MAGNESIA) 400 mg/5 mL suspension 30 mL 09-10 02:54: 30 Yes 30mL 30 mL, Oral, QDAILYPRN, Starting on Mon09/09/24 at 2154, Until Discontinu ed, Routine, Constipati on [facility] Oxytocin in Normal Saline 30 unit/500 mL IV infusion Soln 09-10 02:54: 29 Yes 300mL/h 300 mL/hr, IV Infusion, SEE-INSTRU CTIONS, Starting on Mon09/09/24 at 2154, Start at 300 mL/hr for 1 hr then 150 mL/hr for 1 hr. For post delivery uterotonic . [facility] benzocaine- menthol (DERMOPLAST ) 20-0.5 % topical spray benzocaine- menthol (DERMOPLAST ) 20-0.5 % topical spray 09-10 02:02: 19 Yes Topical, PRN, Starting on Mon09/09/24 at 2102, Until Discontinu ed, Routine, Localized pain [facility] azithromyci n (ZITHROMAX) tablet 1,000 mg azithromyci n (ZITHROMAX) tablet 1,000 mg 09-10 01:35: 00 09-10 01:42 :00 No 1000mg 1,000 mg, Oral, ONCE, 1 dose, On Mon09/09/24 at 2045, MANUEL, Reason for Anti-Infec tive: Documented Infection, Documented Infection Site: Other, Other site: vagina, Duration of therapy: Once (ED) [facility] Oxytocin in Normal Saline 30 unit/500 mL IV infusion Soln Oxytocin in Normal Saline 30 unit/500 mL IV infusion Soln 09-10 00:39: 22 Yes 300mL/h 300 mL/hr, IV Infusion, SEE-INSTRU CTIONS, Starting on Mon09/09/24 at 1939, Start at 300 mL/hr for 1 hr then 150 mL/hr for 1 hr. For post delivery uterotonic . [facility] tranexamic acid in (ISO-OS) sodium chloride 1,000 mg/100 mL (10 mg/mL) IV 1,000 mg 09-10 00:36: 29 Yes 1000mg at 600 mL/hr, 1,000 mg, IV Piggyback, PRN, 1 dose, Starting on Mon09/09/24 at 1936, Until Discontinu ed, Routine [facility] miSOPROStoL (CYTOTEC) tablet 200 mcg 09-10 00:36: 29 Yes 200ug 200 mcg, Rectal, PRN, 5 doses, Starting on Mon09/09/24 at 1936, Until Discontinu ed, Routine, For PPH [facility] carboprost (HEMABATE) injection 250 mcg 09-10 00:36: 29 Yes 250ug 250 mcg, Intramuscu lar, Q2HPRN, 8 doses, Starting on Mon09/09/24 at 1936, Until Discontinu ed, Routine, PPH [facility] methylergon ovine (METHERGINE ) injection 0.2 mg 09-10 00:36: 29 Yes .2mg 0.2 mg, Intramuscu lar, Q4HPRN, 1 dose, Starting on Mon09/09/24 at 1936, Until Discontinu ed, Routine, PPH [facility] Oxytocin in Normal Saline 30 unit/500 mL IV infusion Soln 09-10 00:36: 29 Yes 600mL/h 600 mL/hr, IV Infusion, PRN, PPH, Starting on Mon09/09/24 at 193, For 1 dose, As instructed by physician at bedside. [facility] sodium citrate-cit ernst acid (BICITRA) 500-334 mg/5 mL solution 30 mL 09-10 00:36: 29 Yes 30mL 30 mL, Oral, PRE-PROCED URE ONCE, 1 dose, Starting on Mon09/09/24 at 1936, Until Discontinu ed, Routine, Surgery/Pr ocedure [facility] lidocaine 1% (PF) (XYLOCAINE) injection 0.3 mL 09-10 00:36: 29 Yes .3mL 0.3 mL, Infiltrati on, PRN - SEE INSTRUCTIO NS, Starting on Mon09/09/24 at 193, Until Discontinu ed, Routine, Local anesthesia , For IV line placement only as a local anesthetic . [facility] lactated ringers IV infusion 250 mL 09-10 00:36: 29 Yes 250mL at 999 mL/hr, 250 mL, IV Infusion, PRN - SEE INSTRUCTIO NS, Starting on Mon09/09/24 at 1936, Until Discontinu ed, Routine [facility] D5W-LR IV infusion 1,000 mL 09-10 00:36: 29 Yes 1000mL at 1-75 mL/hr, IV Infusion, TITRATE, Starting on Mon09/09/24 at 1936, Until Discontinu ed, Routine [facility] FENTanyl (PF) (SUBLIMAZE) injection 50 mcg 09-10 00:16: 00 09-10 00:17 :00 No 50ug 50 mcg, Slow IV Push, Once, 1 dose, On Mon09/09/24 at 1930, MANUEL [facility] vitamin w/FA tablet 09-10 00:00: 00 Yes [id number] 1{tbl} Take 1 tablet by mouth in the morning. [facility] docusate 100 mg capsule 09-10 00:00: 00 Yes [id number] 200mg Take 2 capsules by mouth once daily as needed for Constipati on. [facility] ferrous sulfate 325 mg (65 mg iron) tablet 09-10 00:00: 00 Yes [id number] 325mg Take 1 tablet by mouth in the morning. [facility] ibuprofen 800 mg tablet 09-10 00:00: 00 Yes [id number] 800mg Take 1 tablet by mouth every 8 (eight) hours as needed (pain). Take with food or milk. [facility] acetaminoph en 500 mg tablet 09-10 00:00: 00 Yes [id number] 1000mg Take 2 tablets by mouth every 8 (eight) hours as needed for Pain. [facility] labetaloL 100 mg tablet 09-10 00:00: 00 Yes [id number] 100mg Take 1 tablet by mouth in the morning and 1 tablet in the evening. [facility] azithromyci n 500 mg tablet 08-19 00:00: 00 08-20 04:59 :00 No [id number] 1000mg Take 2 tablets by mouth once now for 1 dose. [facility] acyclovir 400 mg tablet 4-03 00:00: 00 09-10 00:00 :00 No [id number] 400mg Take 1 tablet by mouth in the morning and 1 tablet at noon and 1 tablet in the evening. [facility] PNV 67-iron ps-folate no.1-dha (VITAFOL ULTRA) 29 mg iron- 1 mg-200 mg Cap 01-29 00:00: 00 09-10 00:00 :00 No [id number] 09 1{each} Take 1 Each by mouth in the morning. [facility] cefTRIAXone (ROCEPHIN) 1,000 mg in NaCl 0.9% (NS) 100 mL MINI-BAG 01-08 23:45: 00 01-09 01:54 :00 No 1000mg 1,000 mg, IV Piggyback, ONCE, 1 dose, On Mon01/09/24 at 1845, Administer over 30 Minutes, 100 mL, Reason for Anti-Infec tive: Documented Infection, Documented Infection Site: Urine, Duration of Therapy: Once (ED) [facility] NaCl 0.9% (NS) bolus infusion 1,000 mL 01-08 23:30: 00 01-09 01:00 :00 No 1000mL at 999 mL/hr, 1,000 mL, IV Infusion, ONCE, 1 dose, On Mon01/09/24 at 1830, STAT [facility] amoxicillin 500 mg capsule 01-08 00:00: 00 01-29 00:00 :00 No [id number] 500mg Take 1 capsule by mouth in the morning and 1 capsule at noon and 1 capsule in the evening. [facility] docusate 100 mg capsule 06-09 00:00: 00 01-29 00:00 :00 No [id number] 200mg Take 2 capsules by mouth once daily as needed for Constipati on. [facility] ferrous sulfate 325 mg (65 mg iron) tablet 06-09 00:00: 00 01-29 00:00 :00 No [id number] 325mg Take 1 tablet by mouth in the morning and 1 tablet in the evening. [facility] ibuprofen 600 mg tablet 06-09 00:00: 00 01-29 00:00 :00 No [id number] 600mg Take 1 tablet by mouth every 6 (six) hours as needed (Pain). Take with food or milk. [facility] PNV 67-iron ps-folate no.1-dha (VITAFOL ULTRA) 29 mg iron- 1 mg-200 mg Cap 06-09 00:00: 00 06-10 05:59 :00 No [id number] 1{capsu le} Take 1 capsule by mouth once now for 1 dose. [facility] azithromyci n 500 mg tablet 06-09 00:00: 00 06-10 05:59 :00 No [id number] 1000mg Take 2 tablets by mouth once now for 1 dose. [facility] vitamin w/FA tablet 06-09 00:00: 00 06-09 00:00 :00 No [id number] 1{tbl} Take 1 tablet by mouth in the morning. [facility] rho(D) immune globulin (RHOGAM) syringe 300 mcg 06-08 23:15: 06 Yes 300ug 300 mcg, Intramuscu lar, ONCE, For 1 dose, Conditiona l, Routine [facility] human papillomav vac,9-sary(P F) (GARDASIL-9 ) syringe 0.5 mL 06-08 23:15: 04 Yes .5mL 0.5 mL, Intramuscu lar, ONCE-PRIOR TO DISCHARGE, 1 dose, Starting on Obdulia 06/08/23 at 1715, Until Discontinu ed, Routine, Give vaccine prior to discharge [facility] HYDROcodone -acetaminop hen (NORCO 5) 5-325 mg tablet 1 tablet 06-08 23:15: 04 Yes 1{tbl} 1 tablet, Oral, Q6HPRN, Starting on Obdulia 06/08/23 at 1715, Until Discontinu ed, Routine, Pain (scale 7-10) [facility] acetaminoph en (TYLENOL) tablet 650 mg 06-08 23:15: 04 Yes 650mg 650 mg, Oral, Q6HPRN, Starting on Mon06/08/23 at 1715, Until Discontinu ed, Routine, Pain (scale 1-3) [facility] diphenhydrA MINE (BENADRYL) tablet 25 mg 06-08 23:15: 03 Yes 25mg 25 mg, Oral, Q6HPRN, Starting on Mon06/08/23 at 1715, Until Discontinu ed, Routine, Sleep, Itching [facility] ondansetron (ZOFRAN (PF)) injection 4 mg 06-08 23:15: 03 Yes 4mg 4 mg, Slow IV Push, Q8HPRN, Starting on Mon06/08/23 at 1715, Until Discontinu ed, Routine, Nausea and Vomiting (N/V) [facility] simethicone (GAS RELIEF (SIMETHICON E)) chewable tablet 160 mg 06-08 23:15: 03 Yes 160mg 160 mg, Oral, PC+HSPRN, Starting on Mon06/08/23 at 1715, Until Discontinu ed, Routine, Gas [facility] docusate (COLACE) capsule 200 mg 06-08 23:15: 03 Yes 200mg 200 mg, Oral, QDAILYPRN, Starting on Mon06/08/23 at 1715, Until Discontinu ed, Routine, Constipati on [facility] magnesium hydroxide (MILK OF MAGNESIA) 400 mg/5 mL suspension 30 mL 06-08 23:15: 03 Yes 30mL 30 mL, Oral, QDAILYPRN, Starting on Mon06/08/23 at 1715, Until Discontinu ed, Routine, Constipati on [facility] benzocaine- menthol (DERMOPLAST ) 20-0.5 % topical spray 06-08 23:15: 03 Yes Topical, PRN, Starting on Mon06/08/23 at 1715, Until Discontinu ed, Routine, Perineum discomfort [facility] hydralAZINE (APRESOLINE ) injection 10 mg 06-08 21:15: 00 06-08 20:24 :00 No 10mg 10 mg, Slow IV Push, ONCE, 1 dose, On Obdulia 06/08/23 at 1515, STAT [facility] oxytocin (PITOCIN) 30 units in NS 500 mL IV infusion 06-08 19:00: 37 06-08 23:15 :08 No 300mL/h 300 mL/hr, IV Infusion, SEE-INSTRU CTIONS, Starting on Obdulia 06/08/[address] at 300 mL/hr for 1 hr then 150 mL/hr for 1 hr. For post delivery uterotonic .
[facility] hydrOXYzine (ATARAX) tablet 50 mg 06-08 18:16: 00 06-08 18:26 :00 No 50mg 50 mg, Oral, ONCE, 1 dose, On Obdulia 06/08/23 at 1230, Routine [facility] oxytocin (PITOCIN) 30 units in NS 500 mL IV infusion 06-08 15:17: 35 06-08 23:15 :21 No 2mU/min at 2-40 mL/hr, IV Infusion, TITRATE, Starting on Obdulia 06/08/23 at 0917, Until Obdulia 06/08/23 at 1715, MANUEL [facility] lactated ringers IV infusion 500 mL 06-08 15:15: 00 06-08 15:04 :42 No 500mL at 999 mL/hr, 500 mL, IV Infusion, ONCE, 1 dose, On Obdulia 06/08/23 at 0915, Routine [facility] lidocaine-e pinephrine (XYLOCAINE W/EPINEPHRI NE) 1.5 %-1:200,000 injection 06-08 15:07: 00 06-08 23:14 :38 No Epidural, ONCE INTRA PROCEDURE, Starting on Obdulia 06/08/23 at 0907, Until Obdulia 06/08/23 at 1714, Routine, Intra-op [facility] PIB ropivacaine 0.2 % (NAROPIN (PF)) epidural infusion 06-08 15:07: 00 06-08 23:14 :38 No Epidural, CONTINUOUS PRN, Starting on Obdulia 06/08/23 at 0907, Until Obdulia 06/08/23 at 1714, Routine, Intra-op [facility] sodium citrate-cit ernst acid (BICITRA) 500-334 mg/5 mL solution 30 mL 06-08 14:15: 32 06-08 14:34 :00 No 30mL 30 mL, Oral, PRE-PROCED URE ONCE, 1 dose, Starting on Obdulia 06/08/23 at 0815, Until Discontinu ed, Routine, Surgery/Pr ocedure [facility] morpHINE (2 mg/mL) injection 4 mg 06-08 12:45: 00 06-08 12:02 :00 No 4mg 4 mg, Slow IV Push, ONCE, 1 dose, On Mon06/08/23 at 0645, Routine [facility] ondansetron (ZOFRAN (PF)) injection 4 mg 06-08 05:00: 00 06-08 04:33 :00 No 4mg 4 mg, Slow IV Push, ONCE, On Mon06/07/23 at 2300, For 1 dose
Do ses of ondansetro n 16 mg and above need to be administer ed via IV piggyback. For Dose >=24mg ECG monitoring is advisable.
[facility] morpHINE (2 mg/mL) injection 4 mg 06-08 05:00: 00 06-08 04:32 :00 No 4mg 4 mg, Slow IV Push, ONCE, 1 dose, On Mon06/07/23 at 2300, Routine [facility] D5W-LR IV infusion 1,000 mL 06-08 01:08: 47 06-08 23:15 :18 No 1000mL at 1-125 mL/hr, IV Infusion, TITRATE, Starting on Mon06/07/23 at 1908, Until Obdulia 06/08/23 at 1715, [facility] tablet 2022-05 2-08 00:00: 00 06-09 00:00 :00 No [id number] 400mg Take 1 tablet by mouth in the morning and 1 tablet at noon and 1 tablet in the evening. [facility] acetaminoph en with codeine (ACETAMINOP HEN-CODEINE ORAL) 2022-05 009 14:10: 59 02-20 00:00 :00 No Take by mouth. Take 1 tablet every 6h as needed for pain [facility] VALACYCLOVI R 1 gram tablet 4-04 00:00: 00 06-09 00:00 :00 No [id number] TAKE 1 TABLET BY MOUTH TWICE A DAY FOR 10 DAYS [facility] VALACYCLOVI R 1 gram tablet 5-31 00:00: 00 08-16 00:00 :00 No [id number] TAKE 1 TABLET BY MOUTH TWICE A DAY FOR 10 DAYS [facility] acyclovir 400 mg tablet 3-18 15:20: 09 07-30 00:00 :00 No 400mg Take 400 mg by mouth. Every 8h [facility] valACYclovi r (VALTREX) 1 gram tablet 3-18 00:00: 00 08-10 04:59 :00 No [id number] 1g Take 1 tablet by mouth 2 (two) times daily for 10 days. [facility] lidocaine 2% viscous (LIDOCAINE VISCOUS) 2 % solution 2020-05 00:00: 00 02-20 00:00 :00 No Apply topically every 4 hours as needed for pain [facility] acetaminoph en with codeine (ACETAMINOP HEN-CODEINE ORAL) 2020-05 10:09: 55 Yes Take by mouth. Take 1 tablet every 6h as needed for pain [facility] sulfamethox azole-trime thoprim 800-160 mg per tablet 2020-05 00:00: 00 07-30 00:00 :00 No [facility] clindamycin 1 % gel 2020-05 105 00:00: 00 07-30 00:00 :00 No [facility] Immunizations Ordered Immunization Name Filled Immunization Name Date Status Comments Source TDAP 2023-03-06 00:00:00 Completed [facility] TDAP Unknown Completed [facility] TDAP Unknown Completed [facility] TDAP Unknown Completed [facility] TDAP Unknown Completed [facility] TDAP Unknown Completed [facility] TDAP Unknown Completed [facility] TDAP Unknown Completed [facility] TDAP Unknown Completed [facility] TDAP Unknown Completed [facility] TDAP Unknown Completed [facility] TDAP Unknown Completed [facility] TDAP Unknown Completed [facility] TDAP Unknown Completed [facility] TDAP Unknown Completed [facility] TDAP Unknown Completed [facility] TDAP Unknown Completed [facility] TDAP Unknown Completed [facility] TDAP Unknown Completed [facility] Vital Signs Vital Name Observation Time Observation Value Comments S ource Systolic blood pressure 2024-12-23 00:40:00 125 mm[Hg] [facility] Diastolic blood pressure 2024-12-23 00:40:00 85 mm[Hg] [facility] Heart rate 2024-12-23 00:40:00 90 /min [facility] Body temperature 2024-12-23 00:40:00 37.11 Ana [facility] Respiratory rate 2024-12-23 00:40:00 20 /min [facility] Body height 2024-12-23 00:40:00 157.5 cm [facility] Body weight 2024-12-23 00:40:00 61.236 kg [facility] BMI 2024-12-23 00:40:00 24.69 kg/m2 [facility] Oxygen saturation in Arterial blood by Pulse oximetry 2024-12-23 00:40:00 96 /min [facility] Systolic blood pressure 2024-10-04 17:14:00 106 mm[Hg] [facility] Diastolic blood pressure 2024-10-04 17:14:00 46 mm[Hg] [facility] Heart rate 2024-10-04 17:14:00 75 /min [facility] Body temperature 2024-10-04 17:14:00 36.67 Ana [facility] Respiratory rate 2024-10-04 17:14:00 17 /min [facility] Oxygen saturation in Arterial blood by Pulse oximetry 2024-10-04 17:14:00 100 /min [facility] Body weight 2024-10-04 11:30:00 68.04 kg [facility] Systolic blood pressure 2024-09-11 00:07:00 132 mm[Hg] [facility] Diastolic blood pressure 2024-09-11 00:07:00 88 mm[Hg] [facility] Heart rate 2024-09-11 00:07:00 78 /min [facility] Body temperature 2024-09-11 00:07:00 36.44 Ana [facility] Respiratory rate 2024-09-11 00:07:00 18 /min [facility] Oxygen saturation in Arterial blood by Pulse oximetry 2024-09-11 00:07:00 100 /min [facility] BMI 2024-09-10 01:51:00 28.34 kg/m2 [facility] Body height 2024-09-10 01:51:00 154.9 cm [facility] Body weight 2024-09-10 01:51:00 68.04 kg [facility] Systolic blood pressure 2024-08-15 21:24:00 128 mm[Hg] [facility] Diastolic blood pressure 2024-08-15 21:24:00 84 mm[Hg] [facility] Heart rate 2024-08-15 21:24:00 107 /min [facility] Body temperature 2024-08-15 21:24:00 36.11 Ana [facility] Respiratory rate 2024-08-15 21:24:00 18 /min [facility] Body height 2024-08-15 21:24:00 152.4 cm [facility] Body weight 2024-08-15 21:24:00 68.221 kg [facility] BMI 2024-08-15 21:24:00 29.37 kg/m2 [facility] Systolic blood pressure 2024-06-19 21:37:00 129 mm[Hg] [facility] Diastolic blood pressure 2024-06-19 21:37:00 65 mm[Hg] [facility] Heart rate 2024-06-19 21:37:00 97 /min [facility] Body temperature 2024-06-19 21:37:00 35.61 Ana [facility] Respiratory rate 2024-06-19 21:37:00 18 /min [facility] Body height 2024-06-19 21:37:00 152.4 cm [facility] Body weight 2024-06-19 21:37:00 65.59 kg [facility] BMI 2024-06-19 21:37:00 28.24 kg/m2 [facility] Systolic blood pressure 2024-05-23 21:24:00 125 mm[Hg] [facility] Diastolic blood pressure 2024-05-23 21:24:00 62 mm[Hg] [facility] Heart rate 2024-05-23 21:24:00 96 /min [facility] Body temperature 2024-05-23 21:24:00 36.5 Ana [facility] Respiratory rate 2024-05-23 21:24:00 16 /min [facility] Body height 2024-05-23 21:24:00 152.4 cm [facility] Body weight 2024-05-23 21:24:00 67.042 kg [facility] BMI 2024-05-23 21:24:00 28.87 kg/m2 [facility] Systolic blood pressure 2024-04-09 21:07:00 125 mm[Hg] [facility] Diastolic blood pressure 2024-04-09 21:07:00 79 mm[Hg] [facility] Heart rate 2024-04-09 21:07:00 107 /min [facility] Body temperature 2024-04-09 21:07:00 37.17 Ana [facility] Respiratory rate 2024-04-09 21:07:00 16 /min [facility] Body height 2024-04-09 21:07:00 152.4 cm [facility] Body weight 2024-04-09 21:07:00 67.314 kg [facility] BMI 2024-04-09 21:07:00 28.98 kg/m2 [facility] Systolic blood pressure 2024-03-14 20:02:00 119 mm[Hg] [facility] Diastolic blood pressure 2024-03-14 20:02:00 63 mm[Hg] [facility] Heart rate 2024-03-14 20:02:00 71 /min [facility] Body temperature 2024-03-14 20:02:00 35.83 Ana [facility] Respiratory rate 2024-03-14 20:02:00 18 /min [facility] Body height 2024-03-14 20:02:00 152.4 cm [facility] Body weight 2024-03-14 20:02:00 63.413 kg [facility] BMI 2024-03-14 20:02:00 27.30 kg/m2 [facility] Systolic blood pressure 2024-01-30 12:44:00 129 mm[Hg] [facility] Diastolic blood pressure 2024-01-30 12:44:00 74 mm[Hg] [facility] Heart rate 2024-01-30 12:44:00 98 /min [facility] Body temperature 2024-01-30 12:44:00 36.72 Ana [facility] Respiratory rate 2024-01-30 12:44:00 17 /min [facility] Body height 2024-01-30 12:44:00 152.4 cm [facility] Body weight 2024-01-30 12:44:00 62.869 kg [facility] BMI 2024-01-30 12:44:00 27.07 kg/m2 [facility] Systolic blood pressure 2024-01-11 19:23:00 119 mm[Hg] [facility] Diastolic blood pressure 2024-01-11 19:23:00 70 mm[Hg] [facility] Heart rate 2024-01-11 19:23:00 70 /min [facility] Body temperature 2024-01-11 19:23:00 36.67 Ana [facility] Respiratory rate 2024-01-11 19:23:00 16 /min [facility] Body height 2024-01-11 19:23:00 152.4 cm [facility] Body weight 2024-01-11 19:23:00 64.864 kg [facility] BMI 2024-01-11 19:23:00 27.93 kg/m2 [facility] Oxygen saturation in Arterial blood by Pulse oximetry 2024-01-11 19:23:00 100 /min [facility] Systolic blood pressure 2024-01-10 03:00:00 121 mm[Hg] [facility] Diastolic blood pressure 2024-01-10 03:00:00 61 mm[Hg] [facility] Heart rate 2024-01-10 03:00:00 75 /min [facility] Oxygen saturation in Arterial blood by Pulse oximetry 2024-01-10 03:00:00 100 /min [facility] Respiratory rate 2024-01-10 01:00:00 18 /min [facility] Body temperature 2024-01-09 21:23:00 37.11 Ana [facility] Body height 2024-01-09 21:23:00 165.1 cm [facility] Body weight 2024-01-09 21:23:00 63.504 kg [facility] BMI 2024-01-09 21:23:00 23.30 kg/m2 [facility] Systolic blood pressure 2023-06-09 17:39:00 127 mm[Hg] [facility] Diastolic blood pressure 2023-06-09 17:39:00 65 mm[Hg] [facility] Heart rate 2023-06-09 17:39:00 50 /min [facility] Body temperature 2023-06-09 17:39:00 36.5 Ana [facility] Respiratory rate 2023-06-09 17:39:00 18 /min [facility] Oxygen saturation in Arterial blood by Pulse oximetry 2023-06-09 17:39:00 98 /min [facility] Body height 2023-06-08 00:28:00 157.5 cm [facility] Body weight 2023-06-08 00:28:00 63.685 kg [facility] BMI 2023-06-08 00:28:00 25.68 kg/m2 [facility] Systolic blood pressure 2023-06-07 21:38:00 140 mm[Hg] [facility] Diastolic blood pressure 2023-06-07 21:38:00 80 mm[Hg] [facility] Heart rate 2023-06-07 21:23:00 71 /min [facility] Body temperature 2023-06-07 21:19:00 36.5 Ana [facility] Respiratory rate 2023-06-07 21:19:00 18 /min [facility] Body height 2023-06-07 21:19:00 157.5 cm [facility] Body weight 2023-06-07 21:19:00 62.71 kg [facility] BMI 2023-06-07 21:19:00 25.29 kg/m2 [facility] Systolic blood pressure 2023-04-21 21:02:00 123 mm[Hg] [facility] Diastolic blood pressure 2023-04-21 21:02:00 77 mm[Hg] [facility] Heart rate 2023-04-21 21:02:00 104 /min [facility] Body temperature 2023-04-21 21:02:00 36.28 Ana [facility] Respiratory rate 2023-04-21 21:02:00 18 /min [facility] Body height 2023-04-21 21:02:00 157.5 cm [facility] Body weight 2023-04-21 21:02:00 58.968 kg [facility] BMI 2023-04-21 21:02:00 23.78 kg/m2 [facility] Systolic blood pressure 2023-03-06 16:20:00 125 mm[Hg] [facility] Diastolic blood pressure 2023-03-06 16:20:00 67 mm[Hg] [facility] Heart rate 2023-03-06 16:20:00 69 /min [facility] Body temperature 2023-03-06 16:20:00 36.11 Ana [facility] Respiratory rate 2023-03-06 16:20:00 18 /min [facility] Body height 2023-03-06 16:20:00 157.5 cm [facility] Body weight 2023-03-06 16:20:00 55.792 kg [facility] BMI 2023-03-06 16:20:00 22.50 kg/m2 [facility] Systolic blood pressure 2023-02-20 19:03:00 118 mm[Hg] [facility] Diastolic blood pressure 2023-02-20 19:03:00 67 mm[Hg] [facility] Heart rate 2023-02-20 19:03:00 77 /min [facility] Body temperature 2023-02-20 19:03:00 36.33 Ana [facility] Respiratory rate 2023-02-20 19:03:00 18 /min [facility] Body height 2023-02-20 19:03:00 157.5 cm [facility] Body weight 2023-02-20 19:03:00 55.974 kg [facility] BMI 2023-02-20 19:03:00 22.57 kg/m2 [facility] Systolic blood pressure 2021-07-30 20:02:00 116 mm[Hg] [facility] Diastolic blood pressure 2021-07-30 20:02:00 83 mm[Hg] [facility] Heart rate 2021-07-30 20:02:00 99 /min [facility] Respiratory rate 2021-07-30 20:02:00 18 /min [facility] Body height 2021-07-30 20:02:00 154.9 cm [facility] Body weight 2021-07-30 20:02:00 58.06 kg [facility] BMI 2021-07-30 20:02:00 24.19 kg/m2 [facility] Body mass index (BMI) [Percentile] Per age and sex 2021-07-30 20:02:00 78.29 % [facility] Oxygen saturation in Arterial blood by Pulse oximetry 2021-07-30 20:02:00 98 /min [facility] Procedures Procedure Date / Time Performed Performing Clinician Source CT HEAD WO CONTRAST 2024-10-04 18:49:06 Jazzy Swenson [facility] URINE DRUG (IMMUNOASSAY) - COMPREHENSIVE DRUG SCREEN 2024-10-04 12:41:00 Ryan [facility] EXTRA TUBE URINE CULTURE 2024-10-04 12:41:00 Edyta Watson [facility] PROTEIN CREAT RATIO URINE RANDOM 2024-10-04 12:41:00 Ryan [facility] SGOT (ASPARTATE AMINO TRANSFER) 2024-10-04 11:46:00 Ryan [facility] CREATININE 2024-10-04 11:46:00 Ryan [facility] ALANINE AMINO TRANSFERASE(SGPT 2024-10-04 11:46:00 Ryan [facility] LACTATE DEHYDROGENASE 2024-10-04 11:46:00 yRan [facility] URIC ACID 2024-10-04 11:46:00 Ryan [facility] MAGNESIUM 2024-10-04 11:46:00 Ryan [facility] COMP. METABOLIC PANEL ([id number]) 2024-10-04 11:46:00 Ryan [facility] CBC WITH DIFF 2024-10-04 11:46:00 Ryan [facility] ELECTROENCEPHALOGRAM 2024-10-04 00:00:00 Bret Earl [facility] CBC WITH DIFF 2024-09-10 08:46:00 Dami [facility] LACTATE DEHYDROGENASE 2024-09-10 04:55:00 Dami [facility] URINE DRUG (IMMUNOASSAY) - COMPREHENSIVE DRUG SCREEN 2024-09-10 03:53:00 Dami [facility] URINALYSIS 2024-09-10 03:53:00 Dami [facility] PROTEIN CREAT RATIO URINE RANDOM 2024-09-10 03:53:00 Johansen [facility] SGOT (ASPARTATE AMINO TRANSFER) 2024-09-10 00:19:00 Johansen [facility] CREATININE 2024-09-10 00:19:00 Dami [facility] ALANINE AMINO TRANSFERASE(SGPT 2024-09-10 00:19:00 Dami [facility] URIC ACID 2024-09-10 00:19:00 Dami [facility] CBC WITH DIFF 2024-09-10 00:19:00 Dami [facility] HEPATITIS B SURFACE ANTIGEN 2024-09-10 00:19:00 Dami [facility] HB ABO GROUPING 2024-09-10 00:19:00 Dami [facility] ADC OR TRINH ONLY - RPR 2024-09-10 00:19:00 Johansen [facility] HIV 1/2 AG-AB WITH REFLEX 2024-09-10 00:19:00 Dami [facility] POCT URINALYSIS 2024-08-15 21:27:00 Mina Mott [facility] SECOND AND THIRD TRIMESTER ULTRASOUND 2024-07-10 19:44:00 Mina Mott [facility] POCT URINALYSIS 2024-06-19 21:40:00 Mina Mott [facility] POCT URINALYSIS 2024-05-23 21:30:00 Mina Mott [facility] SECOND AND THIRD TRIMESTER ULTRASOUND 2024-04-25 18:06:00 Mina Mott [facility] POCT URINALYSIS 2024-04-09 21:22:00 Mina Mott [facility] POCT URINALYSIS 2024-03-14 20:05:00 Mina Mott [facility] NIPT - NON-INVASIVE TEST RESULTS 2024-02-13 21:59:51 Doctor Unassigned, Ixl [facility] NIPT - NON-INVASIVE TEST RESULTS 2024-02-08 19:35:25 Doctor Unassigned, Ixl [facility] SECOND AND THIRD TRIMESTER ULTRASOUND 2024-02-02 19:21:00 Mina Mott [facility] POCT TEST 2024-01-30 12:43:00 Mina Mott [facility] POCT URINALYSIS W/O SPECIFIC GRAVITY 2024-01-30 12:43:00 Mina Mott [facility] LIPASE 2024-01-09 21:51:00 Adam Jean-Baptiste [facility] COMP. METABOLIC PANEL ([id number]) 2024-01-09 21:51:00 Adam Jean-Baptiste [facility] TOTAL BETA HCG ASSAY 2024-01-09 21:51:00 Adam Jean-Baptiste [facility] SALICYLATE 2024-01-09 21:51:00 Adam Jean-Baptiste [facility] ETHANOL 2024-01-09 21:51:00 Adam Jean-Baptiste [facility] CBC WITH DIFF 2024-01-09 21:51:00 Adam Jean-Baptiste [facility] URINALYSIS 2024-01-09 21:51:00 Adam Jean-Baptiste [facility] URINE DRUG (IMMUNOASSAY) - COMPREHENSIVE DRUG SCREEN W/O REFLEX 2024-01-09 21:51:00 Adam Jean-Baptiste [facility] POCT TEST 2024-01-09 21:37:00 Adam Jean-Baptiste [facility] CBC WITH DIFF 2023-06-09 10:07:00 Richa Eden [facility] URINALYSIS 2023-06-08 22:24:00 Suzanne Oconnor Mai [facility] SGOT (ASPARTATE AMINO TRANSFER) 2023-06-08 22:00:00 Anastasia Suzanne Andradetanya Deleon [facility] CREATININE 2023-06-08 22:00:00 Anastasia Suzanne Deleon [facility] ALANINE AMINO TRANSFERASE(SGPT 2023-06-08 22:00:00 Oconnor, Suzanne Andradetanya Deleon [facility] LACTATE DEHYDROGENASE 2023-06-08 22:00:00 Oconnor Suzanne Ford Deleon [facility] URIC ACID 2023-06-08 22:00:00 Oconnor, Suzanne Ford Deleon [facility] CBC WITH DIFF 2023-06-08 22:00:00 Amanda Oconnorabdirahman Andradetanya Deleon [facility] VENOUS CORD GAS 2023-06-08 19:06:00 Bree Valdez [facility] CENTRAL NEURAXIAL BLOCK 2023-06-08 15:18:00 Mendoza Marin [facility] LACTATE DEHYDROGENASE 2023-06-08 08:29:00 Ryan [facility] CBC WITH DIFF 2023-06-08 08:29:00 Annetta [facility] SYPHILIS IGG/IGM 2023-06-08 08:28:00 Annetta [facility] SGOT (ASPARTATE AMINO TRANSFER) 2023-06-08 08:19:00 Annetta [facility] CREATININE 2023-06-08 08:19:00 Ryan [facility] ALANINE AMINO TRANSFERASE(SGPT 2023-06-08 08:19:00 Annetta [facility] URIC ACID 2023-06-08 08:19:00 Annetta [facility] HEPATITIS B SURFACE ANTIGEN 2023-06-08 08:19:00 Annetta [facility] URINALYSIS 2023-06-08 03:02:00 Annetta [facility] PROTEIN CREAT RATIO URINE RANDOM 2023-06-08 03:02:00 Ryan [facility] POCT GLUCOSE (AUTOMATED) 2023-06-08 02:47:00 Edyta Watson [facility] CBC WITH DIFF 2023-06-08 00:35:00 José Miguel [facility] HEPATITIS B SURFACE ANTIGEN 2023-06-08 00:35:00 José Miguel [facility] HB ABO GROUPING 2023-06-08 00:35:00 José Miguel [facility] RHO (D) IMMUNE GLOBULIN 2023-06-08 00:35:00 Richa Eden [facility] HIV 1/2 AG-AB WITH REFLEX 2023-06-08 00:35:00 José Miguel [facility] SYPHILIS IGG/IGM 2023-06-08 00:35:00 José Miguel [facility] POCT URINALYSIS 2023-06-07 21:19:00 Mina Mott [facility] SECOND AND THIRD TRIMESTER ULTRASOUND 2023-06-07 20:57:00 Mina Mott [facility] SECOND AND THIRD TRIMESTER ULTRASOUND 2023-04-26 19:54:00 Mina Mott [facility] VZV ANTIBODY SCREEN 2023-04-21 21:47:00 Mina Mott [facility] HIV 1/2 AG-AB WITH REFLEX 2023-04-21 21:47:00 Mina Mott [facility] SYPHILIS IGG/IGM 2023-04-21 21:47:00 Mina Mott [facility] POCT URINALYSIS 2023-04-21 21:05:00 Mina Mott [facility] TDAP VACCINE, >11 YRS, IM 2023-03-06 16:43:06 Mina Mott [facility] POCT URINALYSIS 2023-03-06 16:23:00 Mina Mott [facility] CBC WITH DIFF 2023-02-20 20:17:00 Mina Mott [facility] HEPATITIS B SURFACE ANTIGEN 2023-02-20 20:17:00 Mina Mott [facility] HB ABO GROUPING 2023-02-20 20:17:00 Mina Mott [facility] HIV 1/2 AG-AB WITH REFLEX 2023-02-20 20:17:00 Mina Mott [facility] RUBELLA SCREEN IGG 2023-02-20 20:17:00 Mina Mott [facility] SYPHILIS IGG/IGM 2023-02-20 20:17:00 Mina Mott [facility] POCT URINALYSIS W/O SPECIFIC GRAVITY 2023-02-20 18:58:00 Mina Mott [facility] POCT TEST 2023-02-20 18:57:00 Mina Mott [facility] ASSIGNMENT OF BENEFITS 2023-02-20 18:15:42 Doctor Unassigned, Ixl [facility] Encounters Start Date/Time End Date/Time Encounter Type Admission Type Attending [facility] Care Facility Care Department Encounter ID Source 2024-10-03 19:39:04 Emergency [facility] [id number] [facility] Depart ent 2021-03-13 17:45:09 Emergency [facility] [id number] [facility] 2024-12-22 19:49:00 2024-12-22 20:17:00 Emergency X JENSEN HALL BRENT [facility] ERT [id number] [facility] 2024-11-12 00:00:00 2024-11-12 09:57:41 Letter (Out) Kathleen Granados [facility] [id number] [facility] 2024-10-08 00:00:00 2024-11-09 18:25:29 Patient Secure Msg Shazia Simpson [facility] [id number] [facility] 2024-11-06 10:00:00 2024-11-06 10:00:00 Outpatient R [facility] [id number] [facility] 2024-11-04 00:00:00 2024-11-04 11:26:07 Patient Outreach Coco Swain Jazmine M [facility] [id number] [facility] 2024-11-04 09:20:00 2024-11-04 09:20:00 Outpatient R KATHLEEN GRANADOS [facility] [id number] [facility] 2024-10-04 06:16:00 2024-10-04 14:50:00 Hospital Encounter P EDYTA WATSON CHASEY [facility] [id number] [facility] 2024-10-03 19:04:00 2024-10-04 05:20:00 Emergency Emergency PRIMO LONG [facility] General Medicine [id number] [address] [place] [address] 2024-09-09 18:56:00 2024-09-10 19:54:00 Inpatient P MARK JOHANSEN VIEN [facility] [id number] [facility] 2024-09-09 18:56:00 2024-09-10 19:54:00 Hospital Encounter P MARK JOHANSEN VIEN [facility] [id number] [facility] 2024-09-10 15:45:00 2024-09-10 15:45:00 Outpatient R MINA MOTT [facility] [id number] [facility] 2024-09-05 15:45:00 2024-09-05 15:45:00 Outpatient R MINA MOTT [facility] [id number] [facility] 2024-08-21 14:15:00 2024-08-21 14:15:00 Outpatient MINA NELSON [facility] [id number] [facility] 2024-08-19 00:00:00 2024-08-20 07:46:28 Telephone Mina Mott 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 [id number] [facility] 2024-08-16 13:45:00 2024-08-16 13:45:00 Outpatient [facility] [id number] [facility] 2024-08-15 16:00:00 2024-08-15 16:43:59 Outpatient R [facility] [id number] [facility] 2024-08-15 16:00:00 2024-08-15 16:43:59 Routine Visit Pantera Mina Devries [facility] 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 [facility] ..840.114 350.1.13.10 4.2.7.2.686 [id number] [facility] 2024-08-08 10:45:00 2024-08-08 10:45:00 Outpatient R [facility] [id number] [facility] 2024-07-16 13:30:00 2024-07-16 13:30:00 Outpatient R [facility] [id number] [facility] 2024-07-11 00:00:00 2024-07-11 10:43:47 Abstract Axelbetty Mina C [facility] 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 [facility] 1..840.114 350.1.13.10 4.2.7.2.686 [id number] [facility] 2024-07-10 13:00:00 2024-07-10 13:53:03 Outpatient P BE HERR [facility] [id number] [facility] 2024-07-10 13:00:00 2024-07-10 13:53:03 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, Be Montiel [facility] 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 [facility] 1.2840.114 350.1.13.10 4.2.7.2.686 [id number] [facility] 2024-07-03 15:15:00 2024-07-03 15:15:00 Outpatient R [facility] [id number] [facility] 2024-02-08 00:00:00 2024-06-29 06:54:57 Orders Only Doctor Unassigned, Ixl Doctor Unassigned, Ixl [facility] 1.840.114 350.1.13.10 4.2.7.2.686 [id number] [facility] 2024-02-13 00:00:00 2024-06-29 06:53:58 Orders Only Doctor Unassigned, Ixl Doctor Unassigned, Ixl [facility] 1.2840.114 350.1.13.10 4.2.7.2.686 [id number] [facility] 2024-06-19 15:15:00 2024-06-19 16:17:29 Outpatient R [facility] [id number] [facility] 2024-06-19 15:15:00 2024-06-19 16:17:29 Routine Visit Mina Mott [facility] 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 [facility] 1.840.114 350.1.13.10 4.2.7.2.686 [id number] [facility] 2024-06-06 10:30:00 2024-06-06 10:30:00 Outpatient [facility] [id number] [facility] 2024-05-23 15:15:00 2024-05-23 15:58:10 Outpatient MIN[facility] N[facility] [id number] [facility] 2024-05-23 15:15:00 2024-05-23 15:58:10 Routine Visit Mina Mott [facility] 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 [facility] 1.2.840.114 350.1.13.10 4.2.7.2.686 [id number] [facility] 2024-05-21 07:00:00 2024-05-21 07:00:00 Outpatient R [facility] [id number] [facility] 2024-05-06 14:45:00 2024-05-06 14:45:00 Outpatient R [facility] [id number] [facility] 2024-04-25 00:00:00 2024-04-25 14:48:21 Abstract Mina Mott [facility] 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 [facility] 1..840.114 350.1.13.10 4.2.7.2.686 [id number] [facility] 2024-04-25 11:00:00 2024-04-25 12:07:17 Outpatient R BE HERR [facility] [id number] [facility] 2024-04-25 11:00:00 2024-04-25 12:07:17 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 [facility] 1..840.114 350.1.13.10 4.2.7.2.686 [id number] [facility] 2024-04-09 15:00:00 2024-04-09 15:32:42 Outpatient R [facility] [id number] [facility] 2024-04-09 15:00:00 2024-04-09 15:32:42 Routine Visit Mina Mott [facility] 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 [facility] 1..840.114 350.1.13.10 4.2.7.2.686 [id number] 107 [id number] [facility] 2024-03-14 15:00:00 2024-03-14 15:19:18 Outpatient R [facility] [id number] [facility] 2024-03-14 15:00:00 2024-03-14 15:19:18 Routine Visit Axelarvindlatasha Mina Devries [facility] 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 [facility] 1..840.114 350.1.13.10 4.2.7.2.686 [id number] [facility] 2024-02-06 00:00:00 2024-02-06 09:00:48 Abstract Mina Mott [facility] 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 [facility] 1..840.114 350.1.13.10 4.2.7.2.686 [id number] [facility] 2024-02-02 14:00:00 2024-02-02 14:54:39 Outpatient P OMAR HARRISON [facility] [id number] [facility] 2024-02-02 14:00:00 2024-02-02 14:54:39 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, Cynthia Montiel Corey [facility] 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 [facility] 1..840.114 350.1.13.10 4.2.7.2.686 [id number] [facility] 2024-02-02 14:00:00 2024-02-02 14:00:00 Outpatient [facility] [id number] [facility] 2024-01-30 07:30:00 2024-01-30 08:49:54 Outpatient R [facility] [id number] [facility] 2024-01-30 07:30:00 2024-01-30 08:49:54 Initial Visit Mina Mott [facility] 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 1.2.840.114 350.1.13.10 4.2.7.2.686 [id number] [facility] 2024-01-11 14:20:00 2024-01-11 15:22:00 Emergency X HOLLAND STEVENS PHILLIP [facility] ERT [id number] [facility] 2024-01-11 14:20:00 2024-01-11 15:22:00 Emergency Holland Stevens [facility] 1..840.114 350.1.13.10 4.2.7.2.686 [id number] [facility] 2024-01-09 16:17:00 2024-01-09 23:15:00 Emergency X LEIA DONIS WAKILI [facility] ERT [id number] [facility] 2024-01-09 16:17:00 2024-01-09 23:15:00 Emergency Adam Jean-Baptiste Wakili S [facility] 1.2.840.114 350.1.13.10 4.2.7.2.686 [id number] [facility] 2023-07-17 16:00:00 2023-07-17 16:00:00 Outpatient R [facility] [id number] [facility] 2023-06-07 17:47:00 2023-06-09 14:53:00 Inpatient P EDYTA WATSON CHASEY [facility] [id number] [facility] 2023-06-07 17:47:00 2023-06-09 14:53:00 Hospital Encounter Edyta Watson [facility] 1.2.840.114 350.1.13.10 4.2.7.2.686 [id number] [facility] 2023-06-09 00:00:00 2023-06-09 00:00:00 Telephone Mina Mott [facility] 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 [facility] 1.2.840.114 350.1.13.10 4.2.7.2.686 [id number] [facility] 2023-06-09 00:00:00 2023-06-09 00:00:00 Encounter [facility] 1.2.840.114 350.1.13.10 4.2.7.2.686 [id number] [facility] 2023-06-08 08:51:00 2023-06-08 17:14:00 Anesthesia Event Mendoza Marin Ryan C S [facility] 1.2.840.114 350.1.13.10 4.2.7.2.686 [id number] [facility] 2023-06-08 00:00:00 2023-06-08 00:00:00 Telephone Mina Mott [facility] 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 [facility] 1.2.840.114 350.1.13.10 4.2.7.2.686 [id number] [facility] 2023-06-07 16:00:00 2023-06-07 16:00:00 Routine Visit Mina Mott [facility] 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 [facility] 1.2.840.114 350.1.13.10 4.2.7.2.686 [id number] [facility] 2023-06-07 14:30:00 2023-06-07 14:59:04 Outpatient [place] VASQUE[place] [facility] [id number] [facility] 2023-06-07 14:30:00 2023-06-07 14:59:04 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, [place] Mai [facility] 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 [facility] 1.2.840.114 350.1.13.10 4.2.7.2.686 [id number] [facility] 2023-06-02 00:00:00 2023-06-02 00:00:00 Telephone Mina Mott [facility] 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 [facility] 1.2.840.114 350.1.13.10 4.2.7.2.686 [id number] [facility] 2023-05-30 09:30:00 2023-05-30 09:30:00 Outpatient P CYNTHIA HERR [facility] [id number] [facility] 2023-05-10 10:00:00 2023-05-10 10:00:00 Outpatient R [facility] [id number] [facility] 2023-05-03 00:00:00 2023-05-03 00:00:00 Abstract Mina Mott [facility] 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 [facility] 1.2.840.114 350.1.13.10 4.2.7.2.686 [id number] [facility] 2023-05-03 00:00:00 2023-05-03 00:00:00 Abstract Mina Mott [facility] 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 [facility] 1.2.840.114 350.1.13.10 4.2.7.2.686 [id number] [facility] 2023-04-28 15:30:00 2023-04-28 15:30:00 Outpatient R [facility] [id number] [facility] 2023-04-26 13:30:00 2023-04-26 14:00:43 Outpatient P EDYTA WATSON [facility] [id number] [facility] 2023-04-26 13:30:00 2023-04-26 14:00:43 Auto Driver Visit 1, To Room Edyta Watson Ikuvbogie [facility] 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 [facility]ER[facility] CHILD HEALTH [facility] 1.2.840.114 350.1.13.10 4.2.7.2.686 [id number] [facility] 2023-04-21 15:00:00 2023-04-21 15:47:33 Outpatient R [facility] [id number] [facility] 2023-04-21 15:00:00 2023-04-21 15:47:33 Routine Visit Mina Mott [facility] 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 [facility] .2.840.114 350.1.13.10 4.2.7.2.686 [id number] [facility] 2023-04-13 08:00:00 2023-04-13 08:00:00 Outpatient R [facility] [id number] [facility] 2023-03-31 10:45:00 2023-03-31 10:45:00 Outpatient R BETO HOFFMAN [facility] [id number] [facility] 2023-03-29 09:30:00 2023-03-29 09:30:00 Outpatient R [facility] [id number] [facility] 2023-03-22 15:00:00 2023-03-22 15:00:00 Outpatient R [facility] [id number] [facility] 2023-03-20 15:00:00 2023-03-20 15:00:00 Outpatient R [facility] [id number] [facility] 2023-03-06 11:00:00 2023-03-06 11:50:07 Outpatient R NATHALIELATASHAGRACIEMINA [facility] [id number] [facility] 2023-03-06 11:00:00 2023-03-06 11:50:07 Routine Visit Mina Mott Jaycob [facility] 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 [facility] 1.2840.114 350.1.13.10 4.2.7.2.686 [id number] [facility] 2023-02-20 13:45:00 2023-02-20 16:13:02 Initial Visit Mina Mott Jaycob [facility] 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114 350.1.13.10 4.2.7.2.686 [id number] [facility] 2021-10-12 11:30:00 2021-10-12 11:30:00 Outpatient R KEYLA SOLITARIO CH[facility]AL [facility] [id number] [facility] 2021-10-11 00:00:00 2021-10-11 00:00:00 Refill ClemenciaKeyla espitia [place] [facility] 1.2.840.114 350.1.13.10 4.2.7.2.686 [id number] [facility] 2021-07-30 14:30:00 2021-07-30 15:17:53 Office Visit AmandaKeyla [place] [facility] 1.2.840.114 350.1.13.10 4.2.7.2.686 [id number] [facility] 2021-07-30 14:30:00 2021-07-30 15:17:53 Outpatient R KEYLA SOLITARIO [facility] [id number] [facility] 2021-07-30 14:30:00 2021-07-30 14:30:00 Outpatient R KEYLA SOLITARIO [facility] [id number] [facility] 2021-07-30 00:00:00 2021-07-30 00:00:00 Telephone Adshannon Feli Green [facility] 1.2.840.114 350.1.13.10 4.2.7.2.686 [id number] [facility] 2021-04-22 00:00:00 2021-04-22 00:00:00 Telephone Adshannon Feli Green [facility] 1.2.840.114 350.1.13.10 4.2.7.2.686 [id number] [facility] 2021-04-07 00:00:00 2021-04-07 00:00:00 Telephone Adshannon Feli Green [facility] 1.2.840.114 350.1.13.10 4.2.7.2.686 [id number] [facility] 2021-04-06 11:54:38 2021-04-06 12:09:38 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 [id number] [facility] 2021-04-06 09:30:00 2021-04-06 11:44:[address] [facility] [id number] [facility] 2020-12-10 07:45:00 2020-12-10 07:45:00 Outpatient R MINA [facility]OTT [facility] [id number] [facility] 2020-12-02 15:00:00 2020-12-02 15:00:00 Outpatient R [facility] [id number] [facility] 2020-11-23 00:00:00 2020-11-23 00:00:00 Telephone Mina Mott [facility] 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 [facility] 1..114 350.1.13.10 4.2.7.2.686 [id number] [facility] 2020-11-20 00:00:00 2020-11-20 00:00:00 Telephone Mina Mott [facility] 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 [facility] 1..114 350.1.13.10 4.2.7.2.686 [id number] [facility] 2020-11-18 09:18:45 2020-11-18 10:43:25 Office Visit Mina Mott [facility] 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 1.2.840.114 350.1.13.10 4.2.7.2.686 [id number] [facility] 2020-11-18 09:15:00 2020-11-18 09:15:00 Outpatient R [facility]A [facility]OTT [facility] [id number] [facility] 2020-11-18 00:00:00 2020-11-18 00:00:00 Orders Only Doctor Unassigned, Ixl [facility] 1.2.840.114 350.1.13.10 4.2.7.2.686 [id number] [facility] 2020-07-08 09:00:00 2020-07-08 09:00:00 Outpatient R TOBIN CHEN [facility] [id number] [facility] 2020-06-09 00:00:00 2020-06-09 00:00:00 Orders Only Doctor Unassigned, Ixl [facility] 1.2840.114 350.1.13.10 4.2.7.2.686 [id number] [facility] 2020-05-30 18:24:00 2020-05-30 18:42:00 Emergency Leti, Orin R [facility] 1.2840.114 350.1.13.10 4.2.7.2.686 [id number] [facility] Results Test Description Test Time Test [...] Thecalvarium and central skull base are unremarkable. [facility]. Metabolic Panel (42608)2024-10-04 12:31:49* Test Item Value Reference Range Interpretation Comme nts NA (test code = 2142902998) 131 mmol/L 135-145 L K (test code = 1359130232) 4.4 mmol/L 3.5-5.0 CL (test code = 1818102511) 97 mmol/L 98-108 L CO2 TOTAL (test code = 5374101412) 27 mmol/L 23-31 AGAP (test code = 6256044946) 7 2-16 BUN (test code = 5983571911) 8 mg/dL 7-23 GLUCOSE (test code = 6334862779) 93 mg/dL 70-110 CREATININE (test code = 2160-0) 0.52 mg/dL 0.50-1.04 TOTAL BILI (test code = 8018612075) 0.3 mg/dL 0.1-1.1 CALCIUM (test code = 8900325143) 7.7 mg/dL 8.6-10.6 L T PROTEIN (test code = 5373422437) 7.3 g/dL 6.3-8.2 ALBUMIN (test code = 0374202650) 4.2 g/dL 3.5-5.0 ALK PHOS (test code = 4149295639) 119 U/L 34-122 ALTv (test code = 1742-6) 20 U/L 5-35 AST(SGOT) (test code = 7625282228) 27 U/L 13-40 eGFR (test code = 09920-2) 136.6 mL/min/1.73m2 CKD-EPI eGFR (2020). Assuming creatinine has been stable day-to-day for at least three months, the eGFR indicates Category G1 (>= 90 mL/min/1.73 m2) Lab Interpretation (test code = 21553-8) [facility] F[facility]n4105-48-08 12:31:49* Test Item Value Reference Range Interpretation Comme nts URIC ACID (test code = 7716097868) 4.3 mg/dL 2.9-6.0 Lab Interpretation (test cod e = 26446-3) Normal [facility] (Aspartate Amino Transfer)2024-10-04 12:31:48* Test Item Value Reference Range Interpretation Comme nts AST(SGOT) (test code = 9999271070) 27 U/L 13-40 Lab Interpretation (test cod e = 50826-0) Normal [facility]o Transferase(Pdwv5311-69-80 12:31:48* Test Item Value Reference Range Interpretation Comme nts ALTv (test code = 1742-6) 20 U/L 5-35 Lab Interpretation (test cod e = 27447-9) Normal [facility]2025-05-23 12:31:48* Test Item Value Reference Range Interpretation Comme [facility] CREATININE (test code = 2160-0) 0.52 mg/dL 0.50-1.04 eGFR (test code = 88565-3) 136.6 mL/min/1.73m2 CKD-EPI eGFR (20 21). Assuming creatinine has been stable day-to-day for at least three months, the eGFR indicates Category G1 (>= 90 mL/min/1.73 m2)CKD-EPI eGFR (2020). Assuming creatinine has been stable day-to-day for at least three months, the eGFR indicates Category G1 (>= 90 mL/min/1.73 m2) [facility] Hvkkgipxlhljv0953-30-90 12:30:08* Test Item Value Reference Range Interpretation Comme nts LDH (test code = 0342285882) 209 U/L 120-246 Lab Interpretation (test cod e = 17977-8) Normal [facility] with Krvc7200-06-17 12:05:06* Test Item Value Reference Range Interpretation [...] g/dL 31.6-35.1 L RDW-SD (test code = 08702-3) 44.3 fL 39.0-49.9 RDW-CV (test code = 788-0) 15.8 % 12.0-15.5 H PLT (test code = 777-3) 454 166-358 H MPV (test code = 00391-7) 8.3 fL 9.5-12.9 L NRBC/100 WBC (test code = 4048128277) 0 0.0-10.0 NRBC x10^3 (test code = 8952086418) See_Comment [Automated messa ge] The system which generated this result transmitted reference range: 10*3/?L. The reference range was not used to interpret this result as normal/abnormal. GRAN MAT (NEUT) % (test code = 770-8) 62.5 % IMM GRAN % (test code = 1232459141) 0.5 % LYMPH % (test code = 736-9) 27 % MONO % (test code = 5905-5) 8 % EOS % (test code = 713-8) 1.6 % BASO % (test code = 706-2) 0.4 % GRAN MAT x10^3(ANC) (test code = 0582204099) 4.57 10*3/uL 1.88-7.09 IMM GRAN x10^3 (test code = 7088794821) 0.04 10*3/uL 0.00-0.06 LYMPH x10^3 (test code = 731-0) 1.98 10*3/uL 1.32-3.29 MONO x10^3 (test code = 742-7) 0.59 10*3/uL 0.33-0.92 EOS x10^3 (test code = 711-2) 0.12 10*3/uL 0.03-0.39 BASO x10^3 (test code = 704-7) 0.03 10*3/uL 0.01-0.07 Lab Interpretation (test code = 57747-7) Abnormal [facility] Hospital[facility]ro[facility] (EEG) - Duration of test: 20-60 mins; Release to patient: Hujnrwegf2184-41-10 00:00:00Date and Time of Procedure: 10/04/2024, 09:30 [...] syndrome. Kaitlynn Jauregui M.D. Date of interpretation: 10/04/2024[facility] - Anl9242-75-74 11:58:12* Test Item Value Reference Range Interpretation Comme nts RPR (Qualitative) (test code = 32718-9) Nonreactive Nonreactive Lab Interpretation (test cod e = 76347-1) Normal [facility] Hospital[facility]atitis B Surface Bkpwbnj1291-44-38 06:33:15 * Test Item Value Reference Range Interpretation Comme nts HBsAg Semi-Quantitative (loli t code = 5195-3) 0.09 Negative [facility] Ednyyonumwlap5099-74-58 06:13:50* Test Item Value Reference Range Interpretation Comme nts LDH (test code = 9810802109) 279 U/L 120-246 H Lab Interpretation (test cod e = 08926-5) Abnormal [facility] Hospital[facility] Acid Gpezz1253-38-07 05:45:10* Test Item Value Reference Range Interpretation Comme [facility] URIC ACID (test code = 7287830672) 3.7 mg/dL 2.9-6.0 Lab Interpretation (test cod e = 28230-2) Normal [facility]Al[facility] Amino Transferase (SGPT)2024-09-10 05:44:50* Test Item Value Reference Range Interpretation Comme nts ALTv (test code = 1742-6) 58 U/L 5-35 H Lab Interpretation (test cod e = 02066-4) Abnormal [facility] (Asparate Amino Transfer)2024-09-10 05:44:49* Test Item Value Reference Range Interpretation Comme [facility] AST(SGOT) (test code = 0513150132) 56 U/L 13-40 H Lab Interpretation (test cod e = 28875-4) Abnormal [facility]um Xdjhkqwdqv0314-19-75 05:44:29* Test Item Value Reference Range Interpretation Comme [facility] CREATININE (test code = 2160-0) 0.48 mg/dL 0.50-1.04 L eGFR (test code = 17598-0) 139.3 mL/min/1.73m2 CKD-EPI eGFR (2020). Assuming creatinine has been stable day-to-day for at least three months, the eGFR indicates Category G1 (>= 90 mL/min/1.73 m2) Lab Interpretation (test code = 99066-8) [facility]normal [facility]HIV [facility]2 Ag-Ab with Dfhpqd6798-46-45 01:42:27* Test Item Value Reference Range Interpretation Comme [facility] HIV Semi-quantitative (test code = 80949-7) 0.14 Negative YANET (test code = YANET) Non-reactive for HIV-1 antigen and HIV-1/HIV-2 antibodies. ?No laboratory evidence of HIV infection. ?Repeat in 2-4 weeks if acute HIV infection is suspected. [facility] HospitalCbc with Obyx8422-59-14 00:49:59* Test Item Value Reference Range Interpretation Comme [facility] WBC (test code [...] g/dL 31.6-35.1 L RDW-SD (test code = 98786-8) 42.1 fL 39.0-49.9 RDW-CV (test code = 788-0) 14.5 % 12.0-15.5 PLT (test code = 777-3) 330 166-358 MPV (test code = 59970-1) 10.5 fL 9.5-12.9 NRBC/100 WBC (test code = 0020461503) 0 0.0-10.0 NRBC x10^3 (test code = 8799379108) See_Comment [Automated messa ge] The system which generated this result transmitted reference range: 10*3/?L. The reference range was not used to interpret this result as normal/abnormal. GRAN MAT (NEUT) % (test code = 770-8) 84.1 % IMM GRAN % (test code = 8298207114) 1.5 % LYMPH % (test code = 736-9) 9.3 % MONO % (test code = 5905-5) 4.3 % EOS % (test code = 713-8) 0.3 % BASO % (test code = 706-2) 0.5 % GRAN MAT x10^3(ANC) (test code = 3468486492) 8.48 10*3/uL 1.88-7.09 H IMM GRAN x10^3 (test code = 8433178130) 0.15 10*3/uL 0.00-0.06 H LYMPH x10^3 (test code = 731-0) 0.94 10*3/uL 1.32-3.29 L MONO x10^3 (test code = 742-7) 0.43 10*3/uL 0.33-0.92 EOS x10^3 (test code = 711-2) 0.03 10*3/uL 0.03-0.39 BASO x10^3 (test code = 704-7) 0.05 10*3/uL 0.01-0.07 Lab Interpretation (test code = 56289-8) Abnormal [facility] HospitalType and Screen - ONCE [id number] 00:47:00* Test Item Value Reference Range Interpretation Comme nts ABO & RH (test code = 20) A POSITIVE IAT (test code = 1185) Negative [facility]PO[facility] URINALYS[facility] W SPECIFIC [id number] 21:27:00* Test Item Value Reference Range Interpretation [...] U APPEAR (test code = 3267) . [facility] HospitalPO[facility]AL[facility] W SPECIFIC [id number] 21:40:00* Test Item Value Reference Range Interpretation [...] U APPEAR (test code = 3267) . [facility] URINALYSIS W SPECIFIC [id number] 21:30:00* Test Item Value Reference Range Interpretation [...] POCT U APPEAR (test code = 3267) [facility] URINALYSIS W SPECIFIC [id number] 21:22:00* Test Item Value Reference Range Interpretation [...] POCT U APPEAR (test code = 3267) [facility] URINALYSIS W SPECIFIC [id number] 20:06:00* Test Item Value Reference Range Interpretation [...] U APPEAR (test code = 3267) . [facility] - NON-INVASIVE TEST RESULTS 2024-02-13 21:59:51Ordered by an unspecified provider.[facility] - NON-INVASIVE TEST [id number] 19:35:25 Ordered by an unspecified provider.[facility] Urinalysis w/o Specific Fqbtmww8676-05-64 12:43:00* Test Item Value Reference Range Interpretation [...] = 3257) neg Negative - Negati ve [facility]POCT [id number] 12:43:00* Test Item Value Reference Range Interpretation Comme nts POCT PREG (test code = 1605) Positive On board controls acceptable with C Line (test code = 3574) Yes POCT PREG LOT # (test code = 3575) POCT PREG TEST DATE ( test code = 3576) [facility]PO[facility] [id number] 21:37:00* Test Item Value Reference Range Interpretation Comme nts POCT PREG (test code = 1605) Positive On board controls acceptable with C Line (test code = 3574) Yes POCT PREG LOT # (test code = 3575) [id number] POCT PREG TEST DATE ( test code = 3576) 09/21/2024 Lab Interpretation (test cod e = 07101-2) Normal [facility] HospitalRHO (D) IMMUNE [id number] 23:23:42* Test Item Value Reference Range Interpretation Comme nts RHIG CANDIDATE? (test code = 5188) No- see comment Patient is not a candidate for RhIg- Patient is Rh Positive.Performed at [facility] Laboratory Services - [facility] Blood [address] [address]Sqcx Free: [phone] No. [id number] [facility] HospitalLactate Dehydrogenase (LDH)2023-06-08 22:46:59 * Test Item Value Reference Range Interpretation Comme [facility] LDH (test code = 2133551375) 317 U/L 120-246 H Lab Interpretation (test cod e = 22500-3) Abnormal [facility] HospitalUric Acid Xhcqn7705-71-12 22:46:39* Test Item Value Reference Range Interpretation Comme [facility] URIC ACID (test code = 2066214916) 4.7 mg/dL 2.9-6.0 Lab Interpretation (test cod e = 60016-9) Normal [facility] HospitalCreatinine Atfza5549-69-66 22:46:39* Test Item Value Reference Range Interpretation Comme [facility] CREATININE (test code = 5234328860) 0.46 mg/dL 0.50-1.04 L eGFR (test code = 10187-3) 141.6 mL/min/1.73m2 CKD-EPI eGFR (2020). Assuming creatinine has been stable day-to-day for at least three months, the eGFR indicates Category G1 (>= 90 mL/min/1.73 m2) Lab Interpretation (test code = 46674-6) Abnormal [facility] HospitalSGOT (Asparate Amino Transfer)2023-06-08 22:46:39* Test Item Value Reference Range Interpretation Comme nts AST(SGOT) (test code = 8106462076) 26 U/L 13-40 Lab Interpretation (test cod e = 53625-7) Normal [facility] HospitalAlanine Amino Transferase (SGPT)2023-06-08 22:46:38* Test Item Value Reference Range Interpretation Comme nts ALTv (test code = 1742-6) 21 U/L 5-35 Lab Interpretation (test cod e = 40263-9) Normal [facility] HospitalCBC with Nwwzwjlnfrew6036-26-98 22:14:10* Test Item Value Reference Range Interpretation [...] 31.8 g/dL 31.6-35.1 RDW-SD (test code = 00578-8) 42.5 fL 39.0-49.9 RDW-CV (test code = 788-0) 14.8 % 12.0-15.5 PLT (test code = 777-3) 265 See_Comment [Automated message] The system which generated this result transmitted reference range: 166 - 358 10*3/?L. The reference range was not used to interpret this result as normal/abnormal. MPV (test code = 71663-2) 10.1 fL 9.5-12.9 NRBC/100 WBC (test code = 2460583569) 0.0 See_Comment [Automated message] The system which generated this result transmitted reference range: 0.0 - 10.0 /100 WBCs. The reference range was not used to interpret this result as normal/abnormal. NRBC x10^3 (test code = 9174491447) See_Comment [Automated message] The system which generated this result transmitted reference range: 10*3/?L. The reference range was not used to interpret this result as normal/abnormal. GRAN MAT (NEUT) % (test code = 770-8) 87.0 % IMM GRAN % (test code = 7494443230) 1.90 % LYMPH % (test code = 736-9) 4.8 % MONO % (test code = 5905-5) 6.1 % EOS % (test code = 713-8) 0.0 % BASO % (test code = 706-2) 0.2 % GRAN MAT x10^3(ANC) (test code = 8570768176) 14.93 10*3/uL 1.88-7.09 H IMM GRAN x10^3 (test code = 6576263071) 0.33 10*3/uL 0.00-0.06 H LYMPH x10^3 (test code = 731-0) 0.82 10*3/uL 1.32-3.29 L MONO x10^3 (test code = 742-7) 1.05 10*3/uL 0.33-0.92 H EOS x10^3 (test code = 711-2) 0.03-0.39 L BASO x10^3 (test code = 704-7) 0.04 10*3/uL 0.01-0.07 Lab Interpretation (test code = 11377-4) Abnormal [facility] Cord [id number] 19:18:12* Test Item Value Reference Range Interpretation Comme nts VENOUS BASE EXCESS, CORD (test code = 4531381437) -3.6 mEq/L VENOUS PH, CORD (test code = 9705329710) 7.34 7.25-7.45 VENOUS PC02, CORD (test code = 7822394530) 42 See_Comment [Automated messa ge] The system which generated this result transmitted reference range: 27 - 49 mmHg. The reference range was not used to interpret this result as normal/abnormal. VENOUS PO2, CORD (test code = 0070869775) 27 See_Comment [Automated me ssage] The system which generated this result transmitted reference range: 17 - 41 mmHg. The reference range was not used to interpret this result as normal/abnormal. VENOUS BICARBONATE, CORD (test code = 1838677715) 22 See_Comment [Automated messa ge] The system which generated this result transmitted reference range: 12 - 29 mEq/L. The reference range was not used to interpret this result as normal/abnormal. [facility] HospitalArterial Cord Ros3705-31-11 19:17:42* Test Item Value Reference Range Interpretation Comme nts BASE EXCESS, CORD (test code = 7423381774) -3.2 mEq/L QUES AC PH, CORD (BEAKER) (test code = 6212542136) 7.25 7.18-7.38 PC02, CORD (test code = 5054867357) 58 See_Comment [Automated messa ge] The system which generated this result transmitted reference range: 32 - 66 mmHg. The reference range was not used to interpret this result as normal/abnormal. PO2, CORD (test code = 6837556225) 19 See_Comment [Automated messa ge] The system which generated this result transmitted reference range: 10 - 30 mmHg. The reference range was not used to interpret this result as normal/abnormal. BICARBONATE, CORD (test code = 1638270543) 25 See_Comment [Automated messa ge] The system which generated this result transmitted reference range: 17 - 27 mEq/L. The reference range was not used to interpret this result as normal/abnormal. [facility] HospitalSyphilis IgG/UwD3561-48-67 16:48:57* Test Item Value Reference Range Interpretation Comme [facility] Syphilis IgG/IgM (test code = 61824-5) Non-reactive Non-reactive YANET (test code = YANET) Non-reactive - No serologic evidence of T. pallidum infection. Cannot exclude incubating or early syphilis. Submit a second specimen in 2-4 weeks if syphilis is clinically suspected. Equivocal - Further testing to follow. Reactive - Further testing to follow. Lab Interpretation (test code = 22200-3) Normal [facility] HospitalGALV ONLY - SYPHILIS IGG/GPW0332-46-11 16:45:18* Test Item Value Reference Range Interpretation Comme nts Syphilis IgG/IgM (test code = 63258-7) Non-reactive Non-reactive YANET (test code = YANET) Non-reactive - No serologic evidence of T. pallidum infection. Cannot exclude incubating or early syphilis. Submit a second specimen in 2-4 weeks if syphilis is clinically suspected. Equivocal - Further testing to follow. Reactive - Further testing to follow. Lab Interpretation (test code = 74334-8) Normal [facility] HospitalCentral Neuraxial Ykyid4716-78-91 15:18:00 Mendoza Marin MD ? ? 06/08/2023 ?9:19 AM Central Neuraxial Block Date/Time: 06/08/2023 9:18 AMPerformed by: Mendoza Marin MDAuthorized by: Shruthi Petit MD ?End Time: 06/08/2023 9:18 AMReason for Block: OB request, Patient request, Labor analgesia, Surgical anesthesia and Post-op pain managementStaff: ?Anesthesiologist: Shruthi Pteit MD ?Resident/FISHING WORKER: Mendoza Marin MD ?Performed by: resident/CRNAPreanesthetic Checklist: patient identified, IV checked, risks and benefits explained, monitors and equipment checked, timeout performed, pre-op evaluation, site marked and an esthesia consentProcedure: ?Type of Neuraxial: Epidural ?Prep: Betadine and patient draped ? ?Monitoring: heart rate, continuous pulse ox, heart rate / toco and NIBP ? 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 Fall precautions provided, patient vocalized understanding and all questions answered. ?[facility] HospitalHelivingston hospital and health servicestis B Surface Ynnvkxq5234-29-86 09:58:34* Test Item Value Reference Range Interpretation Comme nts HBsAg Semi-Quantitative (loli t code = 5195-3) 0.09 Negative [facility] HospitalLactate Ynmrxgserdcnq3218-73-19 09:15:08* Test Item Value Reference Range Interpretation Comme [facility] LDH (test code = 5798157621) 185 U/L 120-246 Lab Interpretation (test cod e = 41015-5) Normal [facility] HospitalUric Acid Joxuy0054-95-80 09:14:27* Test Item Value Reference Range Interpretation Comme [facility] URIC ACID (test code = 6587204482) 4.8 mg/dL 2.9-6.0 Lab Interpretation (test cod e = 12484-0) Normal [facility] Zdmrftlmfp7822-09-90 09:14:27* Test Item Value Reference Range Interpretation Comme [facility] CREATININE (test code = 3752593458) 0.52 mg/dL 0.50-1.04 eGFR (test code = 79176-3) 137.5 mL/min/1.73m2 CKD-EPI eGFR (20 21). Assuming creatinine has been stable day-to-day for at least three months, the eGFR indicates Category G1 (>= 90 mL/min/1.73 m2) [facility] HospitalSGOT (Asparate Amino Transfer)2023-06-08 09:14:27* Test Item Value Reference Range Interpretation Comme nts AST(SGOT) (test code = 1358840821) 22 U/L 13-40 Lab Interpretation (test cod e = 83801-2) Normal [facility] HospitalAlanine Amino Transferase (SGPT)2023-06-08 09:14:27* Test Item Value Reference Range Interpretation Comme nts ALTv (test code = 1742-6) 19 U/L 5-35 Lab Interpretation (test cod e = 27328-4) Normal [facility] HospitalCBC with Cjtrmorxqjfz8068-05-60 08:58:44* Test Item Value Reference Range Interpretation [...] g/dL 31.6-35.1 L RDW-SD (test code = 92043-9) 43.0 fL 39.0-49.9 RDW-CV (test code = 788-0) 14.8 % 12.0-15.5 PLT (test code = 777-3) 238 See_Comment [Automated messa ge] The system which generated this result transmitted reference range: 166 - 358 10*3/?L. The reference range was not used to interpret this result as normal/abnormal. MPV (test code = 91462-8) 10.4 fL 9.5-12.9 NRBC/100 WBC (test code = 2667020383) 0.0 See_Comment [Automated Thalchemy ssage] The system which generated this result transmitted reference range: 0.0 - 10.0 /100 WBCs. The reference range was not used to interpret this result as normal/abnormal. NRBC x10^3 (test code = 9506320928) See_Comment [Automated messa ge] The system which generated this result transmitted reference range: 10*3/?L. The reference range was not used to interpret this result as normal/abnormal. GRAN MAT (NEUT) % (test code = 770-8) 71.8 % IMM GRAN % (test code = 9208577451) 1.40 % LYMPH % (test code = 736-9) 17.2 % MONO % (test code = 5905-5) 8.4 % EOS % (test code = 713-8) 0.9 % BASO % (test code = 706-2) 0.3 % GRAN MAT x10^3(ANC) (test code = 0095830208) 4.64 10*3/uL 1.88-7.09 IMM GRAN x10^3 (test code = 9801178070) 0.09 10*3/uL 0.00-0.06 H LYMPH x10^3 (test code = 731-0) 1.11 10*3/uL 1.32-3.29 L MONO x10^3 (test code = 742-7) 0.54 10*3/uL 0.33-0.92 EOS x10^3 (test code = 711-2) 0.06 10*3/uL 0.03-0.39 BASO x10^3 (test code = 704-7) 0.01-0.07 Lab Interpretation (test code = 02663-0) Abnormal [facility] with Fprcvydjjite4272-40-24 08:58:04* Test Item Value Reference Range Interpretation [...] g/dL 31.6-35.1 L RDW-SD (test code = 23333-0) 42.8 fL 39.0-49.9 RDW-CV (test code = 788-0) 14.6 % 12.0-15.5 PLT (test code = 777-3) 243 See_Comment [Automated messa ge] The system which generated this result transmitted reference range: 166 - 358 10*3/?L. The reference range was not used to interpret this result as normal/abnormal. MPV (test code = 83590-0) 10.7 fL 9.5-12.9 NRBC/100 WBC (test code = 3812927412) 0.0 See_Comment [Automated Thalchemy ssage] The system which generated this result transmitted reference range: 0.0 - 10.0 /100 WBCs. The reference range was not used to interpret this result as normal/abnormal. NRBC x10^3 (test code = 5878607263) See_Comment [Automated messa ge] The system which generated this result transmitted reference range: 10*3/?L. The reference range was not used to interpret this result as normal/abnormal. GRAN MAT (NEUT) % (test code = 770-8) 70.9 % IMM GRAN % (test code = 4735893465) 2.00 % LYMPH % (test code = 736-9) 17.2 % MONO % (test code = 5905-5) 8.5 % EOS % (test code = 713-8) 1.1 % BASO % (test code = 706-2) 0.3 % GRAN MAT x10^3(ANC) (test code = 3789580899) 4.69 10*3/uL 1.88-7.09 IMM GRAN x10^3 (test code = 5225801723) 0.13 10*3/uL 0.00-0.06 H LYMPH x10^3 (test code = 731-0) 1.14 10*3/uL 1.32-3.29 L MONO x10^3 (test code = 742-7) 0.56 10*3/uL 0.33-0.92 EOS x10^3 (test code = 711-2) 0.07 10*3/uL 0.03-0.39 BASO x10^3 (test code = 704-7) 0.01-0.07 Lab Interpretation (test code = 02574-2) Abnormal [facility] HospitalHIV 1/2 Ag-Ab with Qloqqy2288-56-95 04:05:57* Test Item Value Reference Range Interpretation Comme nts HIV Semi-quantitative (test code = 76332-7) 0.07 Negative YANET (test code = YANET) Non-reactive for HIV-1 antigen and HIV-1/HIV-2 antibodies. ?No laboratory evidence of HIV infection. ?Repeat in 2-4 weeks if acute HIV infection is suspected. [facility] HospitalPOCT GLUCOSE (AUTOMATED)2023-06-08 02:51:09* Test Item Value Reference Range Interpretation Comme nts POCT GLU (test code = 7131090332) 87 mg/dL 70-110 Lab Interpretation (test cod e = 96066-5) Normal [facility] HospitalHepatitis B Surface Gjqkjyn0514-64-81 02:25:31 * Test Item Value Reference Range Interpretation Comme nts HBsAg Semi-Quantitative (loli t code = 5195-3) 0.09 Negative [facility] HospitalCbc with Tryn6059-21-90 00:58:41* Test Item Value Reference Range Interpretation [...] 31.9 g/dL 31.6-35.1 RDW-SD (test code = 81528-9) 42.4 fL 39.0-49.9 RDW-CV (test code = 788-0) 14.6 % 12.0-15.5 PLT (test code = 777-3) 316 See_Comment [Automated messa ge] The system which generated this result transmitted reference range: 166 - 358 10*3/?L. The reference range was not used to interpret this result as normal/abnormal. MPV (test code = 76242-2) 10.4 fL 9.5-12.9 NRBC/100 WBC (test code = 5101141207) 0.0 See_Comment [Automated Thalchemy ssage] The system which generated this result transmitted reference range: 0.0 - 10.0 /100 WBCs. The reference range was not used to interpret this result as normal/abnormal. NRBC x10^3 (test code = 3266769504) See_Comment [Automated messa ge] The system which generated this result transmitted reference range: 10*3/?L. The reference range was not used to interpret this result as normal/abnormal. GRAN MAT (NEUT) % (test code = 770-8) 68.8 % IMM GRAN % (test code = 0341780719) 1.40 % LYMPH % (test code = 736-9) 20.9 % MONO % (test code = 5905-5) 7.2 % EOS % (test code = 713-8) 1.3 % BASO % (test code = 706-2) 0.4 % GRAN MAT x10^3(ANC) (test code = 3555841670) 4.76 10*3/uL 1.88-7.09 IMM GRAN x10^3 (test code = 4718304109) 0.10 10*3/uL 0.00-0.06 H LYMPH x10^3 (test code = 731-0) 1.45 10*3/uL 1.32-3.29 MONO x10^3 (test code = 742-7) 0.50 10*3/uL 0.33-0.92 EOS x10^3 (test code = 711-2) 0.09 10*3/uL 0.03-0.39 BASO x10^3 (test code = 704-7) 0.03 10*3/uL 0.01-0.07 Lab Interpretation (test code = 54752-4) Abnormal [facility] HospitalType [facility] Screen - ONCE Lxepnsa0300-03-19 00:48:00* Test Item Value Reference Range Interpretation Comme nts ABO & RH (test code = 20) A POSITIVE IAT (test code = 1185) Negative [facility] HospitalPOCT URINALYSIS W SPECIFIC [id number] 21:19:00* Test Item Value Reference Range Interpretation [...] U APPEAR (test code = 3267) . [facility] URINALYSIS W SPECIFIC [id number] 21:19:00* Test Item Value Reference Range Interpretation [...] U APPEAR (test code = 3267) . [facility] URINALYSIS W SPECIFIC [id number] 21:05:00* Test Item Value Reference Range Interpretation [...] U APPEAR (test code = 3267) . [facility] URINALYSIS W SPECIFIC [id number] 21:05:00* Test Item Value Reference Range Interpretation [...] U APPEAR (test code = 3267) . [facility] URINALYSIS W SPECIFIC [id number] 21:05:00* Test Item Value Reference Range Interpretation [...] U APPEAR (test code = 3267) . [facility] URINALYSIS W SPECIFIC [id number] 21:05:00* Test Item Value Reference Range Interpretation [...] U APPEAR (test code = 3267) . [facility] URINALYSIS W SPECIFIC [id number] 16:23:00* Test Item Value Reference Range Interpretation [...] U APPEAR (test code = 3267) . [facility] URINALYSIS W/O SPECIFIC [id number] 18:58:00* Test Item Value Reference Range Interpretation [...] ve Lab Interpretation (test cod e = 42303-3) Abnormal [facility] HospitalPO[facility]IN[facility] W/O SPECIFIC [id number] 18:58:00* Test Item Value Reference Range Interpretation [...] ve Lab Interpretation (test cod e = 76093-5) Abnormal [facility] HospitalPOCT [id number] 18:57:00* Test Item Value Reference Range Interpretation Comme nts POCT PREG (test code = 1605) Positive On board controls acceptable with C Line (test code = 3574) Yes POCT PREG LOT # (test code = 3575) POCT PREG TEST DATE ( test code = 3576) [facility] HospitalPOCT [id number] 18:57:00* Test Item Value Reference Range Interpretation Comme nts POCT PREG (test code = 1605) Positive On board controls acceptable with C Line (test code = 3574) Yes POCT PREG LOT # (test code = 3575) POCT PREG TEST DATE ( test code = 3576) [facility] Consult Notes Date/Time Note Provider Source 2024-10-04 11:04:00 Associated Order(s): CONSULT VACCINATOR-ADULT Images from the original note were not included. Reason for consult - please give recommendation or opinion on: please assess due to history of substance abuse and resources. CARE MANAGEMENT Care Coordinators/Social Workers/CM Specialists/Utilization Review/Patient Placement & Transfer Center 10/04/2024 11:04 AM Canal Boat Captain Note SW spoke with Claudette Mclaughlin, CPS Chief Transfer And Pumphouse Operator [facility] . Al informed is still needing to follow up with the Adoptive [employer] regarding baby placed for adoption. Al informed pt's other child resides with [facility]. Update @6559 SW spoke with pt who reportedly resides at [address] [place] [address]. SW discussed Substance Abuse resources and MH resources provided on 09/13/24 when SW was following up with pt regarding baby. Pt reported she has the resources at home and does not need any new resources. Pt stated family or friends will transport the pt home upon discharge. Rina Moya LMSW [facility] Canal Boat Captain Care Management O: [phone] F: [phone] [email or web address] Rina Moya LMSW [facility] Health 2024-09-10 11:07:25 Associated Order(s): CONSULT PEDI VACCINATOR; CONSULT VACCINATOR-ADULT Met with biological MOB and adoptive parents in room, Vernell Ricardo and Jean Ricardo who reside at [address] [place] [address] in [place] [address]. [address] documents provided from [facility] "Statement to Confer Standing" as well as Mother's Authorization For Release of To Adoptive Parents" signed and notarized by Zhanna Tello ID [id number] on 09-04-24. SW also completed [facility] Release of [employer]. SW will assist with any additional dc needs. MOB is coping appropriately with adoption. SW will provide community resources for couseling and grief therapy as requested per MOB. Adoptive parents have all necessary child welfare assistant items necessary for dc. NB anticipated to dc on 09-11-24. Regarding MOB history of positive UDS on 01-09-24 for cocaine and THC, pt denies any use thereafter, with no other UDS's completed, until present upon delivery, of which was negative. Pt had consistent care and indicates she plans on returning home with her mother and at [address] [place] [address] with good family support to report. MOB [...] any additional dc needs. CPS Report ID# [id number] Sliver Lap Tender: DOMINGO Ackerman 5523 NOTIFIED THAT CPS DOES NOT RECOMMEND OPENING CASE. JUAN Lauren Canal Boat Captain - Care Management [facility] [phone] [email or web address] JUAN Lauren Canal Boat Captain - Care Management [place] [phone] [email or web address] Emily MARTINEZ [facility] - Health History and Physical Notes [...] List Diagnosis Date Noted Liveborn infant, of chnadler , born in hospital by vaginal delivery [...] ?C (97.6 ?F)] Temp source: Axillary (09/09 6964) Pulse: [79] Resp: [20] SpO2: [99 %] [...] Positive Negative Final No results found for: "NNRK7GD" No results found for: "CGBS" HGB Date [...] persists, will send tox labs care at [facility]. Labs/imaging reviewed. Pedi made aware Mark Johansen MD 09/09/2024 8:38 PM [facility] 2023-06-07 18:42:02 TRIAGE/L&D HISTORY & PHYSICAL IDENTIFYING [...] "CGB" GTT No results found for: "GLUF", "BHXZ9CR", "GLU3H" CBC Lab Results Component Value Date/Time [...] PreE - SVE: cervix visually closed - [place]: quiescent Plan: - tox labs ordered - [...] Littlejohn MD, PhD Obstetrics & Gynecology, PGY-1 ER SUPERVISOR Associated attestation - Edyta Watson MD - 06/08/2023 6:38 AM TIMBER SUPERVISOR I was L&D faculty on 06/07/2023 and agree with H&P below. I discussed the plan of care with the residents. Will admit for delivery due to GHTN at term Edyta Watson MD [facility] Procedure Notes Date/Time Note Provider Source 2023-06-08 09:18:49 Associated Order(s): Central Neuraxial Block Central Neuraxial Block Date/Time: 06/08/2023 9:18 AM Performed by: Mendoza Marin MD Authorized by: Shruthi Petit MD End Time: 06/08/2023 9:18 AM Reason for Block: OB request, Patient request, Labor analgesia, Surgical anesthesia and Post-op pain management Staff: Anesthesiologist: Shruthi Petit MD Resident/FISHING WORKER: Mendoza Marin MD Performed by: resident/FISHING WORKER Preanesthetic Checklist: patient identified, IV checked, risks and benefits explained, monitors and equipment checked, timeout performed, pre-op evaluation, site marked and anesthesia consent Procedure: Type of Neuraxial: Epidural Prep: Betadine and patient draped Monitoring: heart rate, continuous pulse ox, heart rate / toco and NIBP Technique: catheter and LICHA saline Guidance with: landmark technique} Epidural/Spinal [place] and/or Catheter: Epidural/Spinal Kit: BBraun Needle Type: [...] down on back and given instructions on BANKING SUPERVISOR functionality. Fall precautions provided, patient vocalized understanding and all questions answered. 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 Patient started taking "perks laced with fentanyl" since she was 15 years old. Last pill was taken 1 hour ago. Patient states she has withdrawn in the past. Patient states she has to be clean for 45 days to enter the behavioral health program in [place], [place]. Patient does not want to enter a rehab center. Recently diagnosed with seizures Genesis Zacarias RN [facility] - Health 2024-12-22 19:35:00 [facility] Emergency Department Note Patient Name: Tamera Bergman Date of : 2005 19 year old female Treatment Room: [facility] Primary Care Physician: PATIENT DOES NOT [...] Electronically signed by: Jensen Hall MD 12/22/242006 [facility] EMERGENCY PHYSIC[facility] STAFF [facility] 2024-10-04 14:52:55 Problem: Falls, Risk of Goal: [...] Outcome: Adequate for discharge Rosalee Magaña RN [facility] 2024-09-10 19:03:49 Problem: Discharge Planning - Goal: [...] Outcome: Progressing as expected Payal Mittal RN [facility] 2024-09-10 13:26:08 Images from the original note [...] Elizabeth WHEAT, RN, IBCLC Elizabeth Cadet RN [facility] 2024-09-09 23:33:01 Problem: Discharge Planning - Goal: [...] in pain sensation Outcome: Progressing as expected [facility] 2024-09-09 20:06:12 VAGINAL DELIVERY NOTE Delivery Date: [...] Yes Mark Johansen MD 09/09/2024 8:07 PM [facility] 2024-09-09 19:24:29 Problem: Discharge Planning - Goal: [...] in pain sensation Outcome: Progressing as expected [facility] 2024-09-09 18:54:04 Patient arrived to ED with family c/o five minute apart contractions. Patient is due September 11. Sees the [facility] clinic.Patient states not comfortable standing to get accurate weight. Report to DINA Medeiros. Glenny Henson RN [facility] 2024-09-09 18:51:00 [facility] Emergency Department Note Patient Name: Tamera [...] with complaint of contractions that began around 73965 hrs . Intermittent apx 5 minutes apart. [employer] vaginal bleeding or discharge History provided by: [...] with complaint of contractions that began around 07624 hrs . Intermittent apx 5 minutes apart. [employer] vaginal bleeding or discharge Safe for transfer to L&D for higher level of care Problems Addressed: Third trimester : Details: JCAQUELINE 09/11/24 transferred to L& D Flowsheet Documentation: [...] encounter and patient evaluation by Geovanna Winchester. [facility] 2024-08-20 07:45:30 3rd attempt, not accepting calls. Letter sent. Ernestine Leon RN 08/20/24 7:45 AM [facility] 2024-08-19 13:08:22 2nd attempt to call patient, message states not accepting calls at this time, will try again at a later time. Margo Mcwilliams LVN [facility] 2024-08-19 08:06:30 Attempted to call patient, message states not accepting calls at this time, will try again at a later time. [facility] 2024-08-19 07:33:44 Please notify the patient of [...] last visit. RENE Oliver 08/19/2024 7:34 AM [facility] 2024-01-11 15:07:55 Pt given printed and verbal [...] skin w/d, pt leaving ambulatory accompanied by [facility], in no apparent distress, Flavio Gutierrez RN [facility] 2024-01-11 14:22:14 Pt arrived via [facility] from [facility] for c/o "seizure like activity with no postictal phase" per ems. Pt reports she is 10 weeks and "I think I'm withdrawing from percocets". Amanda Maldonado RN [facility] 2024-01-11 14:18:00 [facility] Emergency Department Note Patient Name: Tamera Bergman Date of : 2005 18 year old female Treatment Room: TX7/TX7 Primary Care Physician: Barry Rob Patient Escorted by: Law enforcement [8] Mode of Arrival: EMS - [facility] ([place]) [43] EMS Treatment Prior to ED Arrival: GLAZE HANDLER treatment: None Travel and Exposure Screening: Symptoms [...] Brought in for reported seizure activity from longterm. Believes she is withdrawing from percocet. Previous [...] Lactic Acid Whole Blood Comp. Metabolic Panel (09746) No orders of the defined types were [...] for follow-up Fredy Cee MD Specialty: PN-NEUROLOGY [facility] [address] [place] [phone] [facility] Department Specialty: Emergency Medicine [address] [place] [id number] Instructions: If symptoms worsen as documented in the discharge Electronically signed by: Holland Stevens DO 01/11/24 1502 [facility] 2024-01-09 22:45:47 Patient awake and alert. DC instructions and prescription for amoxicillin reviewed with patient. She was informed of order for amoxicillin 500 MG po three times a day, and the need to follow up at facility clinic for meds. Reinforced to patient need for follow up with power wood sawyer to monitor . She is Dc'd into custody of [facility]'s Office deputy-awaiting transport back to longterm. [facility] 2024-01-09 21:53:18 [facility] ED Transfer of Care Note. Off-going [...] components within normal limits COMP. METABOLIC PANEL (77184) - Abnormal; Notable for the following components: [...] <10 Negative 50-100 Toxic >100 Depression of RN ANGIOGRAPHY >400 Fatalities Reported SALICYLATE Narrative: Therapeutic Range: Analgesic and Antipyretic Use 20-100 mg/L Anti-Inflammatory Use 100-250 mg/L Toxic Range: Greater than 300 mg/L TOTAL BETA HCG ASSAY Narrative: Gestational Age Range (mIU/mL) 1-10 Weeks 44-190403 11-15 Weeks [id number] 16-22 Weeks [id number] 23-40 Weeks 1531-409384 Biotin has been reported to cause a [...] Prescription drug management. Disposition: Discharged back to Custodial Social Determinants of Health: None ED Disposition ED Disposition Disch - Custodial Condition Stable Comment -- Contact information for follow-up Barry Rob Specialty: PED-PEDIATRICS Relationship: PCP - General [address] [facility] [address] [facility] [phone] Rebeka Montano MD Specialty: OG-OBSTETRICS & GYNECOLOGY [address] [place] [address] [place] [address] [facility] 2024-01-09 18:30:00 Poison Control consulted in regards [...] observation if further Narcan administered. Case # [id number] [facility] [employer] 2024-01-09 16:20:14 Arrives via EMS from [facility]. Patient was found down on floor of holding cell at 1400. Patient states she took approx 15 Percocet at 0300-states they have Fentanyl in them. Not prescribed-she buys them from someone. Denies intent to harm herself-states she takes them regularly because she "has a lot going on". Drowsy-arouses to tactile and verbal stimulation. Mahad Blanc RN [facility] 2023-06-12 14:00:20 Notified the patient of her [...] in 3 months. Pt verbalized understanding. Mcwilliams RUBBER MOLDER [facility] 2023-06-12 08:24:52 2nd attempt to call patient, message states not available, will try again at a a later time. Mcwilliams RUBBER MOLDER [facility] 2023-06-09 15:25:33 Attempted to call patient, message states call can not be completed, will try again at a later time. Mcwilliams RUBBER MOLDER [facility] 2023-06-09 15:16:52 Please notify the patient of [...] been tested. RENE Oliver 06/09/2023 3:17 PM ER SUPERVISOR [facility] 2023-06-09 14:04:52 Problem: Infection Risk Goal: Absence [...] preeclampsia Outcome: Adequate for discharge Jose RN [facility] 2023-06-09 11:40:00 This note was copied from a baby's chart. Consult attempted. Hearing screen in progress. Will return at a later time. Arden WHEAT, RN, IBCLC Porter RN [facility] 2023-06-09 04:28:46 Problem: Infection Risk Goal: Absence [...] preeclampsia Outcome: Progressing as expected Valles RN [facility] 2023-06-08 18:40:33 Problem: Infection Risk Goal: Absence [...] sensation Outcome: Progressing as expected Galdamez RN [facility] 2023-06-08 17:52:15 Patient: Tamera Bergman Procedure Summary [...] | BMI 25.68 kg/m? Block resolving appropriately ER SUPERVISOR AN-ANESTHESIOLOGY ANESTHESIOLOGIST [facility] 2023-06-08 13:32:22 DELIVERY BY SPONTANEOUS VAGINAL DELIVERY [...] Minute Totals: 8 9 Bree Valdez MD Ob-Telephonic Rn PGY3 ER SUPERVISOR Associated attestation - Cynthia Gaurdado MD - 06/08/2023 4:23 PM TIMBER SUPERVISOR Present for the delivery and agree with the resident note [facility] 2023-06-08 08:26:10 Name/ MRN / Age / Gender: Tamera Bergman, [id number] 17 year old female BMI: Estimated body [...] (no physical exam) Anesthesia Preop: Chart Review [facility] questionnaire answers not incorporated NPO Status [...] Chart Review Comments: No results found for: "VLEMTZV3C" There are no current results on file for these tests and/or test for 1 year. 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 GHTN r/o PreE - sent from clinic for high blood pressure in clinic 154/90, 149/92 on recheck - BP on admission 138/104 - denies s/s of PreE - SVE: cervix visually closed - [place]: quiescent Plan: - tox labs ordered - [...] to surgery. Hold on DOS. Phentermine: Alert [facility] anesthesiologist SGLT2 Inhibitors: "gliflozins" to be [...] Anesthesia plan discussed with: patient or sales donor recruitment representative Post-Operative Analgesia: routine analgesia & antiemetics Recovery Plan: LDR Additional comments: [facility] 2023-06-08 07:33:35 Problem: Intrapartum process (including labor [...] Absence of infection Outcome: Progressing as expected ER SUPERVISOR Flaca Mckeon RN [facility] 2023-06-07 21:53:11 Problem: Intrapartum process (including labor [...] Absence of infection Outcome: Progressing as expected ER SUPERVISOR Evi Smith RN [facility] 2023-06-02 15:41:32 Patient stated she noticed she has had some swelling to ebonie feet and ebonie ankles. Denies any other symptoms, informed patient can be normal and to wear good supportive shoes elevate ble. Informed to keep pn appt on 06/07 since she has not been seen since 04/21. Strict L&D warnings given, verbalized understanding. Mcwilliams LVN [facility] 2023-06-02 15:33:36 Tamera Bergman is a 17 year old female 38 wks 0 days Pt notice ankles and feet swelling x3 days. Wants to know if something to be seen for. Please call pt at [phone] (home) Haji [facility]
--- NOTE | 2025-01-02 13:57 | EDPHYS ---
Physician Documentation [facility] Name: Irene Franco Age: 19 yrs Sex: Female : 2005 Arrival Date: 01/02/2025 Time: 13:24 Bed IW2 Private MD: ED Physician Omar Arango HPI: 01/02 14:35 This 19 yrs old Female presents to ER via EMS with complaints of General sb4 Weakness. 14:35 Patient states that she was outside at a gas station today when she started to feel sb4 "weird "and called an ambulance for help. She is not sure if she got overheated or not. She is a daily fentanyl abuser, used her usual stuff today. Was seen here last night for a similar issue, requested to be discharged without any workup. States that she is prescribed Lamictal for seizure disorder but has not had access to her medication for some time. WAREHOUSE HAND: 13:58 LMP N/A - Irregular menses, Not me1 Historical: - Allergies: 13:35 No Known Allergies; me1 - PMHx: 13:35 Anxiety; depressive disorder; Seizure; me1 - Immunization history:: Adult Immunizations unknown. - Infectious Disease History:: Denies. - Social history:: Smoking status: Reported history of juuling and/or vaping. Patient uses street drugs, Fentanyl. ROS: 14:38 Constitutional: Negative for fever, chills, and weight loss, sb4 14:38 All other systems are negative, Exam: 14:38 Constitutional: This is a well developed, well nourished patient who is awake, alert, sb4 and in no acute distress. Head/Face: Normocephalic, atraumatic. Eyes: Extra-ocular motions intact. Periorbital areas with no swelling, redness, or edema. ENT: Mucous membranes moist. Cardiovascular: Regular rate and rhythm with a normal S1 and S2. Respiratory: No increased work of breathing, no retractions or nasal flaring. Abdomen/GI: Soft, non-tender, no distension. Skin: Warm, dry with normal turgor. Normal color with no rashes, no lesions, and no evidence of cellulitis. Vital Signs: 13:34 BP 116 / 80; Pulse 99; Resp 17; Temp 98.3; Pulse Ox 99% ; Weight 61.23 kg; Height 5 ft. me1 2 in. ; 13:34 Body Mass Index 24.69 (61.23 kg, 157.48 cm) mi1 MDM: 13:31 Medical Screening Exam initiated [facility] 14:38 Data reviewed: vital signs, nurses notes, EMS record, and as a result, I will discharge sb4 patient. Test considered but Not performed: Labs: not indicated, patient is back to baseline. Care significantly affected by the following Social Determinants of Health: Inadequate housing, Misuse of alcohol and/or drugs. Counseling: I had a detailed discussion with the patient and/or guardian regarding the historical points, exam findings, and any diagnostic results supporting the discharge/admit diagnosis, the need for outpatient follow up, for definitive care. ED course: EMS administered IV fluids and patient is feeling better. She is well-appearing, in no acute distress, has normal vital signs upon my assessment. She is stable for discharge. Administered Medications: 15:05 Drug: LaMICtal PO 100 mg PO once Route: PO; 15:06 Follow up: Response: No adverse reaction; Medication Administered at Departure Disposition: 01/03 09:05 Co-signature as Attending Physician, Omar Arango MD I agree with the assessment and [facility] plan of care. Disposition Summary: 01/02/25 13:56 Discharge Ordered Notes: Location: Home sb4 Problem: new sb4 Symptoms: have improved sb4 Condition: Stable sb4 Diagnosis - Heat fatigue, transient sb4 Followup: sb4 - With: Emergency Department - When: As needed - Reason: Trouble breathing, Worsening of condition Discharge Instructions: - Discharge Summary Sheet sb4 Forms: - Patient Portal Instructions sb4 - Leadership Thank You Letter sb4 Signatures: Omar Arango MD MD cha Blanchard, Shelby, RN RN Saray Verdugo PA-C PAYue sb4 Shruthi Ramirez, RN RN me1
--- NOTE | 2025-01-02 13:57 | ER ---
Nurse's Notes [facility] Name: Irene Franco Age: 19 yrs Sex: Female : 2005 Arrival Date: 01/02/2025 Time: 13:24 Bed IW2 Private MD: Diagnosis: Heat fatigue, transient Presentation: 01/02 13:33 Chief complaint: EMS states: toned out for lightheadedness. Patient reports she has me1 been "walking around since November". Takes seizure meds but hasnt had them in 2 days. 22g L hand, LR infusing. Reports she came yesterday because the people at [facility] wanted her to come. She left yesterday and has used fentanyl since. States she just feels "weird" but the IV fluids seem to be helping. Coronavirus screen: At this time, the client does not indicate any symptoms associated with coronavirus-19. Ebola Screen: No symptoms or risks identified at this time. 13:33 Method Of Arrival: EMS: [facility] 13:34 Initial Sepsis Screen: Does the patient meet any 2 criteria? No. Patient's initial mo1 sepsis screen is negative. Does the patient have a suspected source of infection? No. Patient's initial sepsis screen is negative. Risk Assessment: Do you want to hurt yourself or someone else? Patient reports no desire to harm self or others. Onset of symptoms is unknown. 13:34 Acuity: IRINA 3 me1 Triage Assessment: 13:35 General: Appears in no apparent distress. comfortable, Behavior is calm, cooperative, me1 appropriate for age. Pain: Denies pain. EENT: No signs and/or symptoms were reported regarding the EENT system. Neuro: Level of Consciousness is awake, alert, obeys commands, Oriented to person, place, time, situation, Appropriate for age Reports dizziness, earlier when walking outside. Cardiovascular: Patient's skin is warm and dry. Respiratory: Airway is patent Respiratory effort is even, unlabored, Respiratory pattern is regular, symmetrical. GI: No signs and/or symptoms were reported involving the gastrointestinal system. : No signs and/or symptoms were reported regarding the genitourinary system. Derm: Skin is intact, is healthy with good turgor, Skin is normal. Musculoskeletal: Circulation, motion, and sensation intact. Range of motion: intact in all extremities. 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 - Infectious Disease History:: Denies. - Social history:: Smoking status: Reported history of juuling and/or vaping. Patient uses street drugs, Fentanyl. Screenin:10 [facility] ED Fall Risk Assessment (Adult) History of falling in the last 3 months, ss including since admission No falls in past 3 months (0 pts) Confusion or Disorientation No (0 pts) Intoxicated or Sedated No (0 pts) Impaired Gait No (0 pts) Mobility Assist Device Used No (0 pt) Altered Elimination No (0 pt) Score/Fall Risk Level 0 - 2 = Low Risk Oriented to surroundings, Maintained a safe environment, Educated pt \\T\\ family on fall prevention, incl call for assistance when getting out of bed. Abuse screen: Denies threats or abuse. Denies injuries from another. Nutritional screening: No deficits noted. Tuberculosis screening: Never had TB. Assessment: 15:10 General: Appears in no apparent distress. comfortable, Behavior is calm, cooperative. ss Neuro: Level of Consciousness is awake, alert, obeys commands, Oriented to person, place, time, situation. Respiratory: Airway is patent Respiratory effort is even, unlabored, Respiratory pattern is regular, symmetrical. Derm: Skin is intact, is healthy with good turgor, Skin is pink, warm \\T\\ dry. normal. Vital Signs: 13:34 BP 116 / 80; Pulse 99; Resp 17; Temp 98.3; Pulse Ox 99% ; Weight 61.23 kg; Height 5 ft. me1 2 in. ; 13:34 Body Mass Index 24.69 (61.23 kg, 157.48 cm) me1 ED Course: 13:29 Patient arrived in ED. im 13:30 Saray Contreras PA-C is PHCP. sb4 13:30 Omar Arango MD is Attending Physician. sb4 13:35 Triage completed. me1 13:35 Arm band placed on Patient placed in waiting room. me1 15:05 Mervat Gustafson, DINA is Primary Nurse. ss 15:10 Patient has correct armband on for positive identification. ss 15:10 No provider procedures requiring assistance completed. IV discontinued, intact, ss bleeding controlled, No redness/swelling at site. Pressure dressing applied. Administered Medications: 15:05 Drug: LaMICtal PO 100 mg PO once Route: PO; ss 15:06 Follow up: Response: No adverse reaction; Medication Administered at Departure ss Medication: 15:10 VIS not applicable for this client. ss Outcome: 13:56 Discharge ordered by . jewel 15:10 Discharged to home ambulatory, ss 15:10 Condition: good 15:10 Discharge instructions given to patient, Instructed on discharge instructions, follow up and referral plans. Demonstrated understanding of instructions, follow-up care, 15:12 Patient left the ED. Signatures: Mervat Gustafson RN RN Saray Contreras PA-C PA-C sb4 Chela Burleson Michelle RN RN me1 Corrections: (The following items were deleted from the chart) 13:53 13:33 Chief complaint: EMS states: toned out for lightheadedness. Patient reports she me1 has been "walking around since November". Takes seizure meds but hasnt had them in 2 days. 22g L hand, LR infusing. me1
[2025-01-02] MEDS ORDERED: lamoTRIgine 100 MG TAB PO ONE (14:45)
[2025-01-02 16:40] VITALS: BP 116/80; TEMP 98.3; O2SAT 99
== END 2025-01-02 15:12 | disposition home or self-care (01) ==
LOC: ER 13:24
DX: T67.6XXA Heat fatigue, transient, initial encounter (principal); F19.90 Other psychoactive substance use, unspecified, uncomplicated; F17.290 Nicotine dependence, other tobacco product, uncomplicated
CPT/HCPCS: 99283